=== PATIENT | male | born 1960 | race Caucasian/White ===

== ENCOUNTER → 2020-01-23 | Outpatient (CLI) | payer BC | END | disposition home or self-care (01) | LOC: LABWHC1 09:14 | PROVIDERS: ATTEND Internal Medicine Clinical Cardiac Electrophysiology | DX: Z11.59 Encounter for screening for other viral diseases (principal) | CPT/HCPCS: 87635 ==

== ENCOUNTER → 2020-01-27 | Day surgery (SDC) | payer BC ==
[2020-01-22 11:10] VITALS: BMI 42.5
[~2020-01-27] MED LIST: SODIUM CHLORIDE 0.9% 1,000 ML IV SCH
[2020-01-27 08:41] VITALS: BP 145/76; PULSE 57; RESP 18; TEMP 97.8
[2020-01-27 10:57] LABS: Basophils # (A) 0.1 k/uL (0-0.2); Basophils % (A) 1 %; Eosinophils # (A) 0.1 k/uL (0-0.7); Eosinophils % (A) 1 %; HCT 50.9 % (39.0-53.0); HGB 16.7 gm/dL (13.0-17.5); Lymphocytes # (A) 2.3 k/uL (1.0-4.8); Lymphocytes % (A) 25 %; MCH 28.1 pg (25.0-35.0); MCHC 32.8 g/dL (31.0-37.0); MCV 85.8 fL (80.0-100.0); Monocytes # (A) 0.6 k/uL (0-1.0); Monocytes % (A) 7 %; Neutrophils % (A) 65 %; Platelet Count 203 k/uL (150-450); RBC 5.94 m/uL (4.30-5.90); RDW 14.3 % (11.5-15.5); WBC 9.3 k/uL (3.8-10.6)
[2020-01-27 10:58] LABS: Glucose,Whole Blood 177 mg/dL (75-99)
[2020-01-27 11:07] LABS: Potassium 4.6 mmol/L (3.5-5.1)
== END ==
LOC: CATHEP 08:17
PROVIDERS: ATTEND Internal Medicine Clinical Cardiac Electrophysiology
DX: I48.91 Unspecified atrial fibrillation (principal)
CPT/HCPCS: 80048; 85025

== ENCOUNTER → 2020-02-06 | Outpatient (CLI) | payer BC | LOC: LABWHC1 11:45 | PROVIDERS: ATTEND Internal Medicine Clinical Cardiac Electrophysiology | DX: Z11.59 Encounter for screening for other viral diseases (principal) ==

== ENCOUNTER 2020-02-09 09:47 | Day surgery (SDC) | payer BC ==
[2020-02-06 08:50] VITALS: BMI 41.8
[~2020-02-09 09:47] MED LIST changes: +LACTATED RINGERS 1,000 ML IV SCH
[2020-02-09 10:26] LABS: Glucose,Whole Blood 161 mg/dL (75-99)
[2020-02-09] MEDS ORDERED: fentaNYL (PF) 50 MCG/ML 2 ML AMP ONE (11:55)
[2020-02-09] MEDS ORDERED: ONDANSETRON 4 MG/2 ML VIAL ONE (11:55)
[2020-02-09] MEDS ORDERED: HEPARIN SODIUM,PORCINE 10,000 UNIT/ML 1 ML VIAL ONE (11:55)
[2020-02-09] MEDS ORDERED: FUROSEMIDE 10 MG/ML 2 ML VIAL ONE (11:55)
[2020-02-09] MEDS ORDERED: NEOSTIGMINE 1 MG/ML 10 ML VIAL ONE (11:55)
[2020-02-09] MEDS ORDERED: PROTAMINE SULFATE 10 MG/ML 5 ML VIAL IV ONE (11:55)
[2020-02-09] MEDS ORDERED: MIDAZOLAM 2 MG/2 ML VIAL ONE (11:55)
[2020-02-09] MEDS ORDERED: LIDOCAINE 1% INJ 10MG/ML (20 ML MDV) ONE (11:55)
[2020-02-09] MEDS ORDERED: GLYCOPYRROLATE 0.2 MG/ML 2 ML VIAL ONE (11:55)
[2020-02-09] MEDS ORDERED: ROCURONIUM BROMIDE 10 MG/ML 5 ML VIAL IV ONE (11:55)
[2020-02-09] MEDS ORDERED: PROPOFOL 10 MG/ML 20 ML VIAL IV ONE (11:55)
[2020-02-09] MEDS ORDERED: PHENYLEPHRINE-0.9% NACL SYG 1 MG/10 ML SYRINGE ONE (11:55)
[2020-02-09] MEDS ORDERED: SUCCINYLCHOLINE CHLORIDE VIAL 200 MG/10 ML VIAL IV ONE (11:55)
--- NOTE | 2020-02-09 12:39 | P.HPCAR ---
History of Present Illness This is Dr. Alonzo dictating an H/P on this patient The patient was interviewed and examined Patient of Dr. Constantin Hayden and Dr. 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 Pulmonary symptoms at this time PLAN: A. fib ablation and reevaluation thereafter Risks and benefits were discussed success rates and complications were discussed HPI Complains of tiredness fatigued shortness of breath and heart failure-like symptoms Reduction in LV systolic function with heart failure symptoms during atrial fibrillation Failed antiarrhythmic therapies including drug therapy with electrical card ioversion ROS: No fever chills or rigors, no cough, phlegm or expectoration, no nausea, vomiting or diarrhea, no hematuria, dysuria, no musculoskeletal complaints, no strokes or seizures, no skin lesions. EXAMINATION: Afebrile 98.8F, pulse rate in the 70s Blood pressure 148/80 mmHg 96% on room air Breath sounds are reduced bilaterally no rhonchi no crackles No JVD no carotid bruits No lower extremity edema Trophic changes in the lower extremities Abdomen is soft Central obesity Heart rates are irregular rhythm is irregular no murmurs REVIEW OF LABS, ECG & MEDICAL DATA Elevated glucose Physical Exam Vitals: Vital Signs Temp Pulse Resp BP Pulse Ox 02/09/20 10:36 98.8 F 77 6 L 148/80 96 Intake and Output 02/08/20 02/09/20 02/09/20 22:59 06:59 14:59 Intake Total 20 Balance 20 Intake: IV 20 Other: Weight 151.9 kg Past Medical History Past Medical History: Atrial Fibrillation, Diabetes Mellitus, Hyperlipidemia, Hypertension Additional Past Medical History / Comment(s): see DR Alonzo H & P History of Any Multi-Drug Resistant Organisms: None Reported Additional Past Surgical History / Comment(s): cardioversion Past Anesthesia/Blood Transfusion Reactions: No Reported Reaction Smoking Status: Never smoker - Past Family History Mother Family Medical History: No Reported History Physical Examination Vital Signs Temp Pulse Resp BP Pulse Ox 02/09/20 10:36 98.8 F 77 6 L 148/80 96 Intake and Output 02/08/20 02/09/20 02/09/20 22:59 06:59 14:59 Intake Total 20 Balance 20 Intake: IV 20 Other: Weight 151.9 kg Results Current Medications Generic Name Dose Route Start Last Admin Trade Name Yoan PRN Reason Stop Dose Admin Sodium Chloride 1,000 mls @ 20 mls/hr 02/09/20 06:07 02/09/20 10:38 Saline 0.9% IV 20 mls .Q24H TRIN[place] Administration Lactated Ringer's 1,000 mls @ 20 mls/hr 02/09/20 06:07 Lactated Ringers IV .Q24H TR[place]IDAD Intake and Output 02/08/20 02/09/20 02/09/20 22:59 06:59 14:59 Intake Total 20 Balance 20 Intake: IV 20 Other: Weight 151.9 kg Patient Weight 02/10/20 06:59 Weight 151.9 kg
[2020-02-09] MEDS ORDERED: HEPARIN SOD,PORK IN 0.45% NACL 25,000 UNIT in 0.45% NACL 1 250ML.BAG IV ONE (12:58)
[2020-02-09] MEDS ORDERED: LIDOCAINE 1% INJ 10MG/ML (20 ML MDV) SQ ONE (12:59)
[2020-02-09] MEDS ORDERED: IOPAMIDOL-370 125ML BTL INJ ONE (14:40)
[2020-02-09] MEDS ORDERED: HEPARIN SODIUM (1,000 UNIT/ML) 1,000 UNIT in SODIUM CHLORIDE 0.9% 1,000 ML IRRIGATION ONE ×2 (15:15→17:50)
[2020-02-09] MEDS ORDERED: LACTATED RINGERS 1,000 ML IV ONE (15:30)
[2020-02-09] MEDS ORDERED: ACETAMINOPHEN TAB 325 MG TAB PO PRN (18:33)
[2020-02-09] MEDS ORDERED: HYDROcodone/APAP 5-325MG 1 EACH TAB PO PRN (18:33)
--- NOTE | 2020-02-09 18:45 | P.PCN ---
Preoperative Diagnosis: Diagnosis Atrial fibrillation, symptomatic, refractory to therapy Persistent Associated with cardio myopathy and heart failure Result No left atrial appendage mass seen on intracardiac echo Significant biatrial enlargement Successful pulmonary vein isolation of all veins using cryo-ablation Complete entrance block in all 4 veins confirmed No evidence for phrenic nerve injury Linear ablation along the left atrial roof, Linear ablation along the anterior septum Linear ablation mitral annulus isthmus Esophageal deflection YES Electrical cardioversion with a synchronized shock across the chest YES Plan Continue amiodarone now at 100 mg by mouth daily Continue cardio myopathy medications If he has recurrence of atrial fibrillation then dense mapping with a Pentaray catheter in the left atrium, interrogation of the roof line and the mitral isthmus line Ablation within the coronary sinus Use of a Visio sheath for extra stability Procedure details Patient was brought to the EP lab in a fasting state. Written informed consent was obtained prior to the procedure. Procedure performed under general anesthesia After initial muscle relaxant use, muscle relaxants were not given thereafter in order to assess phrenic nerve during procedure. Patient prepped and draped as per protocol Full cryo-set up with standard preparation of the cryoablation tools done. Femoral Venous access obtained on the right and left groins Venous and arterial Sheaths placed. Diagnostic catheters for the high right atrium, phrenic nerve stimulation and pacing, His bundle, RV and coronary sinus placed Intracardiac echo catheter placed. Long sheath placed in the right atrium Left and right transseptal catheterization performed under intracardiac echo guidance. Intravenous heparin with aCT above 300 Later, catheter positioning and balloon positioning in the left atrium, under intracardiac echo guidance Diagnostic EP study with Coronary sinus pacing and recording Baseline measurements sinus cycle length 930 ms, MD interval 193 ms QRS 100 ms QT 540 ms AH 61 and HV 76 ms Atrial pacing from the sinus and left atrium to interrogate lines Transseptal catheterization performed RA pressure 13/8/10 LA pressure 36/7/24 Transseptal catheterization performed with standard sheath. The cryoablation sheath was then placed with an over the wire exchange without any acute complications. All 4 pulmonary veins were isolated in the following sequence: Left superior followed by left inferior followed by right superior followed by right inferior The cryo-ablation balloon was placed at the os of each vein 1.5 mL of IV dye was injected to confirm an occluded vein Goal during cryoablation was to achieve complete occlusion of the pulmonary vein, achieve -30 degrees C at 30 seconds and achieve -40 degrees C at 60 seconds and a time to effect of less than 60-90 seconds, . If not the balloon was repositioned to obtain this result After completion of Cryoblation with durations from 180-240 seconds, entrance block was confirmed with the Attain circular catheter in a roving fashion around the antrum of the pulmonary veins Phrenic nerve pacing was performed from the SVC, right innominate vein area and diaphragm voltage was monitored. Diaphragmatic contractions were also monitored manually for strength of contraction. Parameter goals for each cryo freeze Complete occlusion of the appropriate vein -30 degrees C by 30 seconds -40 degrees C by 60 seconds Minimum between minus 40-55 degrees C Thaw time greater than 10 seconds Balloon visualized by intracardiac echo The esophagus was intubated. Esophageal Temperature monitoring with a CIRCA catheter formed. Esophageal deflection for hypothermia of the esophagus below 30 degrees C Left superior pulmonary vein Complete isolation, entrance block Left inferior pulmonary vein Complete isolation, entrance block Right superior pulmonary vein, during phrenic nerve pacing Complete isolation, entrance block Right inferior pulmonary vein, during phrenic nerve pacing Complete isolation, entrance block At the end of the procedure the Achieve catheter was once again used to check for entrance block Phrenic nerve stimulation was performed to confirm diaphragmatic stimulation the end of the procedure Cine fluoroscopy was performed at the very end of the procedure to confirm movement of both diaphragms with inspiration and expiration This is a very long procedure The atrium was significantly enlarged After complete isolation of all 4 pulmonary veins the following linear ablations were performed Left atrial roof ablation was performed slightly anterior to the roof. Later when in sinus rhythm the line was interrogated this seemed to be In the line However a more anterior RF line was made. Contact force of around 810 g, 40 W of power in a complete line was made from the left superior pulmonary vein anteriorly to the right superior pulmonary vein anteriorly Yet they seem to be a slow leak all along the line despite non-capture along the entire Anterior septum was ablated. The linear ablation was performed along the anterior septum and the segment of the anterior wall between the right-sided veins and this line was completely quiescent Once the roof line and the anterior septum Were completed this seemed to be much better organization of left atrial electrograms with eccentric activation Therefore the mitral isthmus line was made and this was eliminated but atrial fibrillation continued and became more disorganize Then linear ablation was performed in the mitral isthmus because it was colonization of left atrial activity intermittently with eccentric activation in the Asher sinus pole A complete RF line was made. Non-capture was noted Yet there was conduction through this line was simply at the level of the coronary sinus Asher sinus was not ablated at this time At the end of the procedure the patient was extubated Heparin was reversed Venous sheaths were removed and hemostasis assured Procedures performed (PVI - CRYO Ablation) Diagnostic EP study CS pacing and recording Left and right transseptal catheterization 3D mapping) Intracardiac echocardiography Pulmonary vein isolation with transseptal and comprehensive EPS, 41675 Left atrial roof line, +19530 Linear ablation, left atrium, +75052 Linear ablation in the left atrial mitral isthmus, +[id number] Electrical cardioversion with a synchronized shock across the chest [id number]
--- NOTE | 2020-02-09 18:46 | P.PRLE ---
RE: Gurjit Siegel Dear Dr. Catracho Meek underwent extensive A. fib ablation involving pulmonary vein isolation as well as linear ablation of the left atrium He has a significantly enlarged right and left atria with smoke in the left atrium Once in sinus rhythm his LV function seemed to improve I would continue his cardio myopathy medications and ELIQUIS lifelong He will continue to follow with you and Dr. Deleon as before Thank you for entrusting me with the care of the patient Warm regards Sincerely Mike Alonzo
[2020-02-09] MEDS ORDERED: ACETAMINOPHEN IV (For NPO) 1,000 MG in EMPTY BAG 1 BAG IVPB ONE (19:00)
[2020-02-09] MEDS: HYDROmorphone 0.5 MG/0.5 ML SYRINGE IVP ONE ×2 (19:28→19:37)
[2020-02-09 19:42] LABS: Glucose,Whole Blood 169 mg/dL (75-99)
[2020-02-09] MEDS ORDERED: ASPIRIN 81 MG PO SCH (21:00)
[2020-02-09] MEDS: METOPROLOL TARTRATE 50 MG TAB PO SCH (21:31)
[2020-02-09] MEDS: APIXABAN 5 MG TAB PO SCH (21:31)
[2020-02-09 21:32] LABS: Glucose,Whole Blood 209 mg/dL (75-99)
[2020-02-09] MEDS: FUROSEMIDE 40 MG TAB PO SCH (21:32)
[2020-02-10 04:16] VITALS: PULSE 62
[2020-02-10 06:20] LABS: Albumin 3.6 g/dL (3.5-5.0); Potassium 5.1 mmol/L (3.5-5.1); Total Bilirubin 1.2 mg/dL (0.2-1.3); Total Protein 6.3 g/dL (6.3-8.2)
[2020-02-10 06:54] LABS: Glucose,Whole Blood 159 mg/dL (75-99)
[2020-02-10] MEDS ORDERED: glipiZIDE 10 MG TAB PO SCH (07:30)
[2020-02-10 07:33] VITALS: BP 92/53; RESP 18; TEMP 97.9
--- NOTE | 2020-02-10 07:47 | P.DS ---
Providers Attending physician: Mike Alonzo Primary care physician: [facility] Course: Patient is resting comfortably in bed. He has no pleuritic chest discomfort no sore throat no dizziness or lightheadedness. His back feels better His lungs are clear auscultation and no rhonchi no crackles posteriorly or anteriorly Heart sounds are regular no murmurs normal S1 normal S2 No hepatojugular reflux no JVD No lower extremity edema Abdomen is soft and nontender Telemetry shows sinus mechanism in the 60s His blood pressures in the high 90s but she is completely asymptomatic Yesterday he underwent pulmonary vein isolation Thereafter he underwent linear ablation in the left atrial roof, anterior septum and mitral isthmus Subsequently he underwent electrical cardioversion He has severe cardio myopathy but in sinus rhythm is LV function looked at had better He has a significantly enlarged right atrium He is a significantly enlarged left atrium Smoke in the left atrium and the right atrium Labs reviewed this morning sodium 133, potassium 5.1 bicarb 25 BUN 28 creatinine 1.4 GFR 54 TSH normal at 0.84 Plan Resume diabetes medications including metformin Continue ELIQUIS 5 mg twice daily Continue current myopathy/heart failure medications. At this time I would reduce spironolactone 25 mg by mouth daily and lisinopril 22.5 mg by mouth daily line continue all other medications as before and follow up with Dr. Pancho jung/Flor Rao within a week Long-term plan If he has recurrence of atrial fibrillation then If he recurs with an atrial tachycardia then I would recommend mapping and ablation, high density mapping with a deflectable sheath, Vizigo If he has atrial fibrillation as a recurrence then consideration for possible dofetilide However that would need discontinuation of amiodarone for at least 3 months, at least a 3 month washout because of interaction with amiodarone and dofetilide Plan - Discharge Summary Discharge Rx Participant: Yes New Discharge Prescriptions: Continue RX: glipiZIDE [Glucotrol] 10 mg PO DAILY RX: Lisinopril [Zestril] 2.5 mg PO DAILY RX: Atorvastatin [Lipitor] 20 mg PO DAILY RX: Metoprolol Tartrate [Lopressor] 50 mg PO BID RX: Furosemide [Lasix] 40 mg PO BID RX: Apixaban [Eliquis] 5 mg PO BID RX: Amiodarone HCl [Pacerone] 200 mg PO DAILY RX: Spironolactone 25 mg PO DAILY RX: Dapagliflozin Propanediol [Farxiga] 10 mg PO HS RX: Aspirin [Adult Low Dose Aspirin EC] 81 mg PO HS Discharge Medication List RX: Amiodarone HCl [Pacerone] 200 mg PO DAILY 01/22/20 [History] RX: Apixaban [Eliquis] 5 mg PO BID 01/22/20 [History] RX: Aspirin [Adult Low Dose Aspirin EC] 81 mg PO HS 01/22/20 [History] RX: Atorvastatin [Lipitor] 20 mg PO DAILY 01/22/20 [History] RX: Dapagliflozin Propanediol [Farxiga] 10 mg PO HS 01/22/20 [History] RX: Furosemide [Lasix] 40 mg PO BID 01/22/20 [History] RX: Lisinopril [Zestril] 2.5 mg PO DAILY 01/22/20 [History] RX: Metoprolol Tartrate [Lopressor] 50 mg PO BID 01/22/20 [History] RX: Spironolactone 25 mg PO DAILY 01/22/20 [History] RX: glipiZIDE [Glucotrol] 10 mg PO DAILY 01/22/20 [History] Follow up Appointment(s)/Referral(s): Mike Alonzo MD [STAFF PHYSICIAN] - As Needed Alireza Taylor MD [STAFF PHYSICIAN] - 1 Week (Follow-up with Flor Rao/Dr. Taylor within one week for a groin check) Activity/Diet/Wound Care/Special Instructions: Post EP study - Ablation instructions 1. Keep access sites dry for 2 days. 2. No heavy lifting or straining for 2 days. 3. Avoid bending the hips repeatedly for 2 days. 4. You may go up and down stairs slowly Call if the following is noted 1. Bleeding, increasing swelling or pain at the access sites. 2. Increasing chest discomfort, especially upon taking a deep breath. 3. Increasing shortness of breath, at rest or with exertion. 4. Undue cough / phlegm 5. Difficulty or pain while swallowing. 6. Pain or change in color in the extremities. 7. Fever, chills, rigors. 8. Increasing headache or neurologic symptoms. 9. Dizziness, fainting, palpitations Patient may resume all diabetes medications including metformin Continue ELIQUIS and heart failure medications Discharge Disposition: HOME SELF-CARE
[2020-02-10] MEDS: FUROSEMIDE 40 MG TAB PO SCH (08:26)
[2020-02-10] MEDS: APIXABAN 5 MG TAB PO SCH (08:26)
[2020-02-10] MEDS: METOPROLOL TARTRATE 50 MG TAB PO SCH (08:27)
[2020-02-10] MEDS ORDERED: SPIRONOLACTONE 25 MG TAB PO SCH ×2 (09:00)
[2020-02-10] MEDS ORDERED: LISINOPRIL 5 MG TAB PO SCH (09:00)
[2020-02-10] MEDS ORDERED: AMIODARONE 200 MG TAB PO SCH (09:00)
[2020-02-10] MEDS ORDERED: ATORVASTATIN 20 MG TAB PO SCH (09:00)
[2020-02-10] MEDS ORDERED: LISINOPRIL 2.5 MG TAB PO SCH (09:00)
== END 2020-02-10 10:15 | disposition home or self-care (01) ==
LOC: CATHEP 09:47 → 1SOBS 18:22 → CATHEP 02-10 10:15
PROVIDERS: ATTEND Internal Medicine Clinical Cardiac Electrophysiology
DX: I48.19 Other persistent atrial fibrillation (principal); I11.0 Hypertensive heart disease with heart failure; I50.20 Unspecified systolic (congestive) heart failure; I42.9 Cardiomyopathy, unspecified; E11.9 Type 2 diabetes mellitus without complications; E78.5 Hyperlipidemia, unspecified
CPT/HCPCS: 93005; 85347; 93662; 93613; 93656; 93657; 80053; 84443; C1769 ×6; C1894 ×2; C1730 ×2; C1759; C1893; C1733; C1732; J2250; J0330; J2720; J1644 ×3; J1940; J2710; J2405; J2001; J3010; J2370; J2704; J1170; Q9967

== ENCOUNTER 2023-12-26 09:36 | Day surgery (SDC) | payer BC ==
[~2023-12-26 09:36] MED LIST changes: +ALPRAZolam 0.25 MG TAB PO PRN; +ALPRAZolam 0.5 MG TAB PO PRN; +HEPARIN SODIUM,PORCINE (1 ML) 2,500 UNIT in SODIUM CHLORIDE 0.9% 250 ML IRRIGATION PRN; +HEPARIN SODIUM,PORCINE 10,000 UNIT in SODIUM CHLORIDE 0.9% 1,000 ML IRRIGATION PRN; -LACTATED RINGERS 1,000 ML IV SCH; +NITROGLYCERIN SL TABS 0.4 MG TAB SUBLINGUAL PRN; -SODIUM CHLORIDE 0.9% 1,000 ML IV SCH
[2023-12-26 10:00] LABS: Glucose,Whole Blood 165 mg/dL (70-110)
[2023-12-26] MEDS: SODIUM CHLORIDE 0.9% 1,000 ML IV SCH ×2 (10:00→17:23)
[2023-12-26] MEDS: ASPIRIN 325 MG TAB PO ONE (10:14)
[2023-12-26] MEDS ORDERED: VERAPAMIL 2.5 MG/ML 2 ML AMP ONE (10:21)
[2023-12-26] MEDS ORDERED: fentaNYL (PF) 50 MCG/ML 2 ML AMP ONE ×2 (10:21→12:30)
[2023-12-26] MEDS ORDERED: LIDOCAINE 1% INJ 10MG/ML (20 ML MDV) ONE (10:21)
[2023-12-26] MEDS ORDERED: HEPARIN SODIUM 1,000 UN/ML (10ML VL) ONE ×2 (10:22→12:30)
[2023-12-26] MEDS: BENZOCAINE SPRAY 1 CAN TOPICAL ONE ×2 (12:33→12:38)
[2023-12-26] MEDS: fentaNYL (PF) 50 MCG/ML 2 ML AMP IVP ONE (12:38)
[2023-12-26] MEDS: MIDAZOLAM 2 MG/2 ML VIAL IVP ONE ×2 (12:39→12:41)
[2023-12-26] MEDS: SODIUM CHLORIDE 0.9% 1,000 ML IV ONE ×2 (12:39→16:00)
--- NOTE | 2023-12-26 12:50 | P.PCN ---
Date of Procedure: 12/26/23 Operative Findings: TRANSESOPHAGEAL ECHOCARDIOGRAM VEGETABLES COOK: JENAE PARKER MD, RPVI INDICATION: Aortic insufficiency SEDATION: Conscious sedation COMPLICATION: None LEVEL OF SEDATION Moderate with sedation length of 16 minutes PROCEDURE DESCRIPTION: After obtaining an informed consent, the patient was brought to the [facility]. Pulse oximetry and heart monitors were attached to the patient. The patient throat was sprayed using lidocaine. The patient was turned into left lateral position. After that a bite guard was placed. After an appropriate conscious sedation was initiated, the transesophageal echocardiogram was advanced through a bite guard into the mid esophagus. A 2-D echocardiogram images, color Doppler images, continuous wave images, pulse-wave images, of various cardiac structure were performed. After that the transesophageal echocardiogram probe was advanced into the stomach and fixed to obtain transgastric view was. The probe was brought into the mid esophagus. Inter-atrial septum was interrogated using 2D images, color Doppler images, and then contrast study. After that transesophageal echocardiogram was withdrawn out and upon withdrawing the descending thoracic aorta all the way up to the arch was evaluated. CONCLUSION: 1. Mildly impaired LV function with EF between 45 to 50% with a global hypokinesia 2. Normal right ventricular dimension and systolic function 3. Trileaflet aortic valve with evidence of severe aortic regurgitation by color-flow Doppler. Evidence of holosystolic reversal flow in the descending aorta was noted as well 4. Mild mitral regurgitation 5. Mild tricuspid regurgitation 6. Intact interatrial septum
[2023-12-26] MEDS: LIDOCAINE 1% INJ 10MG/ML (20 ML MDV) SQ ONE (12:57)
[2023-12-26] MEDS: VERAPAMIL SYRINGE (5 MG/10 ML) INTRAARTER ONE (12:58)
[2023-12-26] MEDS: HEPARIN SODIUM 1,000 UN/ML (10ML VL) IVP ONE (13:04)
[2023-12-26] MEDS: IOPAMIDOL-370 100ML BTL INJ ONE ×2 (13:21)
[2023-12-26] MEDS ORDERED: RX INFO: IV CONTRAST WAS GIVEN 1 EACH MISC MISCELLANE PRN (13:25)
--- NOTE | 2023-12-26 13:31 | P.PCN ---
Date of Procedure: 12/26/23 Operative Findings: CARDIAC CATHETERIZATION PERFORMING PHYSICIAN: Alireza Taylor MD, RPVI PROCEDURE PERFORMED: 1. Selective right and left coronary angiogram 2. Left heart catheterization 3. An aortic root angiogram 4. Ultrasound-guided access of the right radial artery INDICATION: Severe aortic insufficiency COMPLICATION: None APPROACH: Right radial artery LEVEL OF SEDATION: Moderate with a sedation length of 29 minutes PROCEDURE DESCRIPTION: After obtaining an informed consent, the patient was brought to cardiac cardiac catheterization technician. Local anesthesia was performed using lidocaine subcutaneously. The right radial artery was cannulated using Seldinger technique, the guidewire passed easily, following that we advanced a 5-Irish sheath dilator assembly, the wire and dilator were removed and sheath was flushed. Following that, 2 mg of verapamil along with 5000 unit heparin were given. Selective right coronary angiogram was performed using an AL-1 catheter and selective left coronary angiogram was performed using JL 4 catheter Following that we did left heart catheterization using 6-Irish pigtail catheter. Following that I did an aortic root angiogram using the pigtail catheter. The procedure was completed with no complication SELECTIVE CORONARY ANGIOGRAM: The right coronary artery: Large-caliber vessel/aneurysmal vessel with no high-grade stenosis with a sluggish flow Left main: Is angiographically normal. Bifurcates into an LCx and LAD The left circumflex: Large caliber vessel with mild disease in the proximal to midportion The left anterior descending artery: Large caliber vessel with mild disease only as well HEMODYNAMICS: LVEDP was 20 mmHg with no significant gradient was identified across aortic valve The aortic root angiogram: Was performed in the PASHTO projection and using a power injection. 4+ aortic insufficiency identified CONCLUSION: 1. No evidence of high-grade stenosis was identified in the coronary trees with aneurysmal right coronary system 2. 4+ aortic insufficiency was identified POSTPROCEDURE MANAGEMENT: Evaluated the patient for aortic valve replacement likely with aortic root replacement as well
[2023-12-26 17:22] LABS: Glucose,Whole Blood 156 mg/dL (70-110)
[2023-12-26] MEDS: ATORVASTATIN 80 MG TAB PO ONE (17:29)
[2023-12-26] MEDS: INSULIN ASPART (NovoLOG) 100 UNIT/ML VIAL SQ SCH (18:22)
[2023-12-26 20:58] LABS: Glucose,Whole Blood 163 mg/dL (70-110)
--- NOTE | 2023-12-26 21:41 | US ---
EXAMINATION TYPE: US carotid duplex BILAT DATE OF EXAM: 12/26/2023 COMPARISON: NONE CLINICAL INDICATION: Male, 63 years old with history of preop cardiac surgery; PREOP cardiac surgery TECHNIQUE: Carotid duplex ultrasound examination. Indirect Doppler criteria was utilized. FINDINGS: Mild intimal thickening in the right CCA. Small amount of mixed plaque visible in the right carotid b ulb. Similar findings on the left. EXAM MEASUREMENTS: RIGHT: Peak Systolic Velocity (PSV) cm/sec ----- Right CCA: 65.8 ----- Right ICA: 65.8 ----- Right ECA: 103.4 ICA/CCA ratio: 1.0 RIGHT: End Diastole cm/sec ----- Right CCA: 6.5 ----- Right ICA: 14.2 ----- Right ECA: 5.0 LEFT: Peak Systolic Velocity (PSV) cm/sec ----- Left CCA: 96.1 ----- Left ICA: 69.1 ----- Left ECA: 84.5 ICA/CCA ratio: 0.7 LEFT: End Diastole cm/sec ----- Left CCA: 14.9 ----- Left ICA: 13.1 ----- Left ECA: 7.6 VERTEBRALS (direction of flow): Right Vertebral: Antegrade Left Vertebral: Antegrade Rhythm: Normal ATTORNEY NOTES: No significant velocity elevations seen today. IMPRESSION: 1. Mild atherosclerotic disease, with less than 50% stenosis of the proximal ICAs bilaterally. 2. 3. Antegrade flow in the vertebral arteries. Criteria for Assigning % of Stenosis / Diameter reduction (Estimation based on the indirect measurements of the internal carotid artery velocities (ICA PSV). 1. Normal (no stenosis)=ICA PSV < 125 cm/s: ratio < 2.0: ICA EDV<40 cm/s. 2. Less than 50% stenosis=ICA PSV < 125 cm/s: ratio < 2.0: ICA EDV<40 cm/s. 3. 50 to 69% stenosis=ICA PSV of 125 to 230 cm/s: ration 2.0 ? 4.0: ICA EDV 40-100 cm/s. 4. Greater than 70% stenosis to near occlusion= ICA PSV > 230 cm/s: ratio > 4.0: ICA EDV > 100 cm/s. 5. Near occlusion= ICA PSV velocities may be low or undetectable: variable ratio and ICA EDV. 6. Total occlusion=unable to detect flow.
[2023-12-26] MEDS: DAPAGLIFLOZIN PROPANEDIOL 10 MG TABLET PO SCH (22:21)
[2023-12-26] MEDS: METOPROLOL TARTRATE 25 MG TAB PO SCH (22:21)
[2023-12-27 05:45] LABS: Glucose,Whole Blood 152 mg/dL (70-110)
--- NOTE | 2023-12-27 08:25 | XR ---
EXAMINATION TYPE: XR chest 2V DATE OF EXAM: 12/27/2023 COMPARISON: NONE HISTORY: Shortness of breath TECHNIQUE: Frontal and lateral views of the chest are obtained. FINDINGS: Scattered senescent parenchymal changes noted. Hyperinflation compatible with COPD. Patchy density right medial lung base. Heart size is stable. Mediastinal structures are stable and grossly unremarkable. No evidence for hilar prominence. Degenerative changes dorsal spine. IMPRESSION: 1. Patchy density right medial lung base.
--- NOTE | 2023-12-27 09:05 | CT ---
EXAMINATION TYPE: CT chest wo con DATE OF EXAM: 12/27/2023 COMPARISON: None HISTORY: assess aorta CT DLP: 723.[address] of the chest was performed with lung and mediastinal window settings submitted. The la ck of contrast limits evaluation of the vascular, mediastinal and parenchymal structures including th e upper abdomen. LUNGS: The lungs are clear and free of infiltrate. No atelectasis. No pulmonary nodule or mass is de tected. No pleural effusion. No CT evidence of interstitial lung disease. MEDIASTINUM/PASCALE: Ascending thoracic aorta measures 4.6 cm AP dimension. Aortic arch measures 3.2 cm and the descending thoracic aorta measures approximately 3.6 cm. There is minimal scattered atheromat ous plaque seen. There is mild cardiomegaly evident. No evidence for mediastinal mass. No lymph nod es greater than 1cm. UPPER ABDOMEN: No significant abnormality is seen. OTHER: No significant other abnormality. IMPRESSION: 1. Ascending and descending thoracic aortic aneurysm as noted minimal scattered calcific plaque.
[2023-12-27] MEDS: glipiZIDE 10 MG TAB PO SCH (09:49)
[2023-12-27] MEDS: ATORVASTATIN 20 MG TAB PO SCH (09:49)
[2023-12-27] MEDS: FUROSEMIDE 40 MG TAB PO SCH (09:49)
[2023-12-27] MEDS: SPIRONOLACTONE 25 MG TAB PO SCH (09:49)
[2023-12-27] MEDS: AMIODARONE 200 MG TAB PO SCH (09:49)
[2023-12-27] MEDS: lisinopriL 20 MG TAB PO SCH (09:49)
[2023-12-27 10:11] VITALS: BP 150/79; PULSE 57; RESP 18; TEMP 98
[2023-12-27 11:07] LABS: Basophils # (A) 0.06 X 10*3/uL (0.00-0.10); Basophils % (A) 0.9 %; Eosinophils # (A) 0.07 X 10*3/uL (0.04-0.35); HCT 45.1 % (39.6-50.0); HGB 14.8 g/dL (13.0-17.0); Lymphocytes # (A) 2.13 X 10*3/uL (0.90-5.00); Lymphocytes % (A) 31.9 %; MCH 29.5 pg (27.0-32.0); MCHC 32.8 g/dL (32.0-37.0); Mean Platelet Volume 10.9 FL (9.5-12.2); Monocytes # (A) 0.51 X 10*3/uL (0.20-1.00); Monocytes % (A) 7.6 %; NRBC Per 100 WBC 0.02 X 10*3/uL (0.00-0.01); Neutrophils # (A) 3.86 X 10*3/uL (1.80-7.70); Platelet Count 190 X 10*3/uL (140-440); RBC 5.01 X 10*6/uL (4.40-5.60); RDW 13.4 % (11.5-14.5); WBC 6.67 X 10*3/uL (4.50-10.00)
[2023-12-27 11:13] LABS: INR 1.01 sec (0.93-1.11); Prothrombin Time 10.9 sec (9.9-11.9)
[2023-12-27 11:23] LABS: ALT 40 U/L (10-49); AST 26 U/L (14-35); Albumin 4.2 g/dL (3.8-4.9); Albumin/Globulin Ratio 1.83 Ratio (1.60-3.17); Alkaline Phosphatase 47 U/L (41-126); BUN/Creat Ratio 17.46 Ratio (12.00-20.00); Blood Urea Nitrogen 22.7 mg/dL (9.0-27.0); Calcium 9.4 mg/dL (8.7-10.3); Carbon Dioxide 21.9 mmol/L (21.6-31.8); Chloride 104 mmol/L (96-109); Chol/HDL Ratio 3.46 Ratio; Globulin 2.3 g/dL (1.6-3.3); Glucose 160 mg/dL (70-110); Hepatitis A Antibody IgM Nonreactive (Nonreactive); Hepatitis B Core IgM Nonreactive (Nonreactive); Hepatitis B Surface Antigen Nonreactive (Nonreactive); Hepatitis C IgG Antibody Nonreactive (Nonreactive); Magnesium 2.5 mg/dL (1.5-2.4); Potassium 4.7 mmol/L (3.5-5.5); Sodium 138 mmol/L (135-145); Total Bilirubin 0.7 mg/dL (0.3-1.2); Total Protein 6.5 g/dL (6.2-8.2)
--- NOTE | 2023-12-27 13:30 | P.GSCN ---
History of Present Illness Consult date: 12/27/23 Reason for Consult: Severe aortic insufficiency Requesting physician: Alireza Taylor History of present illness: This is a 63-year-old gentleman who follows outpatient with Dr. Hayden for internal medicine and Dr. Taylor for cardiology. He has a previous medical history of nonischemic cardiomyopathy, hypertension, hyperlipidemia, paroxysmal atrial fibrillation on Eliquis for anticoagulation, diabetes, obesity, and family history of premature coronary artery disease. He has been experiencing episodes of dyspnea on exertion, although admittedly no significant increase over time. He also endorses occasional lower extremity edema, denies any chest pain or any other symptomatology. He had an echocardiogram completed at [facility] demonstrating reduced left ventricular systolic function with EF 45 to 50%, along with severe aortic regurgitation and aneurysmal ascending aorta measuring 4.4 cm, along with mild mitral and tricuspid regurgitation. He was recommended to undergo heart catheterization and LUCY which were completed today by Dr. Taylor. LUCY confirmed mildly impaired left ventricular systolic function with EF 45 to 50% with global hypokinesia, trileaflet aortic valve with severe aortic regurgitation, mild mitral and tricuspid regurgitation. Heart catheterization revealed no evidence of high- grade stenosis, 4+ aortic insufficiency was noted. Due to these findings consultation was placed to cardiothoracic surgery for treatment recommendations. Review of Systems Review of systems was completed and was negative except as noted - Cardiovascular Reports dyspnea on exertion, Reports leg edema, Reports shortness of breath Past Medical History Past Medical History: Atrial Fibrillation, Diabetes Mellitus, Hyperlipidemia, Hypertension, Sleep Apnea/CPAP/BIPAP Additional Past Medical History / Comment(s): see DR Cheri Melara & [place], uses CPAP, current Lt. knee scab size of nickel History of Any Multi-Drug Resistant Organisms: None Reported Past Surgical History: Hernia Repair, Orthopedic Surgery, Tonsillectomy Additional Past Surgical History / Comment(s): Bilat. knee surgery(6 surgeries) 1967 - 1973, hiatal hernia repair 1984, colonoscopy, cardioversion Past Anesthesia/Blood Transfusion Reactions: No Reported Reaction Past Psychological History: No Psychological Hx Reported Smoking Status: Never smoker Past Alcohol Use History: None Reported Past Drug Use History: None Reported - Past Family History Mother Family Medical History: No Reported History Father Family Medical History: Myocardial Infarction ([place]) Additional Family Medical History / Comment(s): age 78 [place] Sister(s) Family Medical History: Myocardial Infarction ([place]) Additional Family Medical History / Comment(s): age 50 [place] Medications and Allergies Home Medications Medication Instructions Recorded Confirmed Type Amiodarone HCl [Pacerone] 200 mg PO QAM 01/22/20 12/26/23 History Apixaban [Eliquis] 5 mg PO BID 01/22/20 12/26/23 History Atorvastatin [Lipitor] 20 mg PO QAM 01/22/20 12/26/23 History Dapagliflozin Propanediol [Farxiga] 10 mg PO HS 01/22/20 12/26/23 History Furosemide [Lasix] 40 mg PO QAM 01/22/20 12/26/23 History Metoprolol Tartrate [Lopressor] 25 mg PO BID 01/22/20 12/26/23 History Spironolactone 25 mg PO DAILY 01/22/20 12/26/23 History glipiZIDE [Glucotrol] 10 mg PO QAM 01/22/20 12/26/23 History lisinopriL [Zestril] 20 mg PO QAM 01/22/20 12/26/23 History metFORMIN HCL 1,000 mg PO BID 12/25/23 12/26/23 History Allergies Allergy/AdvReac Type Severity Reaction Status Date / Time silk stitches AdvReac body Uncoded 12/26/23 09:45 wouldn't absorb them Surgical - Exam Vital Signs Temp Pulse Resp BP Pulse Ox 98 F 82 18 138/86 98 12/26/23 09:50 12/26/23 09:50 12/26/23 09:50 12/26/23 09:50 12/26/23 09:50 CONSTITUTIONAL: Awake and alert, appears comfortable, cooperative, well- developed, well-nourished, no pain, no acute distress EYES: Pupils equal, round, reactive to light, normal ocular movement ENT: Moist mucous membranes without oral lesions present NECK: No masses, no bruits, trachea midline RESPIRATORY: Lungs sounds clear to auscultation bilaterally. Respirations even, nonlabored. Currently on room air with oxygen saturation 94%. Strong cough. No chest wall deformities. No clubbing or cyanosis present CARDIOVASCULAR: S1, S2 present. Regular rate and rhythm. Palpable peripheral pulses bilaterally. No edema present. No calf pain or tenderness noted GASTROINTESTINAL: Abdomen soft, nontender, nondistended without masses or organomegaly noted. There is no rebound or guarding present. Active bowel sounds present 4 quadrants. GENITOURINARY: Deferred INTEGUMENTARY: Skin is warm and dry with evidence of good perfusion. NEUROLOGIC: Cranial nerves II through XII intact, normal coordination, no obvious motor or sensory deficits, speech is normal MUSKULOSKELETAL: Able to move all extremities, strength equal bilaterally, normal posture PSYCHIATRIC: Alert and oriented to person place and time, appropriate affect, intact judgment and insight Results - Labs 12/27/23 06:04 12/27/23 06:04 Abnormal Lab Results - Last 24 Hours (Table) 12/26/23 12/26/23 12/27/23 Range/Units 17:20 20:58 05:44 NRBC/100 WBC Diff (0.00-0.01) X 10*3/uL Anion Gap (4.00-12.00) mmol/L Glucose (70-110) mg/dL POC Glucose (mg/dL) 156 H 163 H 152 H (70-110) mg/dL Hemoglobin A1c (<=6.0) % Magnesium (1.5-2.4) mg/dL Triglycerides (0.00-149.00) mg/dL 12/27/23 12/27/23 12/27/23 Range/Units 06:04 06:04 06:04 NRBC/100 WBC Diff 0.02 H (0.00-0.01) X 10*3/uL Anion Gap 12.10 H (4.00-12.00) mmol/L Glucose 160 H (70-110) mg/dL POC Glucose (mg/dL) (70-110) mg/dL Hemoglobin A1c 8.1 H (<=6.0) % Magnesium 2.5 H (1.5-2.4) mg/dL Triglycerides 176.00 H (0.00-149.00) mg/dL Diabetes panel 12/27/23 12/27/23 Range/Units 06:04 06:04 Sodium 138 (135-145) mmol/L Potassium 4.7 (3.5-5.5) mmol/L Chloride 104 (96-109) mmol/L Carbon Dioxide 21.9 (21.6-31.8) mmol/L BUN 22.7 (9.0-27.0) mg/dL Creatinine 1.3 (0.6-1.5) mg/dL Glucose 160 H (70-110) mg/dL Hemoglobin A1c 8.1 H (<=6.0) % Calcium 9.4 (8.7-10.3) mg/dL AST 26 (14-35) U/L ALT 40 (10-49) U/L Alkaline Phosphatase 47 (41-126) U/L Total Protein 6.5 (6.2-8.2) g/dL Albumin 4.2 (3.8-4.9) g/dL Triglycerides 176.00 H (0.00-149.00) mg/dL HDL Cholesterol 40.80 (40.00-60.00) mg/dL Thyroid panel 12/27/23 Range/Units 06:04 TSH 2.090 (0.350-5.500) UIU/ML Calcium panel 12/27/23 Range/Units 06:04 Calcium 9.4 (8.7-10.3) mg/dL Albumin 4.2 (3.8-4.9) g/dL Pituitary panel 12/27/23 Range/Units 06:04 Sodium 138 (135-145) mmol/L Potassium 4.7 (3.5-5.5) mmol/L Chloride 104 (96-109) mmol/L Carbon Dioxide 21.9 (21.6-31.8) mmol/L BUN 22.7 (9.0-27.0) mg/dL Creatinine 1.3 (0.6-1.5) mg/dL Glucose 160 H (70-110) mg/dL Calcium 9.4 (8.7-10.3) mg/dL TSH 2.090 (0.350-5.500) UIU/ML Adrenal panel 12/27/23 Range/Units 06:04 Sodium 138 (135-145) mmol/L Potassium 4.7 (3.5-5.5) mmol/L Chloride 104 (96-109) mmol/L Carbon Dioxide 21.9 (21.6-31.8) mmol/L BUN 22.7 (9.0-27.0) mg/dL Creatinine 1.3 (0.6-1.5) mg/dL Glucose 160 H (70-110) mg/dL Calcium 9.4 (8.7-10.3) mg/dL Total Bilirubin 0.7 (0.3-1.2) mg/dL AST 26 (14-35) U/L ALT 40 (10-49) U/L Alkaline Phosphatase 47 (41-126) U/L Total Protein 6.5 (6.2-8.2) g/dL Albumin 4.2 (3.8-4.9) g/dL - Imaging Additional studies: All preoperative studies reviewed with Dr. Leigh Assessment and Plan Assessment: Severe aortic valve insufficiency Aneurysmal ascending aorta measuring 4.4 cm Mild mitral and tricuspid regurgitation Nonischemic cardiomyopathy, EF 45-50% Hypertension Hyperlipidemia Paroxysmal atrial fibrillation on Eliquis for anticoagulation Diabetes Obesity Family history of premature coronary artery disease Plan: The patient was seen and examined with Dr. Leigh. Chart/diagnostics were reviewed. The usual course of open heart surgery was discussed in detail, risks and benefits reviewed, all questions were answered. Preoperative testing was initiated, once completed will calculate STS risk score. We discussed recommendations to have chest CTA in a couple of weeks to evaluate ascending aorta/aortic root. Once completed we will have patient follow up in the office to schedule surgery. This was discussed with the patient and family, as well as with Dr. Taylor, and all are in agreement. Continue current medical therapy and avoid any straining. Thank you Dr. Taylor for this consult, we look forward to working with you in the care of this patient. I have personally seen and examined the patient, performed the documentation and the assessment and plan as written. Number of minutes spent on the visit: 30. BRANDEN Frias
--- NOTE | 2023-12-28 08:44 | P.DS ---
Providers Attending physician: Alireza Taylor Consults: 12/26/23 13:33 Consult Physician Routine Consulting Provider: Dimitri Welch Consult Reason/Comments: Severe AI Do you want consulting provider notified?: Already Contacted Primary care physician: Constantin [facility] Course: The patient is a pleasant 63-year-old gentleman who was admitted to the hospital underwent transesophageal echocardiogram which revealed evidence of severe aortic insufficiency and a heart catheterization which also revealed an evidence of severe aortic insufficiency with aortic root angiogram The patient was kept overnight. He was seen by a thoracic surgeon and the plan for the patient to be seen as an outpatient for aortic valve replacement with or without aortic root replacement as well. The patient was discharged home in stable medical condition Plan - Discharge Summary Discharge Rx Participant: Yes New Discharge Prescriptions: No Action glipiZIDE [Glucotrol] 10 mg PO QAM lisinopriL [Zestril] 20 mg PO QAM Atorvastatin [Lipitor] 20 mg PO QAM Metoprolol Tartrate [Lopressor] 25 mg PO BID Furosemide [Lasix] 40 mg PO QAM Apixaban [Eliquis] 5 mg PO BID Amiodarone HCl [Pacerone] 200 mg PO QAM Spironolactone 25 mg PO DAILY Dapagliflozin Propanediol [Farxiga] 10 mg PO HS metFORMIN HCL 1,000 mg PO BID Discharge Medication List Amiodarone HCl [Pacerone] 200 mg PO QAM 01/22/20 [History] Apixaban [Eliquis] 5 mg PO BID 01/22/20 [History] Atorvastatin [Lipitor] 20 mg PO QAM 01/22/20 [History] Dapagliflozin Propanediol [Farxiga] 10 mg PO HS 01/22/20 [History] Furosemide [Lasix] 40 mg PO QAM 01/22/20 [History] Metoprolol Tartrate [Lopressor] 25 mg PO BID 01/22/20 [History] Spironolactone 25 mg PO DAILY 01/22/20 [History] glipiZIDE [Glucotrol] 10 mg PO QAM 01/22/20 [History] lisinopriL [Zestril] 20 mg PO QAM 01/22/20 [History] metFORMIN HCL 1,000 mg PO BID 12/25/23 [History] Follow up Appointment(s)/Referral(s): Alireza Taylor MD [STAFF PHYSICIAN] - 1 Week (Office will call with appointment date and time) Herb Leigh MD [STAFF PHYSICIAN] - 2 Weeks (Carley from the office will call with CT of chest appointment and appointment after that to see Dr. Leigh in the office) Patient Instructions/Handouts: Moderate Sedation (DC), After Radial Heart Catheterization (GEN), Transesophageal Echocardiogram (DC) Activity/Diet/Wound Care/Special Instructions: *NO LIFTING, PUSHING, OR PULLING ANYTHING OVER 5 POUNDS FOR 5 DAYS *NO DRIVING FOR 3 DAYS *YOU CAN REMOVE YOUR DRESSING TOMORROW BUT DO NOT SUBMERSE YOUR PUNCTURE SITE IN WATER FOR A FEW DAYS TO PREVENT INFECTION - SO NO TUB BATHS, POOLS, HOT TUBS, DISHES...ETC *ANY SIGNS OF BLEEDING (HARDNESS, SWELLING, OR EXCESSIVE BRUISING) HOLD DIRECT PRESSURE ON YOUR PUNCTURE SITE AND COME TO THE NEAREST EMERGENCY ROOM TO GET YOUR PUNCTURE SITE LOOKED AT - DO NOT DRIVE YOURSELF! EITHER CALL EMS OR HAVE SOMEONE DRIVE YOU! Discharge Disposition: HOME SELF-CARE Care Plan Goals (MU): Restart Arvind see 12/26, hold Metformin for 48 hours
== END 2023-12-27 11:10 | disposition home or self-care (01) ==
LOC: CATHCVL 09:36 → 6NMEDSUR 13:20 → CATHCVL 12-27 11:10
PROVIDERS: ATTEND Internal Medicine Interventional Cardiology
DX: I08.3 Combined rheumatic disorders of mitral, aortic and tricuspid valves (principal); I48.0 Paroxysmal atrial fibrillation; I65.23 Occlusion and stenosis of bilateral carotid arteries; G47.30 Sleep apnea, unspecified; I71.23 Aneurysm of the descending thoracic aorta, without rupture; I10 Essential (primary) hypertension; E78.5 Hyperlipidemia, unspecified; E66.9 Obesity, unspecified; I42.8 Other cardiomyopathies; E11.9 Type 2 diabetes mellitus without complications; Z79.84 Long term (current) use of oral hypoglycemic drugs; Z79.899 Other long term (current) drug therapy; Z79.01 Long term (current) use of anticoagulants; Z88.8 Allergy status to other drugs, medicaments and biological substances; Z68.41 Body mass index [BMI] 40.0-44.9, adult
CPT/HCPCS: 99152; 94150; 93312; 93320; 93325; 93458; 93567; 76937; 80061; 80053; 80074; 84443; 83735; 85025; 85610; 83036; 71046; 93880; 71250; C1769; C1894; J2250; J2001; J3010; J1644; Q9967

== ENCOUNTER → 2024-01-11 | Outpatient (CLI) | payer BC ==
[~2024-01-11] MED LIST changes: -ALPRAZolam 0.25 MG TAB PO PRN; -ALPRAZolam 0.5 MG TAB PO PRN; -HEPARIN SODIUM,PORCINE (1 ML) 2,500 UNIT in SODIUM CHLORIDE 0.9% 250 ML IRRIGATION PRN; -HEPARIN SODIUM,PORCINE 10,000 UNIT in SODIUM CHLORIDE 0.9% 1,000 ML IRRIGATION PRN; -NITROGLYCERIN SL TABS 0.4 MG TAB SUBLINGUAL PRN; +SODIUM CHLORIDE 0.9% 1,000 ML IV NR
[2024-01-11] MEDS: SODIUM CHLORIDE 0.9% 500 ML 500 ML in EMPTY BAG 1 BAG IV PRN (07:53)
[2024-01-11 08:21] VITALS: BP 142/63; PULSE 56; RESP 16; TEMP 97.9
[2024-01-11 11:50] LABS: African American GFR (CKD) 71 (>60 ml/min/1.73 sqM); Blood Urea Nitrogen 27 mg/dL (9-20); Non-African American GFR(CKD) 62 (>60 ml/min/1.73 sqM)
--- NOTE | 2024-01-14 10:35 | P.PN ---
Subjective Progress Note Date: 01/14/24 Principal diagnosis: Severe Aortic Regurgitation, Aortic Root Aneurysm. Pt is here for follow-up s/p recent elective LUCY, and cardiac cath. Please refer to my consult note from 12/26. The patient is a 63 year-old M who has a hx of DM, HTN, A-fib on eliquis s/p previous ablation 3 years ago who has had recurrent bouts of HF requiring hospitalization in the past. The patient had a LUCY which reveals 4+ AI with a normal trileaflet aortic valve with good bi-ventricular function and EF 45-50%. CT Scan of the chest reveals a 4.8-5.0cm aortic root which tapers down to approximately 3.5cm in the mid ascending aorta. The patient states that he had a sister that in her sleep at a young age which was thought to be due to premature cardiac . He does not have any known family or personal history of connective tissue disorder and has never smoked. The patient has dentures. Objective - Vital Signs Vital signs: Vital Signs Temp 97.9 F 01/11/24 07:42 Pulse 56 L 01/11/24 07:42 Resp 16 01/11/24 07:42 BP 142/63 01/11/24 07:42 Pulse Ox FiO2 - Exam AAOx3. NAD - Constitutional General appearance: Present: cooperative, obese - EENT Eyes: Present: PERRLA - Neck Neck: Present: normal ROM - Respiratory Respiratory: bilateral: CTA - Cardiovascular Rhythm: regular Heart sounds: normal: S1, S2 Abnormal Heart Sounds: Present: diastolic murmur - Psychiatric Psychiatric: Present: A&O x's 3 - Labs CBC & Chem 7: 01/11/24 10:55 Assessment and Plan Assessment: This is a 63 year-old M with a 4.8-5.0cm aortic root aneurysm with severe A.I. We had a long discussion regarding his pathology and treatment options. I offered him aortic valve with root replacement. I am concerned about his family history of pre-mature cardiac in sister and his angiography findings of aneurysmal coronary arteries. I recommended both root replacement and valve replacement in the very near future. We discussed the option of bioprosthetic and mechanical valve and I recommended bioprosthetic. Him and his were in agreement to proceed with surgery. Plan: We will plan for Biobentall (Konnect), LAMECHE on January 29. He will stop his eliquis with last dose being on SundayJanuary 24. Time with Patient: Greater than 30
== END ==
LOC: PROCWHC3 07:35
PROVIDERS: ATTEND Thoracic Surgery (Cardiothoracic Vascular Surgery)
DX: I71.20 Thoracic aortic aneurysm, without rupture, unspecified (principal)
CPT/HCPCS: 82565; 84520; 96360; 96361

== ENCOUNTER → 2024-01-11 | Outpatient (CLI) | payer BC ==
[2024-01-11 08:23] LABS: African American GFR (CKD) 68 (>60 ml/min/1.73 sqM); Blood Urea Nitrogen 28 mg/dL (9-20); Non-African American GFR(CKD) 58 (>60 ml/min/1.73 sqM)
--- NOTE | 2024-01-11 12:09 | CT ---
EXAMINATION TYPE: CT chest w con CT DLP: 894 mGycm, Automated exposure control for dose reduction was used. DATE OF EXAM: 01/11/2024 11:40 AM COMPARISON: Chest radiograph 12/27/2023 CLINICAL INDICATION:Male, 63 years old with history of I71.20 THORACIC ANEURYSM; PHH, thoracic aneury sm TECHNIQUE: Multiple axial images were obtained through the chest. Sagittal and coronal reformats were created for review. Contrast used:100 mL of Isovue 300 with IV Contrast (None if empty) Oral contrast used: (None if empty) FINDINGS: LUNGS/ PLEURA: No focal consolidation, pneumothorax or pleural effusion. Right lower lobe 13 mm pulmonary nodule image 35 with central calcification. Right upper lobe 10 mm pulmonary nodule image 22 AIRWAY: Patent and unremarkable. HEART: The heart is mildly enlarged for size. There is coronary artery cusp patient's. MEDIASTINUM: No gross evidence of adenopathy. VASCULATURE: Ascending thoracic aorta measures up to 46 mm. No evidence for ascending or descending t horacic aorta aneurysm. The origins of the major vessels are patent. Dilation Of the pulmonary trunk up to 41 mm. No filling defect to suggest pulmonary embolus. MUSCULOSKELETAL: Mild disc degeneration changes are present throughout the thoracolumbar spine. SOFT TISSUES/LYMPH NODES: Unremarkable. LOWER NECK: No significant findings. UPPER ABDOMEN: No significant findings. IMPRESSION: 1. No evidence for aneurysm. Ectasia of ascending thoracic aorta up to 46 mm 2. No evidence for acute process. 3. Right upper and right pulmonary nodules which are unchanged from prior exam 12/27/2023. Given the central calcification of the larger nodule this nodule is felt to be granulomatous etiology. The othe r pulmonary nodule is indeterminate. Short-term follow-up recommended in 3 months recommended.. 4. Pulmonary hypertension. Follow up recommendations for incidental pulmonary nodules, if there are any, are per [employer]?s [employer] or [employer]. https://radiopaedia.org/articles/tfcjaljcyb-xaawceo-pryijehlc-xsdpho-[email or web address]?lang=us
== END ==
LOC: RADCTMAIN 07:21
PROVIDERS: ATTEND Thoracic Surgery (Cardiothoracic Vascular Surgery)
DX: I77.810 Thoracic aortic ectasia (principal); R91.8 Other nonspecific abnormal finding of lung field; I27.20 Pulmonary hypertension, unspecified; J98.4 Other disorders of lung
CPT/HCPCS: 82565; 84520; 71260; Q9967

== ENCOUNTER → 2024-01-24 | Outpatient (CLI) | payer BC ==
[2024-01-24 11:42] LABS: Partial Thromboplastin Time 28.8 sec (22.0-30.0); Prothrombin Time 10.9 sec (10.0-12.5)
[2024-01-24 14:34] LABS: HGB 15.5 g/dL (13.0-17.0); MCH 29.4 pg (27.0-32.0); MCHC 32.3 g/dL (32.0-37.0); MCV 90.9 FL (80.0-97.0); NRBC Per 100 WBC 0 X 10*3/uL (0.00-0.01); Platelet Count 196 X 10*3/uL (140-440); RBC 5.28 X 10*6/uL (4.40-5.60); RDW 13.3 % (11.5-14.5); WBC 6.44 X 10*3/uL (4.50-10.00)
[2024-01-24 14:50] LABS: Appearance,Urine Clear (Clear); Bilirubin,Urine Negative (Negative); Blood,Urine Negative (Negative); Color,Urine Yellow (Yellow); Ketones,Urine Negative (Negative); Nitrite,Urine Negative (Negative); Specific Gravity,Urine 1.011 (1.001-1.030); Urobilinogen,Urine 0.2 E.U./DL
[2024-01-24 15:14] LABS: ALT 37 U/L (10-49); AST 26 U/L (14-35); Albumin 4.7 g/dL (3.8-4.9); Albumin/Globulin Ratio 1.88 Ratio (1.60-3.17); Alkaline Phosphatase 47 U/L (41-126); BUN/Creat Ratio 17.94 Ratio (12.00-20.00); Blood Urea Nitrogen 28.7 mg/dL (9.0-27.0); Calcium 10.2 mg/dL (8.7-10.3); Carbon Dioxide 23.1 mmol/L (21.6-31.8); Chloride 103 mmol/L (96-109); Globulin 2.5 g/dL (1.6-3.3); Glucose 216 mg/dL (70-110); Magnesium 2.4 mg/dL (1.5-2.4); Potassium 4.7 mmol/L (3.5-5.5); Sodium 139 mmol/L (135-145); Total Bilirubin 0.7 mg/dL (0.3-1.2); Total Protein 7.2 g/dL (6.2-8.2)
--- NOTE | 2024-01-24 20:07 | US ---
EXAMINATION TYPE: US vein mapping BILAT DATE OF EXAM: 01/24/2024 12:00 PM COMPARISON: NONE CLINICAL INDICATION: Male, 63 years old with history of USVEINMA; pre open heart SIDE PERFORMED: Bilateral TECHNIQUE: Lower extremity saphenous vein is examined and measured utilizing real time linear array sonography. Patient History: Smoker: n Heart Disease: n Previous DVT: n Vascular Surgery: n Discoloration: n Hypertension: y Diabetes: y Paralysis: n Varicosities: n Edema: n DUPLEX FINDINGS: Greater Saphenous: Color flow seen Measurements in mm: Right Greater Saphenous: Groin: 9.0 x 8.2 mm High Thigh: 4.3 x 4.7 mm Mid Thigh: 3.2 x 3.7 mm Above Knee: 2.9 x 3.5 mm Knee: 2.8 x 4.3 mm Below Knee: 2.3 x 3.3 mm Mid Calf: 2.8 x 3.9 mm At Ankle: 3.9 x 4.9 mm Left Greater Saphenous: Groin: 11.8 x 9.3 mm High Thigh: 3.9 x 5.1 mm Mid Thigh: 3.2 x 4.0 mm Above Knee: 3.5 x 3.9 mm Knee: 2.7 x 3.6 mm Below Knee: 3.0 x 3.4 mm Mid Calf: 2.1 x 2.9 mm At Ankle: 4.0 x 4.1 mm IMPRESSION: 1. Bilateral GSV measurements listed above. 2. Performing surgeon to determine viability as conduit.
--- NOTE | 2024-01-24 20:19 | US ---
EXAMINATION TYPE: US arterial LE single level DATE OF EXAM: 01/24/2024 12:08 PM CLINICAL INDICATION: Male, 63 years old with history of USARABIOP; open heart History of: Smoker: n Hypertension: y Diabetic: y Hyperlipidemia: n TIA/CVA: n Previous Vascular Surgery: n CAD: n VA: n Vascular Ulcers: n Claudication: n Gangrene: n Doppler Waveforms: Right: Multiphasic Left: Multiphasic Right Brachial Pressure: 107 Left Brachial Pressure: 109 Ankle-Brachial Indices: Right: 1.4 Left: 1.3 (Vessel hardening > 1.4; Normal 0.9 - 1.4, Moderate 0.7 - 0.9, Severe 0.5-0.7) Toe Brachial Indices: Right: 1.2 Left: 1.1 IMPRESSION: Normal ankle-brachial indices bilaterally.
--- NOTE | 2024-01-25 10:56 | P.PN ---
Progress Note - Text Progress Note Date: 01/24/24 A 5 m walk test was completed with the patient with time 1: 2.45 seconds, time 2: 2.31 seconds, and time 3: 2.51 seconds. A clinical frailty score was calculated which showed 3, mild frailty. An STS risk score was calculated and discussed with the patient.
== END | disposition home or self-care (01) ==
LOC: LABWHC1 10:07
PROVIDERS: ATTEND Thoracic Surgery (Cardiothoracic Vascular Surgery)
DX: Z01.810 Encounter for preprocedural cardiovascular examination (principal); I10 Essential (primary) hypertension; E11.9 Type 2 diabetes mellitus without complications
CPT/HCPCS: 36415; 80053; 81003; 83735; 85027; 85610; 85730; 86850; 86900; 86901; 86920; 87070; 87086; 93922; 93970

== ENCOUNTER 2024-01-30 05:34 | Inpatient (IN) | payer BC ==
[2024-01-30] MEDS: LACTATED RINGERS 1,000 ML IV ONE (05:57)
[2024-01-30 06:32] LABS: Glucose,Whole Blood 150 mg/dL (70-110)
[2024-01-30] MEDS: METOPROLOL TARTRATE 12.5 MG TAB PO ONE (06:44)
[2024-01-30] MEDS: ASPIRIN 325 MG TAB PO ONE (06:44)
[2024-01-30] MEDS: ATORVASTATIN 10 MG TAB PO ONE (06:44)
[2024-01-30] MEDS ORDERED: HEPARIN SODIUM,PORCINE 10,000 UNIT/ML 1 ML VIAL ONE (07:38)
[2024-01-30] MEDS ORDERED: CALCIUM CHLORIDE 100 MG/ML 10 ML SYRINGE ONE (07:38)
[2024-01-30] MEDS ORDERED: PROTAMINE SULFATE 10 MG/ML 5 ML VIAL ONE (07:38)
[2024-01-30] MEDS ORDERED: ROCURONIUM 10 MG/ML (5 ML VIAL) IV ONE (07:38)
[2024-01-30] MEDS ORDERED: LIDOCAINE 2% SYG (PF) 100 MG/5 ML ONE (07:38)
[2024-01-30] MEDS ORDERED: MIDAZOLAM HCL 10 MG/10 ML VIAL ONE (07:38)
[2024-01-30] MEDS ORDERED: WATER FOR INJECTION, STERILE 10 ML VIAL IV ONE (07:38)
[2024-01-30] MEDS ORDERED: ELECTROLYTE-R (PH 7.4) 1,000 ML IV.SOLN IV ONE (07:38)
[2024-01-30] MEDS ORDERED: fentaNYL (PF) 50 MCG/ML 50 ML VIAL ONE (07:38)
[2024-01-30] MEDS ORDERED: HEPARIN SODIUM,PORCINE 5,000 UNIT/ML 1 ML VIAL ONE (07:38)
[2024-01-30] MEDS ORDERED: SODIUM CHLORIDE 0.9% IRRIG 1,000 ML BTL IRRIGATION ONE (07:38)
[2024-01-30] MEDS ORDERED: PROPOFOL 10 MG/ML 20 ML VIAL IV ONE (07:38)
[2024-01-30] MEDS ORDERED: TRANEXAMIC 1,000 MG/100ML-NACL PREMIX BAG ONE (07:38)
[2024-01-30] MEDS ORDERED: SUCCINYLCHOLINE CHLORIDE 200 MG/10 ML VIAL IV ONE (07:38)
[2024-01-30] MEDS: SODIUM CHLORIDE 0.9% 500 ML 500 ML with HEPARIN SODIUM,PORCINE (1 ML) 5,000 UNIT IV ONE (07:59)
[2024-01-30] MEDS: ceFAZolin 1,000 MG in SODIUM CHLORIDE 0.9% 1,000 ML IRRIGATION ONE (07:59)
[2024-01-30] MEDS: SODIUM CHLORIDE 0.9% 50 ML with ceFAZolin 3,000 MG IV ONE (07:59)
[2024-01-30 08:25] LABS: ABG Glucose Whole Blood 148 mg/dL (75-99); ABG Lactic Acid Whole Blood 1.6 mmol/L (0.5-1.6); ABG Oxygen Saturation 96.5 % (94-97); ABG PCO2 48 mmHg (35-45); ABG PH 7.34 (7.35-7.45); ABG PO2 130 mmHg (83-108); ABG Potassium Whole Blood 4.4 mmol/L (3.4-4.5); ABG Sodium Whole Blood 139 mmol/L (135-146); Allen Test Performed? Yes
[2024-01-30 09:13] LABS: ABG Base Excess -1.2 mmol/L; ABG Glucose Whole Blood 154 mg/dL (75-99); ABG HCO3 25 mmol/L (21-25); ABG Hematocrit 42 % (34.0-46.0); ABG Ionized Calcium 4.8 mg/dL (4.5-5.3); ABG PCO2 45 mmHg (35-45); ABG PH 7.35 (7.35-7.45); ABG PO2 187 mmHg (83-108); ABG Potassium Whole Blood 4.7 mmol/L (3.4-4.5); ABG Sodium Whole Blood 138 mmol/L (135-146); Allen Test Performed? Yes
[2024-01-30 09:38] LABS: ABG Base Excess -0.3 mmol/L; ABG Glucose Whole Blood 165 mg/dL (75-99); ABG HCO3 25 mmol/L (21-25); ABG Hematocrit 35 % (34.0-46.0); ABG Ionized Calcium 4.1 mg/dL (4.5-5.3); ABG Oxygen Saturation 99.1 % (94-97); ABG PCO2 42 mmHg (35-45); ABG PH 7.39 (7.35-7.45); ABG PO2 328 mmHg (83-108); ABG Potassium Whole Blood 4.4 mmol/L (3.4-4.5); ABG Sodium Whole Blood 140 mmol/L (135-146); Allen Test Performed? Yes
[2024-01-30 10:13] LABS: ABG Base Excess -0.1 mmol/L; ABG Glucose Whole Blood 168 mg/dL (75-99); ABG HCO3 26 mmol/L (21-25); ABG Hematocrit 35 % (34.0-46.0); ABG Ionized Calcium 4.4 mg/dL (4.5-5.3); ABG Oxygen Saturation 98.9 % (94-97); ABG PCO2 45 mmHg (35-45); ABG PH 7.36 (7.35-7.45); ABG PO2 318 mmHg (83-108); ABG Potassium Whole Blood 4.7 mmol/L (3.4-4.5); ABG Sodium Whole Blood 139 mmol/L (135-146); Allen Test Performed? Yes
[2024-01-30 10:33] LABS: ABG Base Excess -0.5 mmol/L; ABG Glucose Whole Blood 176 mg/dL (75-99); ABG HCO3 26 mmol/L (21-25); ABG Hematocrit 36 % (34.0-46.0); ABG Ionized Calcium 4.5 mg/dL (4.5-5.3); ABG Oxygen Saturation 98.8 % (94-97); ABG PCO2 52 mmHg (35-45); ABG PH 7.32 (7.35-7.45); ABG PO2 299 mmHg (83-108); ABG Potassium Whole Blood 4.6 mmol/L (3.4-4.5); ABG Sodium Whole Blood 139 mmol/L (135-146)
--- NOTE | 2024-01-30 10:46 | P.ANPRN ---
Procedure Note - Anesthesia - Invasive Line Right Central Line Time Out Performed: Yes ([id number]) Date of Procedure: 01/30/24 Time of Procedure: 07:23 Location of Patient: PreOp Preparation: Sterile Prep, Sterile Dressing Central Line Location: Internal Jugular (right ij) Ultrasound Used: Yes Purpose - Visualization and Identification of Vasculature: Yes Needle Guage: 18g angio Image Stored and Saved: Yes Narrative: Invasive line placement per sterile protocol utilized. Anesthesia note Procedure: Right internal jugular central venous catheter insertion: 8.5-Sloven[place] Cordis Sterile protocol followed. Right neck prepped. Ultrasound used. Lidocaine 1% used. Using ultrasound local anesthetic was instilled site over right Internal Jugular vein. Angiocath was used to gain access via ultrasound. Once free flow non-pulsatile blood flow was confirmed, 12 inch extension tubing was then placed on Angiocath. Once central venous pressure was confirmed, J-wire was then placed through Angiocath. Angiocath was then withdrawn. Local was instilled at J-wire site. Small skin juan was then made with provided sterile scalpel. 8.5- [place] Cordis was then inserted over the wire while maintaining control of wire at all times. Uneventful insertion with dilation. Free flow nonpulsatile blood flow through Cordis. Hooked up to IV tubing. Secured with suture. Dressings applied. Drapes Removed. Attempts x1.
--- NOTE | 2024-01-30 10:47 | P.ANPRN ---
Procedure Note - Anesthesia - Invasive Line Right Toivola Des Time Out Performed: Yes ([id number]) Date of Procedure: 01/30/24 Time of Procedure: 07:37 Location of Patient: PreOp Preparation: Sterile Prep, Sterile Dressing Toivola Des Line Location: Internal Jugular (right) Ultrasound Used: No Purpose - Visualization and Identification of Vasculature: No Image Stored and Saved: No Narrative: Invasive line placement per sterile protocol utilized. Anesthesia note Procedure right Toivola-Des catheter placed through right internal jugular central venous catheter Sterile protocol maintained from previous procedure. Toivola-Des catheter sterilely placed in sheath and flushed prior to insertion. After advancing 15 cm Toivola-Des catheter was then slowly inserted with balloon up. Advanced through CVP, RV to PA waveform. Toivola-Des catheter wedged around 59cm. Balloon down. Catheter withdrawn 5 cm. . No wedge. Proximal and distal sites locked on sheath. Attempts x1. Sterile drapes removed and dressings applied.
--- NOTE | 2024-01-30 10:53 | P.ANPRN ---
Procedure Note - Anesthesia - LUCY Intraop Pre Bypass LUCY Intraop - Anesthesia Indication: Aortic Insufficiency Date of Procedure: 01/30/24 Pre-operative Diagnosis: aortic insufficiency, ascending aortic aneurysm Post-operative Diagnosis: same Surgeon: Herb Leigh Ejection Fraction: Other (40-45) Regional Wall Motion Abnormalities: Other (mild global hypokinesis) Left Ventricle Hypertrophy: No R. Ventricle Function: Normal Aortic Valve: prolapsed leaflet leading to regurgitation between left and noncoronary cusp. 2+ Anatomy: Trileaflet Aortic Stenosis: None Aortic Regurgitation: Mild Mitral Stenosis: None Mitral Regurgitation: None Tricuspid Stenosis: None Tricuspid Regurgitation: None R. Atrial Dilation: Yes R. Atrial PFO: Yes Left Atrium: ROSALBA clear L. Atrial Dilation: No Aorta: aneurysmal. 4.3 and 4.4 in proximal ascending aorta. distal arch 3.2 -> abdominal 2.5 Aortic Dissection: No Aortic Calcification: None Plural Effusion: None
[2024-01-30 11:36] LABS: ABG Base Excess -0.8 mmol/L; ABG Glucose Whole Blood 165 mg/dL (75-99); ABG HCO3 26 mmol/L (21-25); ABG Hematocrit 35 % (34.0-46.0); ABG Ionized Calcium 4.5 mg/dL (4.5-5.3); ABG Oxygen Saturation 98.6 % (94-97); ABG PCO2 48 mmHg (35-45); ABG PH 7.33 (7.35-7.45); ABG PO2 218 mmHg (83-108); ABG Potassium Whole Blood 4.6 mmol/L (3.4-4.5); ABG Sodium Whole Blood 140 mmol/L (135-146); Allen Test Performed? Yes
[2024-01-30 12:00] LABS: ABG Base Excess -1.6 mmol/L; ABG Glucose Whole Blood 168 mg/dL (75-99); ABG HCO3 25 mmol/L (21-25); ABG Hematocrit 35 % (34.0-46.0); ABG Ionized Calcium 4.5 mg/dL (4.5-5.3); ABG Oxygen Saturation 98.9 % (94-97); ABG PCO2 51 mmHg (35-45); ABG PO2 289 mmHg (83-108); ABG Potassium Whole Blood 4.7 mmol/L (3.4-4.5); ABG Sodium Whole Blood 140 mmol/L (135-146); Allen Test Performed? Yes
[2024-01-30 12:46] LABS: ABG Lactic Acid Whole Blood 2.4 mmol/L (0.5-1.6)
[2024-01-30 12:47] LABS: ABG Lactic Acid Whole Blood 2.4 mmol/L (0.5-1.6)
[2024-01-30 12:48] LABS: ABG Lactic Acid Whole Blood 2.5 mmol/L (0.5-1.6)
[2024-01-30 12:48] LABS: ABG Base Excess -1.2 mmol/L; ABG Glucose Whole Blood 154 mg/dL (75-99); ABG HCO3 24 mmol/L (21-25); ABG Hematocrit 37 % (34.0-46.0); ABG Ionized Calcium 4.7 mg/dL (4.5-5.3); ABG PCO2 43 mmHg (35-45); ABG PH 7.36 (7.35-7.45); ABG PO2 138 mmHg (83-108); ABG Potassium Whole Blood 4.2 mmol/L (3.4-4.5); ABG Sodium Whole Blood 140 mmol/L (135-146); Allen Test Performed? Yes
[2024-01-30 12:49] LABS: ABG Lactic Acid Whole Blood 2.3 mmol/L (0.5-1.6)
[2024-01-30 12:51] LABS: ABG Lactic Acid Whole Blood 2.5 mmol/L (0.5-1.6)
[2024-01-30 12:52] LABS: ABG Lactic Acid Whole Blood 2.9 mmol/L (0.5-1.6)
[2024-01-30 12:53] LABS: ABG Lactic Acid Whole Blood 3.2 mmol/L (0.5-1.6)
--- NOTE | 2024-01-30 13:07 | P.ANPRN ---
Procedure Note - Anesthesia - LUCY Intraop Post Bypass LUCY Intraop Post Bypass Procedure Performed: avr BENTALL Left Ventricle: UNCHANGED Ejection Fraction: Other (unchanged 40-45%) R. Ventricle Function: Normal Aortic Valve: prosthetic valve in place, opens well. residual gradient 5. Mitral Valve: Unchanged Tricuspid: Unchanged Pulmonic: Unchanged Aortic Dissection: No
[2024-01-30] MEDS ORDERED: METOCLOPRAMIDE 5 MG/ML 2 ML VIAL IVP PRN (13:16)
[2024-01-30] MEDS ORDERED: DEXMEDETOMIDINE/0.9% NACL(PMX) 400 MCG in EMPTY BAG 1 BAG IV SCH (13:16)
[2024-01-30] MEDS ORDERED: IPRATROPIUM-ALBUTEROL 3 ML NEB INHALATION PRN (13:16)
[2024-01-30] MEDS ORDERED: DEXTROSE 50% SYRINGE 50 ML IVP PRN ×2 (13:16)
[2024-01-30] MEDS ORDERED: CALCIUM GLUCONATE IN NACL 2 GM in SALINE 1 100ML.BAG IVPB PRN (13:16)
[2024-01-30] MEDS ORDERED: BENZOCAINE/MENTHOL LOZENG 1 EACH LOZENGE MUCOUS MEM PRN (13:16)
[2024-01-30] MEDS ORDERED: DEXTROSE 5% IN WATER 100 ML with AMIODARONE 150 MG IV PRN (13:16)
[2024-01-30] MEDS ORDERED: AMIODARONE 450 MG in DEXTROSE 5% IN WATER 250 ML IV PRN (13:16)
[2024-01-30] MEDS ORDERED: AMIODARONE 360 MG in DEXTROSE 5% IN WATER 200 ML IV PRN (13:16)
[2024-01-30] MEDS ORDERED: ONDANSETRON 4 MG/2 ML VIAL IVP PRN (13:16)
[2024-01-30] MEDS ORDERED: hydrALAZINE HCL 20 MG/ML 1 ML VIAL IVP PRN (13:16)
[2024-01-30] MEDS ORDERED: Magnesium Replacement Protocol 1 EACH MISC MISCELLANE PRN (13:16)
[2024-01-30] MEDS ORDERED: Potassium Replacement Protocol 1 EACH MISC MISCELLANE PRN (13:16)
--- NOTE | 2024-01-30 13:49 | P.OP ---
Date of Procedure: 01/30/24 Preoperative Diagnosis: 1. 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 Ascending aortic aneurysm Postoperative Diagnosis: Same Procedure(s) Performed: 1. Biobentall (#29mm Konnect) 2. Left atrial appendage ligation with #35mm AtriClip 3. Trans-esophageal echo Anesthesia: MARYANNA Surgeon: Herb Leigh Dye House Wheel Operator #1: Dimitri Welch Dye House Wheel Operator #2: Justice Sanchez Estimated Blood Loss (ml): 500 Pathology: other (1. Ascending Ao 2. Aortic Valve) Condition: critical Disposition: ICU Indications for Procedure: This patient is a 63 year-old M with a hx DM, HTN, A-fib s/p successful ablation in the past who was admitted to the hospital for several bouts of heart failure. Work-up revealed a dilated aortic root measuring 4.8-5.0 with moderate to severe aortic regurgitation in the setting of a trileaflet aortic valve. He also had an ascending aortic aneurysm. Coronary angiography was clean but did reveal aneurysm/ectatic coronaries suggesting a connective tissue dysfunction. I recommended biobentall given that this was most likely not going to be a repairable valve due to multiple fenestrations and restricted leaflet. His STS risk of morbidity and moratality was discussed with him and he was in agreement to proceed. Operative Findings: Several fenestrations on all three coronary cusps. Torn edge of leaflet and large fenestration on right coronary cusp. Large anerysmal/ectatic coronary a rteries. Description of Procedure: The patient underwent central line, arterial line and Hughson-Des catheter placement in the pre-operative suite by anesthesia team. He was brought back to the operating room and placed in the supine position. General anesthesia was induced and the patient was prepped from the chin to the ankles in the usual sterile fashion. A time-out was performed and antibiotics were given. A midline incision was made on the chest. This was carried down to the sternum and a median sternotomy was performed. Hemostasis on the bone was achieved with electrocautery. The pericardium was incised in a reverse T fashion and a pericardial cradle was created. The innominate vein was skeletonized and encircled with a vessel loop. The patient was systemically heparinized and cannulated for cardiopulmonary bypass. The aortic arch was cannulated using pledgeted Prolene suture. Non pledgeted Prolene was used for the right atrium, antegrade, and retrograde sites. Left atrial vent was placed via the right inferior pulmonary vein. Once the ACT > 480, cardiopulmonary bypass was instituted and a 35mm AtriClip was placed on the left atrial appendage. Next the distal ascending aorta was crossclamped and the heart was arrested using 1L antegrade and 500cc blood based retrograde cardioplegia. Retrograde cardioplegia was re-dosed every 15 minutes. Next the aorta was opened and resected. It was clearly aneurysmal and thin. The valve was then examined and there were fenestrations in all three leaflets. The edge of the right coronary cusp was torn also with fenestrations. The decision was made to replace the valve. The leaflets were cut out and LVOT was irrigated. The coronary buttons were then cut out and mobilized using combination of scissor and low level electrocautery. The commisures were marked with 0-silk suture. Pledgeted 2-0 TriCron sutures were placed circumferentially around the annulus. A total of 18 sutures were placed. These were passed through the sewing cuff of a 29mm Konnect valved conduit graft. These were achored down using kor-knot. Next, the left coronary button was fastened to the valsalva valved-conduit using a running prolene and bovine pericardial strip in a running fashion. This was checked for hemostasis by giving antegrade cardioplegia through the graft. Next, the right coronary button was sewn in a similar fashion. Lastly, the distal aortic anastomosis was performed using a running 5-0 prolene and bovine pericardial strip. De-airing maneuvers were performed, hotel maintenance worker was given and the clamp was removed. The patient was weaned from cardiopulmonary bypass and decannulated. Antegrade and retrograde sites were over-sewn. Protamine was given for heparin reversal. LUCY showed good valve function. Hemostasis was secured. Atrial and ventricular wires were placed on the RA and inferior RV. The graft and aorta were covered by re-approximating the pericardium over it. A 32F chest tube and 19F Israel were placed in the mediastinum and the right pleura was opened and a 19F Israel was placed here. The sternum was closed with cables and then in layers of Vicryl and Ethibond. The patient was transported to [facility] in stable but critical condition.
[2024-01-30 13:59] LABS: Glucose,Whole Blood 118 mg/dL (70-110)
[2024-01-30 14:16] LABS: Basophils % (A) 0 %; Eosinophils # (A) 0.1 k/uL (0-0.7); Eosinophils % (A) 1 %; HCT 40.5 % (39.0-53.0); HGB 13.6 gm/dL (13.0-17.5); Lymphocytes # (A) 1.1 k/uL (1.0-4.8); Lymphocytes % (A) 8 %; MCH 30.3 pg (25.0-35.0); MCHC 33.6 g/dL (31.0-37.0); MCV 90.3 fL (80.0-100.0); Mean Platelet Volume 8.5; Monocytes # (A) 0.9 k/uL (0-1.0); Monocytes % (A) 7 %; Neutrophils # (A) 10.8 k/uL (1.3-7.7); Neutrophils % (A) 84 %; Platelet Count 111 k/uL (150-450); RBC 4.49 m/uL (4.30-5.90); RDW 13.7 % (11.5-15.5); WBC 12.9 k/uL (3.8-10.6)
[2024-01-30 14:20] LABS: ABG Base Excess -1.9 mmol/L; ABG HCO3 26 mmol/L (21-25); ABG PCO2 54 mmHg (35-45); ABG PH 7.28 (7.35-7.45); ABG PO2 166 mmHg (83-108); Allen Test Performed? Yes
[2024-01-30] MEDS: CLEVIDIPINE BUTYRATE 25 MG in EMPTY BAG 1 BAG IV SCH (14:23)
[2024-01-30 14:24] LABS: Ionized Calcium 4.9 mg/dL (4.5-5.3)
[2024-01-30] MEDS: NITROGLYCERIN-D5W PMX 50 MG in DEXTROSE/WATER 1 250ML.BAG IV SCH (14:25)
[2024-01-30] MEDS: LACTATED RINGERS 1,000 ML IV SCH (14:27)
[2024-01-30 14:28] LABS: INR 1.1 (<1.2); Partial Thromboplastin Time 28.9 sec (22.0-30.0); Prothrombin Time 11.7 sec (10.0-12.5)
[2024-01-30] MEDS: INSULIN REGULAR 100 UNIT in SODIUM CHLORIDE 0.9% 100 ML IV SCH (14:30)
[2024-01-30 14:37] LABS: ALT 32 U/L (4-49); AST 64 U/L (17-59); African American GFR (CKD) 71 (>60 ml/min/1.73 sqM); Albumin 3.3 g/dL (3.5-5.0); Alkaline Phosphatase 33 U/L (38-126); Anion Gap 4 mmol/L; Blood Urea Nitrogen 27 mg/dL (9-20); Calcium 8.5 mg/dL (8.4-10.2); Carbon Dioxide 23 mmol/L (22-30); Chloride 110 mmol/L (98-107); Glucose 118 mg/dL (74-99); Magnesium 2.4 mg/dL (1.6-2.3); Non-African American GFR(CKD) 61 (>60 ml/min/1.73 sqM); Sodium 137 mmol/L (137-145); Total Bilirubin 0.9 mg/dL (0.2-1.3); Total Protein 5.4 g/dL (6.3-8.2)
[2024-01-30 14:38] LABS: Potassium 4.2 mmol/L (3.5-5.1)
[2024-01-30] MEDS: ALBUMIN HUMAN 5% 250 ML in EMPTY BAG 1 BAG IVPB PRN (14:51)
--- NOTE | 2024-01-30 14:51 | XR ---
EXAMINATION TYPE: XR chest 1V portable DATE OF EXAM: 01/30/2024 Comparison: 12/27/2023 Clinical History: 63-year-old male Post Operative Cardiac Surgery Findings: ET tube tip at the level of the medial clavicular heads. Distal aspect of the NG tube not well seen d ue to underpenetration. Suspected to pass below the diaphragm. Mediastinal drain and right-sided ches t tube noted. Median sternotomy wires. Prosthetic aortic valve. Right IJ Hancock-Des catheter in tip no t well seen, probably in the proximal right main pulmonary artery. Mild to moderate cardiomegaly. Mil d interstitial prominence. Findings patchy right basilar opacity. No appreciable pneumothorax. Impression: 1. Exam limited by underpenetration. Distal aspect of the NG tube not well seen. Distal aspect of the Hancock-Des catheter also not well-seen, suspected to be at the proximal right main pulmonary artery. 2. Mediastinal drains and right-sided chest tube. 3. Prominent patchy opacity at the right lower lung, probably postoperative atelectasis. 4. Cardiomegaly and possible mild pulmonary vascular congestion.
[2024-01-30 15:10] LABS: Glucose,Whole Blood 153 mg/dL (70-110)
[2024-01-30] MEDS: ceFAZolin 3 GM in SODIUM CHLORIDE 0.9% 100 ML IVPB SCH (15:19)
[2024-01-30] MEDS: HEPARIN SODIUM,PORCINE 5,000 UNIT/ML 1 ML VIAL SQ SCH (15:23)
[2024-01-30] MEDS: IPRATROPIUM-ALBUTEROL 3 ML NEB INHALATION SCH ×2 (15:36→19:48)
[2024-01-30] MEDS: PROTAMINE SULFATE 25 MG in SODIUM CHLORIDE 0.9% 50 ML IVPB STA ×2 (15:43→17:39)
[2024-01-30 15:56] LABS: Glucose,Whole Blood 159 mg/dL (70-110)
[2024-01-30 16:23] LABS: Basophils % (A) 0 %; Eosinophils # (A) 0.1 k/uL (0-0.7); Eosinophils % (A) 0 %; HGB 13.2 gm/dL (13.0-17.5); Lymphocytes # (A) 1.5 k/uL (1.0-4.8); Lymphocytes % (A) 10 %; MCH 30.7 pg (25.0-35.0); MCHC 33.9 g/dL (31.0-37.0); MCV 90.5 fL (80.0-100.0); Mean Platelet Volume 8.6; Monocytes # (A) 1.2 k/uL (0-1.0); Monocytes % (A) 8 %; Neutrophils # (A) 12.3 k/uL (1.3-7.7); Neutrophils % (A) 80 %; Platelet Count 144 k/uL (150-450); RBC 4.31 m/uL (4.30-5.90); RDW 13.6 % (11.5-15.5); WBC 15.3 k/uL (3.8-10.6)
--- NOTE | 2024-01-30 16:32 | P.CNPUL ---
History of Present Illness Consult date: 01/30/24 Requesting physician: Herb Leigh Reason for consult: other (Mechanical ventilator/critical care management) Chief complaint: Severe aortic regurgitation History of present illness: This is a 63-year-old male patient with a known history of atrial fibrillation and previous ablation approximately 4 years ago maintained on Eliquis, diabetes mellitus, hyperlipidemia, hypertension, obstructive sleep apnea utilizing CPAP, nonischemic cardiomyopathy who was recently found to have impaired left v entricular systolic function with ejection fraction of 45 to 50% and severe aortic regurgitation and aneurysmal ascending aorta measuring 4.4 cm. He was brought in electively today for surgery with Dr. Leigh. He did undergo aortic valve replacement with a biobentall #29 Konnect, left atrial appendage ligation with atrial clip placement and follow-up transesophageal echocardiogram. He is seen currently in the intensive care unit. He is intubated on the mechanical ventilator with current settings of assist-control mode of 16, tidal volume 550 and FiO2 70% and a PEEP of 10. Initial blood gases on 100% FiO2 and a rate of 12 revealed a PaO2 of 166, pCO2 of 54 and a pH of 7.28. Chest x-ray reveals evidence of the endotracheal tube and nasogastric tube as well as a [place]-Dse catheter suspected in place. X-ray is somewhat underpenetrated. 2 mediastinal chest tubes and a right-sided chest tube in place. Right IJ [place]-Des catheter in place. Cardiac output 6.9. Cardiac index 2.5. PA pressures 34/18. CVP 12. Currently in sinus rhythm. He is on lactated Ringer's at 50 MLS per hour. Propofol at 30 mcg/kg/min. Insulin drip at 3 units/h. Nitroglycerin drip at 10 mcg/min. He did receive albumin. Receiving bronchodilators. Received cefazolin. Initiated on Cleviprex at 2 mg/h. Review of Systems ROS unobtainable: due to endotracheal tube Past Medical History Past Medical History: Atrial Fibrillation, Heart Failure, Diabetes Mellitus, Hyperlipidemia, Hypertension, Sleep Apnea/CPAP/BIPAP Additional Past Medical History / Comment(s): uses CPAP, SOB w/exertion History of Any Multi-Drug Resistant Organisms: None Reported Past Surgical History: Cardiac Ablation, Heart Catheterization, Hernia Repair, Orthopedic Surgery, Tonsillectomy Additional Past Surgical History / Comment(s): Bilat. knee surgery(6 surgeries) 1967 - 1973, hiatal hernia repair 1984, colonoscopy, cardioversion, LUCY Past Anesthesia/Blood Transfusion Reactions: No Reported Reaction Smoking Status: Never smoker - Past Family History Mother Family Medical History: No Reported History Father Family Medical History: Myocardial Infarction (PA) Additional Family Medical History / Comment(s): age 78 [place] Sister(s) Family Medical History: Myocardial Infarction (PA) Additional Family Medical History / Comment(s): age 50 [place] Medications and Allergies Home Medications Medication Instructions Recorded Confirmed Type Amiodarone HCl [Pacerone] 200 mg PO QAM 01/22/20 01/30/24 History Apixaban [Eliquis] 5 mg PO BID 01/22/20 01/30/24 History Atorvastatin [Lipitor] 20 mg PO QAM 01/22/20 01/30/24 History Dapagliflozin Propanediol [Farxiga] 10 mg PO HS 01/22/20 01/30/24 History Furosemide [Lasix] 40 mg PO QAM 01/22/20 01/30/24 History Metoprolol Tartrate [Lopressor] 25 mg PO BID 01/22/20 01/30/24 History Spironolactone 25 mg PO DAILY 01/22/20 01/30/24 History glipiZIDE [Glucotrol] 10 mg PO QAM 01/22/20 01/30/24 History lisinopriL [Zestril] 20 mg PO QAM 01/22/20 01/30/24 History metFORMIN HCL 1,000 mg PO BID 12/25/23 01/30/24 History Allergies Allergy/AdvReac Type Severity Reaction Status Date / Time silk stitches AdvReac body Uncoded 01/30/24 06:35 wouldn't absorb them Physical Exam Vitals: Vital Signs Temp Pulse Pulse Resp BP BP Pulse Ox 01/30/24 15:45 60 24 01/30/24 15:37 91 16 01/30/24 15:00 61 19 100 01/30/24 14:45 63 16 95 01/30/24 14:30 64 20 95 01/30/24 14:24 01/30/24 14:15 63 12 97 01/30/24 14:00 97.5 F L 60 12 97 01/30/24 13:56 01/30/24 13:48 66 10 L 01/30/24 13:46 01/30/24 06:33 97 F L 53 L 16 136/67 167/74 96 FiO2 01/30/24 15:45 01/30/24 15:37 01/30/24 15:00 01/30/24 14:45 01/30/24 14:30 100 01/30/24 14:24 80 01/30/24 14:15 01/30/24 14:00 100 01/30/24 13:56 100 01/30/24 13:48 01/30/24 13:46 100 01/30/24 06:33 Intake and Output 01/30/24 01/30/24 01/30/24 06:59 14:59 22:59 Intake Total 100 205.5 74.819 Output Total 2095 480 Balance 100 -1889.5 -405.181 Intake: IV 100 151 68 CO/CI 40 Lactated Ringers 1,000 ml 50 50 @ 50 mls/hr IV .Q20H [facility] Rx#:[id number] Pressure 9 18 Intake, IV Titration 54.5 6.819 Amount Insulin Regular 100 unit 1.944 In Sodium Chloride 0.9% 100 ml @ Per Protocol IV .Q0M [facility] Rx#:[id number] Lactated Ringers 1,000 ml 50 @ 50 mls/hr IV .Q20H [facility] Rx#:[id number] Nitroglycerin-D5w Pmx 50 4.5 4.875 mg In Dextrose/Water 1 250ml.bag @ 5 MCG/MIN 1.5 mls/hr IV .Q24H [facility] Rx#: [id number] Output: Chest Tube Drainage 390 310 Mediastinal x2 350 250 Right Pleural 40 60 Urine 755 170 Estimated Blood Loss 950 Other: Voiding Method Indwelling Catheter Weight 152.2 kg ABP, PAP, CO, CI - Last 8 Hours Arterial Blood Pressure 130/70 Arterial Blood Pressure 123/66 Arterial Blood Pressure 133/74 Arterial Blood Pressure 123/76 Arterial Blood Pressure 88/57 Pulmonary Artery Pressure 35/18 Pulmonary Artery Pressure 32/17 Pulmonary Artery Pressure 49/34 Pulmonary Artery Pressure 47/27 Pulmonary Artery Pressure 36/17 Cardiac Output 5 Cardiac Output 5 Cardiac Output 5 Cardiac Output 4.8 Cardiac Output 4.8 Cardiac Index 1.8 Cardiac Index 1.8 Cardiac Index 1.8 Cardiac Index 1.8 Cardiac Index 1.8 GENERAL EXAM: Intubated, sedated 63-year-old male patient, on 70% FiO2 via the mechanical ventilator, in no apparent distress. HEAD: Normocephalic. EYES: Sluggish reaction of pupils, equal size. NOSE: Clear with pink turbinates. THROAT: Oral endotracheal and gastric tube secured in place. No erythema or exudates. NECK: Right IJ [place]-Des catheter in place. No masses, no JVD. CHEST: Sternal dressing dry and intact. Split mediastinal and right pleural chest tubes in place. LUNGS: Equal air entry with no crackles, wheeze, rhonchi or dullness. CVS: S1 and S2 normal with no audible murmur, regular rhythm. ABDOMEN: No hepatosplenomegaly. SPINE: No scoliosis or deformity SKIN: No rashes CENTRAL NERVOUS SYSTEM: Sedated, tone is normal in all 4 extremities. EXTREMITIES: Right radial arterial line in place. Jesse wraps to the bilateral lower extremities. There is no peripheral edema. Peripheral pulses are intact. Results - Laboratory Findings CBC and BMP: 01/30/24 14:00 01/30/24 14:00 ABG ABG pH 7.28 (7.35-7.45) L 01/30/24 14:14 ABG pCO2 54 mmHg (35-45) H 01/30/24 14:14 ABG pO2 166 mmHg (83-108) H 01/30/24 14:14 ABG O2 Saturation 98.0 % (94-97) H 01/30/24 14:14 PT/INR, D-dimer PT 11.7 sec (10.0-12.5) 01/30/24 14:00 INR 1.1 (<1.2) 01/30/24 14:00 Abnormal lab findings: Abnormal Labs 01/24/24 01/30/24 01/30/24 10:14 06:28 08:26 WBC Plt Count Neutrophils # ABG pH 7.34 L ABG pCO2 48 H ABG pO2 130 H ABG HCO3 ABG O2 Saturation ABG Potassium ABG Ionized Calcium ABG Glucose 148 H ABG Lactic Acid Hemoglobin Chloride BUN Glucose POC Glucose (mg/dL) 150 H Magnesium AST Alkaline Phosphatase Total Protein Albumin Arterial Blood Potassium Arterial Blood Glucose 148 H Crossmatch See Detail 01/30/24 01/30/24 01/30/24 09:14 09:40 10:14 WBC Plt Count Neutrophils # ABG pH ABG pCO2 ABG pO2 187 H 328 H 318 H ABG HCO3 26 H ABG O2 Saturation 99.1 H 98.9 H ABG Potassium 4.7 H 4.7 H ABG Ionized Calcium 4.1 L 4.4 L ABG Glucose 154 H 165 H 168 H ABG Lactic Acid 2.4 H* 2.4 H* 2.5 H* Hemoglobin 11.4 L 11.5 L Chloride BUN Glucose POC Glucose (mg/dL) Magnesium AST Alkaline Phosphatase Total Protein Albumin Arterial Blood Potassium 4.7 H 4.7 H Arterial Blood Glucose 154 H 165 H 168 H Crossmatch 01/30/24 01/30/24 01/30/24 10:34 11:34 12:01 WBC Plt Count Neutrophils # ABG pH 7.32 L 7.33 L 7.30 L ABG pCO2 52 H 48 H 51 H ABG pO2 299 H 218 H 289 H ABG HCO3 26 H 26 H ABG O2 Saturation 98.8 H 98.6 H 98.9 H ABG Potassium 4.6 H 4.6 H 4.7 H ABG Ionized Calcium ABG Glucose 176 H 165 H 168 H ABG Lactic Acid 2.3 H* 2.5 H* 2.9 H* Hemoglobin 11.8 L 11.5 L 11.4 L Chloride BUN Glucose POC Glucose (mg/dL) Magnesium AST Alkaline Phosphatase Total Protein Albumin Arterial Blood Potassium 4.6 H 4.6 H 4.7 H Arterial Blood Glucose 176 H 165 H 168 H Crossmatch 01/30/24 01/30/24 01/30/24 12:53 13:57 14:00 WBC Plt Count Neutrophils # ABG pH ABG pCO2 ABG pO2 138 H ABG HCO3 ABG O2 Saturation 98.0 H ABG Potassium ABG Ionized Calcium ABG Glucose 154 H ABG Lactic Acid 3.2 H* Hemoglobin 12.1 L Chloride 110 H BUN 27 H Glucose 118 H POC Glucose (mg/dL) 118 H Magnesium 2.4 H AST 64 H Alkaline Phosphatase 33 L Total Protein 5.4 L Albumin 3.3 L Arterial Blood Potassium Arterial Blood Glucose 154 H Crossmatch 01/30/24 01/30/24 01/30/24 14:00 14:14 15:09 WBC 12.9 H Plt Count 111 L Neutrophils # 10.8 H ABG pH 7.28 L ABG pCO2 54 H ABG pO2 166 H ABG HCO3 26 H ABG O2 Saturation 98.0 H ABG Potassium ABG Ionized Calcium ABG Glucose ABG Lactic Acid Hemoglobin Chloride BUN Glucose POC Glucose (mg/dL) 153 H Magnesium AST Alkaline Phosphatase Total Protein Albumin Arterial Blood Potassium Arterial Blood Glucose Crossmatch 01/30/24 15:55 WBC Plt Count Neutrophils # ABG pH ABG pCO2 ABG pO2 ABG HCO3 ABG O2 Saturation ABG Potassium ABG Ionized Calcium ABG Glucose ABG Lactic Acid Hemoglobin Chloride BUN Glucose POC Glucose (mg/dL) 159 H Magnesium AST Alkaline Phosphatase Total Protein Albumin Arterial Blood Potassium Arterial Blood Glucose Crossmatch - Diagnostic Findings Chest x-ray: image reviewed Assessment and Plan Assessment: Ascending aortic aneurysm measuring 4.4 cm with severe aortic insufficiency, . S/p aortic valve replacement with a Biobentall #29 [place], left atrial petty endage ligation with a #35 mm atrial clip and a intraoperative transesophageal echocardiogram Nonischemic cardiomyopathy with an ejection fraction of 45 to 50% History of atrial fibrillation status post ablation, maintained on Eliquis History of hypertension Hyperlipidemia Diabetes mellitus Obesity with a BMI of 42 kg/m Obstructive sleep apnea utilizing CPAP Lifelong non-smoker Plan: The patient was seen and evaluated Chest x-ray, labs, ABGs and medications reviewed Ventilator settings adjusted accordingly Endotracheal tube adjusted Continue bronchodilators Will plan for early extubation protocol if tolerated We will continue to follow and make further recommendations based on his clinical status I have personally seen and examined the patient, performed the documentation and the assessment and plan as written. Number of minutes spent on the visit: 20.
[2024-01-30 17:07] LABS: Glucose,Whole Blood 169 mg/dL (70-110)
[2024-01-30] MEDS ORDERED: Kcentra PER PHARMACY 1 EACH MISC MISCELLANE PRN (17:14)
[2024-01-30] MEDS ORDERED: HUMAN PROTHROMBIN COMPLX 500 UNIT/16 ML VIAL IV ONE (17:30)
[2024-01-30] MEDS: HUMAN PROTHROMBIN COMPLX IV ONE (17:39)
[2024-01-30 17:44] LABS: Partial Thromboplastin Time 25.5 sec (22.0-30.0); Prothrombin Time 11.3 sec (10.0-12.5)
[2024-01-30] MEDS: ACETAMINOPHEN IV (For NPO) 1,000 MG in EMPTY BAG 1 BAG IVPB SCH (18:08)
[2024-01-30] MEDS ORDERED: MUPIROCIN 2% OINT 22 GM TUBE NASAL ONE (18:15)
[2024-01-30 18:16] LABS: Glucose,Whole Blood 149 mg/dL (70-110)
[2024-01-30 19:01] LABS: Glucose,Whole Blood 154 mg/dL (70-110)
[2024-01-30 19:36] LABS: Basophils % (A) 0 %; Eosinophils % (A) 0 %; HCT 38.2 % (39.0-53.0); HGB 12.4 gm/dL (13.0-17.5); Lymphocytes # (A) 0.7 k/uL (1.0-4.8); Lymphocytes % (A) 5 %; MCH 29.5 pg (25.0-35.0); MCHC 32.4 g/dL (31.0-37.0); MCV 91.2 fL (80.0-100.0); Mean Platelet Volume 8.5; Monocytes # (A) 0.9 k/uL (0-1.0); Monocytes % (A) 6 %; Neutrophils % (A) 88 %; Platelet Count 154 k/uL (150-450); RBC 4.19 m/uL (4.30-5.90); RDW 13.7 % (11.5-15.5); WBC 13.7 k/uL (3.8-10.6)
[2024-01-30 19:54] LABS: Glucose,Whole Blood 178 mg/dL (70-110)
[2024-01-30 20:44] LABS: ABG Base Excess -1.1 mmol/L; ABG HCO3 23 mmol/L (21-25); ABG Oxygen Saturation 97.4 % (94-97); ABG PCO2 38 mmHg (35-45); ABG PO2 121 mmHg (83-108); Allen Test Performed? Yes
--- NOTE | 2024-01-30 20:57 | P.CONS ---
History of Present Illness - Reason for Consult Consult date: 01/30/24 Medical management Requesting physician: Herb Leigh - Chief Complaint Biobentall procedure - History of Present Illness 63-year-old patient, follows with Dr. Hayden. Chronic stable medical conditions include atrial fibrillation, CHF, diabetes, hypertension, hyperlipidemia, obstructive sleep apnea CPAP. Patient underwent todayBiobentall procedure by Dr.s Leigh. Also included left atrial appendage clipping. Postprocedure patient in the ICU. Intubated. FiO2 50 and a PEEP of 10. Has 1 right pleural chest tubes and 2 mediastinal chest tubes. Patient having significant output through the tubes. Drips include insulin and propofol. Review of systems: Patient intubated Social history: . No smoking no alcohol Physical examination: VITAL SIGNS: Afebrile, 67, 21, 125 x 62, 95% on the ventilator GENERAL: [BMI 41.9, laying in bed intubated. EYES: Pupils equal. Conjunctiva dylan l. HEENT: External appearance of nose and ears normal, oral cavity grossly normal. Endotracheal tube NECK: JVD unable to assess; masses not palpable. HEART: Heart sounds muffled; no edema. LUNGS: Respiratory rate normal; decreased breath sounds. Has 1 right pleural and 2 mediastinal chest tubes ABDOMEN: Soft, nontender, liver spleen not palpable, no masses palpable. Hopkins catheter PSYCH: Patient sedated l. MUSCULOSKELETAL:No Clubbing/cyanosis;muscles-grossly intact NEUROLOGICAL: Cranial nerves grossly intact; no facial asymmetry, power and sensation grossly intact. 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 Currently on insulin drip -Hyperlipidemia Lipitor -Essential hypertension At home patient takes Zestril, Lopressor -Paroxysmal atrial fibrillation.: Currently in sinus rhythm Previous ablation. On Eliquis and Lopressor at home -Obstructive sleep apnea Uses CPAP -Chronic congestive heart failure from systolic dysfunction EF 45 to 50% with global hypokinesia on LUCY on December 26, [address] Brandon Leon. Lopressor. At home -Full code Thank you Dr. Leigh Past Medical History Past Medical History: Atrial Fibrillation, Heart Failure, Diabetes Mellitus, Hyperlipidemia, Hypertension, Sleep Apnea/CPAP/BIPAP Additional Past Medical History / Comment(s): uses CPAP, SOB w/exertion History of Any Multi-Drug Resistant Organisms: None Reported Past Surgical History: Cardiac Ablation, Heart Catheterization, Hernia Repair, Orthopedic Surgery, Tonsillectomy Additional Past Surgical History / Comment(s): Bilat. knee surgery(6 surgeries) 1967 - 1973, hiatal hernia repair 1984, colonoscopy, cardioversion, LUCY Past Anesthesia/Blood Transfusion Reactions: No Reported Reaction Smoking Status: Never smoker - Past Family History Mother Family Medical History: No Reported History Father Family Medical History: Myocardial Infarction ([place]) Additional Family Medical History / Comment(s): age 78 [place] Sister(s) Family Medical History: Myocardial Infarction ([place]) Additional Family Medical History / Comment(s): age 50 [place] Medications and Allergies Home Medications Medication Instructions Recorded Confirmed Type Amiodarone HCl [Pacerone] 200 mg PO QAM 01/22/20 01/30/24 History Apixaban [Eliquis] 5 mg PO BID 01/22/20 01/30/24 History Atorvastatin [Lipitor] 20 mg PO QAM 01/22/20 01/30/24 History Dapagliflozin Propanediol [Farxiga] 10 mg PO HS 01/22/20 01/30/24 History Furosemide [Lasix] 40 mg PO QAM 01/22/20 01/30/24 History Metoprolol Tartrate [Lopressor] 25 mg PO BID 01/22/20 01/30/24 History Spironolactone 25 mg PO DAILY 01/22/20 01/30/24 History glipiZIDE [Glucotrol] 10 mg PO QAM 01/22/20 01/30/24 History lisinopriL [Zestril] 20 mg PO QAM 01/22/20 01/30/24 History metFORMIN HCL 1,000 mg PO BID 12/25/23 01/30/24 History Allergies Allergy/AdvReac Type Severity Reaction Status Date / Time silk stitches AdvReac body Uncoded 01/30/24 06:35 wouldn't absorb them Physical Exam Vitals: Vital Signs Temp Pulse Pulse Resp BP BP BP 01/30/24 20:10 66 24 01/30/24 20:00 66 24 01/30/24 19:49 67 21 01/30/24 19:45 66 27 H 01/30/24 19:30 67 28 H 01/30/24 19:15 69 24 01/30/24 19:00 99.3 F 69 16 01/30/24 18:45 70 23 01/30/24 18:30 71 24 01/30/24 18:15 71 24 01/30/24 18:00 72 24 01/30/24 17:52 99.1 F 71 120/55 01/30/24 17:46 99.0 F 72 24 123/59 01/30/24 17:45 72 24 01/30/24 17:42 01/30/24 17:36 99.1 F 71 89/49 01/30/24 17:30 71 24 01/30/24 17:15 68 27 H 01/30/24 17:00 37.3 F L 68 25 H 01/30/24 16:45 67 27 H 01/30/24 16:30 65 27 H 01/30/24 16:20 01/30/24 16:15 64 25 H 01/30/24 16:00 98.8 F 62 22 01/30/24 15:45 59 L 16 01/30/24 15:37 91 16 01/30/24 15:30 60 22 01/30/24 15:15 61 21 01/30/24 15:00 61 19 01/30/24 14:45 63 16 01/30/24 14:30 64 20 01/30/24 14:24 01/30/24 14:15 63 12 01/30/24 14:00 97.5 F L 60 12 01/30/24 13:56 01/30/24 13:48 66 10 L 01/30/24 13:46 01/30/24 06:33 97 F L 53 L 16 136/67 167/74 Pulse Ox FiO2 01/30/24 20:10 01/30/24 20:00 95 50 01/30/24 19:49 01/30/24 19:45 95 01/30/24 19:30 95 01/30/24 19:15 95 01/30/24 19:00 95 50 01/30/24 18:45 95 01/30/24 18:30 95 01/30/24 18:15 95 01/30/24 18:00 95 50 01/30/24 17:52 96 01/30/24 17:46 96 01/30/24 17:45 96 01/30/24 17:42 50 01/30/24 17:36 01/30/24 17:30 97 01/30/24 17:15 95 01/30/24 17:00 96 70 01/30/24 16:45 95 01/30/24 16:30 98 01/30/24 16:20 70 01/30/24 16:15 97 01/30/24 16:00 98 70 01/30/24 15:45 98 01/30/24 15:37 01/30/24 15:30 98 01/30/24 15:15 98 01/30/24 15:00 100 01/30/24 14:45 95 01/30/24 14:30 95 100 01/30/24 14:24 80 01/30/24 14:15 97 01/30/24 14:00 97 100 01/30/24 13:56 100 01/30/24 13:48 01/30/24 13:46 100 01/30/24 06:33 96 Intake and Output 01/30/24 01/30/24 01/30/24 06:59 14:59 22:59 Intake Total 100 205.5 1103.651 Output Total 2095 1230 Balance 100 -1889.5 -126.349 Intake: IV 100 151 504 CO/CI 40 100 Lactated Ringers 1,000 ml 50 200 @ 50 mls/hr IV .Q20H [facility] Rx#:[id number] Pressure 9 54 Protamine Sulfate 25 mg 100 In Sodium Chloride 0.9% 50 ml @ 315 mls/hr IVPB ONCE STA Rx#:[id number] ceFAZolin 2 gm In Sodium 50 Chloride 0.9% 50 ml @ Per Protocol 100 mls/hr IVPB ONCE ONE Rx#:[id number] Intake, IV Titration 54.5 262.651 Amount Clevidipine Butyrate 25 14.933 mg In Empty Bag 1 bag @ 1 MG/HR 2 mls/hr IV .Q24H [facility] Rx#:[id number] Insulin Regular 100 unit 17.801 In Sodium Chloride 0.9% 100 ml @ Per Protocol IV .Q0M [facility] Rx#:[id number] Lactated Ringers 1,000 ml 50 @ 50 mls/hr IV .Q20H [facility] Rx#:[id number] Nitroglycerin-D5w Pmx 50 4.5 9.750 mg In Dextrose/Water 1 250ml.bag @ 5 MCG/MIN 1.5 mls/hr IV .Q24H [facility] Rx#: [id number] ceFAZolin 3 gm In Sodium 100 Chloride 0.9% 100 ml @ Per Protocol 200 mls/hr IVPB ONCE ONE Rx#: [id number] propofoL 1,000 mg In 120.167 Empty Bag 1 bag @ Titrate IV .Q0M [facility] Rx#: [id number] Blood Product 337 Platelet Pheresis Pas 337 Psoralen Unit [id number] Output: Chest Tube Drainage 390 660 Mediastinal x2 350 550 Right Pleural 40 110 Urine 755 570 Estimated Blood Loss 950 Other: Voiding Method Indwelling Catheter Indwelling Catheter Weight 152.2 kg ABP, PAP, CO, CI - Last 8 Hours Arterial Blood Pressure 117/55 Arterial Blood Pressure 125/62 Arterial Blood Pressure 125/60 Arterial Blood Pressure 110/48 Arterial Blood Pressure 116/53 Arterial Blood Pressure 108/52 Arterial Blood Pressure 108/52 Arterial Blood Pressure 111/53 Arterial Blood Pressure 110/52 Arterial Blood Pressure 129/62 Arterial Blood Pressure 109/56 Arterial Blood Pressure 106/56 Arterial Blood Pressure 119/61 Arterial Blood Pressure 142/70 Arterial Blood Pressure 107/59 Arterial Blood Pressure 115/60 Arterial Blood Pressure 93/51 Arterial Blood Pressure 109/58 Arterial Blood Pressure 112/60 Arterial Blood Pressure 130/70 Arterial Blood Pressure 123/66 Arterial Blood Pressure 133/74 Arterial Blood Pressure 123/76 Arterial Blood Pressure 88/57 Pulmonary Artery Pressure 31/16 Pulmonary Artery Pressure 36/23 Pulmonary Artery Pressure 37/22 Pulmonary Artery Pressure 33/16 Pulmonary Artery Pressure 33/16 Pulmonary Artery Pressure 33/20 Pulmonary Artery Pressure 34/17 Pulmonary Artery Pressure 34/16 Pulmonary Artery Pressure 35/18 Pulmonary Artery Pressure 36/19 Pulmonary Artery Pressure 33/16 Pulmonary Artery Pressure 33/18 Pulmonary Artery Pressure 32/16 Pulmonary Artery Pressure 36/20 Pulmonary Artery Pressure 32/18 Pulmonary Artery Pressure 34/18 Pulmonary Artery Pressure 32/19 Pulmonary Artery Pressure 36/13 Pulmonary Artery Pressure 34/15 Pulmonary Artery Pressure 35/18 Pulmonary Artery Pressure 32/17 Pulmonary Artery Pressure 49/34 Pulmonary Artery Pressure 47/27 Pulmonary Artery Pressure 36/17 Cardiac Output 6.1 Cardiac Output 7.0 Cardiac Output 7.1 Cardiac Output 6.3 Cardiac Output 6.3 Cardiac Output 6.3 Cardiac Output 6.3 Cardiac Output 6.9 Cardiac Output 6.9 Cardiac Output 6.9 Cardiac Output 6.9 Cardiac Output 5.7 Cardiac Output 5.7 Cardiac Output 5.7 Cardiac Output 5.7 Cardiac Output 5 Cardiac Output 5 Cardiac Output 4.8 Cardiac Output 4.8 Cardiac Index 2.3 Cardiac Index 2.6 Cardiac Index 2.6 Cardiac Index 2.3 Cardiac Index 2.3 Cardiac Index 2.3 Cardiac Index 2.3 Cardiac Index 2.5 Cardiac Index 2.5 Cardiac Index 2.5 Cardiac Index 2.5 Cardiac Index 2.1 Cardiac Index 2.1 Cardiac Index 2.1 Cardiac Index 2.1 Cardiac Index 1.8 Cardiac Index 1.8 Cardiac Index 1.8 Cardiac Index 1.8 Results CBC & Chem 7: 01/30/24 19:05 01/30/24 14:00 Labs: Abnormal Lab Results - Last 24 Hours (Table) 01/24/24 01/30/24 01/30/24 Range/Units 10:14 06:28 08:26 WBC (3.8-10.6) k/uL RBC (4.30-5.90) m/uL Hgb (13.0-17.5) gm/dL Hct (39.0-53.0) % Plt Count (150-450) k/uL Neutrophils # (1.3-7.7) k/uL Lymphocytes # (1.0-4.8) k/uL Monocytes # (0-1.0) k/uL ABG pH 7.34 L (7.35-7.45) ABG pCO2 48 H (35-45) mmHg ABG pO2 130 H (83-108) mmHg ABG HCO3 (21-25) mmol/L ABG O2 Saturation (94-97) % ABG Potassium (3.4-4.5) mmol/L ABG Ionized Calcium (4.5-5.3) mg/dL ABG Glucose 148 H (75-99) mg/dL ABG Lactic Acid (0.5-1.6) mmol/L Hemoglobin (13.0-17.5) gm/dL Chloride (98-107) mmol/L BUN (9-20) mg/dL Glucose (74-99) mg/dL POC Glucose (mg/dL) 150 H (70-110) mg/dL Magnesium (1.6-2.3) mg/dL AST (17-59) U/L Alkaline Phosphatase (38-126) U/L Total Protein (6.3-8.2) g/dL Albumin (3.5-5.0) g/dL Arterial Blood Potassium (3.4-4.5) mmol/L Arterial Blood Glucose 148 H (75-99) mg/dL Crossmatch See Detail 01/30/24 01/30/24 01/30/24 Range/Units 09:14 09:40 10:14 WBC (3.8-10.6) k/uL RBC (4.30-5.90) m/uL Hgb (13.0-17.5) gm/dL Hct (39.0-53.0) % Plt Count (150-450) k/uL Neutrophils # (1.3-7.7) k/uL Lymphocytes # (1.0-4.8) k/uL Monocytes # (0-1.0) k/uL ABG pH (7.35-7.45) ABG pCO2 (35-45) mmHg ABG pO2 187 H 328 H 318 H (83-108) mmHg ABG HCO3 26 H (21-25) mmol/L ABG O2 Saturation 99.1 H 98.9 H (94-97) % ABG Potassium 4.7 H 4.7 H (3.4-4.5) mmol/L ABG Ionized Calcium 4.1 L 4.4 L (4.5-5.3) mg/dL ABG Glucose 154 H 165 H 168 H (75-99) mg/dL ABG Lactic Acid 2.4 H* 2.4 H* 2.5 H* (0.5-1.6) mmol/L Hemoglobin 11.4 L 11.5 L (13.0-17.5) gm/dL Chloride (98-107) mmol/L BUN (9-20) mg/dL Glucose (74-99) mg/dL POC Glucose (mg/dL) (70-110) mg/dL Magnesium (1.6-2.3) mg/dL AST (17-59) U/L Alkaline Phosphatase (38-126) U/L Total Protein (6.3-8.2) g/dL Albumin (3.5-5.0) g/dL Arterial Blood Potassium 4.7 H 4.7 H (3.4-4.5) mmol/L Arterial Blood Glucose 154 H 165 H 168 H (75-99) mg/dL Crossmatch 01/30/24 01/30/24 01/30/24 Range/Units 10:34 11:34 12:01 WBC (3.8-10.6) k/uL RBC (4.30-5.90) m/uL Hgb (13.0-17.5) gm/dL Hct (39.0-53.0) % Plt Count (150-450) k/uL Neutrophils # (1.3-7.7) k/uL Lymphocytes # (1.0-4.8) k/uL Monocytes # (0-1.0) k/uL ABG pH 7.32 L 7.33 L 7.30 L (7.35-7.45) ABG pCO2 52 H 48 H 51 H (35-45) mmHg ABG pO2 299 H 218 H 289 H (83-108) mmHg ABG HCO3 26 H 26 H (21-25) mmol/L ABG O2 Saturation 98.8 H 98.6 H 98.9 H (94-97) % ABG Potassium 4.6 H 4.6 H 4.7 H (3.4-4.5) mmol/L ABG Ionized Calcium (4.5-5.3) mg/dL ABG Glucose 176 H 165 H 168 H (75-99) mg/dL ABG Lactic Acid 2.3 H* 2.5 H* 2.9 H* (0.5-1.6) mmol/L Hemoglobin 11.8 L 11.5 L 11.4 L (13.0-17.5) gm/dL Chloride (98-107) mmol/L BUN (9-20) mg/dL Glucose (74-99) mg/dL POC Glucose (mg/dL) (70-110) mg/dL Magnesium (1.6-2.3) mg/dL AST (17-59) U/L Alkaline Phosphatase (38-126) U/L Total Protein (6.3-8.2) g/dL Albumin (3.5-5.0) g/dL Arterial Blood Potassium 4.6 H 4.6 H 4.7 H (3.4-4.5) mmol/L Arterial Blood Glucose 176 H 165 H 168 H (75-99) mg/dL Crossmatch 01/30/24 01/30/24 01/30/24 Range/Units 12:53 13:57 14:00 WBC (3.8-10.6) k/uL RBC (4.30-5.90) m/uL Hgb (13.0-17.5) gm/dL Hct (39.0-53.0) % Plt Count (150-450) k/uL Neutrophils # (1.3-7.7) k/uL Lymphocytes # (1.0-4.8) k/uL Monocytes # (0-1.0) k/uL ABG pH (7.35-7.45) ABG pCO2 (35-45) mmHg ABG pO2 138 H (83-108) mmHg ABG HCO3 (21-25) mmol/L ABG O2 Saturation 98.0 H (94-97) % ABG Potassium (3.4-4.5) mmol/L ABG Ionized Calcium (4.5-5.3) mg/dL ABG Glucose 154 H (75-99) mg/dL ABG Lactic Acid 3.2 H* (0.5-1.6) mmol/L Hemoglobin 12.1 L (13.0-17.5) gm/dL Chloride 110 H (98-107) mmol/L BUN 27 H (9-20) mg/dL Glucose 118 H (74-99) mg/dL POC Glucose (mg/dL) 118 H (70-110) mg/dL Magnesium 2.4 H (1.6-2.3) mg/dL AST 64 H (17-59) U/L Alkaline Phosphatase 33 L (38-126) U/L Total Protein 5.4 L (6.3-8.2) g/dL Albumin 3.3 L (3.5-5.0) g/dL Arterial Blood Potassium (3.4-4.5) mmol/L Arterial Blood Glucose 154 H (75-99) mg/dL Crossmatch 01/30/24 01/30/24 01/30/24 Range/Units 14:00 14:14 15:09 WBC 12.9 H (3.8-10.6) k/uL RBC (4.30-5.90) m/uL Hgb (13.0-17.5) gm/dL Hct (39.0-53.0) % Plt Count 111 L (150-450) k/uL Neutrophils # 10.8 H (1.3-7.7) k/uL Lymphocytes # (1.0-4.8) k/uL Monocytes # (0-1.0) k/uL ABG pH 7.28 L (7.35-7.45) ABG pCO2 54 H (35-45) mmHg ABG pO2 166 H (83-108) mmHg ABG HCO3 26 H (21-25) mmol/L ABG O2 Saturation 98.0 H (94-97) % ABG Potassium (3.4-4.5) mmol/L ABG Ionized Calcium (4.5-5.3) mg/dL ABG Glucose (75-99) mg/dL ABG Lactic Acid (0.5-1.6) mmol/L Hemoglobin (13.0-17.5) gm/dL Chloride (98-107) mmol/L BUN (9-20) mg/dL Glucose (74-99) mg/dL POC Glucose (mg/dL) 153 H (70-110) mg/dL Magnesium (1.6-2.3) mg/dL AST (17-59) U/L Alkaline Phosphatase (38-126) U/L Total Protein (6.3-8.2) g/dL Albumin (3.5-5.0) g/dL Arterial Blood Potassium (3.4-4.5) mmol/L Arterial Blood Glucose (75-99) mg/dL Crossmatch 01/30/24 01/30/24 01/30/24 Range/Units 15:55 15:55 17:06 WBC 15.3 H (3.8-10.6) k/uL RBC (4.30-5.90) m/uL Hgb (13.0-17.5) gm/dL Hct (39.0-53.0) % Plt Count 144 L (150-450) k/uL Neutrophils # 12.3 H (1.3-7.7) k/uL Lymphocytes # (1.0-4.8) k/uL Monocytes # 1.2 H (0-1.0) k/uL ABG pH (7.35-7.45) ABG pCO2 (35-45) mmHg ABG pO2 (83-108) mmHg ABG HCO3 (21-25) mmol/L ABG O2 Saturation (94-97) % ABG Potassium (3.4-4.5) mmol/L ABG Ionized Calcium (4.5-5.3) mg/dL ABG Glucose (75-99) mg/dL ABG Lactic Acid (0.5-1.6) mmol/L Hemoglobin (13.0-17.5) gm/dL Chloride (98-107) mmol/L BUN (9-20) mg/dL Glucose (74-99) mg/dL POC Glucose (mg/dL) 159 H 169 H (70-110) mg/dL Magnesium (1.6-2.3) mg/dL AST (17-59) U/L Alkaline Phosphatase (38-126) U/L Total Protein (6.3-8.2) g/dL Albumin (3.5-5.0) g/dL Arterial Blood Potassium (3.4-4.5) mmol/L Arterial Blood Glucose (75-99) mg/dL Crossmatch 01/30/24 01/30/24 01/30/24 Range/Units 18:05 18:59 19:05 WBC 13.7 H (3.8-10.6) k/uL RBC 4.19 L (4.30-5.90) m/uL Hgb 12.4 L (13.0-17.5) gm/dL Hct 38.2 L (39.0-53.0) % Plt Count (150-450) k/uL Neutrophils # 12.0 H (1.3-7.7) k/uL Lymphocytes # 0.7 L (1.0-4.8) k/uL Monocytes # (0-1.0) k/uL ABG pH (7.35-7.45) ABG pCO2 (35-45) mmHg ABG pO2 (83-108) mmHg ABG HCO3 (21-25) mmol/L ABG O2 Saturation (94-97) % ABG Potassium (3.4-4.5) mmol/L ABG Ionized Calcium (4.5-5.3) mg/dL ABG Glucose (75-99) mg/dL ABG Lactic Acid (0.5-1.6) mmol/L Hemoglobin (13.0-17.5) gm/dL Chloride (98-107) mmol/L BUN (9-20) mg/dL Glucose (74-99) mg/dL POC Glucose (mg/dL) 149 H 154 H (70-110) mg/dL Magnesium (1.6-2.3) mg/dL AST (17-59) U/L Alkaline Phosphatase (38-126) U/L Total Protein (6.3-8.2) g/dL Albumin (3.5-5.0) g/dL Arterial Blood Potassium (3.4-4.5) mmol/L Arterial Blood Glucose (75-99) mg/dL Crossmatch 01/30/24 Range/Units 19:52 WBC (3.8-10.6) k/uL RBC (4.30-5.90) m/uL Hgb (13.0-17.5) gm/dL Hct (39.0-53.0) % Plt Count (150-450) k/uL Neutrophils # (1.3-7.7) k/uL Lymphocytes # (1.0-4.8) k/uL Monocytes # (0-1.0) k/uL ABG pH (7.35-7.45) ABG pCO2 (35-45) mmHg ABG pO2 (83-108) mmHg ABG HCO3 (21-25) mmol/L ABG O2 Saturation (94-97) % ABG Potassium (3.4-4.5) mmol/L ABG Ionized Calcium (4.5-5.3) mg/dL ABG Glucose (75-99) mg/dL ABG Lactic Acid (0.5-1.6) mmol/L Hemoglobin (13.0-17.5) gm/dL Chloride (98-107) mmol/L BUN (9-20) mg/dL Glucose (74-99) mg/dL POC Glucose (mg/dL) 178 H (70-110) mg/dL Magnesium (1.6-2.3) mg/dL AST (17-59) U/L Alkaline Phosphatase (38-126) U/L Total Protein (6.3-8.2) g/dL Albumin (3.5-5.0) g/dL Arterial Blood Potassium (3.4-4.5) mmol/L Arterial Blood Glucose (75-99) mg/dL Crossmatch
[2024-01-30 21:16] LABS: Glucose,Whole Blood 151 mg/dL (70-110)
[2024-01-30 22:03] LABS: Glucose,Whole Blood 142 mg/dL (70-110)
[2024-01-30 23:22] LABS: Glucose,Whole Blood 150 mg/dL (70-110)
[2024-01-31 00:07] LABS: Glucose,Whole Blood 144 mg/dL (70-110)
[2024-01-31 01:03] LABS: Glucose,Whole Blood 152 mg/dL (70-110)
[2024-01-31 01:59] LABS: Glucose,Whole Blood 151 mg/dL (70-110)
[2024-01-31 02:55] LABS: Glucose,Whole Blood 146 mg/dL (70-110)
[2024-01-31] MEDS: HYDROmorphone 1 MG/ML 1 ML SYRINGE IVP PRN (03:24)
[2024-01-31 03:58] LABS: Glucose,Whole Blood 144 mg/dL (70-110)
[2024-01-31 04:05] LABS: Basophils % (A) 0 %; Eosinophils % (A) 0 %; HCT 36.4 % (39.0-53.0); HGB 11.9 gm/dL (13.0-17.5); Lymphocytes # (A) 0.8 k/uL (1.0-4.8); Lymphocytes % (A) 6 %; MCH 29.3 pg (25.0-35.0); MCHC 32.7 g/dL (31.0-37.0); MCV 89.6 fL (80.0-100.0); Mean Platelet Volume 9.7; Monocytes % (A) 8 %; Neutrophils # (A) 11.3 k/uL (1.3-7.7); Neutrophils % (A) 85 %; Platelet Count 130 k/uL (150-450); RBC 4.06 m/uL (4.30-5.90); RDW 13.9 % (11.5-15.5); WBC 13.3 k/uL (3.8-10.6)
[2024-01-31 04:28] LABS: Ionized Calcium 4.6 mg/dL (4.5-5.3)
[2024-01-31 04:36] LABS: ALT 27 U/L (4-49); AST 65 U/L (17-59); African American GFR (CKD) 68 (>60 ml/min/1.73 sqM); Albumin 3.1 g/dL (3.5-5.0); Alkaline Phosphatase 33 U/L (38-126); Anion Gap 4 mmol/L; Blood Urea Nitrogen 26 mg/dL (9-20); Calcium 8.4 mg/dL (8.4-10.2); Carbon Dioxide 24 mmol/L (22-30); Chloride 108 mmol/L (98-107); Glucose 142 mg/dL (74-99); Magnesium 2.1 mg/dL (1.6-2.3); Non-African American GFR(CKD) 58 (>60 ml/min/1.73 sqM); Potassium 4.6 mmol/L (3.5-5.1); Sodium 136 mmol/L (137-145); Total Bilirubin 0.7 mg/dL (0.2-1.3); Total Protein 5.2 g/dL (6.3-8.2)
[2024-01-31 04:57] LABS: Glucose,Whole Blood 136 mg/dL (70-110)
[2024-01-31 05:55] LABS: Glucose,Whole Blood 139 mg/dL (70-110)
[2024-01-31 06:59] LABS: Glucose,Whole Blood 145 mg/dL (70-110)
--- NOTE | 2024-01-31 07:55 | XR ---
EXAMINATION TYPE: XR chest 1V portable DATE OF EXAM: 01/31/2024 Comparison: 01/30/2024 Clinical History: 63-year-old male Post Operative Cardiac Surgery Findings: Right IJ B[place]-Des catheter tip at the proximal right main pulmonary artery region. Mediastinal drain and right-sided chest tube in place. Median sternotomy wires and prosthetic aortic valve. Interval e xtubation and removal of NG tube. Moderate cardiomegaly. Diffuse interstitial and vascular density ap pears to have increased. Patchy bibasilar opacity persists. Impression: 1. Moderate cardiomegaly. There may be development of mild pulmonary vascular congestion. 2. Patchy bibasilar opacities persist, probably postoperative atelectasis.
[2024-01-31 08:05] LABS: Glucose,Whole Blood 141 mg/dL (70-110)
[2024-01-31] MEDS: ATORVASTATIN 20 MG TAB PO SCH (08:19)
[2024-01-31] MEDS: ASPIRIN 325 MG TAB PO SCH (08:19)
[2024-01-31] MEDS: PANTOPRAZOLE 40 MG/10 ML VIAL IVP SCH (08:19)
[2024-01-31] MEDS: CLOPIDOGREL 75 MG TAB PO SCH (08:19)
[2024-01-31] MEDS: AMIODARONE 200 MG TAB PO SCH (08:19)
[2024-01-31] MEDS: METOPROLOL TARTRATE 25 MG TAB PO SCH (08:28)
[2024-01-31] MEDS ORDERED: MAGNESIUM HYDROXIDE 2,400 MG/30 ML CUP PO PRN (09:00)
[2024-01-31] MEDS ORDERED: METOPROLOL TARTRATE 12.5 MG TAB PO SCH (09:00)
[2024-01-31] MEDS ORDERED: bisacodyL 10 MG SUPP RECTAL PRN (09:00)
[2024-01-31] MEDS: lisinopriL 10 MG TAB PO SCH (09:04)
--- NOTE | 2024-01-31 09:09 | P.PN ---
Subjective Progress Note Date: 01/31/24 Principal diagnosis: Aortic Root Aneurysm with Severe Aortic Insufficiency, ascending aortic aneurysm. Past medical history significant for nonischemic cardiomyopathy with an ejection fraction of 45 to 50% on transesophageal echocardiogram, hypertension, hyperlipidemia, paroxysmal atrial fibrillation on Eliquis for anticoagulation as an outpatient, status post cardioversion in October 2019 and subsequent ablation in February 2020, obstructive sleep apnea with home CPAP use, diabetes mellitus type 2 with a preoperative hemoglobin A1c 8.1%, obesity with a BMI of 41.8 kg/m, and a family history of premature coronary artery disease. POD #1 Biobentall (#29mm Konnect), left atrial appendage ligation with #35mm AtriClip, intraoperative transesophageal echocardiogram completed by anesthesia. Postoperative acute blood loss anemia, expected given hemodilution and cardiopulmonary bypass. The patient was seen in follow-up today January 31, 2024 at his bedside in the intensive care unit. He was successfully extubated at 8:52 PM last evening, is currently on 6 L nasal cannula with oxygen saturations 94% and achieving 1250 mL on his incentive spirometry with encouragement. He is currently sitting up to the bedside chair, is awake, alert, oriented x 3 and is in no acute apparent distress. Denies any complaints of shortness of breath at this time, although is complaining of some surgical type pain to his chest tube insertion site currently rating his pain 10 out of 10 on the pain scale. Denies any nausea or vomiting throughout the night. Bedside telemetry is showing normal sinus rhythm heart rate 90 bpm. Nitroglycerin drip is infusing at 20 mcg/min for some hyper tension. He was transfused for 1 unit of platelets last evening. Mediastinal and right pleural chest tubes remain in place to low continuous wall suction -20 cm H2O. No air leak is present. Mediastinal chest tubes drained 200 mL output in the last 8 hours and 1110 mL output since surgery. Right pleural chest tube is draining thin serosanguineous drainage with 140 mL output in the last 8 hours and 210 mL output since surgery. Right IJ cordis and Holcomb-Des catheter remains in place with current hemodynamic showing a cardiac output of 5.4, cardiac index 2.0, PA pressures 20/8, CVP 4 mmHg and SVR 1050. Chest x-ray and laboratory results were reviewed. Objective - Vital Signs Vital signs: Vital Signs Temp 99.7 F H 01/31/24 04:00 Pulse 91 01/31/24 08:11 Resp 21 01/31/24 07:00 BP 130/80 01/31/24 07:00 Pulse Ox 94 L 01/31/24 08:02 FiO2 50 01/30/24 20:50 Intake & Output 01/30/24 01/31/24 01/31/24 18:59 06:59 18:59 Intake Total 5945.789 6638.131 36.683 Output Total 3025 1600 Balance -1860.907 -282.869 36.683 Weight 151.8 kg Intake: IV 537 1107 ACETAMINOPHEN IV (For NPO 100 ) 1,000 mg In Empty Bag 1 bag @ 400 mls/hr IVPB Q6HR [facility] Rx#:[id number] CO/CI 90 190 Lactated Ringers 1,000 ml 200 600 @ 50 mls/hr IV .Q20H [facility] Rx#:[id number] Pressure 45 117 Protamine Sulfate 25 mg 100 In Sodium Chloride 0.9% 50 ml @ 315 mls/hr IVPB ONCE STA Rx#:[id number] ceFAZolin 2 gm In Sodium 50 100 Chloride 0.9% 50 ml @ Per Protocol 100 mls/hr IVPB ONCE ONE Rx#:[id number] Intake, IV Titration 290.093 110.131 36.683 Amount Clevidipine Butyrate 25 14.933 mg In Empty Bag 1 bag @ 1 MG/HR 2 mls/hr IV .Q24H [facility] Rx#:[id number] Insulin Regular 100 unit 10.529 60.970 25.183 In Sodium Chloride 0.9% 100 ml @ Per Protocol IV .Q0M [facility] Rx#:[id number] Lactated Ringers 1,000 ml 50 @ 50 mls/hr IV .Q20H [facility] Rx#:[id number] Nitroglycerin-D5w Pmx 50 14.250 29.375 11.5 mg In Dextrose/Water 1 250ml.bag @ 5 MCG/MIN 1.5 mls/hr IV .Q24H [facility] Rx#: [id number] ceFAZolin 3 gm In Sodium 100 Chloride 0.9% 100 ml @ Per Protocol 200 mls/hr IVPB ONCE ONE Rx#: [id number] propofoL 1,000 mg In 100.381 19.786 Empty Bag 1 bag @ Titrate IV .Q0M [facility] Rx#: [id number] Oral 100 Blood Product 337 Platelet Pheresis Pas 337 Psoralen Unit [id number] Output: Chest Tube Drainage 950 500 Mediastinal x2 820 320 Right Pleural 130 180 Urine 1125 1100 Estimated Blood Loss 950 Other: Voiding Method Indwelling Catheter Indwelling Catheter ABP, PAP, CO, CI - Last Documented Arterial Blood Pressure 120/58 Pulmonary Artery Pressure 15/1 Cardiac Output 4.8 Cardiac Index 1.8 - Exam CONSTITUTIONAL: Sitting up to the bedside chair in the intensive care unit, appears comfortable, cooperative, no apparent acute distress. HEENT: Neck is supple, no JVD, no lymphadenopathy. Right IJ Cordis and Holcomb- Des catheter in place and functioning. RESPIRATORY: Lungs sounds essentially clear throughout, diminished to his bilateral bases. Respirations are symmetrical and nonlabored. Currently on 6 L nasal cannula with oxygen saturations 94%. Able to achieve 1250 mL on hisr incentive spirometry. Strong cough. CARDIOVASCULAR: Regular rhythm and rate. S1 and S2 present, negative for S3, gallop or murmur. Sternum is stable. Palpable peripheral pulses bilaterally, +1 edema to his bilateral lower extremities. No calf pain or tenderness noted. Heart hugger in place with patient demonstrating appropriate use. Knee-high ROSEANN hose and sequential compression devices in place to his bilateral lower extremities. GASTROINTESTINAL: Abdomen soft, nontender, nondistended. Hypoactive bowel sounds present 4 quadrants. Tolerating diet. Passing flatus. No guarding or rigidity. GENITOURINARY: Hopkins present draining clear, yellow urine. 675 mL of urine output in the last 8 hours. INTEGUMENTARY: Skin is warm and dry with no evidence of clubbing or cyanosis. Midline sternal incision clean dry and well approximated, covered with dry intact dressing. NEUROLOGIC: Cranial nerves II through XII intact. No focal deficits. MUSKULOSKELETAL: Able to move all extremities, strength equal bilaterally, generalized weakness. PSYCHIATRIC: Alert and oriented to person place and time, appropriate affect, intact judgment and insight. INVASIVE LINES AND TUBES: Mediastinal/right pleural chest tubes present and connected to low continuous wall suction, no air leaks present. Mediastinal tube with 200 mL of thin serosanguineous drainage overnight, 1110 mL output in the last 24 hours. Right pleural chest tube with 140 mL of thin serosanguineous drainage overnight, 210 mL output in the last 24 hours. Atrial and ventricular epicardial pacemaker wires present, connected to generator, VVI backup rate 50 bpm. Right internal jugular Holcomb/Cordis, right radial arterial line present. Last CO 5.4, CI 2.0, PA 20/8 and CVP 4 mmHg and SVR 1050. - Allied health notes Allied health notes reviewed: nursing - Labs CBC & Chem 7: 01/31/24 03:50 01/31/24 03:50 Labs: Abnormal Lab Results - Last 24 Hours (Table) 01/24/24 01/30/24 01/30/24 Range/Units 10:14 08:26 09:14 WBC (3.8-10.6) k/uL RBC (4.30-5.90) m/uL Hgb (13.0-17.5) gm/dL Hct (39.0-53.0) % Plt Count (150-450) k/uL Neutrophils # (1.3-7.7) k/uL Lymphocytes # (1.0-4.8) k/uL Monocytes # (0-1.0) k/uL ABG pH 7.34 L (7.35-7.45) ABG pCO2 48 H (35-45) mmHg ABG pO2 130 H 187 H (83-108) mmHg ABG HCO3 (21-25) mmol/L ABG O2 Saturation (94-97) % ABG Potassium 4.7 H (3.4-4.5) mmol/L ABG Ionized Calcium (4.5-5.3) mg/dL ABG Glucose 148 H 154 H (75-99) mg/dL ABG Lactic Acid 2.4 H* (0.5-1.6) mmol/L Hemoglobin (13.0-17.5) gm/dL Sodium (137-145) mmol/L Chloride (98-107) mmol/L BUN (9-20) mg/dL Creatinine (0.66-1.25) mg/dL Glucose (74-99) mg/dL POC Glucose (mg/dL) (70-110) mg/dL Magnesium (1.6-2.3) mg/dL AST (17-59) U/L Alkaline Phosphatase (38-126) U/L Total Protein (6.3-8.2) g/dL Albumin (3.5-5.0) g/dL Arterial Blood Potassium 4.7 H (3.4-4.5) mmol/L Arterial Blood Glucose 148 H 154 H (75-99) mg/dL Crossmatch See Detail 01/30/24 01/30/24 01/30/24 Range/Units 09:40 10:14 10:34 WBC (3.8-10.6) k/uL RBC (4.30-5.90) m/uL Hgb (13.0-17.5) gm/dL Hct (39.0-53.0) % Plt Count (150-450) k/uL Neutrophils # (1.3-7.7) k/uL Lymphocytes # (1.0-4.8) k/uL Monocytes # (0-1.0) k/uL ABG pH 7.32 L (7.35-7.45) ABG pCO2 52 H (35-45) mmHg ABG pO2 328 H 318 H 299 H (83-108) mmHg ABG HCO3 26 H 26 H (21-25) mmol/L ABG O2 Saturation 99.1 H 98.9 H 98.8 H (94-97) % ABG Potassium 4.7 H 4.6 H (3.4-4.5) mmol/L ABG Ionized Calcium 4.1 L 4.4 L (4.5-5.3) mg/dL ABG Glucose 165 H 168 H 176 H (75-99) mg/dL ABG Lactic Acid 2.4 H* 2.5 H* 2.3 H* (0.5-1.6) mmol/L Hemoglobin 11.4 L 11.5 L 11.8 L (13.0-17.5) gm/dL Sodium (137-145) mmol/L Chloride (98-107) mmol/L BUN (9-20) mg/dL Creatinine (0.66-1.25) mg/dL Glucose (74-99) mg/dL POC Glucose (mg/dL) (70-110) mg/dL Magnesium (1.6-2.3) mg/dL AST (17-59) U/L Alkaline Phosphatase (38-126) U/L Total Protein (6.3-8.2) g/dL Albumin (3.5-5.0) g/dL Arterial Blood Potassium 4.7 H 4.6 H (3.4-4.5) mmol/L Arterial Blood Glucose 165 H 168 H 176 H (75-99) mg/dL Crossmatch 01/30/24 01/30/24 01/30/24 Range/Units 11:34 12:01 12:53 WBC (3.8-10.6) k/uL RBC (4.30-5.90) m/uL Hgb (13.0-17.5) gm/dL Hct (39.0-53.0) % Plt Count (150-450) k/uL Neutrophils # (1.3-7.7) k/uL Lymphocytes # (1.0-4.8) k/uL Monocytes # (0-1.0) k/uL ABG pH 7.33 L 7.30 L (7.35-7.45) ABG pCO2 48 H 51 H (35-45) mmHg ABG pO2 218 H 289 H 138 H (83-108) mmHg ABG HCO3 26 H (21-25) mmol/L ABG O2 Saturation 98.6 H 98.9 H 98.0 H (94-97) % ABG Potassium 4.6 H 4.7 H (3.4-4.5) mmol/L ABG Ionized Calcium (4.5-5.3) mg/dL ABG Glucose 165 H 168 H 154 H (75-99) mg/dL ABG Lactic Acid 2.5 H* 2.9 H* 3.2 H* (0.5-1.6) mmol/L Hemoglobin 11.5 L 11.4 L 12.1 L (13.0-17.5) gm/dL Sodium (137-145) mmol/L Chloride (98-107) mmol/L BUN (9-20) mg/dL Creatinine (0.66-1.25) mg/dL Glucose (74-99) mg/dL POC Glucose (mg/dL) (70-110) mg/dL Magnesium (1.6-2.3) mg/dL AST (17-59) U/L Alkaline Phosphatase (38-126) U/L Total Protein (6.3-8.2) g/dL Albumin (3.5-5.0) g/dL Arterial Blood Potassium 4.6 H 4.7 H (3.4-4.5) mmol/L Arterial Blood Glucose 165 H 168 H 154 H (75-99) mg/dL Crossmatch 01/30/24 01/30/24 01/30/24 Range/Units 13:57 14:00 14:00 WBC 12.9 H (3.8-10.6) k/uL RBC (4.30-5.90) m/uL Hgb (13.0-17.5) gm/dL Hct (39.0-53.0) % Plt Count 111 L (150-450) k/uL Neutrophils # 10.8 H (1.3-7.7) k/uL Lymphocytes # (1.0-4.8) k/uL Monocytes # (0-1.0) k/uL ABG pH (7.35-7.45) ABG pCO2 (35-45) mmHg ABG pO2 (83-108) mmHg ABG HCO3 (21-25) mmol/L ABG O2 Saturation (94-97) % ABG Potassium (3.4-4.5) mmol/L ABG Ionized Calcium (4.5-5.3) mg/dL ABG Glucose (75-99) mg/dL ABG Lactic Acid (0.5-1.6) mmol/L Hemoglobin (13.0-17.5) gm/dL Sodium (137-145) mmol/L Chloride 110 H (98-107) mmol/L BUN 27 H (9-20) mg/dL Creatinine (0.66-1.25) mg/dL Glucose 118 H (74-99) mg/dL POC Glucose (mg/dL) 118 H (70-110) mg/dL Magnesium 2.4 H (1.6-2.3) mg/dL AST 64 H (17-59) U/L Alkaline Phosphatase 33 L (38-126) U/L Total Protein 5.4 L (6.3-8.2) g/dL Albumin 3.3 L (3.5-5.0) g/dL Arterial Blood Potassium (3.4-4.5) mmol/L Arterial Blood Glucose (75-99) mg/dL Crossmatch 01/30/24 01/30/24 01/30/24 Range/Units 14:14 15:09 15:55 WBC (3.8-10.6) k/uL RBC (4.30-5.90) m/uL Hgb (13.0-17.5) gm/dL Hct (39.0-53.0) % Plt Count (150-450) k/uL Neutrophils # (1.3-7.7) k/uL Lymphocytes # (1.0-4.8) k/uL Monocytes # (0-1.0) k/uL ABG pH 7.28 L (7.35-7.45) ABG pCO2 54 H (35-45) mmHg ABG pO2 166 H (83-108) mmHg ABG HCO3 26 H (21-25) mmol/L ABG O2 Saturation 98.0 H (94-97) % ABG Potassium (3.4-4.5) mmol/L ABG Ionized Calcium (4.5-5.3) mg/dL ABG Glucose (75-99) mg/dL ABG Lactic Acid (0.5-1.6) mmol/L Hemoglobin (13.0-17.5) gm/dL Sodium (137-145) mmol/L Chloride (98-107) mmol/L BUN (9-20) mg/dL Creatinine (0.66-1.25) mg/dL Glucose (74-99) mg/dL POC Glucose (mg/dL) 153 H 159 H (70-110) mg/dL Magnesium (1.6-2.3) mg/dL AST (17-59) U/L Alkaline Phosphatase (38-126) U/L Total Protein (6.3-8.2) g/dL Albumin (3.5-5.0) g/dL Arterial Blood Potassium (3.4-4.5) mmol/L Arterial Blood Glucose (75-99) mg/dL Crossmatch 01/30/24 01/30/24 01/30/24 Range/Units 15:55 17:06 18:05 WBC 15.3 H (3.8-10.6) k/uL RBC (4.30-5.90) m/uL Hgb (13.0-17.5) gm/dL Hct (39.0-53.0) % Plt Count 144 L (150-450) k/uL Neutrophils # 12.3 H (1.3-7.7) k/uL Lymphocytes # (1.0-4.8) k/uL Monocytes # 1.2 H (0-1.0) k/uL ABG pH (7.35-7.45) ABG pCO2 (35-45) mmHg ABG pO2 (83-108) mmHg ABG HCO3 (21-25) mmol/L ABG O2 Saturation (94-97) % ABG Potassium (3.4-4.5) mmol/L ABG Ionized Calcium (4.5-5.3) mg/dL ABG Glucose (75-99) mg/dL ABG Lactic Acid (0.5-1.6) mmol/L Hemoglobin (13.0-17.5) gm/dL Sodium (137-145) mmol/L Chloride (98-107) mmol/L BUN (9-20) mg/dL Creatinine (0.66-1.25) mg/dL Glucose (74-99) mg/dL POC Glucose (mg/dL) 169 H 149 H (70-110) mg/dL Magnesium (1.6-2.3) mg/dL AST (17-59) U/L Alkaline Phosphatase (38-126) U/L Total Protein (6.3-8.2) g/dL Albumin (3.5-5.0) g/dL Arterial Blood Potassium (3.4-4.5) mmol/L Arterial Blood Glucose (75-99) mg/dL Crossmatch 01/30/24 01/30/24 01/30/24 Range/Units 18:59 19:05 19:52 WBC 13.7 H (3.8-10.6) k/uL RBC 4.19 L (4.30-5.90) m/uL Hgb 12.4 L (13.0-17.5) gm/dL Hct 38.2 L (39.0-53.0) % Plt Count (150-450) k/uL Neutrophils # 12.0 H (1.3-7.7) k/uL Lymphocytes # 0.7 L (1.0-4.8) k/uL Monocytes # (0-1.0) k/uL ABG pH (7.35-7.45) ABG pCO2 (35-45) mmHg ABG pO2 (83-108) mmHg ABG HCO3 (21-25) mmol/L ABG O2 Saturation (94-97) % ABG Potassium (3.4-4.5) mmol/L ABG Ionized Calcium (4.5-5.3) mg/dL ABG Glucose (75-99) mg/dL ABG Lactic Acid (0.5-1.6) mmol/L Hemoglobin (13.0-17.5) gm/dL Sodium (137-145) mmol/L Chloride (98-107) mmol/L BUN (9-20) mg/dL Creatinine (0.66-1.25) mg/dL Glucose (74-99) mg/dL POC Glucose (mg/dL) 154 H 178 H (70-110) mg/dL Magnesium (1.6-2.3) mg/dL AST (17-59) U/L Alkaline Phosphatase (38-126) U/L Total Protein (6.3-8.2) g/dL Albumin (3.5-5.0) g/dL Arterial Blood Potassium (3.4-4.5) mmol/L Arterial Blood Glucose (75-99) mg/dL Crossmatch 01/30/24 01/30/24 01/30/24 Range/Units 20:44 21:14 22:01 WBC (3.8-10.6) k/uL RBC (4.30-5.90) m/uL Hgb (13.0-17.5) gm/dL Hct (39.0-53.0) % Plt Count (150-450) k/uL Neutrophils # (1.3-7.7) k/uL Lymphocytes # (1.0-4.8) k/uL Monocytes # (0-1.0) k/uL ABG pH (7.35-7.45) ABG pCO2 (35-45) mmHg ABG pO2 121 H (83-108) mmHg ABG HCO3 (21-25) mmol/L ABG O2 Saturation 97.4 H (94-97) % ABG Potassium (3.4-4.5) mmol/L ABG Ionized Calcium (4.5-5.3) mg/dL ABG Glucose (75-99) mg/dL ABG Lactic Acid (0.5-1.6) mmol/L Hemoglobin (13.0-17.5) gm/dL Sodium (137-145) mmol/L Chloride (98-107) mmol/L BUN (9-20) mg/dL Creatinine (0.66-1.25) mg/dL Glucose (74-99) mg/dL POC Glucose (mg/dL) 151 H 142 H (70-110) mg/dL Magnesium (1.6-2.3) mg/dL AST (17-59) U/L Alkaline Phosphatase (38-126) U/L Total Protein (6.3-8.2) g/dL Albumin (3.5-5.0) g/dL Arterial Blood Potassium (3.4-4.5) mmol/L Arterial Blood Glucose (75-99) mg/dL Crossmatch 01/30/24 01/31/24 01/31/24 Range/Units 23:20 00:05 01:01 WBC (3.8-10.6) k/uL RBC (4.30-5.90) m/uL Hgb (13.0-17.5) gm/dL Hct (39.0-53.0) % Plt Count (150-450) k/uL Neutrophils # (1.3-7.7) k/uL Lymphocytes # (1.0-4.8) k/uL Monocytes # (0-1.0) k/uL ABG pH (7.35-7.45) ABG pCO2 (35-45) mmHg ABG pO2 (83-108) mmHg ABG HCO3 (21-25) mmol/L ABG O2 Saturation (94-97) % ABG Potassium (3.4-4.5) mmol/L ABG Ionized Calcium (4.5-5.3) mg/dL ABG Glucose (75-99) mg/dL ABG Lactic Acid (0.5-1.6) mmol/L Hemoglobin (13.0-17.5) gm/dL Sodium (137-145) mmol/L Chloride (98-107) mmol/L BUN (9-20) mg/dL Creatinine (0.66-1.25) mg/dL Glucose (74-99) mg/dL POC Glucose (mg/dL) 150 H 144 H 152 H (70-110) mg/dL Magnesium (1.6-2.3) mg/dL AST (17-59) U/L Alkaline Phosphatase (38-126) U/L Total Protein (6.3-8.2) g/dL Albumin (3.5-5.0) g/dL Arterial Blood Potassium (3.4-4.5) mmol/L Arterial Blood Glucose (75-99) mg/dL Crossmatch 01/31/24 01/31/24 01/31/24 Range/Units 01:58 02:54 03:50 WBC 13.3 H (3.8-10.6) k/uL RBC 4.06 L (4.30-5.90) m/uL Hgb 11.9 L (13.0-17.5) gm/dL Hct 36.4 L (39.0-53.0) % Plt Count 130 L (150-450) k/uL Neutrophils # 11.3 H (1.3-7.7) k/uL Lymphocytes # 0.8 L (1.0-4.8) k/uL Monocytes # (0-1.0) k/uL ABG pH (7.35-7.45) ABG pCO2 (35-45) mmHg ABG pO2 (83-108) mmHg ABG HCO3 (21-25) mmol/L ABG O2 Saturation (94-97) % ABG Potassium (3.4-4.5) mmol/L ABG Ionized Calcium (4.5-5.3) mg/dL ABG Glucose (75-99) mg/dL ABG Lactic Acid (0.5-1.6) mmol/L Hemoglobin (13.0-17.5) gm/dL Sodium (137-145) mmol/L Chloride (98-107) mmol/L BUN (9-20) mg/dL Creatinine (0.66-1.25) mg/dL Glucose (74-99) mg/dL POC Glucose (mg/dL) 151 H 146 H (70-110) mg/dL Magnesium (1.6-2.3) mg/dL AST (17-59) U/L Alkaline Phosphatase (38-126) U/L Total Protein (6.3-8.2) g/dL Albumin (3.5-5.0) g/dL Arterial Blood Potassium (3.4-4.5) mmol/L Arterial Blood Glucose (75-99) mg/dL Crossmatch 05/01/31/24 01/31/24 Range/Units 03:50 03:56 04:56 WBC (3.8-10.6) k/uL RBC (4.30-5.90) m/uL Hgb (13.0-17.5) gm/dL Hct (39.0-53.0) % Plt Count (150-450) k/uL Neutrophils # (1.3-7.7) k/uL Lymphocytes # (1.0-4.8) k/uL Monocytes # (0-1.0) k/uL ABG pH (7.35-7.45) ABG pCO2 (35-45) mmHg ABG pO2 (83-108) mmHg ABG HCO3 (21-25) mmol/L ABG O2 Saturation (94-97) % ABG Potassium (3.4-4.5) mmol/L ABG Ionized Calcium (4.5-5.3) mg/dL ABG Glucose (75-99) mg/dL ABG Lactic Acid (0.5-1.6) mmol/L Hemoglobin (13.0-17.5) gm/dL Sodium 136 L (137-145) mmol/L Chloride 108 H (98-107) mmol/L BUN 26 H (9-20) mg/dL Creatinine 1.28 H (0.66-1.25) mg/dL Glucose 142 H (74-99) mg/dL POC Glucose (mg/dL) 144 H 136 H (70-110) mg/dL Magnesium (1.6-2.3) mg/dL AST 65 H (17-59) U/L Alkaline Phosphatase 33 L (38-126) U/L Total Protein 5.2 L (6.3-8.2) g/dL Albumin 3.1 L (3.5-5.0) g/dL Arterial Blood Potassium (3.4-4.5) mmol/L Arterial Blood Glucose (75-99) mg/dL Crossmatch 01/31/24 01/31/24 01/31/24 Range/Units 05:54 06:58 08:04 WBC (3.8-10.6) k/uL RBC (4.30-5.90) m/uL Hgb (13.0-17.5) gm/dL Hct (39.0-53.0) % Plt Count (150-450) k/uL Neutrophils # (1.3-7.7) k/uL Lymphocytes # (1.0-4.8) k/uL Monocytes # (0-1.0) k/uL ABG pH (7.35-7.45) ABG pCO2 (35-45) mmHg ABG pO2 (83-108) mmHg ABG HCO3 (21-25) mmol/L ABG O2 Saturation (94-97) % ABG Potassium (3.4-4.5) mmol/L ABG Ionized Calcium (4.5-5.3) mg/dL ABG Glucose (75-99) mg/dL ABG Lactic Acid (0.5-1.6) mmol/L Hemoglobin (13.0-17.5) gm/dL Sodium (137-145) mmol/L Chloride (98-107) mmol/L BUN (9-20) mg/dL Creatinine (0.66-1.25) mg/dL Glucose (74-99) mg/dL POC Glucose (mg/dL) 139 H 145 H 141 H (70-110) mg/dL Magnesium (1.6-2.3) mg/dL AST (17-59) U/L Alkaline Phosphatase (38-126) U/L Total Protein (6.3-8.2) g/dL Albumin (3.5-5.0) g/dL Arterial Blood Potassium (3.4-4.5) mmol/L Arterial Blood Glucose (75-99) mg/dL Crossmatch - Imaging and Cardiology Chest x-ray: report reviewed, image reviewed Assessment and Plan Assessment: Aortic Root Aneurysm with Severe Aortic Insufficiency, status post Biobentall (#29mm Konnect) Ascending aortic aneurysm, status post Biobentall (#29mm Konnect) Mild mitral and tricuspid regurgitation Nonischemic cardiomyopathy, EF 45-50% Hypertension Dyslipidemia, triglycerides 176, LDL 65, cholesterol 141, HDL 40.8 Paroxysmal atrial fibrillation on Eliquis for anticoagulation, status post cardioversion in October 2019 and subsequent ablation in February 2020, status post left atrial appendage ligation with a 35 mm AtriClip Diabetes mellitus type II, with a preoperative hemoglobin A1c 8.1% Obesity with a BMI of 41.8 kg/m Lifetime non-smoker Obstructive sleep apnea with home CPAP use Family history of premature coronary artery disease Postoperative acute blood loss anemia, expected given hemodilution and cardiopulmonary bypass Plan: Continue to maximize medical therapy with aspirin, statin, plavix and beta- henrietta. Will increase metoprolol tartrate to 25 mg p.o. twice daily with hold parameters. Start lisinopril 10 mg p.o. daily for afterload reduction. Discontinue nitroglycerin drip Continue home dose of amiodarone 200 mg p.o. daily for atrial fibrillation prophylaxis. No atrial fibrillation reported, currently in normal sinus rhythm. Wean oxygen as tolerated. Bronchodilator management per pulmonary critical care recommendations. Encourage incentive spirometry use 10 times every hour while awake. Will monitor daily labs and chest x-rays. Electrolyte replacement per protocol. GI/DVT prophylaxis. Insulin management per internal medicine, patient should stay on continuous IV insulin for 48 hours. Preoperative hemoglobin A1c 8.1%. Pain control per current medication regimen. Continue Holcomb/Cordis for another 24 hours. Continue mediastinal and right pleural chest tubes for another 24 hours, monitor and record output. We will remove her mediastinal chest tube today. Continue Hopkins catheter for another 24 hours, continue to monitor and record strict accurate intake and output. Daily weights. More recommendations to follow on patient's clinical course. Time with Patient: Greater than 30
[2024-01-31 09:15] LABS: Glucose,Whole Blood 186 mg/dL (70-110)
[2024-01-31 10:03] LABS: Glucose,Whole Blood 200 mg/dL (70-110)
--- NOTE | 2024-01-31 10:09 | P.CRDCN ---
History of Present Illness Consult date: 01/31/24 Consult reason: known to you History of present illness: The patient is a 63-year-old male who follows in the office with Dr. Taylor. He was referred to CV surgery for aortic valve, Biobentall procedure, which he underwent yesterday with Dr. Leigh. Overall the procedure was unremarkable and he was transferred back to the ICU in stable condition. The patient has been extubated overnight and is now up resting in the recliner chair. DIAGNOSTICS: EKG shows sinus rhythm with first-degree AV block Chest x-ray shows moderate cardiomegaly with mild pulmonary vascular congestion and postoperative atelectasis Lab data: WBC 13.3, hemoglobin 11.9, hematocrit 36.4, platelet 130, sodium 136, potassium 4.6, BUN 26, creatinine 1.28, magnesium 2.1, AST 65, ALT 27 Telemetry shows sinus mechanism overnight REVIEW OF SYSTEMS: No fever or chills. No cough or expectoration. No diaphoresis. Patient denies headache, dizziness, blurred vision, double vision. Patient denies any stomach discomfort. No nausea, vomiting. No hematochezia. No hematemesis. Denies any black stools or blood in his stools. Denies dysuria or hematuria. Positive for chest discomfort and difficulty breathing. PHYSICAL EXAMINATION: This is a 63-year-old obese male in no apparent distress at the time of my examination. HEENT: Head is atraumatic, normocephalic.There is no jugular venous distention. No carotid bruit is heard. CHEST EXAMINATION: Lungs are clear to auscultation. No chest wall tenderness is noted on palpation or with deep breathing. HEART EXAMINATION: Heart regular rate and rhythm. S1, S2 heard. No murmurs, gallops or rub. ABDOMEN: Soft, nontender. Bowel sounds are heard. No organomegaly noted. EXTREMITIES: 2+ peripheral pulses with no evidence of peripheral edema and no calf tenderness noted. NEUROLOGIC EXAMINATION: Patient is awake, alert and oriented x3. FINAL ASSESSMENT AND PLAN: Severe aortic insufficiency Dilated ascending root Status post biobentall, aortic valve replacement History of diabetes History hypertension Morbid obesity, BMI 41 History of atrial fibrillation, status post ablation History of obstructive sleep apnea PLAN: Continue supportive treatment Aggressive pulmonary hygiene Continue to monitor for arrhythmia with history of atrial fibrillation Further recommendations based upon clinical course I am dictating on behalf of Dr Mike Alonzo's history/physical and assessment/plan. Past Medical History Past Medical History: Atrial Fibrillation, Heart Failure, Diabetes Mellitus, Hyperlipidemia, Hypertension, Sleep Apnea/CPAP/BIPAP Additional Past Medical History / Comment(s): uses CPAP, SOB w/exertion History of Any Multi-Drug Resistant Organisms: None Reported Past Surgical History: Cardiac Ablation, Heart Catheterization, Hernia Repair, Orthopedic Surgery, Tonsillectomy Additional Past Surgical History / Comment(s): Bilat. knee surgery(6 surgeries) 1967 - 1973, hiatal hernia repair 1984, colonoscopy, cardioversion, [facility] Past Anesthesia/Blood Transfusion Reactions: No Reported Reaction Smoking Status: Never smoker - Past Family History Mother Family Medical History: No Reported History Father Family Medical History: Myocardial Infarction (DC) Additional Family Medical History / Comment(s): age 78 DC Sister(s) Family Medical History: Myocardial Infarction (DC) Additional Family Medical History / Comment(s): age 50 DC Medications and Allergies Home Medications Medication Instructions Recorded Confirmed Type Amiodarone HCl [Pacerone] 200 mg PO QAM 01/22/20 01/30/24 History Apixaban [Eliquis] 5 mg PO BID 01/22/20 01/30/24 History Atorvastatin [Lipitor] 20 mg PO QAM 01/22/20 01/30/24 History Dapagliflozin Propanediol [Farxiga] 10 mg PO HS 01/22/20 01/30/24 History Furosemide [Lasix] 40 mg PO QAM 01/22/20 01/30/24 History Metoprolol Tartrate [Lopressor] 25 mg PO BID 01/22/20 01/30/24 History Spironolactone 25 mg PO DAILY 01/22/20 01/30/24 History glipiZIDE [Glucotrol] 10 mg PO QAM 01/22/20 01/30/24 History lisinopriL [Zestril] 20 mg PO QAM 01/22/20 01/30/24 History metFORMIN HCL 1,000 mg PO BID 12/25/23 01/30/24 History Allergies Allergy/AdvReac Type Severity Reaction Status Date / Time silk stitches AdvReac body Uncoded 01/30/24 06:35 wouldn't absorb them Physical Exam Vitals: Vital Signs Temp Pulse Resp BP Pulse Ox FiO2 05/30/24 08:11 91 01/31/24 08:02 94 L 01/31/24 07:59 88 01/31/24 07:00 87 21 130/80 93 L 01/31/24 06:45 84 22 108/68 96 01/31/24 06:30 91 19 139/80 91 L 01/31/24 06:15 94 19 01/31/24 06:00 90 22 91 L 01/31/24 05:45 90 23 92 L 01/31/24 05:30 87 26 H 91 L 01/31/24 05:15 85 24 91 L 01/31/24 05:00 90 19 90 L 01/31/24 04:45 89 20 90 L 01/31/24 04:30 88 21 90 L 01/31/24 04:15 85 18 91 L 01/31/24 04:00 99.7 F H 84 21 91 L 01/31/24 03:45 80 20 91 L 01/31/24 03:30 81 22 90 L 01/31/24 03:15 84 21 90 L 01/31/24 03:00 85 20 91 L 01/31/24 02:45 84 18 92 L 01/31/24 02:30 82 19 92 L 01/31/24 02:15 81 20 92 L 01/31/24 02:00 78 26 H 91 L 01/31/24 01:45 80 25 H 91 L 01/31/24 01:30 78 22 92 L 01/31/24 01:15 80 23 92 L 01/31/24 01:00 80 24 92 L 01/31/24 00:45 82 21 92 L 01/31/24 00:30 81 21 92 L 01/31/24 00:15 80 22 91 L 01/31/24 00:00 99.9 F H 77 25 H 92 L 01/30/24 23:45 79 26 H 92 L 01/30/24 23:30 77 26 H 92 L 01/30/24 23:15 75 23 93 L 01/30/24 23:00 73 26 H 93 L 01/30/24 22:45 74 20 94 L 01/30/24 22:30 72 24 93 L 01/30/24 22:15 67 29 H 93 L 01/30/24 22:00 68 28 H 93 L 01/30/24 21:45 70 29 H 93 L 01/30/24 21:30 69 27 H 93 L 01/30/24 21:15 68 26 H 93 L 01/30/24 21:00 66 23 94 L 01/30/24 20:50 50 01/30/24 20:45 70 25 H 96 50 01/30/24 20:30 68 25 H 98 50 01/30/24 20:15 67 25 H 95 01/30/24 20:10 66 24 01/30/24 20:05 50 01/30/24 20:00 66 24 95 50 01/30/24 19:49 67 21 01/30/24 19:45 66 27 H 95 01/30/24 19:30 67 28 H 95 01/30/24 19:15 69 24 95 01/30/24 19:00 99.3 F 69 16 95 50 01/30/24 18:45 70 23 95 01/30/24 18:30 71 24 95 01/30/24 18:15 71 24 95 01/30/24 18:00 72 24 95 50 01/30/24 17:52 99.1 F 71 120/55 96 01/30/24 17:46 99.0 F 72 24 123/59 96 01/30/24 17:45 72 24 96 01/30/24 17:42 50 01/30/24 17:36 99.1 F 71 89/49 01/30/24 17:30 71 24 97 01/30/24 17:15 68 27 H 95 01/30/24 17:00 37.3 F L 68 25 H 96 70 01/30/24 16:45 67 27 H 95 01/30/24 16:30 65 27 H 98 01/30/24 16:20 70 01/30/24 16:15 64 25 H 97 01/30/24 16:00 98.8 F 62 22 98 70 01/30/24 15:45 59 L 16 98 01/30/24 15:37 91 16 01/30/24 15:30 60 22 98 01/30/24 15:15 61 21 98 01/30/24 15:00 61 19 100 01/30/24 14:45 63 16 95 01/30/24 14:30 64 20 95 100 01/30/24 14:24 80 01/30/24 14:15 63 12 97 01/30/24 14:00 97.5 F L 60 12 97 100 01/30/24 13:56 100 01/30/24 13:48 66 10 L 01/30/24 13:46 100 Intake and Output 01/30/24 01/31/24 01/31/24 22:59 06:59 14:59 Intake Total 9255.601 9035.625 187.438 Output Total 1513 1017 70 Balance -238.901 -15.375 117.438 Intake: IV 662 831 139 ACETAMINOPHEN IV (For NPO 100 ) 1,000 mg In Empty Bag 1 bag @ 400 mls/hr IVPB Q6HR [facility] Rx#:[id number] CO/CI 140 100 30 Lactated Ringers 1,000 ml 300 450 50 @ 50 mls/hr IV .Q20H [facility] Rx#:[id number] Pressure 72 81 9 Protamine Sulfate 25 mg 100 In Sodium Chloride 0.9% 50 ml @ 315 mls/hr IVPB ONCE STA Rx#:[id number] ceFAZolin 2 gm In Sodium 50 100 50 Chloride 0.9% 50 ml @ Per Protocol 100 mls/hr IVPB ONCE ONE Rx#:[id number] Intake, IV Titration 275.099 70.625 48.438 Amount Clevidipine Butyrate 25 14.933 mg In Empty Bag 1 bag @ 1 MG/HR 2 mls/hr IV .Q24H [facility] Rx#:[id number] Insulin Regular 100 unit 30.249 41.250 34.913 In Sodium Chloride 0.9% 100 ml @ Per Protocol IV .Q0M [facility] Rx#:[id number] Nitroglycerin-D5w Pmx 50 9.750 29.375 13.525 mg In Dextrose/Water 1 250ml.bag @ 5 MCG/MIN 1.5 mls/hr IV .Q24H [facility] Rx#: [id number] ceFAZolin 3 gm In Sodium 100 Chloride 0.9% 100 ml @ Per Protocol 200 mls/hr IVPB ONCE ONE Rx#: [id number] propofoL 1,000 mg In 120.167 Empty Bag 1 bag @ Titrate IV .Q0M [facility] Rx#: [id number] Oral 100 Blood Product 337 Platelet Pheresis Pas 337 Psoralen Unit [id number] Output: Chest Tube Drainage 718 342 10 Mediastinal x2 590 200 10 Right Pleural 128 142 0 Urine 795 675 60 Other: Voiding Method Indwelling Catheter Indwelling Catheter Weight 151.8 kg ABP, PAP, CO, CI - Last 8 Hours Arterial Blood Pressure 120/58 Arterial Blood Pressure 144/65 Arterial Blood Pressure 92/75 Arterial Blood Pressure 126/79 Arterial Blood Pressure 122/61 Arterial Blood Pressure 116/61 Arterial Blood Pressure 123/62 Arterial Blood Pressure 128/68 Arterial Blood Pressure 115/60 Arterial Blood Pressure 120/62 Arterial Blood Pressure 114/59 Arterial Blood Pressure 117/60 Arterial Blood Pressure 116/59 Arterial Blood Pressure 98/54 Arterial Blood Pressure 102/55 Arterial Blood Pressure 116/58 Arterial Blood Pressure 117/58 Arterial Blood Pressure 119/58 Arterial Blood Pressure 116/58 Arterial Blood Pressure 99/60 Pulmonary Artery Pressure 15/1 Pulmonary Artery Pressure 26/4 Pulmonary Artery Pressure 15/4 Pulmonary Artery Pressure 23/8 Pulmonary Artery Pressure 23/11 Pulmonary Artery Pressure 23/7 Pulmonary Artery Pressure 24/9 Pulmonary Artery Pressure 32/7 Pulmonary Artery Pressure 25/13 Pulmonary Artery Pressure 25/11 Pulmonary Artery Pressure 25/10 Pulmonary Artery Pressure 27/12 Pulmonary Artery Pressure 28/11 Pulmonary Artery Pressure 27/11 Pulmonary Artery Pressure 23/9 Pulmonary Artery Pressure 26/11 Pulmonary Artery Pressure 26/10 Pulmonary Artery Pressure 27/12 Pulmonary Artery Pressure 27/11 Pulmonary Artery Pressure 27/10 Cardiac Output 4.8 Cardiac Output 5.9 Cardiac Index 1.8 Cardiac Index 2.2 Results 01/31/24 03:50 01/31/24 03:50 Cardiac Enzymes 01/30/24 01/31/24 Range/Units 14:00 03:50 AST 64 H 65 H (17-59) U/L Coagulation 01/30/24 01/30/24 Range/Units 14:00 17:12 PT 11.7 11.3 (10.0-12.5) sec APTT 28.9 25.5 (22.0-30.0) sec CBC 01/30/24 01/30/24 01/30/24 Range/Units 14:00 15:55 19:05 WBC 12.9 H 15.3 H 13.7 H (3.8-10.6) k/uL RBC 4.49 4.31 4.19 L (4.30-5.90) m/uL Hgb 13.6 13.2 12.4 L (13.0-17.5) gm/dL Hct 40.5 39.0 38.2 L (39.0-53.0) % Plt Count 111 L 144 L 154 (150-450) k/uL 01/31/24 Range/Units 03:50 WBC 13.3 H (3.8-10.6) k/uL RBC 4.06 L (4.30-5.90) m/uL Hgb 11.9 L (13.0-17.5) gm/dL Hct 36.4 L (39.0-53.0) % Plt Count 130 L (150-450) k/uL Comprehensive Metabolic Panel 01/30/24 01/31/24 Range/Units 14:00 03:50 Sodium 137 136 L (137-145) mmol/L Potassium 4.2 4.6 (3.5-5.1) mmol/L Chloride 110 H 108 H (98-107) mmol/L Carbon Dioxide 23 24 (22-30) mmol/L BUN 27 H 26 H (9-20) mg/dL Creatinine 1.24 1.28 H (0.66-1.25) mg/dL Glucose 118 H 142 H (74-99) mg/dL Calcium 8.5 8.4 (8.4-10.2) mg/dL AST 64 H 65 H (17-59) U/L ALT 32 27 (4-49) U/L Alkaline Phosphatase 33 L 33 L (38-126) U/L Total Protein 5.4 L 5.2 L (6.3-8.2) g/dL Albumin 3.3 L 3.1 L (3.5-5.0) g/dL Current Medications Generic Name Dose Route Start Last Admin Trade Name Freq PRN Reason Stop Dose Admin Albuterol/Ipratropium 3 ml 01/30/24 13:16 Ipratropium-Albuterol 3 Ml Neb INHALATION RT-Q2H PRN Shortness Of Breath Or Wheezing Albuterol/Ipratropium 3 ml 01/30/24 20:00 01/31/24 07:59 Ipratropium-Albuterol 3 Ml Neb INHALATION 3 ml RT-QID [facility] Administration Amiodarone HCl 200 mg 01/31/24 09:00 01/31/24 08:27 Amiodarone 200 Mg Tab PO 200 mg QAM [facility] Administration Aspirin 325 mg 01/31/24 09:00 01/31/24 08:19 Aspirin 325 Mg Tab PO 325 mg DAILY [facility] Administration Atorvastatin Calcium 20 mg 01/31/24 09:00 01/31/24 08:19 Atorvastatin 20 Mg Tab PO 20 mg QAM [facility] Administration Benzocaine/Menthol 1 each 01/30/24 13:16 Benzocaine/Menthol Lozeng 1 Each Lozenge MUCOUS MEM Q2H PRN Sore Throat Bisacodyl 10 mg 01/31/24 09:00 Bisacodyl 10 Mg Supp RECTAL DAILY PRN Constipation Clopidogrel Bisulfate 75 mg 01/31/24 09:00 01/31/24 08:19 Clopidogrel 75 Mg Tab PO 75 mg DAILY [facility] Administration Dextrose/Water 25 ml 01/30/24 13:16 Dextrose 50% Syringe 50 Ml IVP PER PROTOCOL PRN Hypoglycemia Protocol Dextrose/Water 50 ml 01/30/24 13:16 Dextrose 50% Syringe 50 Ml IVP PER PROTOCOL PRN Hypoglycemia Protocol Heparin Sodium (Porcine) 5,000 unit 01/30/24 16:00 01/31/24 08:19 Heparin Sodium,Porcine 5,000 Unit/Ml 1 Ml Vial SQ 5,000 unit Q8HR [facility] Administration Hydralazine HCl 10 mg 01/30/24 13:16 Hydralazine Hcl 20 Mg/Ml 1 Ml Vial IVP Q1H PRN Blood Pressure - High Hydromorphone HCl 1 mg 01/30/24 21:38 01/31/24 03:24 Hydromorphone 1 Mg/Ml 1 Ml Syringe IVP 1 mg ONCE PRN Administration Breakthrough Pain Amiodarone HCl 150 mg/ 103 mls @ 618 mls/hr 01/30/24 13:16 Dextrose/Water IV .Q10M PRN A.FIB/FLUTTER Protocol Amiodarone HCl 360 mg/ 207.2 mls @ 34.533 mls/hr 01/30/24 13:16 Dextrose/Water IV .Q6H PRN A.FIB/FLUTTER Protocol 1 MG/MIN Amiodarone HCl 450 mg/ 250 mls @ 16.667 mls/hr 01/30/24 13:16 Dextrose/Water IV .Q15H PRN A.FIB/FLUTTER Protocol 0.5 MG/MIN Albumin Human 250 ml/ IV 250 mls @ 250 mls/hr 01/30/24 13:16 01/31/24 07:16 Solution IVPB 02/01/24 13:17 250 mls/hr Q1HR PRN Administration For Volume Protocol Lactated Ringer's 1,000 mls @ 50 mls/hr 01/30/24 13:16 01/30/24 14:27 Lactated Ringers IV 50 mls/hr .Q20H [facility] Administration Cefazolin Sodium 3 gm/ Sodium 100 mls @ 100 mls/hr 01/30/24 16:00 01/31/24 08:29 Chloride IVPB 02/01/24 00:59 100 mls/hr Q8HR [facility] Administration Protocol Calcium Gluconate/Sodium 100 mls @ 100 mls/hr 01/30/24 13:16 Chloride 2 gm/ IV Solution IVPB 02/02/24 13:17 ONCE PRN Ionized Calcium less than 4.4 Insulin Human Regular 100 unit 101 mls @ 0 mls/hr 01/30/24 14:00 01/31/24 0 9:14 / Sodium Chloride IV 11.5 units/hr .Q0M [facility] 11.615 mls/hr Titration Protocol Per Protocol Propofol 1,000 mg/ IV Solution 100 mls @ 0 mls/hr 01/30/24 13:16 01/30/24 19:49 IV 0 mcg/kg/min .Q0M [facility] 0 mls/hr Titration Protocol Titrate Lisinopril 10 mg 01/31/24 09:00 01/31/24 09:04 Lisinopril 10 Mg Tab PO 10 mg DAILY [facility] Administration Magnesium Hydroxide 2,400 mg 01/31/24 09:00 Magnesium Hydroxide 2,400 Mg/30 Ml Cup PO BID PRN Constipation Metoclopramide HCl 10 mg 01/30/24 13:16 Metoclopramide 5 Mg/Ml 2 Ml Vial IVP Q4H PRN Nausea And Vomiting Metoprolol Tartrate 25 mg 01/31/24 09:00 01/31/24 08:28 Metoprolol Tartrate 25 Mg Tab PO 25 mg BID [facility] Administration Miscellaneous Information 1 each 01/30/24 13:16 Potassium Replacement Protocol 1 Each Misc MISCELLANE DAILY PRN Per Protocol Protocol Miscellaneous Information 1 each 01/30/24 13:16 Magnesium Replacement Protocol 1 Each Misc MISCELLANE DAILY PRN Per Protocol Protocol Ondansetron HCl 4 mg 01/30/24 13:16 Ondansetron 4 Mg/2 Ml Vial IVP Q6HR PRN Nausea And Vomiting Oxycodone HCl 5 mg 01/30/24 13:16 Oxycodone Hcl 5 Mg Tab PO Q4HR PRN Moderate Pain (Scale 4 to 6) Oxycodone HCl 10 mg 01/30/24 13:16 01/31/24 09:03 Oxycodone Hcl 5 Mg Tab PO 10 mg Q4HR PRN Administration Severe Pain (Scale 7 to 10) Pantoprazole Sodium 40 mg 01/31/24 09:00 01/31/24 08:19 Pantoprazole 40 Mg/10 Ml Vial IVP 40 mg DAILY [facility] Administration Senna/Docusate Sodium 2 each 01/31/24 21:00 Sennosides-Docusate Sodium 1 Each Tab PO HS [facility] Sodium Chloride 10 ml 01/30/24 21:00 01/30/24 20:26 Sodium Chloride 0.9% Flush 10 Ml Syringe IV 10 ml BID [facility] Administration Intake and Output 01/30/24 01/31/24 01/31/24 22:59 06:59 14:59 Intake Total 1678.377 3735.625 187.438 Output Total 1513 1017 70 Balance -238.901 -15.375 117.438 Intake: IV 662 831 139 ACETAMINOPHEN IV (For NPO 100 ) 1,000 mg In Empty Bag 1 bag @ 400 mls/hr IVPB Q6HR [facility] Rx#:[id number] CO/CI 140 100 30 Lactated Ringers 1,000 ml 300 450 50 @ 50 mls/hr IV .Q20H [facility] Rx#:[id number] Pressure 72 81 9 Protamine Sulfate 25 mg 100 In Sodium Chloride 0.9% 50 ml @ 315 mls/hr IVPB ONCE STA Rx#:[id number] ceFAZolin 2 gm In Sodium 50 100 50 Chloride 0.9% 50 ml @ Per Protocol 100 mls/hr IVPB ONCE ONE Rx#:[id number] Intake, IV Titration 275.099 70.625 48.438 Amount Clevidipine Butyrate 25 14.933 mg In Empty Bag 1 bag @ 1 MG/HR 2 mls/hr IV .Q24H [facility] Rx#:[id number] Insulin Regular 100 unit 30.249 41.250 34.913 In Sodium Chloride 0.9% 100 ml @ Per Protocol IV .Q0M [facility] Rx#:[id number] Nitroglycerin-D5w Pmx 50 9.750 29.375 13.525 mg In Dextrose/Water 1 250ml.bag @ 5 MCG/MIN 1.5 mls/hr IV .Q24H [facility] Rx#: [id number] ceFAZolin 3 gm In Sodium 100 Chloride 0.9% 100 ml @ Per Protocol 200 mls/hr IVPB ONCE ONE Rx#: [id number] propofoL 1,000 mg In 120.167 Empty Bag 1 bag @ Titrate IV .Q0M [facility] Rx#: [id number] Oral 100 Blood Product 337 Platelet Pheresis Pas 337 Psoralen Unit [id number] Output: Chest Tube Drainage 718 342 10 Mediastinal x2 590 200 10 Right Pleural 128 142 0 Urine 795 675 60 Other: Voiding Method Indwelling Catheter Indwelling Catheter Weight 151.8 kg 01/31/24 03:50 01/31/24 03:50
[2024-01-31 10:35] VITALS: BMI 41.8
[2024-01-31 11:07] LABS: Glucose,Whole Blood 185 mg/dL (70-110)
[2024-01-31 12:55] LABS: Glucose,Whole Blood 234 mg/dL (70-110)
--- NOTE | 2024-01-31 13:27 | P.PN ---
Subjective Progress Note Date: 01/31/24 Principal diagnosis: Severe Aortic regurgitation and aneurysmal ascending aorta/4.4 cm This is a 63-year-old male patient with a known history of atrial fibrillation and previous ablation approximately 4 years ago maintained on Eliquis, diabetes mellitus, hyperlipidemia, hypertension, obstructive sleep apnea utilizing CPAP, nonischemic cardiomyopathy who was recently found to have impaired left ventricular systolic function with ejection fraction of 45 to 50% and severe aortic regurgitation and aneurysmal ascending aorta measuring 4.4 cm. He was brought in electively today for surgery with Dr. Leigh. He did undergo aortic valve replacement with a biobentall #29 [place], left atrial appendage ligation with atrial clip placement and follow-up transesophageal echocardiogram. He is seen currently in the intensive care unit. He is intubated on the mechanical ventilator with current settings of assist-control mode of 16, tidal volume 550 and FiO2 70% and a PEEP of 10. Initial blood gases on 100% FiO2 and a rate of 12 revealed a PaO2 of 166, pCO2 of 54 and a pH of 7.28. Chest x-ray reveals evidence of the endotracheal tube and nasogastric tube as well as a Simpson-Des catheter suspected in place. X-ray is somewhat underpenetrated. 2 mediastinal chest tubes and a right-sided chest tube in place. Right IJ Simpson-Des catheter in place. Cardiac output 6.9. Cardiac index 2.5. PA pressures 34/18. CVP 12. Currently in sinus rhythm. He is on lactated Ringer's at 50 MLS per hour. Propofol at 30 mcg/kg/min. Insulin drip at 3 units/h. Nitroglycerin drip at 10 mcg/min. He did receive albumin. Receiving bronchodilators. Received cefazolin. Initiated on Cleviprex at 2 mg/h. Patient was evaluated today on 01/31/24 POD #1 Biobentall (#29mm Konnect), left atrial appendage ligation with #35mm AtriClip, patient was extubated yesterday rated the extubation quite well, he is sitting in a bedside chair today, he was successfully extubated at 8:52 p.m. Currently on 6 L nasal cannula, O2 sat is 94%, patient is not in any distress, achieving almost 1500 cc on his incentive spirometry. For complaint except for minimal cough, nonproductive, no fever, no chills, no hemoptysis, and no chest pain. He did receive a unit of platelets last evening, continues to have mediastinal and right pleural chest tubes, no airleak is noted, mediastinal chest tube drained about 200 cc overnight, the right pleural chest tube drained 140 cc since last night. Patient is hemodynamically stable not requiring any pressors, cardiac output is 5.4 cardiac index is 2.0. Chest x-ray is showing minimal atelectasis at the base. CBC is relatively normal hemoglobin is 11.9. Platelets today are 130,000 basic metabolic profile is normal, except for BUN of 26 creatinine 1.28 Objective - Vital Signs Vital signs: Vital Signs Temp 100.0 F H 01/31/24 12:00 Pulse 75 01/31/24 12:32 Resp 16 01/31/24 12:32 BP 114/70 01/31/24 12:30 Pulse Ox 95 01/31/24 12:30 FiO2 50 01/30/24 20:50 Intake & Output 01/30/24 01/31/24 01/31/24 18:59 06:59 18:59 Intake Total 5208.403 5001.131 1055.362 Output Total 3025 1600 595 Balance -1860.907 -282.869 460.362 Weight 151.8 kg 151.8 kg Intake: IV 537 1107 475 ACETAMINOPHEN IV (For NPO 100 ) 1,000 mg In Empty Bag 1 bag @ 400 mls/hr IVPB Q6HR [facility] Rx#:[id number] CO/CI 90 190 130 Lactated Ringers 1,000 ml 200 600 250 @ 20 mls/hr IV .Q24H [facility] Rx#:[id number] Pressure 45 117 45 Protamine Sulfate 25 mg 100 In Sodium Chloride 0.9% 50 ml @ 315 mls/hr IVPB ONCE STA Rx#:[id number] ceFAZolin 2 gm In Sodium 50 100 50 Chloride 0.9% 50 ml @ Per Protocol 100 mls/hr IVPB ONCE ONE Rx#:[id number] Intake, IV Titration 290.093 110.131 80.362 Amount Clevidipine Butyrate 25 14.933 mg In Empty Bag 1 bag @ 1 MG/HR 2 mls/hr IV .Q24H [facility] Rx#:[id number] Insulin Regular 100 unit 10.529 60.970 66.837 In Sodium Chloride 0.9% 100 ml @ Per Protocol IV .Q0M [facility] Rx#:[id number] Lactated Ringers 1,000 ml 50 @ 20 mls/hr IV .Q24H [facility] Rx#:[id number] Nitroglycerin-D5w Pmx 50 14.250 29.375 13.525 mg In Dextrose/Water 1 250ml.bag @ 5 MCG/MIN 1.5 mls/hr IV .Q24H [facility] Rx#: [id number] ceFAZolin 3 gm In Sodium 100 Chloride 0.9% 100 ml @ Per Protocol 200 mls/hr IVPB ONCE ONE Rx#: [id number] propofoL 1,000 mg In 100.381 19.786 Empty Bag 1 bag @ Titrate IV .Q0M [facility] Rx#: [id number] Oral 100 500 Blood Product 337 Platelet Pheresis Pas 337 Psoralen Unit [id number] Output: Chest Tube Drainage 950 500 110 Mediastinal x2 820 320 60 Right Pleural 130 180 50 Urine 1125 1100 485 Estimated Blood Loss 950 Other: Voiding Method Indwelling Catheter Indwelling Catheter Indwelling Catheter ABP, PAP, CO, CI - Last Documented Arterial Blood Pressure 125/49 Pulmonary Artery Pressure 19/4 Cardiac Output 6.9 Cardiac Index 2.5 - Exam Physical exam: General: Revealed 63-year-old obese male, on 6 L nasal cannula, not in distress HEENT: Head is atraumatic, normocephalic.IJ cordis is noted, no JVD noted. CHEST EXAMINATION: Diminished breath sounds at the bases no crackles rhonchi or wheezes HEART EXAMINATION: Normal S1-S2, no S3 gallop, 2/6 systolic murmur throughout the precordium ABDOMEN: Obese, soft, nontender. No megaly no rebound no guarding EXTREMITIES: Good pulses bilaterally no clubbing edema or cyanosis. Tenderness noted. NEUROLOGIC EXAMINATION: Alert oriented x 3 no gross focal deficit Psychiatric: Normal mood affect and normal mental status examination. Skin: No rashes - Labs CBC & Chem 7: 01/31/24 03:50 01/31/24 03:50 Labs: Abnormal Lab Results - Last 24 Hours (Table) 01/24/24 01/30/24 01/30/24 Range/Units 10:14 09:14 09:40 WBC (3.8-10.6) k/uL RBC (4.30-5.90) m/uL Hgb (13.0-17.5) gm/dL Hct (39.0-53.0) % Plt Count (150-450) k/uL Neutrophils # (1.3-7.7) k/uL Lymphocytes # (1.0-4.8) k/uL Monocytes # (0-1.0) k/uL ABG pH (7.35-7.45) ABG pCO2 (35-45) mmHg ABG pO2 (83-108) mmHg ABG HCO3 (21-25) mmol/L ABG O2 Saturation (94-97) % ABG Lactic Acid 2.4 H* 2.4 H* (0.5-1.6) mmol/L Sodium (137-145) mmol/L Chloride (98-107) mmol/L BUN (9-20) mg/dL Creatinine (0.66-1.25) mg/dL Glucose (74-99) mg/dL POC Glucose (mg/dL) (70-110) mg/dL Magnesium (1.6-2.3) mg/dL AST (17-59) U/L Alkaline Phosphatase (38-126) U/L Total Protein (6.3-8.2) g/dL Albumin (3.5-5.0) g/dL Crossmatch See Detail 01/30/24 01/30/24 01/30/24 Range/Units 10:14 10:34 11:34 WBC (3.8-10.6) k/uL RBC (4.30-5.90) m/uL Hgb (13.0-17.5) gm/dL Hct (39.0-53.0) % Plt Count (150-450) k/uL Neutrophils # (1.3-7.7) k/uL Lymphocytes # (1.0-4.8) k/uL Monocytes # (0-1.0) k/uL ABG pH (7.35-7.45) ABG pCO2 (35-45) mmHg ABG pO2 (83-108) mmHg ABG HCO3 (21-25) mmol/L ABG O2 Saturation (94-97) % ABG Lactic Acid 2.5 H* 2.3 H* 2.5 H* (0.5-1.6) mmol/L Sodium (137-145) mmol/L Chloride (98-107) mmol/L BUN (9-20) mg/dL Creatinine (0.66-1.25) mg/dL Glucose (74-99) mg/dL POC Glucose (mg/dL) (70-110) mg/dL Magnesium (1.6-2.3) mg/dL AST (17-59) U/L Alkaline Phosphatase (38-126) U/L Total Protein (6.3-8.2) g/dL Albumin (3.5-5.0) g/dL Crossmatch 01/30/24 01/30/24 01/30/24 Range/Units 12:01 12:53 13:57 WBC (3.8-10.6) k/uL RBC (4.30-5.90) m/uL Hgb (13.0-17.5) gm/dL Hct (39.0-53.0) % Plt Count (150-450) k/uL Neutrophils # (1.3-7.7) k/uL Lymphocytes # (1.0-4.8) k/uL Monocytes # (0-1.0) k/uL ABG pH (7.35-7.45) ABG pCO2 (35-45) mmHg ABG pO2 (83-108) mmHg ABG HCO3 (21-25) mmol/L ABG O2 Saturation (94-97) % ABG Lactic Acid 2.9 H* 3.2 H* (0.5-1.6) mmol/L Sodium (137-145) mmol/L Chloride (98-107) mmol/L BUN (9-20) mg/dL Creatinine (0.66-1.25) mg/dL Glucose (74-99) mg/dL POC Glucose (mg/dL) 118 H (70-110) mg/dL Magnesium (1.6-2.3) mg/dL AST (17-59) U/L Alkaline Phosphatase (38-126) U/L Total Protein (6.3-8.2) g/dL Albumin (3.5-5.0) g/dL Crossmatch 01/30/24 01/30/24 01/30/24 Range/Units 14:00 14:00 14:14 WBC 12.9 H (3.8-10.6) k/uL RBC (4.30-5.90) m/uL Hgb (13.0-17.5) gm/dL Hct (39.0-53.0) % Plt Count 111 L (150-450) k/uL Neutrophils # 10.8 H (1.3-7.7) k/uL Lymphocytes # (1.0-4.8) k/uL Monocytes # (0-1.0) k/uL ABG pH 7.28 L (7.35-7.45) ABG pCO2 54 H (35-45) mmHg ABG pO2 166 H (83-108) mmHg ABG HCO3 26 H (21-25) mmol/L ABG O2 Saturation 98.0 H (94-97) % ABG Lactic Acid (0.5-1.6) mmol/L Sodium (137-145) mmol/L Chloride 110 H (98-107) mmol/L BUN 27 H (9-20) mg/dL Creatinine (0.66-1.25) mg/dL Glucose 118 H (74-99) mg/dL POC Glucose (mg/dL) (70-110) mg/dL Magnesium 2.4 H (1.6-2.3) mg/dL AST 64 H (17-59) U/L Alkaline Phosphatase 33 L (38-126) U/L Total Protein 5.4 L (6.3-8.2) g/dL Albumin 3.3 L (3.5-5.0) g/dL Crossmatch 01/30/24 01/30/24 01/30/24 Range/Units 15:09 15:55 15:55 WBC 15.3 H (3.8-10.6) k/uL RBC (4.30-5.90) m/uL Hgb (13.0-17.5) gm/dL Hct (39.0-53.0) % Plt Count 144 L (150-450) k/uL Neutrophils # 12.3 H (1.3-7.7) k/uL Lymphocytes # (1.0-4.8) k/uL Monocytes # 1.2 H (0-1.0) k/uL ABG pH (7.35-7.45) ABG pCO2 (35-45) mmHg ABG pO2 (83-108) mmHg ABG HCO3 (21-25) mmol/L ABG O2 Saturation (94-97) % ABG Lactic Acid (0.5-1.6) mmol/L Sodium (137-145) mmol/L Chloride (98-107) mmol/L BUN (9-20) mg/dL Creatinine (0.66-1.25) mg/dL Glucose (74-99) mg/dL POC Glucose (mg/dL) 153 H 159 H (70-110) mg/dL Magnesium (1.6-2.3) mg/dL AST (17-59) U/L Alkaline Phosphatase (38-126) U/L Total Protein (6.3-8.2) g/dL Albumin (3.5-5.0) g/dL Crossmatch 01/30/24 01/30/24 01/30/24 Range/Units 17:06 18:05 18:59 WBC (3.8-10.6) k/uL RBC (4.30-5.90) m/uL Hgb (13.0-17.5) gm/dL Hct (39.0-53.0) % Plt Count (150-450) k/uL Neutrophils # (1.3-7.7) k/uL Lymphocytes # (1.0-4.8) k/uL Monocytes # (0-1.0) k/uL ABG pH (7.35-7.45) ABG pCO2 (35-45) mmHg ABG pO2 (83-108) mmHg ABG HCO3 (21-25) mmol/L ABG O2 Saturation (94-97) % ABG Lactic Acid (0.5-1.6) mmol/L Sodium (137-145) mmol/L Chloride (98-107) mmol/L BUN (9-20) mg/dL Creatinine (0.66-1.25) mg/dL Glucose (74-99) mg/dL POC Glucose (mg/dL) 169 H 149 H 154 H (70-110) mg/dL Magnesium (1.6-2.3) mg/dL AST (17-59) U/L Alkaline Phosphatase (38-126) U/L Total Protein (6.3-8.2) g/dL Albumin (3.5-5.0) g/dL Crossmatch 0501/30/24 01/30/24 Range/Units 19:05 19:52 20:44 WBC 13.7 H (3.8-10.6) k/uL RBC 4.19 L (4.30-5.90) m/uL Hgb 12.4 L (13.0-17.5) gm/dL Hct 38.2 L (39.0-53.0) % Plt Count (150-450) k/uL Neutrophils # 12.0 H (1.3-7.7) k/uL Lymphocytes # 0.7 L (1.0-4.8) k/uL Monocytes # (0-1.0) k/uL ABG pH (7.35-7.45) ABG pCO2 (35-45) mmHg ABG pO2 121 H (83-108) mmHg ABG HCO3 (21-25) mmol/L ABG O2 Saturation 97.4 H (94-97) % ABG Lactic Acid (0.5-1.6) mmol/L Sodium (137-145) mmol/L Chloride (98-107) mmol/L BUN (9-20) mg/dL Creatinine (0.66-1.25) mg/dL Glucose (74-99) mg/dL POC Glucose (mg/dL) 178 H (70-110) mg/dL Magnesium (1.6-2.3) mg/dL AST (17-59) U/L Alkaline Phosphatase (38-126) U/L Total Protein (6.3-8.2) g/dL Albumin (3.5-5.0) g/dL Crossmatch 01/30/24 01/30/24 01/30/24 Range/Units 21:14 22:01 23:20 WBC (3.8-10.6) k/uL RBC (4.30-5.90) m/uL Hgb (13.0-17.5) gm/dL Hct (39.0-53.0) % Plt Count (150-450) k/uL Neutrophils # (1.3-7.7) k/uL Lymphocytes # (1.0-4.8) k/uL Monocytes # (0-1.0) k/uL ABG pH (7.35-7.45) ABG pCO2 (35-45) mmHg ABG pO2 (83-108) mmHg ABG HCO3 (21-25) mmol/L ABG O2 Saturation (94-97) % ABG Lactic Acid (0.5-1.6) mmol/L Sodium (137-145) mmol/L Chloride (98-107) mmol/L BUN (9-20) mg/dL Creatinine (0.66-1.25) mg/dL Glucose (74-99) mg/dL POC Glucose (mg/dL) 151 H 142 H 150 H (70-110) mg/dL Magnesium (1.6-2.3) mg/dL AST (17-59) U/L Alkaline Phosphatase (38-126) U/L Total Protein (6.3-8.2) g/dL Albumin (3.5-5.0) g/dL Crossmatch 01/31/24 01/31/24 01/31/24 Range/Units 00:05 01:01 01:58 WBC (3.8-10.6) k/uL RBC (4.30-5.90) m/uL Hgb (13.0-17.5) gm/dL Hct (39.0-53.0) % Plt Count (150-450) k/uL Neutrophils # (1.3-7.7) k/uL Lymphocytes # (1.0-4.8) k/uL Monocytes # (0-1.0) k/uL ABG pH (7.35-7.45) ABG pCO2 (35-45) mmHg ABG pO2 (83-108) mmHg ABG HCO3 (21-25) mmol/L ABG O2 Saturation (94-97) % ABG Lactic Acid (0.5-1.6) mmol/L Sodium (137-145) mmol/L Chloride (98-107) mmol/L BUN (9-20) mg/dL Creatinine (0.66-1.25) mg/dL Glucose (74-99) mg/dL POC Glucose (mg/dL) 144 H 152 H 151 H (70-110) mg/dL Magnesium (1.6-2.3) mg/dL AST (17-59) U/L Alkaline Phosphatase (38-126) U/L Total Protein (6.3-8.2) g/dL Albumin (3.5-5.0) g/dL Crossmatch 01/31/24 01/31/24 01/31/24 Range/Units 02:54 03:50 03:50 WBC 13.3 H (3.8-10.6) k/uL RBC 4.06 L (4.30-5.90) m/uL Hgb 11.9 L (13.0-17.5) gm/dL Hct 36.4 L (39.0-53.0) % Plt Count 130 L (150-450) k/uL Neutrophils # 11.3 H (1.3-7.7) k/uL Lymphocytes # 0.8 L (1.0-4.8) k/uL Monocytes # (0-1.0) k/uL ABG pH (7.35-7.45) ABG pCO2 (35-45) mmHg ABG pO2 (83-108) mmHg ABG HCO3 (21-25) mmol/L ABG O2 Saturation (94-97) % ABG Lactic Acid (0.5-1.6) mmol/L Sodium 136 L (137-145) mmol/L Chloride 108 H (98-107) mmol/L BUN 26 H (9-20) mg/dL Creatinine 1.28 H (0.66-1.25) mg/dL Glucose 142 H (74-99) mg/dL POC Glucose (mg/dL) 146 H (70-110) mg/dL Magnesium (1.6-2.3) mg/dL AST 65 H (17-59) U/L Alkaline Phosphatase 33 L (38-126) U/L Total Protein 5.2 L (6.3-8.2) g/dL Albumin 3.1 L (3.5-5.0) g/dL Crossmatch 01/31/24 01/31/24 01/31/24 Range/Units 03:56 04:56 05:54 WBC (3.8-10.6) k/uL RBC (4.30-5.90) m/uL Hgb (13.0-17.5) gm/dL Hct (39.0-53.0) % Plt Count (150-450) k/uL Neutrophils # (1.3-7.7) k/uL Lymphocytes # (1.0-4.8) k/uL Monocytes # (0-1.0) k/uL ABG pH (7.35-7.45) ABG pCO2 (35-45) mmHg ABG pO2 (83-108) mmHg ABG HCO3 (21-25) mmol/L ABG O2 Saturation (94-97) % ABG Lactic Acid (0.5-1.6) mmol/L Sodium (137-145) mmol/L Chloride (98-107) mmol/L BUN (9-20) mg/dL Creatinine (0.66-1.25) mg/dL Glucose (74-99) mg/dL POC Glucose (mg/dL) 144 H 136 H 139 H (70-110) mg/dL Magnesium (1.6-2.3) mg/dL AST (17-59) U/L Alkaline Phosphatase (38-126) U/L Total Protein (6.3-8.2) g/dL Albumin (3.5-5.0) g/dL Crossmatch 01/31/24 01/31/24 01/31/24 Range/Units 06:58 08:04 09:13 WBC (3.8-10.6) k/uL RBC (4.30-5.90) m/uL Hgb (13.0-17.5) gm/dL Hct (39.0-53.0) % Plt Count (150-450) k/uL Neutrophils # (1.3-7.7) k/uL Lymphocytes # (1.0-4.8) k/uL Monocytes # (0-1.0) k/uL ABG pH (7.35-7.45) ABG pCO2 (35-45) mmHg ABG pO2 (83-108) mmHg ABG HCO3 (21-25) mmol/L ABG O2 Saturation (94-97) % ABG Lactic Acid (0.5-1.6) mmol/L Sodium (137-145) mmol/L Chloride (98-107) mmol/L BUN (9-20) mg/dL Creatinine (0.66-1.25) mg/dL Glucose (74-99) mg/dL POC Glucose (mg/dL) 145 H 141 H 186 H (70-110) mg/dL Magnesium (1.6-2.3) mg/dL AST (17-59) U/L Alkaline Phosphatase (38-126) U/L Total Protein (6.3-8.2) g/dL Albumin (3.5-5.0) g/dL Crossmatch 01/31/24 01/31/24 01/31/24 Range/Units 10:02 11:02 12:53 WBC (3.8-10.6) k/uL RBC (4.30-5.90) m/uL Hgb (13.0-17.5) gm/dL Hct (39.0-53.0) % Plt Count (150-450) k/uL Neutrophils # (1.3-7.7) k/uL Lymphocytes # (1.0-4.8) k/uL Monocytes # (0-1.0) k/uL ABG pH (7.35-7.45) ABG pCO2 (35-45) mmHg ABG pO2 (83-108) mmHg ABG HCO3 (21-25) mmol/L ABG O2 Saturation (94-97) % ABG Lactic Acid (0.5-1.6) mmol/L Sodium (137-145) mmol/L Chloride (98-107) mmol/L BUN (9-20) mg/dL Creatinine (0.66-1.25) mg/dL Glucose (74-99) mg/dL POC Glucose (mg/dL) 200 H 185 H 234 H (70-110) mg/dL Magnesium (1.6-2.3) mg/dL AST (17-59) U/L Alkaline Phosphatase (38-126) U/L Total Protein (6.3-8.2) g/dL Albumin (3.5-5.0) g/dL Crossmatch Assessment and Plan Assessment: Impression: Severe aortic insufficiency, status post aortic valve replacement postoperative day #1 Related ascending [place] Postoperative atelectasis, expected Benign essential hypertension History of atrial fibrillation status post ablation History of obstructive sleep apnea syndrome, on BiPAP, patient will bring his own machine today morbid obesity with BMI of 41. History of type 2 diabetes. Family history of premature coronary artery disease Nonischemic cardiomyopathy with ejection fraction of 45 to 50% Dyslipidemia Mild mitral valve and tricuspid valve regurgitation. Recommendation: Continue present supportive care measures Continue insulin drip as per protocol. Continue medical therapy and maximize medical therapy for his underlying cardiac disease. Discontinue unnecessary catheters and lines Early ambulation Continue incentive spirometry Daily I's and O's and daily weights Daily monitoring of x-rays and daily monitoring of labs GI and DVT prophylaxis Will continue to Time with Patient: Less than 30
--- NOTE | 2024-01-31 13:51 | P.PN ---
Progress Note - Text Progress Note Date: 01/31/24 - Chief Complaint Biobentall procedure - History of Present Illness 63-year-old patient, follows with Dr. Hayden. Chronic stable medical conditions include atrial fibrillation, CHF, diabetes, hypertension, hyperlipidemia, obstructive sleep apnea CPAP. Patient underwent todayBiobentall procedure by Dr.s Leigh. Also included left atrial appendage clipping. Postprocedure patient in the ICU. Intubated. FiO2 50 and a PEEP of 10. Has 1 right pleural chest tubes and 2 mediastinal chest tubes. Patient having significant output through the tubes. Drips include insulin and propofol. January 31, 2024: Patient extubated yesterday. Today sitting up in the chair/recliner. Family at the bedside. On clear liquid diet. Hopkins catheter remains in place. Sinus rhythm. Chest tubes in place. There was decreased output from the chest tube yesterday now controlled. Insulin drip. Has a slight cough. Active Medications Albuterol/Ipratropium (Ipratropium-Albuterol 3 Ml Neb) 3 ml INHALATION RT-Q2H PRN PRN Reason: Shortness Of Breath Or Wheezing Albuterol/Ipratropium (Ipratropium-Albuterol 3 Ml Neb) 3 ml INHALATION RT-QID [facility] Last Admin: 01/31/24 12:20 Dose: 3 ml Amiodarone HCl (Amiodarone 200 Mg Tab) 200 mg PO QAM [facility] Last Admin: 01/31/24 08:27 Dose: 200 mg Aspirin (Aspirin 325 Mg Tab) 325 mg PO DAILY [facility] Last Admin: 01/31/24 08:19 Dose: 325 mg Atorvastatin Calcium (Atorvastatin 20 Mg Tab) 20 mg PO QAM [facility] Last Admin: 01/31/24 08:19 Dose: 20 mg Benzocaine/Menthol (Benzocaine/Menthol Lozeng 1 Each Lozenge) 1 each MUCOUS MEM Q2H PRN PRN Reason: Sore Throat Bisacodyl (Bisacodyl 10 Mg Supp) 10 mg RECTAL DAILY PRN PRN Reason: Constipation Clopidogrel Bisulfate (Clopidogrel 75 Mg Tab) 75 mg PO DAILY [facility] Last Admin: 01/31/24 08:19 Dose: 75 mg Dextrose/Water (Dextrose 50% Syringe 50 Ml) 25 ml IVP PER PROTOCOL PRN; Protocol PRN Reason: Hypoglycemia Dextrose/Water (Dextrose 50% Syringe 50 Ml) 50 ml IVP PER PROTOCOL PRN; Protocol PRN Reason: Hypoglycemia Heparin Sodium (Porcine) (Heparin Sodium,Porcine 5,000 Unit/Ml 1 Ml Vial) 5,000 unit SQ Q8HR [facility] Last Admin: 01/31/24 08:19 Dose: 5,000 unit Hydralazine HCl (Hydralazine Hcl 20 Mg/Ml 1 Ml Vial) 10 mg IVP Q1H PRN PRN Reason: Blood Pressure - High Hydromorphone HCl (Hydromorphone 1 Mg/Ml 1 Ml Syringe) 1 mg IVP ONCE PRN PRN Reason: Breakthrough Pain Last Admin: 01/31/24 03:24 Dose: 1 mg Amiodarone HCl 150 mg/ (Dextrose/Water) 103 mls @ 618 mls/hr IV .Q10M PRN; Protocol PRN Reason: A.FIB/FLUTTER Amiodarone HCl 360 mg/ (Dextrose/Water) 207.2 mls @ 34.533 mls/hr IV .Q6H PRN; Protocol PRN Reason: A.FIB/FLUTTER Amiodarone HCl 450 mg/ (Dextrose/Water) 250 mls @ 16.667 mls/hr IV .Q15H PRN; Protocol PRN Reason: A.FIB/FLUTTER Albumin Human 250 ml/ IV (Solution) 250 mls @ 250 mls/hr IVPB Q1HR PRN; Protocol PRN Reason: For Volume Stop: 02/01/24 13:17 Last Admin: 01/31/24 07:16 Dose: 250 mls/hr Lactated Ringer's (Lactated Ringers) 1,000 mls @ 20 mls/hr IV .Q24H [facility] Last Admin: 01/30/24 14:27 Dose: 50 mls/hr Cefazolin Sodium 3 gm/ Sodium (Chloride) 100 mls @ 100 mls/hr IVPB Q8HR [place]; Protocol Stop: 02/01/24 00:59 Last Admin: 01/31/24 08:29 Dose: 100 mls/hr Calcium Gluconate/Sodium (Chloride 2 gm/ IV Solution) 100 mls @ 100 mls/hr IVPB ONCE PRN PRN Reason: Ionized Calcium less than 4.4 Stop: 02/02/24 13:17 Insulin Human Regular 100 unit (/ Sodium Chloride) 101 mls @ 0 mls/hr IV .Q0M [facility]; Protocol Last Admin: 01/31/24 12:55 Dose: 12.5 units/hr, 12.625 mls/hr Propofol 1,000 mg/ IV Solution 100 mls @ 0 mls/hr IV .Q0M [facility]; Protocol Last Titration: 01/30/24 19:49 Dose: 0 mcg/kg/min, 0 mls/hr Lisinopril (Lisinopril 10 Mg Tab) 10 mg PO DAILY [facility] Last Admin: 01/31/24 09:04 Dose: 10 mg Magnesium Hydroxide (Magnesium Hydroxide 2,400 Mg/30 Ml Cup) 2,400 mg PO BID PRN PRN Reason: Constipation Metoclopramide HCl (Metoclopramide 5 Mg/Ml 2 Ml Vial) 10 mg IVP Q4H PRN PRN Reason: Nausea And Vomiting Metoprolol Tartrate (Metoprolol Tartrate 25 Mg Tab) 25 mg PO BID [facility] Last Admin: 01/31/24 08:28 Dose: 25 mg Miscellaneous Information (Potassium Replacement Protocol 1 Each Misc) 1 each MISCELLANE DAILY PRN; Protocol PRN Reason: Per Protocol Miscellaneous Information (Magnesium Replacement Protocol 1 Each Misc) 1 each MISCELLANE DAILY PRN; Protocol PRN Reason: Per Protocol Ondansetron HCl (Ondansetron 4 Mg/2 Ml Vial) 4 mg IVP Q6HR PRN PRN Reason: Nausea And Vomiting Oxycodone HCl (Oxycodone Hcl 5 Mg Tab) 5 mg PO Q4HR PRN PRN Reason: Moderate Pain (Scale 4 to 6) Last Admin: 01/31/24 13:16 Dose: 5 mg Oxycodone HCl (Oxycodone Hcl 5 Mg Tab) 10 mg PO Q4HR PRN PRN Reason: Severe Pain (Scale 7 to 10) Last Admin: 01/31/24 09:03 Dose: 10 mg Pantoprazole Sodium (Pantoprazole 40 Mg/10 Ml Vial) 40 mg IVP DAILY [facility] Last Admin: 01/31/24 08:19 Dose: 40 mg Senna/Docusate Sodium (Sennosides-Docusate Sodium 1 Each Tab) 2 each PO HS [facility] Sodium Chloride (Sodium Chloride 0.9% Flush 10 Ml Syringe) 10 ml IV BID [facility] Last Admin: 01/31/24 12:49 Dose: 10 ml Social history: . No smoking no alcohol Physical examination: VITAL SIGNS: 100, 75, 24, 1 one 3 x 66, 92% on 3 L GENERAL: Up in recliner EYES: Pupils equal. Conjunctiva dylan l. HEENT: External appearance of nose and ears normal, oral cavity grossly normal. Endotracheal tube NECK: JVD unable to assess; masses not palpable. HEART: Heart sounds muffled; no edema. LUNGS: Respiratory rate increased; decreased breath sounds. Has 1 right pleural and 2 mediastinal chest tubes ABDOMEN: Soft, nontender, liver spleen not palpable, no masses palpable. Hopkins catheter PSYCH: Alert and x 3, mood affect normal l. 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 Currently on insulin drip -Hyperlipidemia Lipitor -Essential hypertension At home patient takes Zestril, Lopressor -Paroxysmal atrial fibrillation.: Currently in sinus rhythm Previous ablation. On Eliquis and Lopressor at home -Obstructive sleep apnea Uses CPAP -Chronic congestive heart failure from systolic dysfunction EF 45 to 50% with global hypokinesia on LUCY on December 26, [address] Taylor Aldjalil. Lopressor. At home -Full code Discussed with patient. Incentive spirometry. Diet to be advanced. Add ferrous sulfate Past Medical History Past Medical History: Atrial Fibrillation, Heart Failure, Diabetes Mellitus, H yperlipidemia, Hypertension, Sleep Apnea/CPAP/BIPAP Additional Past Medical History / Comment(s): uses CPAP, SOB w/exertion History of Any Multi-Drug Resistant Organisms: None Reported Past Surgical History: Cardiac Ablation, Heart Catheterization, Hernia Repair, Orthopedic Surgery, Tonsillectomy Additional Past Surgical History / Comment(s): Bilat. knee surgery(6 surgeries) 1967 - 1973, hiatal hernia repair 1984, colonoscopy, cardioversion, LUCY Past Anesthesia/Blood Transfusion Reactions: No Reported Reaction Smoking Status: Never smoker
[2024-01-31 14:02] LABS: Glucose,Whole Blood 207 mg/dL (70-110)
[2024-01-31] MEDS: FERROUS SULFATE 325 MG TAB PO SCH (14:09)
[2024-01-31 15:05] LABS: Glucose,Whole Blood 160 mg/dL (70-110)
[2024-01-31 16:14] LABS: Glucose,Whole Blood 133 mg/dL (70-110)
[2024-01-31 17:29] LABS: Glucose,Whole Blood 123 mg/dL (70-110)
[2024-01-31 18:02] LABS: Glucose,Whole Blood 141 mg/dL (70-110)
[2024-01-31 19:12] LABS: Glucose,Whole Blood 142 mg/dL (70-110)
[2024-01-31 20:23] LABS: Glucose,Whole Blood 133 mg/dL (70-110)
[2024-01-31 20:56] LABS: Glucose,Whole Blood 129 mg/dL (70-110)
[2024-01-31] MEDS: SENNOSIDES-DOCUSATE SODIUM 1 EACH TAB PO SCH (21:12)
[2024-01-31 22:04] LABS: Glucose,Whole Blood 118 mg/dL (70-110)
[2024-01-31 22:58] LABS: Glucose,Whole Blood 127 mg/dL (70-110)
[2024-02-01 00:16] LABS: Glucose,Whole Blood 113 mg/dL (70-110)
[2024-02-01] MEDS: ACETAMINOPHEN IV (For NPO) 1,000 MG in EMPTY BAG 1 BAG IVPB PRN (00:27)
[2024-02-01 00:54] LABS: Glucose,Whole Blood 138 mg/dL (70-110)
[2024-02-01 02:59] LABS: Glucose,Whole Blood 123 mg/dL (70-110)
[2024-02-01 04:01] LABS: Glucose,Whole Blood 130 mg/dL (70-110)
[2024-02-01 04:53] LABS: Glucose,Whole Blood 118 mg/dL (70-110)
[2024-02-01 05:15] LABS: Basophils % (A) 0 %; Eosinophils # (A) 0.1 k/uL (0-0.7); Eosinophils % (A) 1 %; HGB 10.4 gm/dL (13.0-17.5); Lymphocytes % (A) 9 %; MCH 29.6 pg (25.0-35.0); MCHC 32.6 g/dL (31.0-37.0); Mean Platelet Volume 9.5; Monocytes # (A) 0.8 k/uL (0-1.0); Monocytes % (A) 6 %; Neutrophils % (A) 83 %; Platelet Count 110 k/uL (150-450); RBC 3.52 m/uL (4.30-5.90); WBC 12.1 k/uL (3.8-10.6)
[2024-02-01 05:29] LABS: Ionized Calcium 4.7 mg/dL (4.5-5.3)
[2024-02-01 05:37] LABS: ALT 22 U/L (4-49); AST 68 U/L (17-59); African American GFR (CKD) 83 (>60 ml/min/1.73 sqM); Alkaline Phosphatase 34 U/L (38-126); Anion Gap 3 mmol/L; Blood Urea Nitrogen 22 mg/dL (9-20); Calcium 8.2 mg/dL (8.4-10.2); Carbon Dioxide 25 mmol/L (22-30); Chloride 105 mmol/L (98-107); Glucose 118 mg/dL (74-99); Non-African American GFR(CKD) 72 (>60 ml/min/1.73 sqM); Potassium 4.3 mmol/L (3.5-5.1); Sodium 133 mmol/L (137-145); Total Bilirubin 0.8 mg/dL (0.2-1.3)
[2024-02-01 05:46] LABS: Glucose,Whole Blood 121 mg/dL (70-110)
[2024-02-01 06:30] LABS: Glucose,Whole Blood 124 mg/dL (70-110)
[2024-02-01] MEDS ORDERED: ACETAMINOPHEN TAB 500 MG TAB PO PRN (06:35)
--- NOTE | 2024-02-01 07:35 | XR ---
EXAMINATION TYPE: XR chest 1V portable DATE OF EXAM: 02/01/2024 COMPARISON: 01/31/2024 INDICATION: Postop cardiac surgery TECHNIQUE: Single frontal view of the chest is obtained. FINDINGS: The heart size is enlarged. The pulmonary vasculature is normal. The lungs are clear. Sternotomy wires are midline. Right-sided chest tube is present. No pneumothorax is evident. [place]-Jorge z catheter is present with tip in the main pulmonary artery region Small effusions may be present. IMPRESSION: 1. Bilateral small pleural fusions. 2. Right-sided chest tube. 3. [place]-Des catheter with tip in the main pulmonary artery region. 4. Stable cardiomegaly
[2024-02-01] MEDS ORDERED: HYDROcodone/APAP 5-325MG 1 EACH TAB PO PRN ×2 (07:40)
--- NOTE | 2024-02-01 08:05 | P.PN ---
Subjective Progress Note Date: 02/01/24 Principal diagnosis: Aortic Root Aneurysm with Severe Aortic Insufficiency, ascending aortic aneurysm. Past medical history significant for nonischemic cardiomyopathy with an ejection fraction of 45 to 50% on transesophageal echocardiogram, hypertension, hyperlipidemia, paroxysmal atrial fibrillation on Eliquis for anticoagulation as an outpatient, status post cardioversion in October 2019 and subsequent ablation in February 2020, obstructive sleep apnea with home CPAP use, diabetes mellitus type 2 with a preoperative hemoglobin A1c 8.1%, obesity with a BMI of 41.8 kg/m, and a family history of premature coronary artery disease. POD #2 Biobentall (#29mm Kon[place]ct), left atrial appendage ligation with #35mm AtriClip, intraoperative transesophageal echocardiogram completed by anesthesia. Postoperative acute blood loss anemia, expected given hemodilution and cardiopulmonary bypass. The patient was seen and examined in follow-up today February 01, 2024 at his bedside in the intensive care unit. He is currently sitting up to the bedside chair, is awake, alert, oriented x 3 and is in no acute apparent distress. Denies any complaints of shortness of breath, is complaining of some surgical type pain to his chest tube insertion site and with taking a deep breath, currently rating his pain 7-8 out of 10 on the pain scale. He is also complaining of a nonproductive loose cough. His Tmax temperature in the last 24 hours was 100 F, he has been encouraged to use his incentive spirometry 10 times every hour while awake. Oxygen saturations are 95% on 2 L nasal cannula and he is achieving 1000 mL on his incentive spirometry with much encouragement. Bedside telemetry showing normal sinus rhythm heart rate 83 bpm. Right IJ cordis and [place]-Des catheter remains in place with current hemodynamic showing a cardiac output of 10.0, cardiac index 3.7, PA pressures 25/8, CVP 4 mmHg and an SVR of 607. Mediastinal and right pleural chest tubes remain in place connected to Pleur-evac and on low continuous wall suction -20 cm H2O. No air leak is present. Right pleural chest tube drained 40 mL of thin serosanguineous drainage in the last 8 hours and 150 mL output in the last 24 hours. Mediastinal chest tube drained 70 mL of thin serosanguineous drainage in the la st 8 hours and 220 mL output in the last 24 hours. The patient is also complaining of some generalized weakness, and the nurses report he is only walked to the door in his room. Chest x-ray and laboratory results reviewed. Surgical pathology results on the aortic valve showed heart valve leaflets with fibromyxoid degenerative changes in the ascending aorta was unremarkable benign large caliber blood vessel. Objective - Vital Signs Vital signs: Vital Signs Temp 100.0 F H 01/31/24 12:00 Pulse 86 02/01/24 07:00 Resp 31 H 02/01/24 07:00 BP 98/67 02/01/24 07:00 Pulse Ox 99 02/01/24 07:00 FiO2 50 01/30/24 20:50 Intake & Output 01/31/24 02/01/24 02/01/24 18:59 06:59 18:59 Intake Total 2004.457 909.269 589 Output Total 1265 850 140 Balance 739.457 59.269 449 Weight 151.8 kg 154.1 kg Intake: IV 859 808 49 ACETAMINOPHEN IV (For NPO 100 ) 1,000 mg In Empty Bag 1 bag @ 400 mls/hr IVPB Q6HR PRN Rx#:[id number] CO/CI 180 120 Lactated Ringers 1,000 ml 530 480 40 @ 20 mls/hr IV .Q24H [facility] Rx#:[id number] Pressure 99 108 9 ceFAZolin 2 gm In Sodium 50 Chloride 0.9% 50 ml @ Per Protocol 100 mls/hr IVPB ONCE ONE Rx#:[id number] Intake, IV Titration 145.457 101.269 Amount Insulin Regular 100 unit 131.932 101.269 In Sodium Chloride 0.9% 100 ml @ Per Protocol IV .Q0M [facility] Rx#:[id number] Nitroglycerin-D5w Pmx 50 13.525 mg In Dextrose/Water 1 250ml.bag @ 5 MCG/MIN 1.5 mls/hr IV .Q24H [facility] Rx#: [id number] Oral 1000 540 Output: Chest Tube Drainage 160 50 100 Mediastinal x2 90 30 70 Right Pleural 70 20 30 Urine 1105 800 40 Other: Voiding Method Indwelling Catheter Indwelling Catheter ABP, PAP, CO, CI - Last Documented Arterial Blood Pressure 102/98 Pulmonary Artery Pressure 27/7 Cardiac Output 7.1 Cardiac Index 2.6 - Exam CONSTITUTIONAL: Sitting up to the bedside chair in the intensive care unit, appears comfortable, cooperative, no apparent acute distress. HEENT: Neck is supple, no JVD, no lymphadenopathy. Right IJ Cordis and Petos[place]- Des catheter in place and functioning. RESPIRATORY: Lungs sounds essentially clear throughout, diminished to his bilateral bases, few scattered rhonchi. Respirations are symmetrical and nonlabored. Currently on 2 L nasal cannula with oxygen saturations 95%able to achieve 1000 mL on his incentive spirometry. Strong cough. CARDIOVASCULAR: Regular rhythm and rate. S1 and S2 present, negative for S3, gallop or murmur. Bedside telemetry showing normal sinus rhythm heart rate 83 bpm. Sternum is stable. Palpable peripheral pulses bilaterally, +1 edema to his bilateral lower extremities. No calf pain or tenderness noted. Heart hugger in place with patient demonstrating appropriate use. Knee-high ROSEANN hose and sequential compression devices in place to his bilateral lower extremities. GASTROINTESTINAL: Abdomen soft, nontender, nondistended. Hypoactive bowel sounds present 4 quadrants. Tolerating diet. Denies passing flatus. No guarding or rigidity. GENITOURINARY: Hopkins present draining clear, yellow urine. 475 mL of urine output in the last 8 hours. INTEGUMENTARY: Skin is warm and dry with no evidence of clubbing or cyanosis. Midline sternal incision clean dry and well approximated, covered with dry intact dressing. NEUROLOGIC: Cranial nerves II through XII intact. No focal deficits. MUSKULOSKELETAL: Able to move all extremities, strength equal bilaterally, generalized weakness. PSYCHIATRIC: Alert and oriented to person place and time, appropriate affect, intact judgment and insight. INVASIVE LINES AND TUBES: Mediastinal/right pleural chest tubes present and connected to low continuous wall suction, no air leaks present. Mediastinal tube with 70 mL of thin serosanguineous drainage overnight, 220 mL output in the last 24 hours. Right pleural chest tube with 40 mL of thin serosanguineous drainage overnight, 150 mL output in the last 24 hours. Atrial and ventricular epicardial pacemaker wires present, connected to generator, VVI backup rate 50 bpm. Right internal jugular [place]/Cordis, right radial arterial line present. Last CO 10.0, CI 3.7, PA 25/8 and CVP 4 mmHg and SVR 607. - Allied health notes Allied health notes reviewed: nursing - Labs CBC & Chem 7: 02/01/24 05:00 02/01/24 05:00 Labs: Abnormal Lab Results - Last 24 Hours (Table) 05/30/24 05/30/24 05/30/24 Range/Units 08:04 09:13 10:02 WBC (3.8-10.6) k/uL RBC (4.30-5.90) m/uL Hgb (13.0-17.5) gm/dL Hct (39.0-53.0) % Plt Count (150-450) k/uL Neutrophils # (1.3-7.7) k/uL Sodium (137-145) mmol/L BUN (9-20) mg/dL Glucose (74-99) mg/dL POC Glucose (mg/dL) 141 H 186 H 200 H (70-110) mg/dL Calcium (8.4-10.2) mg/dL AST (17-59) U/L Alkaline Phosphatase (38-126) U/L Total Protein (6.3-8.2) g/dL Albumin (3.5-5.0) g/dL 01/31/24 01/31/24 01/31/24 Range/Units 11:02 12:53 14:00 WBC (3.8-10.6) k/uL RBC (4.30-5.90) m/uL Hgb (13.0-17.5) gm/dL Hct (39.0-53.0) % Plt Count (150-450) k/uL Neutrophils # (1.3-7.7) k/uL Sodium (137-145) mmol/L BUN (9-20) mg/dL Glucose (74-99) mg/dL POC Glucose (mg/dL) 185 H 234 H 207 H (70-110) mg/dL Calcium (8.4-10.2) mg/dL AST (17-59) U/L Alkaline Phosphatase (38-126) U/L Total Protein (6.3-8.2) g/dL Albumin (3.5-5.0) g/dL 01/31/24 01/31/24 01/31/24 Range/Units 15:03 16:13 17:22 WBC (3.8-10.6) k/uL RBC (4.30-5.90) m/uL Hgb (13.0-17.5) gm/dL Hct (39.0-53.0) % Plt Count (150-450) k/uL Neutrophils # (1.3-7.7) k/uL Sodium (137-145) mmol/L BUN (9-20) mg/dL Glucose (74-99) mg/dL POC Glucose (mg/dL) 160 H 133 H 123 H (70-110) mg/dL Calcium (8.4-10.2) mg/dL AST (17-59) U/L Alkaline Phosphatase (38-126) U/L Total Protein (6.3-8.2) g/dL Albumin (3.5-5.0) g/dL 01/31/24 01/31/24 01/31/24 Range/Units 18:01 19:10 20:22 WBC (3.8-10.6) k/uL RBC (4.30-5.90) m/uL Hgb (13.0-17.5) gm/dL Hct (39.0-53.0) % Plt Count (150-450) k/uL Neutrophils # (1.3-7.7) k/uL Sodium (137-145) mmol/L BUN (9-20) mg/dL Glucose (74-99) mg/dL POC Glucose (mg/dL) 141 H 142 H 133 H (70-110) mg/dL Calcium (8.4-10.2) mg/dL AST (17-59) U/L Alkaline Phosphatase (38-126) U/L Total Protein (6.3-8.2) g/dL Albumin (3.5-5.0) g/dL 01/31/24 01/31/24 01/31/24 Range/Units 20:55 22:03 22:56 WBC (3.8-10.6) k/uL RBC (4.30-5.90) m/uL Hgb (13.0-17.5) gm/dL Hct (39.0-53.0) % Plt Count (150-450) k/uL Neutrophils # (1.3-7.7) k/uL Sodium (137-145) mmol/L BUN (9-20) mg/dL Glucose (74-99) mg/dL POC Glucose (mg/dL) 129 H 118 H 127 H (70-110) mg/dL Calcium (8.4-10.2) mg/dL AST (17-59) U/L Alkaline Phosphatase (38-126) U/L Total Protein (6.3-8.2) g/dL Albumin (3.5-5.0) g/dL 02/01/24 02/01/24 02/01/24 Range/Units 00:14 00:52 02:57 WBC (3.8-10.6) k/uL RBC (4.30-5.90) m/uL Hgb (13.0-17.5) gm/dL Hct (39.0-53.0) % Plt Count (150-450) k/uL Neutrophils # (1.3-7.7) k/uL Sodium (137-145) mmol/L BUN (9-20) mg/dL Glucose (74-99) mg/dL POC Glucose (mg/dL) 113 H 138 H 123 H (70-110) mg/dL Calcium (8.4-10.2) mg/dL AST (17-59) U/L Alkaline Phosphatase (38-126) U/L Total Protein (6.3-8.2) g/dL Albumin (3.5-5.0) g/dL 02/01/24 02/01/24 02/01/24 Range/Units 03:59 04:51 05:00 WBC 12.1 H (3.8-10.6) k/uL RBC 3.52 L (4.30-5.90) m/uL Hgb 10.4 L (13.0-17.5) gm/dL Hct 32.0 L (39.0-53.0) % Plt Count 110 L (150-450) k/uL Neutrophils # 10.0 H (1.3-7.7) k/uL Sodium (137-145) mmol/L BUN (9-20) mg/dL Glucose (74-99) mg/dL POC Glucose (mg/dL) 130 H 118 H (70-110) mg/dL Calcium (8.4-10.2) mg/dL AST (17-59) U/L Alkaline Phosphatase (38-126) U/L Total Protein (6.3-8.2) g/dL Albumin (3.5-5.0) g/dL 02/01/24 02/01/24 02/01/24 Range/Units 05:00 05:45 06:29 WBC (3.8-10.6) k/uL RBC (4.30-5.90) m/uL Hgb (13.0-17.5) gm/dL Hct (39.0-53.0) % Plt Count (150-450) k/uL Neutrophils # (1.3-7.7) k/uL Sodium 133 L (137-145) mmol/L BUN 22 H (9-20) mg/dL Glucose 118 H (74-99) mg/dL POC Glucose (mg/dL) 121 H 124 H (70-110) mg/dL Calcium 8.2 L (8.4-10.2) mg/dL AST 68 H (17-59) U/L Alkaline Phosphatase 34 L (38-126) U/L Total Protein 5.0 L (6.3-8.2) g/dL Albumin 3.0 L (3.5-5.0) g/dL - Imaging and Cardiology Chest x-ray: report reviewed, image reviewed Assessment and Plan Assessment: Aortic Root Aneurysm with Severe Aortic Insufficiency, status post Biobentall (#29mm Kon[place]ct) Ascending aortic aneurysm, status post Biobentall (#29mm Kon[place]ct) Mild mitral and tricuspid regurgitation Nonischemic cardiomyopathy, EF 45-50% Hypertension Dyslipidemia, triglycerides 176, LDL 65, cholesterol 141, HDL 40.8 Paroxysmal atrial fibrillation on Eliquis for anticoagulation, status post card ioversion in October 2019 and subsequent ablation in February 2020, status post left atrial appendage ligation with a 35 mm AtriClip Diabetes mellitus type II, with a preoperative hemoglobin A1c 8.1% Morbid obesity with a BMI of 41.8 kg/m Lifetime non-smoker Obstructive sleep apnea with home CPAP use Family history of premature coronary artery disease Postoperative acute blood loss anemia, expected given hemodilution and cardiopulmonary bypass Plan: Continue to maximize medical therapy with aspirin, statin, plavix and beta- henrietta. Will increase metoprolol tartrate as tolerated. Continue lisinopril 10 mg p.o. daily for afterload reduction. Increase activity as tolerated physical therapy and occupational Therapy are following. Continue home dose of amiodarone 200 mg p.o. daily for atrial fibrillation prophylaxis. No atrial fibrillation reported, currently in normal sinus rhythm. Wean oxygen as tolerated. Bronchodilator management per pulmonary critical care recommendations. Encourage incentive spirometry use 10 times every hour while awake. Will monitor daily labs and chest x-rays. Electrolyte replacement per protocol. GI/DVT prophylaxis. Insulin management per internal medicine, patient should stay on continuous IV insulin for 48 hours. Preoperative hemoglobin A1c 8.1%. Pain control per current medication regimen. Remove right IJ [place]-Des catheter, keep Cordis in place with continuous CVP monitoring. Albumin 5% 250 mL x 1 now. Remove mediastinal and right pleural chest tubes. Keep mediastinal [place] drain in place until discharge. Continue record accurate outputs. Remove Hopkins catheter. Bladder scan every 6 hours and as needed postvoid residual. May straight cath for postvoid residual of greater than or equal to 300 mL of urine. Continue record strict and accurate I's and O's. Daily weights. More recommendations to follow on patient's clinical course. Time with Patient: Greater than 30
[2024-02-01] MEDS: ACETYLCYSTEINE 800 MG/4 ML VIAL INHALATION SCH (08:08)
[2024-02-01 08:29] LABS: Glucose,Whole Blood 140 mg/dL (70-110)
[2024-02-01] MEDS: ALBUMIN HUMAN 5% 250 ML in EMPTY BAG 1 BAG IVPB STA (09:03)
[2024-02-01] MEDS: PANTOPRAZOLE 40 MG TABLET PO SCH (09:10)
[2024-02-01] MEDS: guaiFENesin 600 MG TABLET.ER PO SCH (09:14)
--- NOTE | 2024-02-01 09:15 | P.PN ---
Subjective Progress Note Date: 02/01/24 The patient is a 63-year-old male who follows in the office with Dr. Deleon. The patient underwent bio Bentall procedure yesterday with Dr. Leigh. The patient was interviewed and examined sitting up in the recliner chair this morning. He is in the process of being transferred back to bed in order to have his chest tubes removed by CV surgery. He is dealing with some postoperative chest pain, but is attempting to use his incentive spirometer and complete his deep breathing exercises. He denies any d izziness or lightheadedness. No current difficulty breathing GENERAL: Well-appearing, well-nourished and in no acute distress. NECK: Supple without JVD or thyromegaly. LUNGS: Breath sounds coarse to auscultation bilaterally. Respiration equal and unlabored. Bilateral inspiratory wheezes HEART: Regular rate and rhythm without murmurs, rubs or gallops. S1 and S2 heard. Heart hugger in place. EXTREMITIES: Normal range of motion, mild edema. No clubbing or cyanosis. Peripheral pulses intact and strong. TELEMETRY: Sinus rhythm overnight LABS: WBC 12.1, hemoglobin 10.4, hematocrit 32.0, platelet 110, sodium 133, potassium 4.3, BUN 22, creatinine 1.08, AST 68, ALT 22 IMPRESSION: Severe aortic insufficiency Dilated ascending root Status post biobentall, aortic valve replacement History of diabetes History hypertension Morbid obesity, BMI 41 History of atrial fibrillation, status post ablation History of obstructive sleep apnea PLAN: Continue supportive treatment Aggressive pulmonary hygiene Further recommendations to be based upon clinical course I am dictating on behalf of Dr Mike Alonzo's history/physical and assessment/plan. Objective - Vital Signs Vital signs: Vital Signs Temp 100.0 F H 01/31/24 12:00 Pulse 93 02/01/24 08:30 Resp 31 H 02/01/24 07:00 BP 98/67 02/01/24 07:00 Pulse Ox 98 02/01/24 08:13 FiO2 50 01/30/24 20:50 Intake & Output 01/31/24 02/01/24 02/01/24 18:59 06:59 18:59 Intake Total 2004.457 909.269 622.179 Output Total 1265 850 140 Balance 739.457 59.269 482.179 Weight 151.8 kg 154.1 kg Intake: IV 859 808 49 ACETAMINOPHEN IV (For NPO 100 ) 1,000 mg In Empty Bag 1 bag @ 400 mls/hr IVPB Q6HR PRN Rx#:[id number] CO/CI 180 120 Lactated Ringers 1,000 ml 530 480 40 @ 20 mls/hr IV .Q24H [facility] Rx#:[id number] Pressure 99 108 9 ceFAZolin 2 gm In Sodium 50 Chloride 0.9% 50 ml @ Per Protocol 100 mls/hr IVPB ONCE ONE Rx#:[id number] Intake, IV Titration 145.457 101.269 33.179 Amount Insulin Regular 100 unit 131.932 101.269 33.179 In Sodium Chloride 0.9% 100 ml @ Per Protocol IV .Q0M [facility] Rx#:[id number] Nitroglycerin-D5w Pmx 50 13.525 mg In Dextrose/Water 1 250ml.bag @ 5 MCG/MIN 1.5 mls/hr IV .Q24H [facility] Rx#: [id number] Oral 1000 540 Output: Chest Tube Drainage 160 50 100 Mediastinal x2 90 30 70 Right Pleural 70 20 30 Urine 1105 800 40 Other: Voiding Method Indwelling Catheter Indwelling Catheter ABP, PAP, CO, CI - Last Documented Arterial Blood Pressure 102/98 Pulmonary Artery Pressure 27/7 Cardiac Output 7.1 Cardiac Index 2.6 - Labs CBC & Chem 7: 02/01/24 05:00 02/01/24 05:00 Labs: Abnormal Lab Results - Last 24 Hours (Table) 01/31/24 01/31/24 01/31/24 Range/Units 09:13 10:02 11:02 WBC (3.8-10.6) k/uL RBC (4.30-5.90) m/uL Hgb (13.0-17.5) gm/dL Hct (39.0-53.0) % Plt Count (150-450) k/uL Neutrophils # (1.3-7.7) k/uL Sodium (137-145) mmol/L BUN (9-20) mg/dL Glucose (74-99) mg/dL POC Glucose (mg/dL) 186 H 200 H 185 H (70-110) mg/dL Calcium (8.4-10.2) mg/dL AST (17-59) U/L Alkaline Phosphatase (38-126) U/L Total Protein (6.3-8.2) g/dL Albumin (3.5-5.0) g/dL 01/31/24 01/31/24 01/31/24 Range/Units 12:53 14:00 15:03 WBC (3.8-10.6) k/uL RBC (4.30-5.90) m/uL Hgb (13.0-17.5) gm/dL Hct (39.0-53.0) % Plt Count (150-450) k/uL Neutrophils # (1.3-7.7) k/uL Sodium (137-145) mmol/L BUN (9-20) mg/dL Glucose (74-99) mg/dL POC Glucose (mg/dL) 234 H 207 H 160 H (70-110) mg/dL Calcium (8.4-10.2) mg/dL AST (17-59) U/L Alkaline Phosphatase (38-126) U/L Total Protein (6.3-8.2) g/dL Albumin (3.5-5.0) g/dL 01/31/24 01/31/24 01/31/24 Range/Units 16:13 17:22 18:01 WBC (3.8-10.6) k/uL RBC (4.30-5.90) m/uL Hgb (13.0-17.5) gm/dL Hct (39.0-53.0) % Plt Count (150-450) k/uL Neutrophils # (1.3-7.7) k/uL Sodium (137-145) mmol/L BUN (9-20) mg/dL Glucose (74-99) mg/dL POC Glucose (mg/dL) 133 H 123 H 141 H (70-110) mg/dL Calcium (8.4-10.2) mg/dL AST (17-59) U/L Alkaline Phosphatase (38-126) U/L Total Protein (6.3-8.2) g/dL Albumin (3.5-5.0) g/dL 01/31/24 01/31/24 01/31/24 Range/Units 19:10 20:22 20:55 WBC (3.8-10.6) k/uL RBC (4.30-5.90) m/uL Hgb (13.0-17.5) gm/dL Hct (39.0-53.0) % Plt Count (150-450) k/uL Neutrophils # (1.3-7.7) k/uL Sodium (137-145) mmol/L BUN (9-20) mg/dL Glucose (74-99) mg/dL POC Glucose (mg/dL) 142 H 133 H 129 H (70-110) mg/dL Calcium (8.4-10.2) mg/dL AST (17-59) U/L Alkaline Phosphatase (38-126) U/L Total Protein (6.3-8.2) g/dL Albumin (3.5-5.0) g/dL 01/31/24 01/31/24 02/01/24 Range/Units 22:03 22:56 00:14 WBC (3.8-10.6) k/uL RBC (4.30-5.90) m/uL Hgb (13.0-17.5) gm/dL Hct (39.0-53.0) % Plt Count (150-450) k/uL Neutrophils # (1.3-7.7) k/uL Sodium (137-145) mmol/L BUN (9-20) mg/dL Glucose (74-99) mg/dL POC Glucose (mg/dL) 118 H 127 H 113 H (70-110) mg/dL Calcium (8.4-10.2) mg/dL AST (17-59) U/L Alkaline Phosphatase (38-126) U/L Total Protein (6.3-8.2) g/dL Albumin (3.5-5.0) g/dL 02/01/24 02/01/24 02/01/24 Range/Units 00:52 02:57 03:59 WBC (3.8-10.6) k/uL RBC (4.30-5.90) m/uL Hgb (13.0-17.5) gm/dL Hct (39.0-53.0) % Plt Count (150-450) k/uL Neutrophils # (1.3-7.7) k/uL Sodium (137-145) mmol/L BUN (9-20) mg/dL Glucose (74-99) mg/dL POC Glucose (mg/dL) 138 H 123 H 130 H (70-110) mg/dL Calcium (8.4-10.2) mg/dL AST (17-59) U/L Alkaline Phosphatase (38-126) U/L Total Protein (6.3-8.2) g/dL Albumin (3.5-5.0) g/dL 02/01/24 02/01/24 02/01/24 Range/Units 04:51 05:00 05:00 WBC 12.1 H (3.8-10.6) k/uL RBC 3.52 L (4.30-5.90) m/uL Hgb 10.4 L (13.0-17.5) gm/dL Hct 32.0 L (39.0-53.0) % Plt Count 110 L (150-450) k/uL Neutrophils # 10.0 H (1.3-7.7) k/uL Sodium 133 L (137-145) mmol/L BUN 22 H (9-20) mg/dL Glucose 118 H (74-99) mg/dL POC Glucose (mg/dL) 118 H (70-110) mg/dL Calcium 8.2 L (8.4-10.2) mg/dL AST 68 H (17-59) U/L Alkaline Phosphatase 34 L (38-126) U/L Total Protein 5.0 L (6.3-8.2) g/dL Albumin 3.0 L (3.5-5.0) g/dL 02/01/24 02/01/24 02/01/24 Range/Units 05:45 06:29 08:29 WBC (3.8-10.6) k/uL RBC (4.30-5.90) m/uL Hgb (13.0-17.5) gm/dL Hct (39.0-53.0) % Plt Count (150-450) k/uL Neutrophils # (1.3-7.7) k/uL Sodium (137-145) mmol/L BUN (9-20) mg/dL Glucose (74-99) mg/dL POC Glucose (mg/dL) 121 H 124 H 140 H (70-110) mg/dL Calcium (8.4-10.2) mg/dL AST (17-59) U/L Alkaline Phosphatase (38-126) U/L Total Protein (6.3-8.2) g/dL Albumin (3.5-5.0) g/dL
[2024-02-01 09:30] LABS: Glucose,Whole Blood 169 mg/dL (70-110)
[2024-02-01] MEDS: ACETYLCYSTEINE 800 MG/4 ML VIAL ONE (09:50)
[2024-02-01 11:46] LABS: Glucose,Whole Blood 125 mg/dL (70-110)
--- NOTE | 2024-02-01 13:33 | P.PN ---
Subjective Progress Note Date: 02/01/24 Principal diagnosis: Severe Aortic regurgitation and aneurysmal ascending aorta/4.4 cm This is a 63-year-old male patient with a known history of atrial fibrillation and previous ablation approximately 4 years ago maintained on Eliquis, diabetes mellitus, hyperlipidemia, hypertension, obstructive sleep apnea utilizing CPAP, nonischemic cardiomyopathy who was recently found to have impaired left ventricular systolic function with ejection fraction of 45 to 50% and severe aortic regurgitation and aneurysmal ascending aorta measuring 4.4 cm. He was brought in electively today for surgery with Dr. Leigh. He did undergo aortic valve replacement with a biobentall #29 Kon[place]ct, left atrial appendage ligation with atrial clip placement and follow-up transesophageal echocardiogram. He is seen currently in the intensive care unit. He is intubated on the mechanical ventilator with current settings of assist-control mode of 16, tidal volume 550 and FiO2 70% and a PEEP of 10. Initial blood gases on 100% FiO2 and a rate of 12 revealed a PaO2 of 166, pCO2 of 54 and a pH of 7.28. Chest x-ray reveals evidence of the endotracheal tube and nasogastric tube as well as a Hopewell-Des catheter suspected in place. X-ray is somewhat underpenetrated. 2 mediastinal chest tubes and a right-sided chest tube in place. Right IJ Hopewell-Des catheter in place. Cardiac output 6.9. Cardiac index 2.5. PA pressures 34/18. CVP 12. Currently in sinus rhythm. He is on lactated Ringer's at 50 MLS per hour. Propofol at 30 mcg/kg/min. Insulin drip at 3 units/h. Nitroglycerin drip at 10 mcg/min. He did receive albumin. Receiving bronchodilators. Received cefazolin. Initiated on Cleviprex at 2 mg/h. Patient was evaluated today on 01/31/24 POD #1 Biobentall (#29mm Konnect), left atrial appendage ligation with #35mm AtriClip, patient was extubated yesterday rated the extubation quite well, he is sitting in a bedside chair today, he was successfully extubated at 8:52 p.m. Currently on 6 L nasal cannula, O2 sat is 94%, patient is not in any distress, achieving almost 1500 cc on his incentive spirometry. For complaint except for minimal cough, nonproductive, no fever, no chills, no hemoptysis, and no chest pain. He did receive a unit of platelets last evening, continues to have mediastinal and right pleural chest tubes, no airleak is noted, mediastinal chest tube drained about 200 cc overnight, the right pleural chest tube drained 140 cc since last night. Patient is hemodynamically stable not requiring any pressors, cardiac output is 5.4 cardiac index is 2.0. Chest x-ray is showing minimal atelectasis at the base. CBC is relatively normal hemoglobin is 11.9. Platelets today are 130,000 basic metabolic profile is normal, except for BUN of 26 creatinine 1.28 Patient was evaluated today on 02/01/2024, he is now postoperative day #2. Patient is doing well, asymptomatic, on room air, does not seem to be in any distress, he is receiving lactated Ringer's at 50 cc/h insulin remains 11.5 units/h he is achieving over 1000 cc on his incentive spirometer. Chest x-ray showed minimal nonspecific atelectasis. Small tiny bilateral pleural effusions noted, right-sided chest tube noted, tip of the Hopewell-Des catheter is in the main pulmonary artery region. Patient denies any cough or wheezing no shortness of breath no chest pain. No abdominal pain no nausea no vomiting WBC count is 12.1 hemoglobin is 10.4 basic metabolic profile is normal renal profile is better today creatinine down to 1.08 from 1.28 yesterday. Objective - Vital Signs Vital signs: Vital Signs Temp 100.9 F H 02/01/24 08:00 Pulse 88 02/01/24 13:02 Resp 27 H 02/01/24 12:00 BP 105/76 02/01/24 12:00 Pulse Ox 97 02/01/24 12:00 FiO2 50 01/30/24 20:50 Intake & Output 01/31/24 02/01/24 02/01/24 18:59 06:59 18:59 Intake Total 2003.457 046.423 5322.394 Output Total 1265 850 540 Balance 739.457 59.269 1988.394 Weight 151.8 kg 154.1 kg Intake: IV 859 808 506 ACETAMINOPHEN IV (For NPO 100 ) 1,000 mg In Empty Bag 1 bag @ 400 mls/hr IVPB Q6HR PRN Rx#:[id number] Albumin Human 5% 250 ml 250 In Empty Bag 1 bag @ 250 mls/hr IVPB ONCE STA Rx#: [id number] CO/CI 180 120 Lactated Ringers 1,000 ml 530 480 220 @ 20 mls/hr IV .Q24H [facility] Rx#:[id number] Pressure 99 108 36 ceFAZolin 2 gm In Sodium 50 Chloride 0.9% 50 ml @ Per Protocol 100 mls/hr IVPB ONCE ONE Rx#:[id number] Intake, IV Titration 145.457 101.269 63.394 Amount Insulin Regular 100 unit 131.932 101.269 63.394 In Sodium Chloride 0.9% 100 ml @ Per Protocol IV .Q0M [facility] Rx#:[id number] Nitroglycerin-D5w Pmx 50 13.525 mg In Dextrose/Water 1 250ml.bag @ 5 MCG/MIN 1.5 mls/hr IV .Q24H [facility] Rx#: [id number] Oral 1000 1960 Output: Chest Tube Drainage 160 50 100 Right Pleural 70 20 30 mediastinal x1 90 30 70 Urine 1105 800 440 Other: Voiding Method Indwelling Catheter Indwelling Catheter Indwelling Catheter ABP, PAP, CO, CI - Last Documented Arterial Blood Pressure 123/50 Pulmonary Artery Pressure 27/12 Cardiac Output 10 Cardiac Index 3.7 - Exam Physical exam: General: Revealed 63-year-old obese male, on room air. His O2 sat on 2 L was 97% HEENT: Head is atraumatic, normocephalic.IJ cordis is noted, no JVD noted. CHEST EXAMINATION: Diminished breath sounds at the bases no crackles rhonchi or wheezes HEART EXAMINATION: Normal S1-S2, no S3 gallop, 2/6 systolic murmur throughout the precordium ABDOMEN: Obese, soft, nontender. No megaly no rebound no guarding EXTREMITIES: Good pulses bilaterally no clubbing edema or cyanosis. Tenderness noted. NEUROLOGIC EXAMINATION: Alert oriented x 3 no gross focal deficit Psychiatric: Normal mood affect and normal mental status examination. Skin: No rashes - Labs CBC & Chem 7: 02/01/24 05:00 02/01/24 05:00 Labs: Abnormal Lab Results - Last 24 Hours (Table) 01/31/24 01/31/24 01/31/24 Range/Units 14:00 15:03 16:13 WBC (3.8-10.6) k/uL RBC (4.30-5.90) m/uL Hgb (13.0-17.5) gm/dL Hct (39.0-53.0) % Plt Count (150-450) k/uL Neutrophils # (1.3-7.7) k/uL Sodium (137-145) mmol/L BUN (9-20) mg/dL Glucose (74-99) mg/dL POC Glucose (mg/dL) 207 H 160 H 133 H (70-110) mg/dL Calcium (8.4-10.2) mg/dL AST (17-59) U/L Alkaline Phosphatase (38-126) U/L Total Protein (6.3-8.2) g/dL Albumin (3.5-5.0) g/dL 01/31/24 01/31/24 01/31/24 Range/Units 17:22 18:01 19:10 WBC (3.8-10.6) k/uL RBC (4.30-5.90) m/uL Hgb (13.0-17.5) gm/dL Hct (39.0-53.0) % Plt Count (150-450) k/uL Neutrophils # (1.3-7.7) k/uL Sodium (137-145) mmol/L BUN (9-20) mg/dL Glucose (74-99) mg/dL POC Glucose (mg/dL) 123 H 141 H 142 H (70-110) mg/dL Calcium (8.4-10.2) mg/dL AST (17-59) U/L Alkaline Phosphatase (38-126) U/L Total Protein (6.3-8.2) g/dL Albumin (3.5-5.0) g/dL 01/31/24 01/31/24 01/31/24 Range/Units 20:22 20:55 22:03 WBC (3.8-10.6) k/uL RBC (4.30-5.90) m/uL Hgb (13.0-17.5) gm/dL Hct (39.0-53.0) % Plt Count (150-450) k/uL Neutrophils # (1.3-7.7) k/uL Sodium (137-145) mmol/L BUN (9-20) mg/dL Glucose (74-99) mg/dL POC Glucose (mg/dL) 133 H 129 H 118 H (70-110) mg/dL Calcium (8.4-10.2) mg/dL AST (17-59) U/L Alkaline Phosphatase (38-126) U/L Total Protein (6.3-8.2) g/dL Albumin (3.5-5.0) g/dL 01/31/24 02/01/24 02/01/24 Range/Units 22:56 00:14 00:52 WBC (3.8-10.6) k/uL RBC (4.30-5.90) m/uL Hgb (13.0-17.5) gm/dL Hct (39.0-53.0) % Plt Count (150-450) k/uL Neutrophils # (1.3-7.7) k/uL Sodium (137-145) mmol/L BUN (9-20) mg/dL Glucose (74-99) mg/dL POC Glucose (mg/dL) 127 H 113 H 138 H (70-110) mg/dL Calcium (8.4-10.2) mg/dL AST (17-59) U/L Alkaline Phosphatase (38-126) U/L Total Protein (6.3-8.2) g/dL Albumin (3.5-5.0) g/dL 02/01/24 02/01/24 02/01/24 Range/Units 02:57 03:59 04:51 WBC (3.8-10.6) k/uL RBC (4.30-5.90) m/uL Hgb (13.0-17.5) gm/dL Hct (39.0-53.0) % Plt Count (150-450) k/uL Neutrophils # (1.3-7.7) k/uL Sodium (137-145) mmol/L BUN (9-20) mg/dL Glucose (74-99) mg/dL POC Glucose (mg/dL) 123 H 130 H 118 H (70-110) mg/dL Calcium (8.4-10.2) mg/dL AST (17-59) U/L Alkaline Phosphatase (38-126) U/L Total Protein (6.3-8.2) g/dL Albumin (3.5-5.0) g/dL 02/01/24 02/01/24 02/01/24 Range/Units 05:00 05:00 05:45 WBC 12.1 H (3.8-10.6) k/uL RBC 3.52 L (4.30-5.90) m/uL Hgb 10.4 L (13.0-17.5) gm/dL Hct 32.0 L (39.0-53.0) % Plt Count 110 L (150-450) k/uL Neutrophils # 10.0 H (1.3-7.7) k/uL Sodium 133 L (137-145) mmol/L BUN 22 H (9-20) mg/dL Glucose 118 H (74-99) mg/dL POC Glucose (mg/dL) 121 H (70-110) mg/dL Calcium 8.2 L (8.4-10.2) mg/dL AST 68 H (17-59) U/L Alkaline Phosphatase 34 L (38-126) U/L Total Protein 5.0 L (6.3-8.2) g/dL Albumin 3.0 L (3.5-5.0) g/dL 02/01/24 02/01/24 02/01/24 Range/Units 06:29 08:29 09:28 WBC (3.8-10.6) k/uL RBC (4.30-5.90) m/uL Hgb (13.0-17.5) gm/dL Hct (39.0-53.0) % Plt Count (150-450) k/uL Neutrophils # (1.3-7.7) k/uL Sodium (137-145) mmol/L BUN (9-20) mg/dL Glucose (74-99) mg/dL POC Glucose (mg/dL) 124 H 140 H 169 H (70-110) mg/dL Calcium (8.4-10.2) mg/dL AST (17-59) U/L Alkaline Phosphatase (38-126) U/L Total Protein (6.3-8.2) g/dL Albumin (3.5-5.0) g/dL 02/01/24 Range/Units 11:44 WBC (3.8-10.6) k/uL RBC (4.30-5.90) m/uL Hgb (13.0-17.5) gm/dL Hct (39.0-53.0) % Plt Count (150-450) k/uL Neutrophils # (1.3-7.7) k/uL Sodium (137-145) mmol/L BUN (9-20) mg/dL Glucose (74-99) mg/dL POC Glucose (mg/dL) 125 H (70-110) mg/dL Calcium (8.4-10.2) mg/dL AST (17-59) U/L Alkaline Phosphatase (38-126) U/L Total Protein (6.3-8.2) g/dL Albumin (3.5-5.0) g/dL Assessment and Plan Assessment: Impression: Severe aortic insufficiency, status post aortic valve replacement postoperative day #2 Postoperative atelectasis, expected and small pleural effusions, expected Benign essential hypertension History of atrial fibrillation status post ablation History of obstructive sleep apnea syndrome, on BiPAP, patient will bring his own machine today morbid obesity with BMI of 41. History of type 2 diabetes. Family history of premature coronary artery disease Nonischemic cardiomyopathy with ejection fraction of 45 to 50% Dyslipidemia Mild mitral valve and tricuspid valve regurgitation. Recommendation: Continue present supportive care measures Continue insulin drip as per protocol. Continue maximal medical therapy Ambulate Continue incentive spirometry Daily monitoring of x-rays and daily monitoring of labs GI and DVT prophylaxis Will continue to follow Time with Patient: Less than 30
[2024-02-01 13:53] LABS: Glucose,Whole Blood 131 mg/dL (70-110)
[2024-02-01 14:10] LABS: Glucose,Whole Blood 114 mg/dL (70-110)
[2024-02-01 15:08] LABS: Glucose,Whole Blood 134 mg/dL (70-110)
[2024-02-01 16:17] LABS: Glucose,Whole Blood 117 mg/dL (70-110)
--- NOTE | 2024-02-01 17:11 | P.PN ---
Progress Note - Text Progress Note Date: 02/01/24 - Chief Complaint Biobentall procedure - History of Present Illness 63-year-old patient, follows with Dr. Hayden. Chronic stable medical conditions include atrial fibrillation, CHF, diabetes, hypertension, hyperlipidemia, obstructive sleep apnea CPAP. Patient underwent todayBiobentall procedure by Dr.s Leigh. Also included left atrial appendage clipping. Postprocedure patient in the ICU. Intubated. FiO2 50 and a PEEP of 10. Has 1 right pleural chest tubes and 2 mediastinal chest tubes. Patient having significant output through the tubes. Drips include insulin and propofol. January 31, 2024: Patient extubated yesterday. Today sitting up in the chair/recliner. Family at the bedside. On clear liquid diet. Hopkins catheter remains in place. Sinus rhythm. Chest tubes in place. There was decreased output from the chest tube yesterday now controlled. Insulin drip. Has a slight cough. February 01, 2024: ICU. Up in a recliner. Did walk up to the door. Hopkins catheter discontinued. Has not made urine till now. Has [address] Using incentive spirometry. Eating supper. Slight cough. Insulin drip At Active Medications Acetaminophen (Acetaminophen Tab 500 Mg Tab) 1,000 mg PO Q6HR PRN PRN Reason: Fever and/ or Pain Acetylcysteine (Acetylcysteine 800 Mg/4 Ml Vial) 200 mg INHALATION RT-TID [facility] Last Admin: 02/01/24 12:46 Dose: 200 mg Albuterol/Ipratropium (Ipratropium-Albuterol 3 Ml Neb) 3 ml INHALATION RT-Q2H PRN PRN Reason: Shortness Of Breath Or Wheezing Albuterol/Ipratropium (Ipratropium-Albuterol 3 Ml Neb) 3 ml INHALATION RT-QID [facility] Last Admin: 02/01/24 16:37 Dose: 3 ml Amiodarone HCl (Amiodarone 200 Mg Tab) 200 mg PO QAM [facility] Last Admin: 02/01/24 09:15 Dose: 200 mg Aspirin (Aspirin 325 Mg Tab) 325 mg PO DAILY [facility] Last Admin: 02/01/24 09:14 Dose: 325 mg Atorvastatin Calcium (Atorvastatin 20 Mg Tab) 20 mg PO QAM [facility] Last Admin: 02/01/24 09:15 Dose: 20 mg Bisacodyl (Bisacodyl 10 Mg Supp) 10 mg RECTAL DAILY PRN PRN Reason: Constipation Clopidogrel Bisulfate (Clopidogrel 75 Mg Tab) 75 mg PO DAILY [facility] Last Admin: 02/01/24 09:14 Dose: 75 mg Dextrose/Water (Dextrose 50% Syringe 50 Ml) 25 ml IVP PER PROTOCOL PRN; Protocol PRN Reason: Hypoglycemia Dextrose/Water (Dextrose 50% Syringe 50 Ml) 50 ml IVP PER PROTOCOL PRN; Protocol PRN Reason: Hypoglycemia Ferrous Sulfate (Ferrous Sulfate 325 Mg Tab) 325 mg PO W/LUNCH [facility] Last Admin: 02/01/24 12:10 Dose: 325 mg Guaifenesin (Guaifenesin 600 Mg Tablet.Er) 1,200 mg PO Q12HR [facility] Last Admin: 02/01/24 09:14 Dose: 1,200 mg Heparin Sodium (Porcine) (Heparin Sodium,Porcine 5,000 Unit/Ml 1 Ml Vial) 5,000 unit SQ Q8HR [facility] Last Admin: 02/01/24 16:13 Dose: 5,000 unit Hydralazine HCl (Hydralazine Hcl 20 Mg/Ml 1 Ml Vial) 10 mg IVP Q1H PRN PRN Reason: Blood Pressure - High Amiodarone HCl 150 mg/ (Dextrose/Water) 103 mls @ 618 mls/hr IV .Q10M PRN; Protocol PRN Reason: A.FIB/FLUTTER Amiodarone HCl 360 mg/ (Dextrose/Water) 207.2 mls @ 34.533 mls/hr IV .Q6H PRN; Protocol PRN Reason: A.FIB/FLUTTER Amiodarone HCl 450 mg/ (Dextrose/Water) 250 mls @ 16.667 mls/hr IV .Q15H PRN; Protocol PRN Reason: A.FIB/FLUTTER Lactated Ringer's (Lactated Ringers) 1,000 mls @ 20 mls/hr IV .Q24H [facility] Last Admin: 02/01/24 09:23 Dose: 20 mls/hr Calcium Gluconate/Sodium (Chloride 2 gm/ IV Solution) 100 mls @ 100 mls/hr IVPB ONCE PRN PRN Reason: Ionized Calcium less than 4.4 Stop: 02/02/24 13:17 Insulin Human Regular 100 unit (/ Sodium Chloride) 101 mls @ 0 mls/hr IV .Q0M [facility]; Protocol Last Titration: 02/01/24 16:16 Dose: 9 units/hr, 9.09 mls/hr Lisinopril (Lisinopril 10 Mg Tab) 10 mg PO DAILY [facility] Last Admin: 02/01/24 12:17 Dose: Not Given Magnesium Hydroxide (Magnesium Hydroxide 2,400 Mg/30 Ml Cup) 2,400 mg PO BID PRN PRN Reason: Constipation Melatonin (Melatonin 3 Mg Tablet) 6 mg PO [facility] Metoclopramide HCl (Metoclopramide 5 Mg/Ml 2 Ml Vial) 10 mg IVP Q4H PRN PRN Reason: Nausea And Vomiting Metoprolol Tartrate (Metoprolol Tartrate 25 Mg Tab) 25 mg PO BID [facility] Last Admin: 02/01/24 09:22 Dose: 25 mg Miscellaneous Information (Potassium Replacement Protocol 1 Each Misc) 1 each MISCELLANE DAILY PRN; Protocol PRN Reason: Per Protocol Miscellaneous Information (Magnesium Replacement Protocol 1 Each Misc) 1 each MISCELLANE DAILY PRN; Protocol PRN Reason: Per Protocol Ondansetron HCl (Ondansetron 4 Mg/2 Ml Vial) 4 mg IVP Q6HR PRN PRN Reason: Nausea And Vomiting Pantoprazole Sodium (Pantoprazole 40 Mg Tablet) 40 mg PO -BRKFST [facility] Last Admin: 02/01/24 09:10 Dose: 40 mg Senna/Docusate Sodium (Sennosides-Docusate Sodium 1 Each Tab) 2 each PO HS [facility] Last Admin: 01/31/24 21:12 Dose: 2 each Sodium Chloride (Sodium Chloride 0.9% Flush 10 Ml Syringe) 10 ml IV BID [facility] Last Admin: 02/01/24 09:15 Dose: 10 ml Social history: . No smoking no alcohol Physical examination: VITAL SIGNS: 100.6, 90, 29, 124/93, 95% on 2 L GENERAL: Up in recliner EYES: Pupils equal. Conjunctiva dylan l. HEENT: External appearance of nose and ears normal, oral cavity grossly normal. Endotracheal tube NECK: JVD unable to assess; masses not palpable. HEART: Heart sounds muffled; no edema. LUNGS: Respiratory rate increased; decreased breath sounds. Has 1 right pleural and 2 mediastinal chest tubes ABDOMEN: Soft, nontender, liver spleen not palpable, no masses palpable. Hopkins catheter PSYCH: Alert and x 3, mood affect normal l. INVESTIGATIONS, reviewed in the clinical context: January 31: White count 12.1 hemoglobin 10.4 platelets 110 potassium 4.3 creatinine 1.08 January 30 04/22/2024: White count 3.3 hemoglobin 11.9 platelets 130 sodium 136 potassium 4.6 BUN 26 creatinine 1.28 January 30, 2024: White count 13.7 hemoglobin 12.4 platelets 154 Previously today: White count 12.9 hemoglobin 13.6 potassium 4.2 creatinine 1.24 Assessment plan: -Biobentall procedure, for ascending arctic aneurysm and severe arctic insufficiency -Mild acute postprocedure blood loss anemia expected from surgery Follow H&H, Add ferrous sulfate -Thrombocytopenia likely dilutional Follow CBC -Some low-grade fever. Follow clinically. Repeat labs. Antibiotic decision per clinical course -Morbid obesity BMI 41.9 Weight loss measures -Diabetes mellitus type 2, chronically insulin At home on metformin, Glucotrol, Farxiga. Currently on insulin drip -Hyperlipidemia Lipitor -Essential hypertension At home patient takes Zestril, Lopressor -Paroxysmal atrial fibrillation.: Currently in sinus rhythm Previous ablation. On Eliquis and Lopressor at home -Obstructive sleep apnea Uses CPAP -Chronic congestive heart failure from systolic dysfunction EF 45 to 50% with global hypokinesia on LUCY on December 26, [address] Brandon Leon. Lopressor. At home -Full code Check procalcitonin in the morning. CBC. Incentive spirometry to continue. Hopkins catheter was discontinued. Past Medical History Past Medical History: Atrial Fibrillation, Heart Failure, Diabetes Mellitus, Hyperlipidemia, Hypertension, Sleep Apnea/CPAP/BIPAP Additional Past Medical History / Comment(s): uses CPAP, SOB w/exertion History of Any Multi-Drug Resistant Organisms: None Reported Past Surgical History: Cardiac Ablation, Heart Catheterization, Hernia Repair, Orthopedic Surgery, Tonsillectomy Additional Past Surgical History / Comment(s): Bilat. knee surgery(6 surgeries) 1967 - 1973, hiatal hernia repair 1984, colonoscopy, cardioversion, LUCY Past Anesthesia/Blood Transfusion Reactions: No Reported Reaction Smoking Status: Never smoker
[2024-02-01] MEDS: ACETAMINOPHEN TAB 500 MG TAB PO PRN (17:48)
[2024-02-01 17:54] LABS: Glucose,Whole Blood 149 mg/dL (70-110)
[2024-02-01 19:11] LABS: Glucose,Whole Blood 123 mg/dL (70-110)
[2024-02-01 20:15] LABS: Glucose,Whole Blood 127 mg/dL (70-110)
[2024-02-01] MEDS: MELATONIN 3 MG TABLET PO SCH (20:27)
[2024-02-01 21:12] LABS: Glucose,Whole Blood 112 mg/dL (70-110)
[2024-02-01 21:55] LABS: Glucose,Whole Blood 106 mg/dL (70-110)
[2024-02-01 23:22] LABS: Glucose,Whole Blood 137 mg/dL (70-110)
[2024-02-02 00:57] LABS: Glucose,Whole Blood 133 mg/dL (70-110)
[2024-02-02 03:59] LABS: Glucose,Whole Blood 101 mg/dL (70-110)
[2024-02-02 06:32] LABS: Glucose,Whole Blood 140 mg/dL (70-110)
--- NOTE | 2024-02-02 06:35 | XR ---
EXAMINATION TYPE: XR chest 1V portable DATE OF EXAM: 02/02/2024 COMPARISON: 02/01/2024 HISTORY: Postop cardiac surgery TECHNIQUE: Single frontal view of the chest is obtained. FINDINGS: There is been interval removal of the [place]-Des catheter in the right chest tube. There is persistent cardiomegaly and small bilateral pleural effusions. There is no pneumothorax. IMPRESSION: 1. Removal of the [place]-Des catheter and right-sided chest tube with no pneumothorax. 2. Persistent cardiomegaly and small pleural effusions.
[2024-02-02 08:20] LABS: Basophils % (A) 0 %; Eosinophils # (A) 0.1 k/uL (0-0.7); Eosinophils % (A) 1 %; HCT 31.7 % (39.0-53.0); HGB 10.1 gm/dL (13.0-17.5); Lymphocytes # (A) 0.9 k/uL (1.0-4.8); Lymphocytes % (A) 8 %; MCH 29.8 pg (25.0-35.0); MCV 93.3 fL (80.0-100.0); Mean Platelet Volume 8.8; Monocytes # (A) 0.6 k/uL (0-1.0); Monocytes % (A) 5 %; Neutrophils % (A) 84 %; Platelet Count 114 k/uL (150-450); RBC 3.39 m/uL (4.30-5.90); RDW 14.2 % (11.5-15.5); WBC 10.7 k/uL (3.8-10.6)
[2024-02-02 08:37] LABS: ALT 21 U/L (4-49); AST 44 U/L (17-59); African American GFR (CKD) >90 (>60 ml/min/1.73 sqM); Albumin 2.9 g/dL (3.5-5.0); Alkaline Phosphatase 40 U/L (38-126); Anion Gap 7 mmol/L; Blood Urea Nitrogen 28 mg/dL (9-20); Calcium 8.2 mg/dL (8.4-10.2); Carbon Dioxide 21 mmol/L (22-30); Chloride 105 mmol/L (98-107); Glucose 219 mg/dL (74-99); Non-African American GFR(CKD) 82 (>60 ml/min/1.73 sqM); Potassium 4.4 mmol/L (3.5-5.1); Sodium 133 mmol/L (137-145); Total Bilirubin 1.3 mg/dL (0.2-1.3); Total Protein 5.1 g/dL (6.3-8.2)
[2024-02-02 08:47] LABS: Glucose,Whole Blood 223 mg/dL (70-110)
--- NOTE | 2024-02-02 09:18 | P.PN ---
Subjective Progress Note Date: 02/02/24 Principal diagnosis: Aortic Root Aneurysm with Severe Aortic Insufficiency, ascending aortic aneurysm. Past medical history significant for nonischemic cardiomyopathy with an ejection fraction of 45 to 50% on transesophageal echocardiogram, hypertension, hyperlipidemia, paroxysmal atrial fibrillation on Eliquis for anticoagulation as an outpatient, status post cardioversion in October 2019 and subsequent ablation in February 2020, obstructive sleep apnea with home CPAP use, diabetes mellitus type 2 with a preoperative hemoglobin A1c 8.1%, obesity with a BMI of 41.8 kg/m, and a family history of premature coronary artery disease. POD #3 Biobentall (#29mm Kon[place]ct), left atrial appendage ligation with #35mm AtriClip, intraoperative transesophageal echocardiogram completed by anesthesia. Postoperative acute blood loss anemia, expected given hemodilution and cardiopulmonary bypass. Patient was seen and examined in follow-up today February 02, 2024 at his bedside in the intensive care unit. He is currently sitting up to the bedside chair, is awake, alert, oriented x 3 and is in no acute apparent distress. The patient was slightly confused yesterday afternoon, all narcotics were stopped and the patient is awake alert and orientated x 3 this morning. He denies any c omplaints of shortness of breath at this time, although is complaining of some pain to his chest tube insertion site, currently rating his pain 7 out of 10 on the pain scale. Oxygen saturations are 95% on 5 L nasal cannula and he is achieving 1000 mL on his incentive spirometry with encouragement. The patient's Tmax temperature was at 101.1 F in the last 24 hours, the patient has been encouraged to deep breathe and cough and use his incentive spirometry 10 times every hour while awake. The patient did have a productive cough this morning with aguilar tenacious sputum. Bedside telemetry is showing normal sinus rhythm heart rate 74 bpm. He remains hemodynamically stable and is currently on no inotropic or pressor support. His mediastinal and right pleural chest tube were removed yesterday without incident. His atrial and ventricular epicardial pacemaker wires remain in place and are currently grounded. Mediastinal [place] drain remains in place to low continuous wall suction -20 cm H2O. No air leak is present. Draining thin serosanguineous drainage with 5 mL output in the last 8 hours and 45 mL output in the last 24 hours. The patient's Hopkins catheter was discontinued yesterday, he continues to void, 250 mL output in the last 8 hours. Chest x-ray and laboratory results were reviewed. Objective - Vital Signs Vital signs: Vital Signs Temp 97.6 F 02/02/24 04:00 Pulse 84 02/02/24 08:13 Resp 27 H 02/02/24 07:00 BP 132/68 02/02/24 07:00 Pulse Ox 90 L 02/02/24 08:00 FiO2 50 01/30/24 20:50 Intake & Output 02/01/24 02/02/24 02/02/24 18:59 06:59 18:59 Intake Total 3035.578 478.964 3 Output Total 785 280 5 Balance 2250.578 198.964 -2 Weight 155.4 kg Intake: IV 704 396 3 Albumin Human 5% 250 ml 250 In Empty Bag 1 bag @ 250 mls/hr IVPB ONCE [facility] Rx#: [id number] Lactated Ringers 1,000 ml 400 360 @ 20 mls/hr IV .Q24H [facility] Rx#:[id number] Pressure 54 36 3 Intake, IV Titration 121.578 82.964 0 Amount Insulin Regular 100 unit 121.578 82.964 0 In Sodium Chloride 0.9% 100 ml @ Per Protocol IV .Q0M [facility] Rx#:[id number] Oral 2210 Output: Chest Tube Drainage 120 30 5 Right Pleural 30 mediastinal x1 90 30 5 Urine 665 250 0 Other: Voiding Method Urinal Urinal ABP, PAP, CO, CI - Last Documented Arterial Blood Pressure 123/50 Pulmonary Artery Pressure 27/12 Cardiac Output 10 Cardiac Index 3.7 - Exam CONSTITUTIONAL: Sitting up to the bedside chair in the intensive care unit, appears comfortable, cooperative, no apparent acute distress. HEENT: Neck is supple, no JVD, no lymphadenopathy. Right IJ Cordis in place and functioning. RESPIRATORY: Lungs sounds essentially clear throughout, diminished to his bilateral bases, few scattered rhonchi. Respirations are symmetrical and nonlabored. Currently on 5 L nasal cannula with oxygen saturations 95%able to achieve 1000 mL on his incentive spirometry. Strong cough. CARDIOVASCULAR: Regular rhythm and rate. S1 and S2 present, negative for S3, gallop or murmur. Bedside telemetry showing normal sinus rhythm heart rate 74 bpm. Sternum is stable. Palpable peripheral pulses bilaterally, +1 edema to his bilateral lower extremities. No calf pain or tenderness noted. Heart hugger in place with patient demonstrating appropriate use. Knee-high ROSEANN hose and sequential compression devices in place to his bilateral lower extremities. GASTROINTESTINAL: Abdomen soft, nontender, nondistended. Active bowel sounds present 4 quadrants. Tolerating diet. Denies passing flatus. No guarding or rigidity. GENITOURINARY: Continues to void. 250 mL of urine output in the last 8 hours. INTEGUMENTARY: Skin is warm and dry with no evidence of clubbing or cyanosis. Midline sternal incision clean dry and well approximated, covered with dry intact dressing. NEUROLOGIC: Cranial nerves II through XII intact. No focal deficits. MUSKULOSKELETAL: Able to move all extremities, strength equal bilaterally, ge neralized weakness. PSYCHIATRIC: Alert and oriented to person place and time, appropriate affect, i ntact judgment and insight. INVASIVE LINES AND TUBES: Mediastinal Israel drain chest tube present and connected to low continuous wall suction, no air leaks present. Mediastinal tube with 5 mL of thin serosanguineous drainage overnight, 45 mL output in the last 24 hours. Atrial and ventricular epicardial pacemaker wires present and are grounded. Right internal jugular Cordis present. Current CVP 18 mmHg. - Allied health notes Allied health notes reviewed: nursing - Labs CBC & Chem 7: 02/02/24 08:07 02/02/24 08:07 Labs: Abnormal Lab Results - Last 24 Hours (Table) 02/01/24 02/01/24 02/01/24 Range/Units 02:12 09:28 11:44 WBC (3.8-10.6) k/uL RBC (4.30-5.90) m/uL Hgb (13.0-17.5) gm/dL Hct (39.0-53.0) % Plt Count (150-450) k/uL Neutrophils # (1.3-7.7) k/uL Lymphocytes # (1.0-4.8) k/uL Sodium (137-145) mmol/L Carbon Dioxide (22-30) mmol/L BUN (9-20) mg/dL Glucose (74-99) mg/dL POC Glucose (mg/dL) 114 H 169 H 125 H (70-110) mg/dL Calcium (8.4-10.2) mg/dL Total Protein (6.3-8.2) g/dL Albumin (3.5-5.0) g/dL 02/01/24 02/01/24 02/01/24 Range/Units 13:50 15:06 16:14 WBC (3.8-10.6) k/uL RBC (4.30-5.90) m/uL Hgb (13.0-17.5) gm/dL Hct (39.0-53.0) % Plt Count (150-450) k/uL Neutrophils # (1.3-7.7) k/uL Lymphocytes # (1.0-4.8) k/uL Sodium (137-145) mmol/L Carbon Dioxide (22-30) mmol/L BUN (9-20) mg/dL Glucose (74-99) mg/dL POC Glucose (mg/dL) 131 H 134 H 117 H (70-110) mg/dL Calcium (8.4-10.2) mg/dL Total Protein (6.3-8.2) g/dL Albumin (3.5-5.0) g/dL 02/01/24 02/01/24 02/01/24 Range/Units 17:53 19:10 20:14 WBC (3.8-10.6) k/uL RBC (4.30-5.90) m/uL Hgb (13.0-17.5) gm/dL Hct (39.0-53.0) % Plt Count (150-450) k/uL Neutrophils # (1.3-7.7) k/uL Lymphocytes # (1.0-4.8) k/uL Sodium (137-145) mmol/L Carbon Dioxide (22-30) mmol/L BUN (9-20) mg/dL Glucose (74-99) mg/dL POC Glucose (mg/dL) 149 H 123 H 127 H (70-110) mg/dL Calcium (8.4-10.2) mg/dL Total Protein (6.3-8.2) g/dL Albumin (3.5-5.0) g/dL 02/01/24 02/01/24 02/02/24 Range/Units 21:11 23:20 00:55 WBC (3.8-10.6) k/uL RBC (4.30-5.90) m/uL Hgb (13.0-17.5) gm/dL Hct (39.0-53.0) % Plt Count (150-450) k/uL Neutrophils # (1.3-7.7) k/uL Lymphocytes # (1.0-4.8) k/uL Sodium (137-145) mmol/L Carbon Dioxide (22-30) mmol/L BUN (9-20) mg/dL Glucose (74-99) mg/dL POC Glucose (mg/dL) 112 H 137 H 133 H (70-110) mg/dL Calcium (8.4-10.2) mg/dL Total Protein (6.3-8.2) g/dL Albumin (3.5-5.0) g/dL 02/02/24 02/02/24 02/02/24 Range/Units 06:30 08:07 08:07 WBC 10.7 H (3.8-10.6) k/uL RBC 3.39 L (4.30-5.90) m/uL Hgb 10.1 L (13.0-17.5) gm/dL Hct 31.7 L (39.0-53.0) % Plt Count 114 L (150-450) k/uL Neutrophils # 9.0 H (1.3-7.7) k/uL Lymphocytes # 0.9 L (1.0-4.8) k/uL Sodium 133 L (137-145) mmol/L Carbon Dioxide 21 L (22-30) mmol/L BUN 28 H (9-20) mg/dL Glucose 219 H (74-99) mg/dL POC Glucose (mg/dL) 140 H (70-110) mg/dL Calcium 8.2 L (8.4-10.2) mg/dL Total Protein 5.1 L (6.3-8.2) g/dL Albumin 2.9 L (3.5-5.0) g/dL 02/02/24 Range/Units 08:43 WBC (3.8-10.6) k/uL RBC (4.30-5.90) m/uL Hgb (13.0-17.5) gm/dL Hct (39.0-53.0) % Plt Count (150-450) k/uL Neutrophils # (1.3-7.7) k/uL Lymphocytes # (1.0-4.8) k/uL Sodium (137-145) mmol/L Carbon Dioxide (22-30) mmol/L BUN (9-20) mg/dL Glucose (74-99) mg/dL POC Glucose (mg/dL) 223 H (70-110) mg/dL Calcium (8.4-10.2) mg/dL Total Protein (6.3-8.2) g/dL Albumin (3.5-5.0) g/dL - Imaging and Cardiology Chest x-ray: report reviewed, image reviewed Assessment and Plan Assessment: Aortic Root Aneurysm with Severe Aortic Insufficiency, status post Biobentall (#29mm Kon[place]) Ascending aortic aneurysm, status post Biobentall (#29mm [place]) Mild mitral and tricuspid regurgitation Nonischemic cardiomyopathy, EF 45-50% Hypertension Dyslipidemia, triglycerides 176, LDL 65, cholesterol 141, HDL 40.8 Paroxysmal atrial fibrillation on Eliquis for anticoagulation, status post cardioversion in October 2019 and subsequent ablation in February 2020, status post left atrial appendage ligation with a 35 mm AtriClip Diabetes mellitus type II, with a preoperative hemoglobin A1c 8.1% Morbid obesity with a BMI of 41.8 kg/m Lifetime non-smoker Obstructive sleep apnea with home CPAP use Family history of premature coronary artery disease Postoperative acute blood loss anemia, expected given hemodilution and cardiopulmonary bypass Plan: Continue to maximize medical therapy with aspirin, statin, plavix and beta- henrietta. Will increase metoprolol tartrate as tolerated. Continue lisinopril 10 mg p.o. daily for afterload reduction. Increase activity as tolerated physical therapy and occupational Therapy are following. Continue home dose of amiodarone 200 mg p.o. daily for atrial fibrillation prophylaxis. No atrial fibrillation reported, currently in normal sinus rhythm. Wean oxygen as tolerated. Bronchodilator management per pulmonary critical care recommendations. Encourage incentive spirometry use 10 times every hour while awake. Will monitor daily labs and chest x-rays. Electrolyte replacement per protocol. GI/DVT prophylaxis. Insulin management per internal medicine, patient should stay on continuous IV insulin for 48 hours. Preoperative hemoglobin A1c 8.1%. Pain control per current medication regimen. Remove right IJ Cordis. Keep mediastinal Israel drain in place until discharge. Continue record accurate output. Bladder scan every 6 hours and as needed postvoid residual. May straight cath for postvoid residual of greater than or equal to 300 mL of urine. Continue record strict and accurate I's and O's. Daily weights. Lasix 40 mg IV x 1 now. More recommendations to follow on patient's clinical course. Time with Patient: Greater than 30
[2024-02-02 10:30] LABS: Glucose,Whole Blood 163 mg/dL (70-110)
--- NOTE | 2024-02-02 10:34 | P.PN ---
Subjective Progress Note Date: 02/02/24 Principal diagnosis: Severe Aortic regurgitation and aneurysmal ascending aorta/4.4 cm This is a 63-year-old male patient with a known history of atrial fibrillation and previous ablation approximately 4 years ago maintained on Eliquis, diabetes mellitus, hyperlipidemia, hypertension, obstructive sleep apnea utilizing CPAP, nonischemic cardiomyopathy who was recently found to have impaired left ventricular systolic function with ejection fraction of 45 to 50% and severe aortic regurgitation and aneurysmal ascending aorta measuring 4.4 cm. He was brought in electively today for surgery with Dr. Leigh. He did undergo aortic valve replacement with a biobentall #29 Konnect, left atrial appendage ligation with atrial clip placement and follow-up transesophageal echocardiogram. He is seen currently in the intensive care unit. He is intubated on the mechanical ventilator with current settings of assist-control mode of 16, tidal volume 550 and FiO2 70% and a PEEP of 10. Initial blood gases on 100% FiO2 and a rate of 12 revealed a PaO2 of 166, pCO2 of 54 and a pH of 7.28. Chest x-ray reveals evidence of the endotracheal tube and nasogastric tube as well as a Elbe-Des catheter suspected in place. X-ray is somewhat underpenetrated. 2 mediastinal chest tubes and a right-sided chest tube in place. Right IJ Elbe-Des catheter in place. Cardiac output 6.9. Cardiac index 2.5. PA pressures 34/18. CVP 12. Currently in sinus rhythm. He is on lactated Ringer's at 50 MLS per hour. Propofol at 30 mcg/kg/min. Insulin drip at 3 units/h. Nitroglycerin drip at 10 mcg/min. He did receive albumin. Receiving bronchodilators. Received cefazolin. Initiated on Cleviprex at 2 mg/h. Patient was evaluated today on 01/31/24 POD #1 Biobentall (#29mm Konnect), left atrial appendage ligation with #35mm AtriClip, patient was extubated yesterday rated the extubation quite well, he is sitting in a bedside chair today, he was successfully extubated at 8:52 p.m. Currently on 6 L nasal cannula, O2 sat is 94%, patient is not in any distress, achieving almost 1500 cc on his incentive spirometry. For complaint except for minimal cough, nonproductive, no fever, no chills, no hemoptysis, and no chest pain. He did receive a unit of platelets last evening, continues to have mediastinal and right pleural chest tubes, no airleak is noted, mediastinal chest tube drained about 200 cc overnight, the right pleural chest tube drained 140 cc since last night. Patient is hemodynamically stable not requiring any pressors, cardiac output is 5.4 cardiac index is 2.0. Chest x-ray is showing minimal atelectasis at the base. CBC is relatively normal hemoglobin is 11.9. Platelets today are 130,000 basic metabolic profile is normal, except for BUN of 26 creatinine 1.28 Patient was evaluated today on 02/01/2024, he is now postoperative day #2. Patient is doing well, asymptomatic, on room air, does not seem to be in any distress, he is receiving lactated Ringer's at 50 cc/h insulin remains 11.5 units/h he is achieving over 1000 cc on his incentive spirometer. Chest x-ray showed minimal nonspecific atelectasis. Small tiny bilateral pleural effusions noted, right-sided chest tube noted, tip of the Elbe-Des catheter is in the main pulmonary artery region. Patient denies any cough or wheezing no shortness of breath no chest pain. No abdominal pain no nausea no vomiting WBC count is 12.1 hemoglobin is 10.4 basic metabolic profile is normal renal profile is better today creatinine down to 1.08 from 1.28 yesterday. Patient was evaluated today on 02/02/2024,POD #3 Biobentall (#29mm Konnect), left atrial appendage ligation with #35mm AtriClip. Patient continues to do well, however he is on 5 L nasal cannula. O2 sats is 95%, still achieving about 1000 cc via incentive spirometry. He had a Tmax of 101 last night, he had a minimal productive cough this morning with aguilar tenacious sputum. Patient is hemodynamically stable, not in any distress, continues to have mediastinal chest tube, minimal drainage overnight. Catheter was discontinued yesterday.Chest x- ray showed cardiomegaly and small pleural effusions. WBC count is 10.7 hemoglobin 10.1 basic metabolic profile is normal renal profile is normal Objective - Vital Signs Vital signs: Vital Signs Temp 97.6 F 02/02/24 04:00 Pulse 84 06/01/24 08:13 Resp 27 H 02/02/24 07:00 BP 132/68 02/02/24 07:00 Pulse Ox 90 L 02/02/24 08:00 FiO2 50 01/30/24 20:50 Intake & Output 02/01/24 02/02/24 02/02/24 18:59 06:59 18:59 Intake Total 3035.578 478.964 28.452 Output Total 785 280 5 Balance 2250.578 198.964 23.452 Weight 155.4 kg Intake: IV 704 396 3 Albumin Human 5% 250 ml 250 In Empty Bag 1 bag @ 250 mls/hr IVPB ONCE [facility] Rx#: [id number] Lactated Ringers 1,000 ml 400 360 @ 20 mls/hr IV .Q24H [facility] Rx#:[id number] Pressure 54 36 3 Intake, IV Titration 121.578 82.964 25.452 Amount Insulin Regular 100 unit 121.578 82.964 25.452 In Sodium Chloride 0.9% 100 ml @ Per Protocol IV .Q0M [facility] Rx#:[id number] Oral 2210 Output: Chest Tube Drainage 120 30 5 Right Pleural 30 mediastinal x1 90 30 5 Urine 665 250 0 Other: Voiding Method Urinal Urinal ABP, PAP, CO, CI - Last Documented Arterial Blood Pressure 123/50 Pulmonary Artery Pressure 27/12 Cardiac Output 10 Cardiac Index 3.7 - Exam Physical exam: General: Revealed 63-year-old obese male, on room air. His O2 sat on 5 L nasal cannula HEENT: Head is atraumatic, normocephalic.IJ cordis is noted, no JVD noted. CHEST EXAMINATION: Diminished breath sounds at the bases no crackles rhonchi or wheezes HEART EXAMINATION: Normal S1-S2, no S3 gallop, 2/6 systolic murmur throughout the precordium ABDOMEN: Obese, soft, nontender. No megaly no rebound no guarding EXTREMITIES: Good pulses bilaterally no clubbing edema or cyanosis. Tenderness noted. NEUROLOGIC EXAMINATION: Alert oriented x 3 no gross focal deficit Psychiatric: Normal mood affect and normal mental status examination. Skin: No rashes - Labs CBC & Chem 7: 02/02/24 08:07 02/02/24 08:07 Labs: Abnormal Lab Results - Last 24 Hours (Table) 05/02/01/24 02/01/24 Range/Units 02:12 11:44 13:50 WBC (3.8-10.6) k/uL RBC (4.30-5.90) m/uL Hgb (13.0-17.5) gm/dL Hct (39.0-53.0) % Plt Count (150-450) k/uL Neutrophils # (1.3-7.7) k/uL Lymphocytes # (1.0-4.8) k/uL Sodium (137-145) mmol/L Carbon Dioxide (22-30) mmol/L BUN (9-20) mg/dL Glucose (74-99) mg/dL POC Glucose (mg/dL) 114 H 125 H 131 H (70-110) mg/dL Calcium (8.4-10.2) mg/dL Total Protein (6.3-8.2) g/dL Albumin (3.5-5.0) g/dL 02/01/24 02/01/24 02/01/24 Range/Units 15:06 16:14 17:53 WBC (3.8-10.6) k/uL RBC (4.30-5.90) m/uL Hgb (13.0-17.5) gm/dL Hct (39.0-53.0) % Plt Count (150-450) k/uL Neutrophils # (1.3-7.7) k/uL Lymphocytes # (1.0-4.8) k/uL Sodium (137-145) mmol/L Carbon Dioxide (22-30) mmol/L BUN (9-20) mg/dL Glucose (74-99) mg/dL POC Glucose (mg/dL) 134 H 117 H 149 H (70-110) mg/dL Calcium (8.4-10.2) mg/dL Total Protein (6.3-8.2) g/dL Albumin (3.5-5.0) g/dL 02/01/24 02/01/24 02/01/24 Range/Units 19:10 20:14 21:11 WBC (3.8-10.6) k/uL RBC (4.30-5.90) m/uL Hgb (13.0-17.5) gm/dL Hct (39.0-53.0) % Plt Count (150-450) k/uL Neutrophils # (1.3-7.7) k/uL Lymphocytes # (1.0-4.8) k/uL Sodium (137-145) mmol/L Carbon Dioxide (22-30) mmol/L BUN (9-20) mg/dL Glucose (74-99) mg/dL POC Glucose (mg/dL) 123 H 127 H 112 H (70-110) mg/dL Calcium (8.4-10.2) mg/dL Total Protein (6.3-8.2) g/dL Albumin (3.5-5.0) g/dL 02/01/24 02/02/24 02/02/24 Range/Units 23:20 00:55 06:30 WBC (3.8-10.6) k/uL RBC (4.30-5.90) m/uL Hgb (13.0-17.5) gm/dL Hct (39.0-53.0) % Plt Count (150-450) k/uL Neutrophils # (1.3-7.7) k/uL Lymphocytes # (1.0-4.8) k/uL Sodium (137-145) mmol/L Carbon Dioxide (22-30) mmol/L BUN (9-20) mg/dL Glucose (74-99) mg/dL POC Glucose (mg/dL) 137 H 133 H 140 H (70-110) mg/dL Calcium (8.4-10.2) mg/dL Total Protein (6.3-8.2) g/dL Albumin (3.5-5.0) g/dL 02/02/24 02/02/24 02/02/24 Range/Units 08:07 08:07 08:43 WBC 10.7 H (3.8-10.6) k/uL RBC 3.39 L (4.30-5.90) m/uL Hgb 10.1 L (13.0-17.5) gm/dL Hct 31.7 L (39.0-53.0) % Plt Count 114 L (150-450) k/uL Neutrophils # 9.0 H (1.3-7.7) k/uL Lymphocytes # 0.9 L (1.0-4.8) k/uL Sodium 133 L (137-145) mmol/L Carbon Dioxide 21 L (22-30) mmol/L BUN 28 H (9-20) mg/dL Glucose 219 H (74-99) mg/dL POC Glucose (mg/dL) 223 H (70-110) mg/dL Calcium 8.2 L (8.4-10.2) mg/dL Total Protein 5.1 L (6.3-8.2) g/dL Albumin 2.9 L (3.5-5.0) g/dL Assessment and Plan Assessment: Impression: Severe aortic insufficiency, status post aortic valve replacement postoperative day #3 Postoperative atelectasis, expected and small pleural effusions, expected Benign essential hypertension History of atrial fibrillation status post ablation History of obstructive sleep apnea syndrome, on BiPAP, patient will bring his own machine today morbid obesity with BMI of 41. History of type 2 diabetes. Family history of premature coronary artery disease Nonischemic cardiomyopathy with ejection fraction of 45 to 50% Dyslipidemia Mild mitral valve and tricuspid valve regurgitation. Recommendation: Continue maximal medical therapy including beta-blockers statins and Plavix Continue present supportive care measures Patient is off insulin drip today, he is on subcu insulin as per scale Ambulate Continue incentive spirometry Lasix 40 mg IV push x 1 was given earlier today. Daily monitoring of x-rays and daily monitoring of labs GI and DVT prophylaxis Will continue to follow Time with Patient: Less than 30
[2024-02-02 11:03] LABS: Glucose,Whole Blood 150 mg/dL (70-110)
[2024-02-02] MEDS: FUROSEMIDE 10 MG/ML 4 ML VIAL IV STA (11:07)
--- NOTE | 2024-02-02 11:32 | P.PN ---
Subjective Progress Note Date: 02/02/24 The patient is a 63-year-old male who follows in the office with Dr. Deleon. The patient underwent bio Bentall procedure with Dr. Leigh. The patient was interviewed and examined sitting up in the recliner chair this morning. He states he continues to have some midsternal chest discomfort. He continues to have rapid, shallow breathing. Extensive discussion regarding pulmonary hygiene. He denies any dizziness or lightheadedness. No current difficulty breathing. GENERAL: Well-appearing, well-nourished and in no acute distress. NECK: Supple without JVD or thyromegaly. LUNGS: Breath sounds coarse to auscultation bilaterally. Respiration equal. Mildly labored. HEART: Regular rate and rhythm without murmurs, rubs or gallops. S1 and S2 heard. Heart hugger in place. EXTREMITIES: Normal range of motion, mild edema. No clubbing or cyanosis. Peripheral pulses intact and strong. TELEMETRY: Sinus rhythm overnight LABS: Hemoglobin 10.1 hematocrit 31.7, platelet 114, WBC 10.7, sodium 133, potassium 4.4, BUN 28, creatinine 0.97 IMPRESSION: Severe aortic insufficiency Dilated ascending root Status post biobentall, aortic valve replacement History of diabetes History hypertension Morbid obesity, BMI 41 History of atrial fibrillation, status post ablation History of obstructive sleep apnea PLAN: Continue supportive treatment Aggressive pulmonary hygiene Further recommendations to be based upon clinical course I am dictating on behalf of Dr Mike Alonzo's history/physical and assessmen t/plan. Objective - Vital Signs Vital signs: Vital Signs Temp 97.6 F 02/02/24 04:00 Pulse 84 02/02/24 08:13 Resp 27 H 02/02/24 07:00 BP 132/68 02/02/24 07:00 Pulse Ox 90 L 02/02/24 08:00 FiO2 50 01/30/24 20:50 Intake & Output 02/01/24 02/02/24 02/02/24 18:59 06:59 18:59 Intake Total 3035.578 478.964 3 Output Total 785 280 5 Balance 2250.578 198.964 -2 Weight 155.4 kg Intake: IV 704 396 3 Albumin Human 5% 250 ml 250 In Empty Bag 1 bag @ 250 mls/hr IVPB ONCE STA Rx#: [id number] Lactated Ringers 1,000 ml 400 360 @ 20 mls/hr IV .Q24H [facility] Rx#:[id number] Pressure 54 36 3 Intake, IV Titration 121.578 82.964 0 Amount Insulin Regular 100 unit 121.578 82.964 0 In Sodium Chloride 0.9% 100 ml @ Per Protocol IV .Q0M [facility] Rx#:[id number] Oral 2210 Output: Chest Tube Drainage 120 30 5 Right Pleural 30 mediastinal x1 90 30 5 Urine 665 250 0 Other: Voiding Method Urinal Urinal ABP, PAP, CO, CI - Last Documented Arterial Blood Pressure 123/50 Pulmonary Artery Pressure 27/12 Cardiac Output 10 Cardiac Index 3.7 - Labs CBC & Chem 7: 02/02/24 08:07 02/02/24 08:07 Labs: Abnormal Lab Results - Last 24 Hours (Table) 02/01/24 02/01/24 02/01/24 Range/Units 02:12 09:28 11:44 WBC (3.8-10.6) k/uL RBC (4.30-5.90) m/uL Hgb (13.0-17.5) gm/dL Hct (39.0-53.0) % Plt Count (150-450) k/uL Neutrophils # (1.3-7.7) k/uL Lymphocytes # (1.0-4.8) k/uL Sodium (137-145) mmol/L Carbon Dioxide (22-30) mmol/L BUN (9-20) mg/dL Glucose (74-99) mg/dL POC Glucose (mg/dL) 114 H 169 H 125 H (70-110) mg/dL Calcium (8.4-10.2) mg/dL Total Protein (6.3-8.2) g/dL Albumin (3.5-5.0) g/dL 02/01/24 02/01/24 02/01/24 Range/Units 13:50 15:06 16:14 WBC (3.8-10.6) k/uL RBC (4.30-5.90) m/uL Hgb (13.0-17.5) gm/dL Hct (39.0-53.0) % Plt Count (150-450) k/uL Neutrophils # (1.3-7.7) k/uL Lymphocytes # (1.0-4.8) k/uL Sodium (137-145) mmol/L Carbon Dioxide (22-30) mmol/L BUN (9-20) mg/dL Glucose (74-99) mg/dL POC Glucose (mg/dL) 131 H 134 H 117 H (70-110) mg/dL Calcium (8.4-10.2) mg/dL Total Protein (6.3-8.2) g/dL Albumin (3.5-5.0) g/dL 02/01/24 02/01/24 02/01/24 Range/Units 17:53 19:10 20:14 WBC (3.8-10.6) k/uL RBC (4.30-5.90) m/uL Hgb (13.0-17.5) gm/dL Hct (39.0-53.0) % Plt Count (150-450) k/uL Neutrophils # (1.3-7.7) k/uL Lymphocytes # (1.0-4.8) k/uL Sodium (137-145) mmol/L Carbon Dioxide (22-30) mmol/L BUN (9-20) mg/dL Glucose (74-99) mg/dL POC Glucose (mg/dL) 149 H 123 H 127 H (70-110) mg/dL Calcium (8.4-10.2) mg/dL Total Protein (6.3-8.2) g/dL Albumin (3.5-5.0) g/dL 02/01/24 02/01/24 02/02/24 Range/Units 21:11 23:20 00:55 WBC (3.8-10.6) k/uL RBC (4.30-5.90) m/uL Hgb (13.0-17.5) gm/dL Hct (39.0-53.0) % Plt Count (150-450) k/uL Neutrophils # (1.3-7.7) k/uL Lymphocytes # (1.0-4.8) k/uL Sodium (137-145) mmol/L Carbon Dioxide (22-30) mmol/L BUN (9-20) mg/dL Glucose (74-99) mg/dL POC Glucose (mg/dL) 112 H 137 H 133 H (70-110) mg/dL Calcium (8.4-10.2) mg/dL Total Protein (6.3-8.2) g/dL Albumin (3.5-5.0) g/dL 02/02/24 02/02/24 02/02/24 Range/Units 06:30 08:07 08:07 WBC 10.7 H (3.8-10.6) k/uL RBC 3.39 L (4.30-5.90) m/uL Hgb 10.1 L (13.0-17.5) gm/dL Hct 31.7 L (39.0-53.0) % Plt Count 114 L (150-450) k/uL Neutrophils # 9.0 H (1.3-7.7) k/uL Lymphocytes # 0.9 L (1.0-4.8) k/uL Sodium 133 L (137-145) mmol/L Carbon Dioxide 21 L (22-30) mmol/L BUN 28 H (9-20) mg/dL Glucose 219 H (74-99) mg/dL POC Glucose (mg/dL) 140 H (70-110) mg/dL Calcium 8.2 L (8.4-10.2) mg/dL Total Protein 5.1 L (6.3-8.2) g/dL Albumin 2.9 L (3.5-5.0) g/dL 02/02/24 Range/Units 08:43 WBC (3.8-10.6) k/uL RBC (4.30-5.90) m/uL Hgb (13.0-17.5) gm/dL Hct (39.0-53.0) % Plt Count (150-450) k/uL Neutrophils # (1.3-7.7) k/uL Lymphocytes # (1.0-4.8) k/uL Sodium (137-145) mmol/L Carbon Dioxide (22-30) mmol/L BUN (9-20) mg/dL Glucose (74-99) mg/dL POC Glucose (mg/dL) 223 H (70-110) mg/dL Calcium (8.4-10.2) mg/dL Total Protein (6.3-8.2) g/dL Albumin (3.5-5.0) g/dL
[2024-02-02 12:06] LABS: Glucose,Whole Blood 120 mg/dL (70-110)
[2024-02-02 12:15] LABS: Appearance,Urine Clear (Clear); Bilirubin,Urine Negative (Negative); Blood,Urine Negative (Negative); Color,Urine Yellow; Glucose,Urine (UA) 4+ (Negative); Ketones,Urine 1+ (Negative); Leukocyte Esterase,Urine Negative (Negative); Nitrite,Urine Negative (Negative); PH, Urine 5.5 (5.0-8.0); Protein,Urine Trace (Negative); Specific Gravity,Urine 1.031 (1.001-1.035); Urobilinogen,Urine <2.0 mg/dL (<2.0)
[2024-02-02 13:07] LABS: Glucose,Whole Blood 173 mg/dL (70-110)
[2024-02-02 14:43] LABS: Glucose,Whole Blood 164 mg/dL (70-110)
[2024-02-02 15:08] LABS: Glucose,Whole Blood 143 mg/dL (70-110)
[2024-02-02] MEDS ORDERED: DEXTROSE 50% SYRINGE 50 ML IVP PRN ×2 (15:28)
[2024-02-02 16:37] LABS: Glucose,Whole Blood 121 mg/dL (70-110)
--- NOTE | 2024-02-02 16:49 | P.PN ---
Subjective Progress Note Date: 02/02/24 - Chief Complaint Biobentall procedure - History of Present Illness 63-year-old patient, follows with Dr. Hayden. Chronic stable medical conditions include atrial fibrillation, CHF, diabetes, hypertension, hyperlipidemia, obstructive sleep apnea CPAP. Patient underwent todayBiobentall procedure by Dr.s Leigh. Also included left atrial appendage clipping. Postprocedure patient in the ICU. Intubated. FiO2 50 and a PEEP of 10. Has 1 right pleural chest tubes and 2 mediastinal chest tubes. Patient having significant output through the tubes. Drips include insulin and propofol. January 31, 2024: Patient extubated yesterday. Today sitting up in the chair/recliner. Family at the bedside. On clear liquid diet. Hopkins catheter remains in place. Sinus rhythm. Chest tubes in place. There was decreased output from the chest tube yesterday now controlled. Insulin drip. Has a slight cough. February 01, 2024: ICU. Up in a recliner. Did walk up to the door. Hopkins catheter discontinued. Has not made urine till now. Has [address] Using incentive spirometry. Eating supper. Slight cough. Insulin drip 01/31/2024 Patient is seen in follow-up this morning in the ICU with multiple medical consultations following. Patient is status post aortic valve replacement. Patient continues on 5 L high flow nasal cannula with continued chest tubes noted. Patient to bring in his own CPAP. Recommend continued on treatments and was given a dose of Lasix today. Encouraged incentive spirometer use at least 10 times every hour while awake. Patient continues on insulin drip and would recommend transitioning to sliding scale and long-acting with close monitoring with Accu-Cheks before meals and at bedtime as well as 2 AM. Review of systems: Constitutional: reports of fatigue, low-grade fever, no chills Cardiovascular: reports of chest wall pain and discomfort with inspiration Respiratory: reports of shortness of breath and cough GI: reports of occasional nausea, no vomiting, or diarrhea : No reports of dysuria or retention Neurovascular: reports of weakness All medications have been reviewed Active Medications Acetaminophen (Acetaminophen Tab 500 Mg Tab) 1,000 mg PO Q6HR PRN PRN Reason: Fever and/ or Pain Last Admin: 02/02/24 14:20 Dose: 1,000 mg Acetylcysteine (Acetylcysteine 800 Mg/4 Ml Vial) 200 mg INHALATION RT-TID [facility] Last Admin: 02/02/24 11:43 Dose: 200 mg Albuterol/Ipratropium (Ipratropium-Albuterol 3 Ml Neb) 3 ml INHALATION RT-Q2H PRN PRN Reason: Shortness Of Breath Or Wheezing Albuterol/Ipratropium (Ipratropium-Albuterol 3 Ml Neb) 3 ml INHALATION RT-QID [facility] Last Admin: 02/02/24 16:03 Dose: 3 ml Amiodarone HCl (Amiodarone 200 Mg Tab) 200 mg PO BID [facility] Aspirin (Aspirin 325 Mg Tab) 325 mg PO DAILY [facility] Last Admin: 02/02/24 08:37 Dose: 325 mg Atorvastatin Calcium (Atorvastatin 20 Mg Tab) 20 mg PO QAM [facility] Last Admin: 02/02/24 08:38 Dose: 20 mg Bisacodyl (Bisacodyl 10 Mg Supp) 10 mg RECTAL DAILY PRN PRN Reason: Constipation Clopidogrel Bisulfate (Clopidogrel 75 Mg Tab) 75 mg PO DAILY [facility] Last Admin: 02/02/24 08:37 Dose: 75 mg Dextrose/Water (Dextrose 50% Syringe 50 Ml) 25 ml IVP PER PROTOCOL PRN; Protocol PRN Reason: Hypoglycemia Dextrose/Water (Dextrose 50% Syringe 50 Ml) 50 ml IVP PER PROTOCOL PRN; Protocol PRN Reason: Hypoglycemia Ferrous Sulfate (Ferrous Sulfate 325 Mg Tab) 325 mg PO W/LUNCH [facility] Last Admin: 02/02/24 12:05 Dose: 325 mg Guaifenesin (Guaifenesin 600 Mg Tablet.Er) 1,200 mg PO Q12HR [facility] Last Admin: 02/02/24 08:37 Dose: 1,200 mg Heparin Sodium (Porcine) (Heparin Sodium,Porcine 5,000 Unit/Ml 1 Ml Vial) 5,000 unit SQ Q8HR [facility] Last Admin: 02/02/24 08:37 Dose: 5,000 unit Hydralazine HCl (Hydralazine Hcl 20 Mg/Ml 1 Ml Vial) 10 mg IVP Q1H PRN PRN Reason: Blood Pressure - High Amiodarone HCl 150 mg/ (Dextrose/Water) 103 mls @ 618 mls/hr IV .Q10M PRN; Protocol PRN Reason: A.FIB/FLUTTER Amiodarone HCl 360 mg/ (Dextrose/Water) 207.2 mls @ 34.533 mls/hr IV .Q6H PRN; Protocol PRN Reason: A.FIB/FLUTTER Amiodarone HCl 450 mg/ (Dextrose/Water) 250 mls @ 16.667 mls/hr IV .Q15H PRN; Protocol PRN Reason: A.FIB/FLUTTER Lactated Ringer's (Lactated Ringers) 1,000 mls @ 20 mls/hr IV .Q24H [facility] Last Admin: 02/01/24 09:23 Dose: 20 mls/hr Ceftriaxone Sodium 1 gm/ (Sodium Chloride) 50 mls @ 100 mls/hr IVPB Q24HR [facility]; Protocol Stop: 02/04/24 09:29 Last Admin: 02/02/24 11:07 Dose: 100 mls/hr Amiodarone HCl 300 mg/ (Dextrose/Water) 256 mls @ 128 mls/hr IV .Q2H ONE; Protocol Stop: 02/02/24 18:29 Insulin Aspart (Insulin Aspart (Novolog) 100 Unit/Ml Vial) 0 unit SQ [facility]; Protocol Insulin Detemir (Insulin Detemir (Levemir) 100 Unit/Ml Syr) 10 unit SQ BID@0700,2100 [facility] Lisinopril (Lisinopril 10 Mg Tab) 10 mg PO DAILY [facility] Last Admin: 02/02/24 08:38 Dose: 10 mg Magnesium Hydroxide (Magnesium Hydroxide 2,400 Mg/30 Ml Cup) 2,400 mg PO BID PRN PRN Reason: Constipation Melatonin (Melatonin 3 Mg Tablet) 6 mg PO HS [facility] Last Admin: 02/01/24 20:27 Dose: 6 mg Metoclopramide HCl (Metoclopramide 5 Mg/Ml 2 Ml Vial) 10 mg IVP Q4H PRN PRN Reason: Nausea And Vomiting Metoprolol Tartrate (Metoprolol Tartrate 25 Mg Tab) 25 mg PO BID [facility] Last Admin: 02/02/24 08:38 Dose: 25 mg Miscellaneous Information (Potassium Replacement Protocol 1 Each Misc) 1 each MISCELLANE DAILY PRN; Protocol PRN Reason: Per Protocol Miscellaneous Information (Magnesium Replacement Protocol 1 Each Misc) 1 each MISCELLANE DAILY PRN; Protocol PRN Reason: Per Protocol Ondansetron HCl (Ondansetron 4 Mg/2 Ml Vial) 4 mg IVP Q6HR PRN PRN Reason: Nausea And Vomiting Pantoprazole Sodium (Pantoprazole 40 Mg Tablet) 40 mg PO AC-BRKFST [facility] Last Admin: 02/02/24 07:09 Dose: 40 mg Senna/Docusate Sodium (Sennosides-Docusate Sodium 1 Each Tab) 2 each PO HS [facility] Last Admin: 02/01/24 20:27 Dose: 2 each Sodium Chloride (Sodium Chloride 0.9% Flush 10 Ml Syringe) 10 ml IV BID [facility] Last Admin: 02/02/24 08:38 Dose: Not Given Tamsulosin HCl (Tamsulosin 0.4 Mg Cap.Er.24h) 0.4 mg PO PC-SUPPER [facility] Physical examination: This is a 63-year-old male who is awake, alert and oriented x 3, well-developed, ill-appearing, morbidly obese GENERAL: Up in recliner EYES: Pupils equal. Conjunctiva normal. HEENT: External appearance of nose and ears normal, oral cavity grossly normal. NECK: JVD unable to assess; masses not palpable. HEART: S1, S2 muffled LUNGS: Diminished breath sounds bilaterally with some faint crackles noted at the bases Has 2 chest tubes ABDOMEN: Soft, nontender, obese, no masses palpable. PSYCH: Alert and x 3, mood affect normal Assessment: -Severe aortic insufficiency with aortic aneurysm, status post Biobentall procedure, aortic valve replacement -Mild acute postprocedure blood loss anemia expected from surgery -Thrombocytopenia likely dilutional -Some low-grade fever. Follow clinically. Likely atelectasis -Morbid obesity BMI 42.8 -Diabetes mellitus type 2, uncontrolled with hyperglycemia -Hyperlipidemia -Essential hypertension -Paroxysmal atrial fibrillation.: Currently in sinus rhythm with Previous ablation. -Obstructive sleep apnea, Uses CPAP -Chronic congestive heart failure from systolic dysfunction EF 45 to 50% with global hypokinesia on LUCY on December 26, [address] Taylor -GI prophylaxis -DVT prophylaxis -Full code Plan: Patient continues in the ICU with multiple medical consultations following. Patient is status post aortic valve replacement and continues with chest tubes Encourage incentive spirometer use at least 10 times every hour while awake Patient to bring in CPAP from home Maintained on high flow 5 L, wean as tolerated Patient is a diabetic and is tolerating diet and maintained on insulin drip, will discontinue and transition to sliding scale along with long-acting and recommend close monitoring of Accu-Cheks before meals and at bedtime and 2 AM for tight glycemic control PT/OT therapy to evaluate Encouraged oral intake We will continue to follow with CT surgery, thank you kindly for this consultation The impression and plan of care has been dictated by Erin Luna, Nurse Practitioner as directed. Dr. Ward MD I have performed a history and examination and MDM of this patient, discussed the same with the dictator, and agree with the dictator's assessment and plan as written ,documented as a scribe. Based on total visit time, I have performed more than 50% of the visit. Objective - Vital Signs Vital signs: Vital Signs Temp 97.6 F 02/02/24 04:00 Pulse 84 02/02/24 08:13 Resp 27 H 02/02/24 07:00 BP 132/68 02/02/24 07:00 Pulse Ox 90 L 02/02/24 08:00 FiO2 50 01/30/24 20:50 Intake & Output 02/01/24 02/02/24 02/02/24 18:59 06:59 18:59 Intake Total 3035.578 478.964 3 Output Total 785 280 5 Balance 2250.578 198.964 -2 Weight 155.4 kg Intake: IV 704 396 3 Albumin Human 5% 250 ml 250 In Empty Bag 1 bag @ 250 mls/hr IVPB ONCE [facility]A Rx#: [id number] Lactated Ringers 1,000 ml 400 360 @ 20 mls/hr IV .Q24H [facility] Rx#:[id number] Pressure 54 36 3 Intake, IV Titration 121.578 82.964 0 Amount Insulin Regular 100 unit 121.578 82.964 0 In Sodium Chloride 0.9% 100 ml @ Per Protocol IV .Q0M [facility] Rx#:[id number] Oral 2210 Output: Chest Tube Drainage 120 30 5 Right Pleural 30 mediastinal x1 90 30 5 Urine 665 250 0 Other: Voiding Method Urinal Urinal ABP, PAP, CO, CI - Last Documented Arterial Blood Pressure 123/50 Pulmonary Artery Pressure 27/12 Cardiac Output 10 Cardiac Index 3.7 - Labs CBC & Chem 7: 02/02/24 08:07 02/02/24 08:07 Labs: Abnormal Lab Results - Last 24 Hours (Table) 02/01/24 02/01/24 02/01/24 Range/Units 02:12 11:44 13:50 WBC (3.8-10.6) k/uL RBC (4.30-5.90) m/uL Hgb (13.0-17.5) gm/dL Hct (39.0-53.0) % Plt Count (150-450) k/uL Neutrophils # (1.3-7.7) k/uL Lymphocytes # (1.0-4.8) k/uL Sodium (137-145) mmol/L Carbon Dioxide (22-30) mmol/L BUN (9-20) mg/dL Glucose (74-99) mg/dL POC Glucose (mg/dL) 114 H 125 H 131 H (70-110) mg/dL Calcium (8.4-10.2) mg/dL Total Protein (6.3-8.2) g/dL Albumin (3.5-5.0) g/dL 02/01/24 02/01/24 02/01/24 Range/Units 15:06 16:14 17:53 WBC (3.8-10.6) k/uL RBC (4.30-5.90) m/uL Hgb (13.0-17.5) gm/dL Hct (39.0-53.0) % Plt Count (150-450) k/uL Neutrophils # (1.3-7.7) k/uL Lymphocytes # (1.0-4.8) k/uL Sodium (137-145) mmol/L Carbon Dioxide (22-30) mmol/L BUN (9-20) mg/dL Glucose (74-99) mg/dL POC Glucose (mg/dL) 134 H 117 H 149 H (70-110) mg/dL Calcium (8.4-10.2) mg/dL Total Protein (6.3-8.2) g/dL Albumin (3.5-5.0) g/dL 02/01/24 02/01/24 02/01/24 Range/Units 19:10 20:14 21:11 WBC (3.8-10.6) k/uL RBC (4.30-5.90) m/uL Hgb (13.0-17.5) gm/dL Hct (39.0-53.0) % Plt Count (150-450) k/uL Neutrophils # (1.3-7.7) k/uL Lymphocytes # (1.0-4.8) k/uL Sodium (137-145) mmol/L Carbon Dioxide (22-30) mmol/L BUN (9-20) mg/dL Glucose (74-99) mg/dL POC Glucose (mg/dL) 123 H 127 H 112 H (70-110) mg/dL Calcium (8.4-10.2) mg/dL Total Protein (6.3-8.2) g/dL Albumin (3.5-5.0) g/dL 02/01/24 02/02/24 02/02/24 Range/Units 23:20 00:55 06:30 WBC (3.8-10.6) k/uL RBC (4.30-5.90) m/uL Hgb (13.0-17.5) gm/dL Hct (39.0-53.0) % Plt Count (150-450) k/uL Neutrophils # (1.3-7.7) k/uL Lymphocytes # (1.0-4.8) k/uL Sodium (137-145) mmol/L Carbon Dioxide (22-30) mmol/L BUN (9-20) mg/dL Glucose (74-99) mg/dL POC Glucose (mg/dL) 137 H 133 H 140 H (70-110) mg/dL Calcium (8.4-10.2) mg/dL Total Protein (6.3-8.2) g/dL Albumin (3.5-5.0) g/dL 02/02/24 02/02/24 02/02/24 Range/Units 08:07 08:07 08:43 WBC 10.7 H (3.8-10.6) k/uL RBC 3.39 L (4.30-5.90) m/uL Hgb 10.1 L (13.0-17.5) gm/dL Hct 31.7 L (39.0-53.0) % Plt Count 114 L (150-450) k/uL Neutrophils # 9.0 H (1.3-7.7) k/uL Lymphocytes # 0.9 L (1.0-4.8) k/uL Sodium 133 L (137-145) mmol/L Carbon Dioxide 21 L (22-30) mmol/L BUN 28 H (9-20) mg/dL Glucose 219 H (74-99) mg/dL POC Glucose (mg/dL) 223 H (70-110) mg/dL Calcium 8.2 L (8.4-10.2) mg/dL Total Protein 5.1 L (6.3-8.2) g/dL Albumin 2.9 L (3.5-5.0) g/dL
[2024-02-02] MEDS: DEXTROSE 5% IN WATER 250 ML with AMIODARONE 300 MG IV ONE (16:59)
[2024-02-02] MEDS: INSULIN ASPART (NovoLOG) 100 UNIT/ML VIAL SQ SCH (17:22)
[2024-02-02] MEDS: TAMSULOSIN 0.4 MG CAP.ER.24H PO SCH (18:44)
[2024-02-02] MEDS ORDERED: INSULIN DETEMIR (LEVEMIR) 100 UNIT/ML SYR SQ SCH (21:00)
[2024-02-02] MEDS: AMIODARONE 200 MG TAB PO SCH (21:17)
[2024-02-02] MEDS: INSULIN DETEMIR (LEVEMIR) 100 UNIT/ML SYR SQ SCH (21:22)
[2024-02-02 21:23] LABS: Glucose,Whole Blood 240 mg/dL (70-110)
[2024-02-02] MEDS: BENZOCAINE/MENTHOL LOZENG 1 EACH LOZENGE MUCOUS MEM PRN (23:44)
[2024-02-02] MEDS: guaiFENesin-DM 100-10MG/5ML 10 ML CUP PO PRN (23:44)
[2024-02-03] MEDS: ceFAZolin 1,000 MG in SODIUM CHLORIDE 0.9% IRRIGATIO 1,000 ML IRRIGATION ONE (01:06)
[2024-02-03] MEDS: ALBUMIN HUMAN 5% 500 ML IVPB ONE (01:06)
[2024-02-03] MEDS: ALBUMIN HUMAN 25% 50 ML IV ONE (01:06)
[2024-02-03] MEDS: CALCIUM CHLORIDE 100 MG/ML 10 ML SYRINGE IV ONE (01:06)
[2024-02-03] MEDS: CLEVIDIPINE BUTYRATE 25 MG in EMPTY BAG 1 BAG IV ONE (01:07)
[2024-02-03] MEDS: ELECTROLYTE-A SOLUTION 1,000 ML with POTASSIUM CHLORIDE 100 MEQ, MAGNESIUM SULFATE 16 M... IV ONE (01:07)
[2024-02-03] MEDS: DILTIAZEM 125 MG in SODIUM CHLORIDE 0.9% 100 ML IV ONE (01:07)
[2024-02-03] MEDS: ELECTROLYTE-A SOLUTION 1,000 ML with POTASSIUM CHLORIDE 40 MEQ, MAGNESIUM SULFATE 16 ME... IV ONE (01:07)
[2024-02-03] MEDS: ceFAZolin 3 GM in SODIUM CHLORIDE 0.9% 100 ML IVPB ONE (01:07)
[2024-02-03] MEDS: CHLORHEXIDINE GLUCONATE 15 ML CUP MUCOUS MEM ONE (01:07)
[2024-02-03] MEDS: HEPARIN SODIUM 1,000 UN/ML (10ML VL) IV ONE (01:08)
[2024-02-03] MEDS: MAGNESIUM SULFATE 16.24 MEQ in EMPTY SYRINGE 1 SYR IV ONE (01:08)
[2024-02-03] MEDS: MANNITOL 25% 12.5 GM/50 ML VIAL IV ONE (01:08)
[2024-02-03] MEDS: INSULIN REGULAR 100 UNIT in SODIUM CHLORIDE 0.9% 100 ML IV ONE (01:08)
[2024-02-03] MEDS: HEPARIN SODIUM,PORCINE (1 ML) 5,000 UNIT in SODIUM CHLORIDE 0.9% 500 ML 500 ML IV ONE (01:08)
[2024-02-03] MEDS: NITROGLYCERIN SL TABS 0.4 MG TAB SUBLINGUAL ONE (01:09)
[2024-02-03] MEDS: NITROGLYCERIN-D5W PMX 50 MG in DEXTROSE/WATER 1 250ML.BAG IV ONE (01:09)
[2024-02-03] MEDS: NITROGLYCERIN-D5W PMX 25 MG/250 ML BTL IV ONE (01:09)
[2024-02-03] MEDS: PAPAVERINE 360 MG in SODIUM CHLORIDE 0.9% 90 ML IV ONE (01:09)
[2024-02-03] MEDS: NOREPINEPHRINE 4 MG in SODIUM CHLORIDE 0.9% 250 ML IV ONE (01:09)
[2024-02-03] MEDS: PHENYLEPHRINE 10 MG/ML VIAL IV ONE (01:10)
[2024-02-03] MEDS: PROTAMINE SULFATE 10 MG/ML 25 ML VIAL IV ONE (01:10)
[2024-02-03] MEDS: PHENYLEPHRINE 40 MG in SODIUM CHLORIDE 0.9% 250 ML IV ONE (01:10)
[2024-02-03] MEDS: propofoL 1,000 MG/100 ML VIAL IV ONE (01:10)
[2024-02-03] MEDS: PROTAMINE SULFATE 250 MG in EMPTY BAG 1 BAG IV ONE (01:10)
[2024-02-03] MEDS: SODIUM BICARB 8.4% 50 ML SYR (1 MEQ/ML) IV ONE (01:10)
[2024-02-03] MEDS: SODIUM CHLORIDE 0.9% 1,000 ML IV ONE (01:11)
[2024-02-03] MEDS: TRANEXAMIC ACID 2,000 MG in SODIUM CHLORIDE 0.9% 80 ML IV ONE (01:11)
[2024-02-03 02:18] LABS: Glucose,Whole Blood 209 mg/dL (70-110)
[2024-02-03 04:39] LABS: ALT 27 U/L (4-49); AST 40 U/L (17-59); African American GFR (CKD) >90 (>60 ml/min/1.73 sqM); Albumin 2.8 g/dL (3.5-5.0); Alkaline Phosphatase 47 U/L (38-126); Anion Gap 3 mmol/L; Blood Urea Nitrogen 39 mg/dL (9-20); Carbon Dioxide 27 mmol/L (22-30); Chloride 105 mmol/L (98-107); Glucose 160 mg/dL (74-99); Non-African American GFR(CKD) 78 (>60 ml/min/1.73 sqM); Potassium 4.2 mmol/L (3.5-5.1); Sodium 135 mmol/L (137-145)
[2024-02-03 04:44] LABS: Basophils % (A) 0 %; Eosinophils # (A) 0.1 k/uL (0-0.7); Eosinophils % (A) 1 %; HCT 30.2 % (39.0-53.0); HGB 9.6 gm/dL (13.0-17.5); Lymphocytes # (A) 1.3 k/uL (1.0-4.8); Lymphocytes % (A) 14 %; MCH 29.7 pg (25.0-35.0); MCHC 31.8 g/dL (31.0-37.0); MCV 93.3 fL (80.0-100.0); Mean Platelet Volume 8.9; Monocytes # (A) 0.7 k/uL (0-1.0); Monocytes % (A) 7 %; Neutrophils # (A) 6.8 k/uL (1.3-7.7); Neutrophils % (A) 75 %; Platelet Count 141 k/uL (150-450); RBC 3.23 m/uL (4.30-5.90); RDW 14.1 % (11.5-15.5); WBC 9.1 k/uL (3.8-10.6)
--- NOTE | 2024-02-03 06:54 | XR ---
EXAMINATION TYPE: XR chest 1V portable DATE OF EXAM: 02/03/2024 COMPARISON: 02/02/2024 HISTORY: Postop cardiac surgery TECHNIQUE: Single frontal view of the chest is obtained. FINDINGS: There is mild interval worsening in the pulmonary vascular congestion. There is increasing opacity in the right lung base which possibly represents atelectasis. The retrocardiac opacity consi stent with edema or atelectasis is unchanged. There is no pneumothorax. The osseous structures are intact. IMPRESSION: Mild interval worsening in the acute cardiopulmonary process with mildly increased pulmo nary congestion and bibasilar infiltrates likely representing bibasilar atelectasis.
[2024-02-03 06:59] LABS: Glucose,Whole Blood 223 mg/dL (70-110)
--- NOTE | 2024-02-03 08:26 | P.PN ---
Subjective Progress Note Date: 02/03/24 Principal diagnosis: Aortic Root Aneurysm with Severe Aortic Insufficiency, ascending aortic aneurysm. Past medical history significant for nonischemic cardiomyopathy with an ejection fraction of 45 to 50% on transesophageal echocardiogram, hypertension, hyperlipidemia, paroxysmal atrial fibrillation on Eliquis for anticoagulation as an outpatient, status post cardioversion in October 2019 and subsequent ablation in February 2020, obstructive sleep apnea with home CPAP use, diabetes mellitus type 2 with a preoperative hemoglobin A1c 8.1%, obesity with a BMI of 41.8 kg/m, and a family history of premature coronary artery disease. POD #4 Biobentall (#29mm Konnect), left atrial appendage ligation with #35mm AtriClip, intraoperative transesophageal echocardiogram completed by anesthesia. Postoperative acute blood loss anemia, expected given hemodilution and cardiopulmonary bypass. Paroxysmal atrial fibrillation, a known common occurrence after cardiac surgery and expected given patient's history of atrial fibrillation status post ablation in 2019. The patient was seen and examined in follow-up today February 03, 2024 at his bedside in the intensive care unit. He is currently sitting up to the bedside chair, is awake, alert, oriented x 3 and is in no acute apparent distress. Denies any complaints of pain or shortness of breath at this time, although is complaining of a productive cough with aguilar tenacious sputum. Sputum culture was sent yesterday with results pending and he was empirically started on Rocephin IV piggyback x 3 doses. His Tmax temperature in the last 24 hours was 99.8 F. The patient went into atrial fibrillation last evening, bedside telemetry currently showing atrial fibrillation 112 bpm. He was given amiodarone 300 mg over a 2-hour period per cardiology recommendations. He continues on amiodarone 200 mg p.o. twice daily. Oxygen saturations are 96% on 10 L high flow nasal cannula and he is achieving 1000 mL on his incentive spirometry with encouragement. He has been up ambulating in the intensive care unit hallway with standby assistance from nursing and therapy staff, tolerating well. He remains hemodynamically stable and is currently on no inotropic or pressor support. He has been having episodes of loose stools with 4 bowel movements in the last 12 hours. The patient went having some urine retention yesterday req uiring placement of his Hopkins catheter, urine output was 1045 mL in the last 8 hours. Lasix 40 mg IV was given yesterday with good diuresis. Mediastinal Israel chest tube remains in place to low continuous wall suction -20 cm H2O. Draining thin serosanguineous drainage with 25 mL output in the last 24 hours. No air leak is present. Chest x-ray and laboratory results were reviewed. Objective - Vital Signs Vital signs: Vital Signs Temp 98.5 F 02/03/24 00:00 Pulse 94 02/03/24 07:00 Resp 26 H 02/03/24 07:00 BP 97/71 02/03/24 07:00 Pulse Ox 96 02/03/24 07:00 FiO2 50 01/30/24 20:50 Intake & Output 02/02/24 02/03/24 02/03/24 18:59 06:59 18:59 Intake Total 6766.717 1833 Output Total 2660 1442 Balance -1686.502 2924 Weight 161.1 kg Intake: IV 360 180 .9 30 160 Invasive Line 5 20 Lactated Ringers 1,000 ml 330 @ 20 mls/hr IV .Q24H [facility] Rx#:[id number] Pressure 30 Intake, IV Titration 382.996 Amount Dextrose 5% in Water 250 250 ml @ 128 mls/hr IV .Q2H ONE with Amiodarone 300 mg Rx#:[id number] Insulin Regular 100 unit 82.996 In Sodium Chloride 0.9% 100 ml @ Per Protocol IV .Q0M [facility] Rx#:[id number] cefTRIAXone 1 gm In 50 Sodium Chloride 0.9% 50 ml @ 100 mls/hr IVPB Q24HR [facility] Rx#:[id number] Oral 480 2400 Output: Chest Tube Drainage 30 7 mediastinal x1 30 7 Urine 2630 1435 Other: Voiding Method Indwelling Catheter Indwelling Catheter # Bowel Movements 1 ABP, PAP, CO, CI - Last Documented Arterial Blood Pressure 123/50 Pulmonary Artery Pressure 27/12 Cardiac Output 10 Cardiac Index 3.7 - Exam CONSTITUTIONAL: Sitting up to the bedside chair in the intensive care unit, appears comfortable, cooperative, no apparent acute distress. HEENT: Neck is supple, no JVD, no lymphadenopathy. Right IJ Cordis in place and functioning. RESPIRATORY: Lungs sounds essentially clear throughout, diminished to his bilateral bases, few scattered rhonchi. Respirations are symmetrical and nonlabored. Currently on 10 L high flow nasal cannula with oxygen saturations 96%, able to achieve 1000 mL on his incentive spirometry. Strong productive cough, aguilar tenacious sputum. CARDIOVASCULAR: Irregular rhythm and tachycardic rate, consistent with atrial fibrillation. S1 and S2 present, negative for S3, gallop or murmur. Bedside telemetry showing atrial fibrillation, heart rate 112 bpm. Sternum is stable. Palpable peripheral pulses bilaterally, +1 edema to his bilateral lower extremities. No calf pain or tenderness noted. Heart hugger in place with patient demonstrating appropriate use. Knee-high ROSEANN hose and sequential compression devices in place to his bilateral lower extremities. GASTROINTESTINAL: Abdomen soft, nontender, nondistended. Active bowel sounds present 4 quadrants. Tolerating diet. Passing flatus. No guarding or rigidity. 4 loose bowel movement yesterday 02/02/2024. GENITOURINARY: Hopkins catheter in place for urine retention and accurate I's and O's. 1045 mL output of urine in the last 8 hours. INTEGUMENTARY: Skin is warm and dry with no evidence of clubbing or cyanosis. Midline sternal incision clean dry and well approximated, covered with dry intact dressing. NEUROLOGIC: Cranial nerves II through XII intact. No focal deficits. MUSKULOSKELETAL: Able to move all extremities, strength equal bilaterally, generalized weakness. PSYCHIATRIC: Alert and oriented to person place and time, appropriate affect, intact judgment and insight. INVASIVE LINES AND TUBES: Mediastinal Israel drain chest tube present and connected to low continuous wall suction, no air leaks present. Mediastinal tube with thin serosanguineous drainage 25 mL output in the last 24 hours. Atrial and ventricular epicardial pacemaker wires present and are grounded. - Allied health notes Allied health notes reviewed: nursing - Labs CBC & Chem 7: 02/03/24 04:06 02/03/24 04:06 Labs: Abnormal Lab Results - Last 24 Hours (Table) 02/02/24 02/02/24 02/02/24 Range/Units 08:07 08:07 08:07 WBC 10.7 H (3.8-10.6) k/uL RBC 3.39 L (4.30-5.90) m/uL Hgb 10.1 L (13.0-17.5) gm/dL Hct 31.7 L (39.0-53.0) % Plt Count 114 L (150-450) k/uL Neutrophils # 9.0 H (1.3-7.7) k/uL Lymphocytes # 0.9 L (1.0-4.8) k/uL Sodium 133 L (137-145) mmol/L Carbon Dioxide 21 L (22-30) mmol/L BUN 28 H (9-20) mg/dL Glucose 219 H (74-99) mg/dL POC Glucose (mg/dL) (70-110) mg/dL Calcium 8.2 L (8.4-10.2) mg/dL Total Protein 5.1 L (6.3-8.2) g/dL Albumin 2.9 L (3.5-5.0) g/dL Procalcitonin 1.34 H (0.02-0.09) ng/mL Urine Protein (Negative) Urine Glucose (UA) (Negative) Urine Ketones (Negative) 02/02/24 02/02/24 02/02/24 Range/Units 08:43 10:27 11:01 WBC (3.8-10.6) k/uL RBC (4.30-5.90) m/uL Hgb (13.0-17.5) gm/dL Hct (39.0-53.0) % Plt Count (150-450) k/uL Neutrophils # (1.3-7.7) k/uL Lymphocytes # (1.0-4.8) k/uL Sodium (137-145) mmol/L Carbon Dioxide (22-30) mmol/L BUN (9-20) mg/dL Glucose (74-99) mg/dL POC Glucose (mg/dL) 223 H 163 H 150 H (70-110) mg/dL Calcium (8.4-10.2) mg/dL Total Protein (6.3-8.2) g/dL Albumin (3.5-5.0) g/dL Procalcitonin (0.02-0.09) ng/mL Urine Protein (Negative) Urine Glucose (UA) (Negative) Urine Ketones (Negative) 02/02/24 02/02/24 02/02/24 Range/Units 11:30 12:04 13:06 WBC (3.8-10.6) k/uL RBC (4.30-5.90) m/uL Hgb (13.0-17.5) gm/dL Hct (39.0-53.0) % Plt Count (150-450) k/uL Neutrophils # (1.3-7.7) k/uL Lymphocytes # (1.0-4.8) k/uL Sodium (137-145) mmol/L Carbon Dioxide (22-30) mmol/L BUN (9-20) mg/dL Glucose (74-99) mg/dL POC Glucose (mg/dL) 120 H 173 H (70-110) mg/dL Calcium (8.4-10.2) mg/dL Total Protein (6.3-8.2) g/dL Albumin (3.5-5.0) g/dL Procalcitonin (0.02-0.09) ng/mL Urine Protein Trace H (Negative) Urine Glucose (UA) 4+ H (Negative) Urine Ketones 1+ H (Negative) 02/02/24 02/02/24 02/02/24 Range/Units 14:42 15:06 16:34 WBC (3.8-10.6) k/uL RBC (4.30-5.90) m/uL Hgb (13.0-17.5) gm/dL Hct (39.0-53.0) % Plt Count (150-450) k/uL Neutrophils # (1.3-7.7) k/uL Lymphocytes # (1.0-4.8) k/uL Sodium (137-145) mmol/L Carbon Dioxide (22-30) mmol/L BUN (9-20) mg/dL Glucose (74-99) mg/dL POC Glucose (mg/dL) 164 H 143 H 121 H (70-110) mg/dL Calcium (8.4-10.2) mg/dL Total Protein (6.3-8.2) g/dL Albumin (3.5-5.0) g/dL Procalcitonin (0.02-0.09) ng/mL Urine Protein (Negative) Urine Glucose (UA) (Negative) Urine Ketones (Negative) 02/02/24 02/03/24 02/03/24 Range/Units 21:21 02:14 04:06 WBC (3.8-10.6) k/uL RBC 3.23 L (4.30-5.90) m/uL Hgb 9.6 L (13.0-17.5) gm/dL Hct 30.2 L (39.0-53.0) % Plt Count 141 L (150-450) k/uL Neutrophils # (1.3-7.7) k/uL Lymphocytes # (1.0-4.8) k/uL Sodium (137-145) mmol/L Carbon Dioxide (22-30) mmol/L BUN (9-20) mg/dL Glucose (74-99) mg/dL POC Glucose (mg/dL) 240 H 209 H (70-110) mg/dL Calcium (8.4-10.2) mg/dL Total Protein (6.3-8.2) g/dL Albumin (3.5-5.0) g/dL Procalcitonin (0.02-0.09) ng/mL Urine Protein (Negative) Urine Glucose (UA) (Negative) Urine Ketones (Negative) 02/03/24 02/03/24 Range/Units 04:06 06:58 WBC (3.8-10.6) k/uL RBC (4.30-5.90) m/uL Hgb (13.0-17.5) gm/dL Hct (39.0-53.0) % Plt Count (150-450) k/uL Neutrophils # (1.3-7.7) k/uL Lymphocytes # (1.0-4.8) k/uL Sodium 135 L (137-145) mmol/L Carbon Dioxide (22-30) mmol/L BUN 39 H (9-20) mg/dL Glucose 160 H (74-99) mg/dL POC Glucose (mg/dL) 223 H (70-110) mg/dL Calcium 8.0 L (8.4-10.2) mg/dL Total Protein 5.0 L (6.3-8.2) g/dL Albumin 2.8 L (3.5-5.0) g/dL Procalcitonin (0.02-0.09) ng/mL Urine Protein (Negative) Urine Glucose (UA) (Negative) Urine Ketones (Negative) - Imaging and Cardiology Chest x-ray: report reviewed, image reviewed Assessment and Plan Assessment: Aortic Root Aneurysm with Severe Aortic Insufficiency, status post Biobentall (#29mm Konnect) Ascending aortic aneurysm, status post Biobentall (#29mm Konnect) Mild mitral and tricuspid regurgitation Nonischemic cardiomyopathy, EF 45-50% Hypertension Dyslipidemia, triglycerides 176, LDL 65, cholesterol 141, HDL 40.8 Paroxysmal atrial fibrillation on Eliquis for anticoagulation, status post cardioversion in October 2019 and subsequent ablation in February 2020, status post left atrial appendage ligation with a 35 mm AtriClip Diabetes mellitus type II, with a preoperative hemoglobin A1c 8.1% Morbid obesity with a BMI of 41.8 kg/m Lifetime non-smoker Obstructive sleep apnea with home CPAP use Family history of premature coronary artery disease Postoperative acute blood loss anemia, expected given hemodilution and cardiopulmonary bypass Plan: Continue to maximize medical therapy with aspirin, statin, plavix and beta- henrietta. Increase metoprolol to tartrate to 50 mg p.o. twice daily with hold parameters. Continue lisinopril 10 mg p.o. daily for afterload reduction. Increase activity as tolerated. PT/OT/cardiac rehab following. Continue home dose of amiodarone 200 mg p.o. for atrial fibrillation prophylaxis. Amiodarone was increased to 200 mg p.o. twice daily yesterday by cardiology. Amiodarone 300 mg IV piggyback was infused over 2 hours per cardiology recommendations yesterday. Wean oxygen as tolerated. Bronchodilator management per pulmonary critical care recommendations. Encourage incentive spirometry use 10 times every hour while awake. Patient needs much encouragement and reminding to use his incentive spirometry. Sputum culture was sent yesterday results are pending. Continue Rocephin as ordered x 3 doses. Will monitor daily labs and chest x-rays. Electrolyte replacement per protocol. GI/DVT prophylaxis. Insulin management per internal medicine, patient should stay on continuous IV insulin for 48 hours. Preoperative hemoglobin A1c 8.1%. Pain control per current medication regimen. Continue to hold narcotics due to the patient's previous episode of confusion. Keep mediastinal Israel drain in place until discharge. Continue record accurate output. Keep Hopkins catheter in place for urine retention. Started on Flomax 0.4 mg p.o. daily yesterday February 02, 2024. Continue record strict and accurate I's and O's. Urology consulted for urine retention. Daily weights. More recommendations to follow on patient's clinical course. Time with Patient: Greater than 30
[2024-02-03] MEDS: METOPROLOL TARTRATE 50 MG TAB PO SCH (08:46)
[2024-02-03 11:24] LABS: Glucose,Whole Blood 216 mg/dL (70-110)
[2024-02-03] MEDS: INSULIN ASPART (NovoLOG) 100 UNIT/ML VIAL SQ SCH ×2 (11:26→11:27)
--- NOTE | 2024-02-03 11:59 | P.PN ---
Subjective Progress Note Date: 02/03/24 The patient is a 63-year-old male who follows in the office with Dr. Deleon. The patient underwent bio Bentall procedure with Dr. Leigh. The patient went into A-fib with RVR yesterday he was given IV amiodarone and has since been transition to oral. Patient remains sitting up in recliner chair. He is now on high flow nasal cannula. Chest tubes have been removed. He denies any dizziness or lightheadedness. No current difficulty breathing. GENERAL: Well-appearing, well-nourished and in no acute distress. NECK: Supple without JVD or thyromegaly. LUNGS: Breath sounds coarse to auscultation bilaterally. Respiration equal. Mildly labored. HEART: Irregular rate and rhythm without murmurs, rubs or gallops. S1 and S2 heard. Heart hugger in place. EXTREMITIES: Normal range of motion, mild edema. No clubbing or cyanosis. Peripheral pulses intact and strong. TELEMETRY: Sinus rhythm overnight LABS: WBC 9.1, hemoglobin 9.6, hematocrit 30.2, platelet 141, sodium 135, potassium 4.2, BUN 39, creatinine 1.01, magnesium 2.8, AST 40, ALT 27 IMPRESSION: Severe aortic insufficiency Dilated ascending root Status post biobentall, aortic valve replacement History of diabetes History hypertension Morbid obesity, BMI 41 History of atrial fibrillation, postop A-fib History of obstructive sleep apnea PLAN: Continue oral amiodarone This should be discontinued after 6 weeks Any further episodes of atrial fibrillation thereafter, follow-up with freight car builder who completed his prior ablation Recommend aggressive pulmonary hygiene I am dictating on behalf of Dr Mike Alonzo's history/physical and assessment/plan. Objective - Vital Signs Vital signs: Vital Signs Temp 99.2 F 02/03/24 08:00 Pulse 78 02/03/24 11:00 Resp 27 H 02/03/24 11:00 BP 90/65 02/03/24 11:00 Pulse Ox 96 02/03/24 11:00 FiO2 50 01/30/24 20:50 Intake & Output 02/02/24 02/03/24 02/03/24 18:59 06:59 18:59 Intake Total 5082.195 1437 50 Output Total 2660 1442 350 Balance -9092.017 6989 -300 Weight 161.1 kg Intake: IV 360 180 50 .9 30 160 Invasive Line 5 20 Lactated Ringers 1,000 ml 330 @ 20 mls/hr IV .Q24H [facility] Rx#:[id number] Pressure 30 cefTRIAXone 1 gm In 50 Sodium Chloride 0.9% 50 ml @ 100 mls/hr IVPB Q24HR [facility] Rx#:[id number] Intake, IV Titration 382.996 Amount Dextrose 5% in Water 250 250 ml @ 128 mls/hr IV .Q2H [facility] with Amiodarone 300 mg Rx#:[id number] Insulin Regular 100 unit 82.996 In Sodium Chloride 0.9% 100 ml @ Per Protocol IV .Q0M [facility] Rx#:[id number] cefTRIAXone 1 gm In 50 Sodium Chloride 0.9% 50 ml @ 100 mls/hr IVPB Q24HR [facility] Rx#:[id number] Oral 480 2400 Output: Chest Tube Drainage 30 7 0 mediastinal x1 30 7 0 Urine 2630 1435 350 Other: Voiding Method Indwelling Catheter Indwelling Catheter Indwelling Catheter # Bowel Movements 1 ABP, PAP, CO, CI - Last Documented Arterial Blood Pressure 123/50 Pulmonary Artery Pressure 27/12 Cardiac Output 10 Cardiac Index 3.7 - Labs CBC & Chem 7: 02/03/24 04:06 02/03/24 04:06 Labs: Abnormal Lab Results - Last 24 Hours (Table) 02/02/24 02/02/24 02/02/24 Range/Units 08:07 11:30 12:04 RBC (4.30-5.90) m/uL Hgb (13.0-17.5) gm/dL Hct (39.0-53.0) % Plt Count (150-450) k/uL Sodium (137-145) mmol/L BUN (9-20) mg/dL Glucose (74-99) mg/dL POC Glucose (mg/dL) 120 H (70-110) mg/dL Hemoglobin A1c (<=6.0) % Calcium (8.4-10.2) mg/dL Magnesium (1.6-2.3) mg/dL Total Protein (6.3-8.2) g/dL Albumin (3.5-5.0) g/dL Procalcitonin 1.34 H (0.02-0.09) ng/mL Urine Protein Trace H (Negative) Urine Glucose (UA) 4+ H (Negative) Urine Ketones 1+ H (Negative) 02/02/24 02/02/24 02/02/24 Range/Units 13:06 14:42 15:06 RBC (4.30-5.90) m/uL Hgb (13.0-17.5) gm/dL Hct (39.0-53.0) % Plt Count (150-450) k/uL Sodium (137-145) mmol/L BUN (9-20) mg/dL Glucose (74-99) mg/dL POC Glucose (mg/dL) 173 H 164 H 143 H (70-110) mg/dL Hemoglobin A1c (<=6.0) % Calcium (8.4-10.2) mg/dL Magnesium (1.6-2.3) mg/dL Total Protein (6.3-8.2) g/dL Albumin (3.5-5.0) g/dL Procalcitonin (0.02-0.09) ng/mL Urine Protein (Negative) Urine Glucose (UA) (Negative) Urine Ketones (Negative) 02/02/24 02/02/24 02/03/24 Range/Units 16:34 21:21 02:14 RBC (4.30-5.90) m/uL Hgb (13.0-17.5) gm/dL Hct (39.0-53.0) % Plt Count (150-450) k/uL Sodium (137-145) mmol/L BUN (9-20) mg/dL Glucose (74-99) mg/dL POC Glucose (mg/dL) 121 H 240 H 209 H (70-110) mg/dL Hemoglobin A1c (<=6.0) % Calcium (8.4-10.2) mg/dL Magnesium (1.6-2.3) mg/dL Total Protein (6.3-8.2) g/dL Albumin (3.5-5.0) g/dL Procalcitonin (0.02-0.09) ng/mL Urine Protein (Negative) Urine Glucose (UA) (Negative) Urine Ketones (Negative) 02/03/24 02/03/24 02/03/24 Range/Units 04:06 04:06 04:06 RBC 3.23 L (4.30-5.90) m/uL Hgb 9.6 L (13.0-17.5) gm/dL Hct 30.2 L (39.0-53.0) % Plt Count 141 L (150-450) k/uL Sodium 135 L (137-145) mmol/L BUN 39 H (9-20) mg/dL Glucose 160 H (74-99) mg/dL POC Glucose (mg/dL) (70-110) mg/dL Hemoglobin A1c 7.9 H (<=6.0) % Calcium 8.0 L (8.4-10.2) mg/dL Magnesium (1.6-2.3) mg/dL Total Protein 5.0 L (6.3-8.2) g/dL Albumin 2.8 L (3.5-5.0) g/dL Procalcitonin (0.02-0.09) ng/mL Urine Protein (Negative) Urine Glucose (UA) (Negative) Urine Ketones (Negative) 02/03/24 02/03/24 02/03/24 Range/Units 04:06 06:58 11:22 RBC (4.30-5.90) m/uL Hgb (13.0-17.5) gm/dL Hct (39.0-53.0) % Plt Count (150-450) k/uL Sodium (137-145) mmol/L BUN (9-20) mg/dL Glucose (74-99) mg/dL POC Glucose (mg/dL) 223 H 216 H (70-110) mg/dL Hemoglobin A1c (<=6.0) % Calcium (8.4-10.2) mg/dL Magnesium 2.8 H (1.6-2.3) mg/dL Total Protein (6.3-8.2) g/dL Albumin (3.5-5.0) g/dL Procalcitonin (0.02-0.09) ng/mL Urine Protein (Negative) Urine Glucose (UA) (Negative) Urine Ketones (Negative) Microbiology - Last 24 Hours (Table) 02/02/24 16:02 Gram Stain - Preliminary Sputum
--- NOTE | 2024-02-03 12:04 | P.PN ---
Subjective Progress Note Date: 02/03/24 Principal diagnosis: Severe Aortic regurgitation and aneurysmal ascending aorta/4.4 cm This is a 63-year-old male patient with a known history of atrial fibrillation and previous ablation approximately 4 years ago maintained on Eliquis, diabetes mellitus, hyperlipidemia, hypertension, obstructive sleep apnea utilizing CPAP, nonischemic cardiomyopathy who was recently found to have impaired left ventricular systolic function with ejection fraction of 45 to 50% and severe aortic regurgitation and aneurysmal ascending aorta measuring 4.4 cm. He was brought in electively today for surgery with Dr. Leigh. He did undergo aortic valve replacement with a biobentall #29 Kon[place], left atrial appendage ligation with atrial clip placement and follow-up transesophageal echocardiogram. He is seen currently in the intensive care unit. He is intubated on the mechanical ventilator with current settings of assist-control mode of 16, tidal volume 550 and FiO2 70% and a PEEP of 10. Initial blood gases on 100% FiO2 and a rate of 12 revealed a PaO2 of 166, pCO2 of 54 and a pH of 7.28. Chest x-ray reveals evidence of the endotracheal tube and nasogastric tube as well as a [place]-Des catheter suspected in place. X-ray is somewhat underpenetrated. 2 mediastinal chest tubes and a right-sided chest tube in place. Right IJ [place] catheter in place. Cardiac output 6.9. Cardiac index 2.5. PA pressures 34/18. CVP 12. Currently in sinus rhythm. He is on lactated Ringer's at 50 MLS per hour. Propofol at 30 mcg/kg/min. Insulin drip at 3 units/h. Nitroglycerin drip at 10 mcg/min. He did receive albumin. Receiving bronchodilators. Received cefazolin. Initiated on Cleviprex at 2 mg/h. Patient was evaluated today on 01/31/24 POD #1 Biobentall (#29mm Konnect), left atrial appendage ligation with #35mm AtriClip, patient was extubated yesterday rated the extubation quite well, he is sitting in a bedside chair today, he was successfully extubated at 8:52 p.m. Currently on 6 L nasal cannula, O2 sat is 94%, patient is not in any distress, achieving almost 1500 cc on his incentive spirometry. For complaint except for minimal cough, nonproductive, no fever, no chills, no hemoptysis, and no chest pain. He did receive a unit of platelets last evening, continues to have mediastinal and right pleural chest tubes, no airleak is noted, mediastinal chest tube drained about 200 cc overnight, the right pleural chest tube drained 140 cc since last night. Patient is hemodynamically stable not requiring any pressors, cardiac output is 5.4 cardiac index is 2.0. Chest x-ray is showing minimal atelectasis at the base. CBC is relatively normal hemoglobin is 11.9. Platelets today are 130,000 basic metabolic profile is normal, except for BUN of 26 creatinine 1.28 Patient was evaluated today on 02/01/2024, he is now postoperative day #2. Patient is doing well, asymptomatic, on room air, does not seem to be in any distress, he is receiving lactated Ringer's at 50 cc/h insulin remains 11.5 units/h he is achieving over 1000 cc on his incentive spirometer. Chest x-ray showed minimal nonspecific atelectasis. Small tiny bilateral pleural effusions noted, right-sided chest tube noted, tip of the [place] catheter is in the main pulmonary artery region. Patient denies any cough or wheezing no shortness of breath no chest pain. No abdominal pain no nausea no vomiting WBC count is 12.1 hemoglobin is 10.4 basic metabolic profile is normal renal profile is better today creatinine down to 1.08 from 1.28 yesterday. Patient was evaluated today on 02/02/2024,POD #3 Biobentall (#29mm Konnect), left atrial appendage ligation with #35mm AtriClip. Patient continues to do well, however he is on 5 L nasal cannula. O2 sats is 95%, still achieving about 1000 cc via incentive spirometry. He had a Tmax of 101 last night, he had a minimal productive cough this morning with aguilar tenacious sputum. Patient is hemodynamically stable, not in any distress, continues to have mediastinal chest tube, minimal drainage overnight. Catheter was discontinued yesterday.Chest x- ray showed cardiomegaly and small pleural effusions. WBC count is 10.7 hemoglobin 10.1 basic metabolic profile is normal renal profile is normal Patient was reevaluated today on 02/03/2024, he is now postoperative day #4. Remains in the ICU, patient denies any specific complaints, compliant with his incentive spirometry, does not seem to be in any distress, however his FiO2 requirement has gone up, he is now on 8 L high flow nasal cannula. O2 saturation is in the 95% range, chest x-ray showed minimal atelectasis, no clear-cut evidence of congestive heart failure. Patient went into atrial fibrillation last night, and remains in atrial fibrillation with a rate of 112. Patient was given amiodarone 300 mg over 2-hour. As per cardiology recommendation. Remains on amiodarone orally 200 mg p.o. twice daily. Patient is otherwise hemodynamically stable, not in distress, urine output in the last 8 hours has been excellent. He did receive Lasix yesterday with excellent diuresis. Continues to have the mediastinal chest tube, remains in place, and it is on suction at -20 cm. No leak, minimal drainage over the last 24 hours, roughly about 25 ML labs today were reviewed WBC count is 9.1 hemoglobin is 9.6 electrolytes are normal BUN is 39 creatinine 1.01 Objective - Vital Signs Vital signs: Vital Signs Temp 99.2 F 02/03/24 08:00 Pulse 78 02/03/24 11:00 Resp 27 H 02/03/24 11:00 BP 90/65 02/03/24 11:00 Pulse Ox 96 02/03/24 11:00 FiO2 50 01/30/24 20:50 Intake & Output 02/02/24 02/03/24 02/03/24 18:59 06:59 18:59 Intake Total 0567.175 4061 50 Output Total 2660 1442 350 Balance -9315.154 7893 -300 Weight 161.1 kg Intake: IV 360 180 50 .9 30 160 Invasive Line 5 20 Lactated Ringers 1,000 ml 330 @ 20 mls/hr IV .Q24H [facility] Rx#:[id number] Pressure 30 cefTRIAXone 1 gm In 50 Sodium Chloride 0.9% 50 ml @ 100 mls/hr IVPB Q24HR [facility] Rx#:[id number] Intake, IV Titration 382.996 Amount Dextrose 5% in Water 250 250 ml @ 128 mls/hr IV .Q2H ONE with Amiodarone 300 mg Rx#:[id number] Insulin Regular 100 unit 82.996 In Sodium Chloride 0.9% 100 ml @ Per Protocol IV .Q0M [facility] Rx#:[id number] cefTRIAXone 1 gm In 50 Sodium Chloride 0.9% 50 ml @ 100 mls/hr IVPB Q24HR [facility] Rx#:[id number] Oral 480 2400 Output: Chest Tube Drainage 30 7 0 mediastinal x1 30 7 0 Urine 2630 1435 350 Other: Voiding Method Indwelling Catheter Indwelling Catheter Indwelling Catheter # Bowel Movements 1 ABP, PAP, CO, CI - Last Documented Arterial Blood Pressure 123/50 Pulmonary Artery Pressure 27/12 Cardiac Output 10 Cardiac Index 3.7 - Exam Physical exam: General: Revealed 63-year-old obese male, on on 8 L high flow nasal cannula HEENT: Head is atraumatic, normocephalic. CHEST EXAMINATION: Diminished breath sounds at the bases no crackles rhonchi or wheezes HEART EXAMINATION: Normal S1-S2, no S3 gallop, 2/6 systolic murmur throughout the precordium ABDOMEN: Obese, soft, nontender. No megaly no rebound no guarding EXTREMITIES: Good pulses bilaterally no clubbing edema or cyanosis. Tenderness noted. NEUROLOGIC EXAMINATION: Alert oriented x 3 no gross focal deficit Psychiatric: Normal mood affect and normal mental status examination. Skin: No rashes - Labs CBC & Chem 7: 02/03/24 04:06 02/03/24 04:06 Labs: Abnormal Lab Results - Last 24 Hours (Table) 02/02/24 02/02/24 02/02/24 Range/Units 08:07 11:30 12:04 RBC (4.30-5.90) m/uL Hgb (13.0-17.5) gm/dL Hct (39.0-53.0) % Plt Count (150-450) k/uL Sodium (137-145) mmol/L BUN (9-20) mg/dL Glucose (74-99) mg/dL POC Glucose (mg/dL) 120 H (70-110) mg/dL Hemoglobin A1c (<=6.0) % Calcium (8.4-10.2) mg/dL Magnesium (1.6-2.3) mg/dL Total Protein (6.3-8.2) g/dL Albumin (3.5-5.0) g/dL Procalcitonin 1.34 H (0.02-0.09) ng/mL Urine Protein Trace H (Negative) Urine Glucose (UA) 4+ H (Negative) Urine Ketones 1+ H (Negative) 02/02/24 02/02/24 02/02/24 Range/Units 13:06 14:42 15:06 RBC (4.30-5.90) m/uL Hgb (13.0-17.5) gm/dL Hct (39.0-53.0) % Plt Count (150-450) k/uL Sodium (137-145) mmol/L BUN (9-20) mg/dL Glucose (74-99) mg/dL POC Glucose (mg/dL) 173 H 164 H 143 H (70-110) mg/dL Hemoglobin A1c (<=6.0) % Calcium (8.4-10.2) mg/dL Magnesium (1.6-2.3) mg/dL Total Protein (6.3-8.2) g/dL Albumin (3.5-5.0) g/dL Procalcitonin (0.02-0.09) ng/mL Urine Protein (Negative) Urine Glucose (UA) (Negative) Urine Ketones (Negative) 02/02/24 02/02/24 02/03/24 Range/Units 16:34 21:21 02:14 RBC (4.30-5.90) m/uL Hgb (13.0-17.5) gm/dL Hct (39.0-53.0) % Plt Count (150-450) k/uL Sodium (137-145) mmol/L BUN (9-20) mg/dL Glucose (74-99) mg/dL POC Glucose (mg/dL) 121 H 240 H 209 H (70-110) mg/dL Hemoglobin A1c (<=6.0) % Calcium (8.4-10.2) mg/dL Magnesium (1.6-2.3) mg/dL Total Protein (6.3-8.2) g/dL Albumin (3.5-5.0) g/dL Procalcitonin (0.02-0.09) ng/mL Urine Protein (Negative) Urine Glucose (UA) (Negative) Urine Ketones (Negative) 02/03/24 02/03/24 02/03/24 Range/Units 04:06 04:06 04:06 RBC 3.23 L (4.30-5.90) m/uL Hgb 9.6 L (13.0-17.5) gm/dL Hct 30.2 L (39.0-53.0) % Plt Count 141 L (150-450) k/uL Sodium 135 L (137-145) mmol/L BUN 39 H (9-20) mg/dL Glucose 160 H (74-99) mg/dL POC Glucose (mg/dL) (70-110) mg/dL Hemoglobin A1c 7.9 H (<=6.0) % Calcium 8.0 L (8.4-10.2) mg/dL Magnesium (1.6-2.3) mg/dL Total Protein 5.0 L (6.3-8.2) g/dL Albumin 2.8 L (3.5-5.0) g/dL Procalcitonin (0.02-0.09) ng/mL Urine Protein (Negative) Urine Glucose (UA) (Negative) Urine Ketones (Negative) 02/03/24 02/03/24 02/03/24 Range/Units 04:06 06:58 11:22 RBC (4.30-5.90) m/uL Hgb (13.0-17.5) gm/dL Hct (39.0-53.0) % Plt Count (150-450) k/uL Sodium (137-145) mmol/L BUN (9-20) mg/dL Glucose (74-99) mg/dL POC Glucose (mg/dL) 223 H 216 H (70-110) mg/dL Hemoglobin A1c (<=6.0) % Calcium (8.4-10.2) mg/dL Magnesium 2.8 H (1.6-2.3) mg/dL Total Protein (6.3-8.2) g/dL Albumin (3.5-5.0) g/dL Procalcitonin (0.02-0.09) ng/mL Urine Protein (Negative) Urine Glucose (UA) (Negative) Urine Ketones (Negative) Microbiology - Last 24 Hours (Table) 02/02/24 16:02 Gram Stain - Preliminary Sputum Assessment and Plan Assessment: Impression: Severe aortic insufficiency, status post aortic valve replacement postoperative day #4 Postoperative atelectasis, expected and small pleural effusions, expected Benign essential hypertension History of atrial fibrillation status post ablation History of obstructive sleep apnea syndrome, on BiPAP, patient will bring his own machine today morbid obesity with BMI of 41. History of type 2 diabetes. Family history of premature coronary artery disease Nonischemic cardiomyopathy with ejection fraction of 45 to 50% Dyslipidemia Mild mitral valve and tricuspid valve regurgitation. Recommendation: Continue incentive spirometry Ambulate Continue maximal medical therapy including beta-blockers statins and Plavix Continue present supportive care measures Continue oral amiodarone 200 mg p.o. twice daily Daily monitoring of x-rays and daily monitoring of labs GI and DVT prophylaxis Will continue to follow Time with Patient: Less than 30
[2024-02-03 16:44] LABS: Glucose,Whole Blood 176 mg/dL (70-110)
--- NOTE | 2024-02-03 19:04 | P.PN ---
Subjective Progress Note Date: 02/03/24 - Chief Complaint Biobentall procedure - History of Present Illness 63-year-old patient, follows with Dr. Hayden. Chronic stable medical conditions include atrial fibrillation, CHF, diabetes, hypertension, hyperlipidemia, obstructive sleep apnea CPAP. Patient underwent todayBiobentall procedure by Dr.s Leigh. Also included left atrial appendage clipping. Postprocedure patient in the ICU. Intubated. FiO2 50 and a PEEP of 10. Has 1 right pleural chest tubes and 2 mediastinal chest tubes. Patient having significant output through the tubes. Drips include insulin and propofol. January 31, 2024: Patient extubated yesterday. Today sitting up in the chair/recliner. Family at the bedside. On clear liquid diet. Hopkins catheter remains in place. Sinus rhythm. Chest tubes in place. There was decreased output from the chest tube yesterday now controlled. Insulin drip. Has a slight cough. February 01, 2024: ICU. Up in a recliner. Did walk up to the door. [place] catheter discontinued. Has not made urine till now. Has [address] Using incentive spirometry. Eating supper. Slight cough. Insulin drip 01/31/2024 Patient is seen in follow-up this morning in the ICU with multiple medical consultations following. Patient is status post aortic valve replacement. Patient continues on 5 L high flow nasal cannula with continued chest tubes noted. Patient to bring in his own CPAP. Recommend continued on treatments and was given a dose of Lasix today. Encouraged incentive spirometer use at least 10 times every hour while awake. Patient continues on insulin drip and would recommend transitioning to sliding scale and long-acting with close monitoring with Accu-Cheks before meals and at bedtime as well as 2 AM. 02/03/2024 Patient is evaluated today in follow up. Remains in the intensive care unit. Patient is postoperative aortic valve replacement. He required 10 L hi flow overnight which is currently being weaned and now down to 6L hi-flow cannula. Chest xray today reveals mild interval worsening in the acute cardiopulmonary process with mildly increased pulmonary congestion and bibasilar infiltrates likely representing bibasilar atelectasis. Patient encouraged to ambulate and continue to use incentive spirometer 10 x an hour while awake. Patient was transitioned off the insulin gtt and blood glucose remains elevated above 200. Has been adjusted with increase in in[place] today and will continue to monitor closely and adjust as needed. Patient is having multiple loose BMs C.Dif was checked which is negative. Review of systems: Constitutional: reports of fatigue, low-grade fever, no chills Cardiovascular: reports of chest wall pain and discomfort with inspiration Respiratory: reports of shortness of breath and cough GI: reports of occasional nausea, no vomiting, or diarrhea : No reports of dysuria or retention Neurovascular: reports of weakness All medications have been reviewed Physical examination: This is a 63-year-old male who is awake, alert and oriented x 3, well-developed, ill-appearing, morbidly obese GENERAL: Up in recliner EYES: Pupils equal. Conjunctiva normal. HEENT: External appearance of nose and ears normal, oral cavity grossly normal. NECK: JVD unable to assess; masses not palpable. HEART: S1, S2 muffled LUNGS: Diminished breath sounds bilaterally with some faint crackles noted at the bases Has 1 chest tube. ABDOMEN: Soft, nontender, obese, no masses palpable. PSYCH: Alert and x 3, mood affect normal Assessment: -Severe aortic insufficiency with aortic aneurysm, status post Biobentall procedure, aortic valve replacement -Mild acute postprocedure blood loss anemia expected from surgery -Acute hypoxemic respiratory failure post extubation likely due to atelectasis noted on chest xray. Does not appear to be volume overloaded. -Thrombocytopenia likely dilutional -Some low-grade fever. Follow clinically. Likely atelectasis -Morbid obesity BMI 42.8 -Diabetes mellitus type 2, uncontrolled with hyperglycemia -Hyperlipidemia -Essential hypertension -Paroxysmal atrial fibrillation.: Currently in sinus rhythm with Previous ablation. -Obstructive sleep apnea, Uses CPAP -Chronic congestive heart failure from systolic dysfunction EF 45 to 50% with global hypokinesia on LUCY on December 26, [address] Taylor -GI prophylaxis -DVT prophylaxis -Full code Plan: Patient continues in the ICU with multiple medical consultations following. Patient is status post aortic valve replacement and continues with chest tube x 1 Encourage incentive spirometer use at least 10 times every hour while awake Patient to bring in CPAP from home Maintained on high flow 5 L, wean as tolerated Patient is a diabetic and is tolerating diet and maintained on insulin drip, will discontinue and transition to sliding scale along with long-acting and recommend close monitoring of Accu-Cheks before meals and at bedtime and 2 AM for tight glycemic control. Scheduled insulin has been added. HS levemir being increased to 15 units and continue on 10 units daily. Further adjustments to be made if blood glucose remains elevated. PT/OT therapy to evaluate Encouraged oral intake We will continue to follow with CT surgery, thank you kindly for this consultation The impression and plan of care has been dictated by Madhavi Mccollum, Nurse Practitioner as directed. Dr. Ward MD I have performed a history and physical examination and medical decision making of this patient, discussed the same with the dictator, and agree with the dictators assessment and plan as written, documented as a scribe. Based on total visit time, I have performed more than 50% of this visit. Objective - Vital Signs Vital signs: Vital Signs Temp 99.2 F 02/03/24 08:00 Pulse 78 02/03/24 11:00 Resp 27 H 02/03/24 11:00 BP 90/65 02/03/24 11:00 Pulse Ox 96 02/03/24 11:00 FiO2 50 01/30/24 20:50 Intake & Output 02/02/24 02/03/24 02/03/24 18:59 06:59 18:59 Intake Total 7279.276 3197 50 Output Total 2660 1442 350 Balance -3162.998 1479 -300 Weight 161.1 kg Intake: IV 360 180 50 .9 30 160 Invasive Line 5 20 Lactated Ringers 1,000 ml 330 @ 20 mls/hr IV .Q24H [facility] Rx#:[id number] Pressure 30 cefTRIAXone 1 gm In 50 Sodium Chloride 0.9% 50 ml @ 100 mls/hr IVPB Q24HR [facility] Rx#:[id number] Intake, IV Titration 382.996 Amount Dextrose 5% in Water 250 250 ml @ 128 mls/hr IV .Q2H ONE with Amiodarone 300 mg Rx#:[id number] Insulin Regular 100 unit 82.996 In Sodium Chloride 0.9% 100 ml @ Per Protocol IV .Q0M [facility] Rx#:[id number] cefTRIAXone 1 gm In 50 Sodium Chloride 0.9% 50 ml @ 100 mls/hr IVPB Q24HR [facility] Rx#:[id number] Oral 480 2400 Output: Chest Tube Drainage 30 7 0 mediastinal x1 30 7 0 Urine 2630 1435 350 Other: Voiding Method Indwelling Catheter Indwelling Catheter Indwelling Catheter # Bowel Movements 1 ABP, PAP, CO, CI - Last Documented Arterial Blood Pressure 123/50 Pulmonary Artery Pressure 27/12 Cardiac Output 10 Cardiac Index 3.7 - Labs CBC & Chem 7: 02/03/24 04:06 02/03/24 04:06 Labs: Abnormal Lab Results - Last 24 Hours (Table) 02/02/24 02/02/24 02/02/24 Range/Units 08:07 13:06 14:42 RBC (4.30-5.90) m/uL Hgb (13.0-17.5) gm/dL Hct (39.0-53.0) % Plt Count (150-450) k/uL Sodium (137-145) mmol/L BUN (9-20) mg/dL Glucose (74-99) mg/dL POC Glucose (mg/dL) 173 H 164 H (70-110) mg/dL Hemoglobin A1c (<=6.0) % Calcium (8.4-10.2) mg/dL Magnesium (1.6-2.3) mg/dL Total Protein (6.3-8.2) g/dL Albumin (3.5-5.0) g/dL Procalcitonin 1.34 H (0.02-0.09) ng/mL 02/02/24 02/02/24 02/02/24 Range/Units 15:06 16:34 21:21 RBC (4.30-5.90) m/uL Hgb (13.0-17.5) gm/dL Hct (39.0-53.0) % Plt Count (150-450) k/uL Sodium (137-145) mmol/L BUN (9-20) mg/dL Glucose (74-99) mg/dL POC Glucose (mg/dL) 143 H 121 H 240 H (70-110) mg/dL Hemoglobin A1c (<=6.0) % Calcium (8.4-10.2) mg/dL Magnesium (1.6-2.3) mg/dL Total Protein (6.3-8.2) g/dL Albumin (3.5-5.0) g/dL Procalcitonin (0.02-0.09) ng/mL 02/03/24 02/03/24 02/03/24 Range/Units 02:14 04:06 04:06 RBC 3.23 L (4.30-5.90) m/uL Hgb 9.6 L (13.0-17.5) gm/dL Hct 30.2 L (39.0-53.0) % Plt Count 141 L (150-450) k/uL Sodium (137-145) mmol/L BUN (9-20) mg/dL Glucose (74-99) mg/dL POC Glucose (mg/dL) 209 H (70-110) mg/dL Hemoglobin A1c 7.9 H (<=6.0) % Calcium (8.4-10.2) mg/dL Magnesium (1.6-2.3) mg/dL Total Protein (6.3-8.2) g/dL Albumin (3.5-5.0) g/dL Procalcitonin (0.02-0.09) ng/mL 02/03/24 02/03/24 02/03/24 Range/Units 04:06 04:06 06:58 RBC (4.30-5.90) m/uL Hgb (13.0-17.5) gm/dL Hct (39.0-53.0) % Plt Count (150-450) k/uL Sodium 135 L (137-145) mmol/L BUN 39 H (9-20) mg/dL Glucose 160 H (74-99) mg/dL POC Glucose (mg/dL) 223 H (70-110) mg/dL Hemoglobin A1c (<=6.0) % Calcium 8.0 L (8.4-10.2) mg/dL Magnesium 2.8 H (1.6-2.3) mg/dL Total Protein 5.0 L (6.3-8.2) g/dL Albumin 2.8 L (3.5-5.0) g/dL Procalcitonin (0.02-0.09) ng/mL 02/03/24 Range/Units 11:22 RBC (4.30-5.90) m/uL Hgb (13.0-17.5) gm/dL Hct (39.0-53.0) % Plt Count (150-450) k/uL Sodium (137-145) mmol/L BUN (9-20) mg/dL Glucose (74-99) mg/dL POC Glucose (mg/dL) 216 H (70-110) mg/dL Hemoglobin A1c (<=6.0) % Calcium (8.4-10.2) mg/dL Magnesium (1.6-2.3) mg/dL Total Protein (6.3-8.2) g/dL Albumin (3.5-5.0) g/dL Procalcitonin (0.02-0.09) ng/mL Microbiology - Last 24 Hours (Table) 02/02/24 16:02 Gram Stain - Preliminary Sputum Assessment and Plan Time with Patient: Less than 30
--- NOTE | 2024-02-03 19:41 | P.GSCN ---
History of Present Illness Consult date: 02/03/24 Reason for Consult: Urinary retention Requesting physician: Justice Sanchez History of present illness: The patient is a 63-year-old male with an ascending aortic aneurysm and aortic valve insufficiency, for which he underwent surgery on January 30, 2024. The patient was found to be in urinary retention postoperatively, with a postvoid residual of 1600 cc. A Hopkins catheter was placed. Patient states that his last prostate exam was 1 to 2 years ago. He states that his urinary stream is typically strong, and that he does occasionally experience urinary urgency with rare incontinence. He denies dysuria and hematuria. Review of Systems - Cardiovascular Reports high blood pressure - Genitourinary Reports as per HPI Past Medical History Past Medical History: Atrial Fibrillation, Heart Failure, Diabetes Mellitus, Hyperlipidemia, Hypertension, Sleep Apnea/CPAP/BIPAP Additional Past Medical History / Comment(s): uses CPAP, SOB w/exertion History of Any Multi-Drug Resistant Organisms: None Reported Past Surgical History: Cardiac Ablation, Heart Catheterization, Hernia Repair, Orthopedic Surgery, Tonsillectomy Additional Past Surgical History / Comment(s): Bilat. knee surgery(6 surgeries) 1967 - 1973, hiatal hernia repair 1984, colonoscopy, cardioversion, LUCY Past Anesthesia/Blood Transfusion Reactions: No Reported Reaction Smoking Status: Never smoker - Past Family History Mother Family Medical History: No Reported History Father Family Medical History: Myocardial Infarction ([place]) Additional Family Medical History / Comment(s): age 78 [place] Sister(s) Family Medical History: Myocardial Infarction ([place]) Additional Family Medical History / Comment(s): age 50 [place] Medications and Allergies Home Medications Medication Instructions Recorded Confirmed Type Amiodarone HCl [Pacerone] 200 mg PO QAM 01/22/20 01/30/24 History Apixaban [Eliquis] 5 mg PO BID 01/22/20 01/30/24 History Atorvastatin [Lipitor] 20 mg PO QAM 01/22/20 01/30/24 History Dapagliflozin Propanediol [Farxiga] 10 mg PO HS 01/22/20 01/30/24 History Furosemide [Lasix] 40 mg PO QAM 01/22/20 01/30/24 History Metoprolol Tartrate [Lopressor] 25 mg PO BID 01/22/20 01/30/24 History Spironolactone 25 mg PO DAILY 01/22/20 01/30/24 History glipiZIDE [Glucotrol] 10 mg PO QAM 01/22/20 01/30/24 History lisinopriL [Zestril] 20 mg PO QAM 01/22/20 01/30/24 History metFORMIN HCL 1,000 mg PO BID 12/25/23 01/30/24 History Allergies Allergy/AdvReac Type Severity Reaction Status Date / Time silk stitches AdvReac body Uncoded 01/30/24 06:35 wouldn't absorb them Surgical - Exam Vital Signs Temp Pulse Resp BP Pulse Ox 97 F L 53 L 16 167/74 96 01/30/24 06:33 01/30/24 06:33 01/30/24 06:33 01/30/24 06:33 01/30/24 06:33 - General well developed, well nourished, no distress - Respiratory normal respiratory effort - Abdomen Abdomen: soft, non tender, no guarding, no rigid, no rebound - Genitourinary normal penis with no external lesions, testicles non-tender - Psychiatric oriented to time, oriented to person, oriented to place, speech is normal, memory intact Results - Labs 02/03/24 04:06 02/03/24 04:06 Abnormal Lab Results - Last 24 Hours (Table) 02/02/24 02/02/24 02/02/24 Range/Units 14:42 15:06 16:34 RBC (4.30-5.90) m/uL Hgb (13.0-17.5) gm/dL Hct (39.0-53.0) % Plt Count (150-450) k/uL Sodium (137-145) mmol/L BUN (9-20) mg/dL Glucose (74-99) mg/dL POC Glucose (mg/dL) 164 H 143 H 121 H (70-110) mg/dL Hemoglobin A1c (<=6.0) % Calcium (8.4-10.2) mg/dL Magnesium (1.6-2.3) mg/dL Total Protein (6.3-8.2) g/dL Albumin (3.5-5.0) g/dL 02/02/24 02/03/24 02/03/24 Range/Units 21:21 02:14 04:06 RBC (4.30-5.90) m/uL Hgb (13.0-17.5) gm/dL Hct (39.0-53.0) % Plt Count (150-450) k/uL Sodium (137-145) mmol/L BUN (9-20) mg/dL Glucose (74-99) mg/dL POC Glucose (mg/dL) 240 H 209 H (70-110) mg/dL Hemoglobin A1c 7.9 H (<=6.0) % Calcium (8.4-10.2) mg/dL Magnesium (1.6-2.3) mg/dL Total Protein (6.3-8.2) g/dL Albumin (3.5-5.0) g/dL 02/03/24 02/03/24 02/03/24 Range/Units 04:06 04:06 04:06 RBC 3.23 L (4.30-5.90) m/uL Hgb 9.6 L (13.0-17.5) gm/dL Hct 30.2 L (39.0-53.0) % Plt Count 141 L (150-450) k/uL Sodium 135 L (137-145) mmol/L BUN 39 H (9-20) mg/dL Glucose 160 H (74-99) mg/dL POC Glucose (mg/dL) (70-110) mg/dL Hemoglobin A1c (<=6.0) % Calcium 8.0 L (8.4-10.2) mg/dL Magnesium 2.8 H (1.6-2.3) mg/dL Total Protein 5.0 L (6.3-8.2) g/dL Albumin 2.8 L (3.5-5.0) g/dL 02/03/24 02/03/24 Range/Units 06:58 11:22 RBC (4.30-5.90) m/uL Hgb (13.0-17.5) gm/dL Hct (39.0-53.0) % Plt Count (150-450) k/uL Sodium (137-145) mmol/L BUN (9-20) mg/dL Glucose (74-99) mg/dL POC Glucose (mg/dL) 223 H 216 H (70-110) mg/dL Hemoglobin A1c (<=6.0) % Calcium (8.4-10.2) mg/dL Magnesium (1.6-2.3) mg/dL Total Protein (6.3-8.2) g/dL Albumin (3.5-5.0) g/dL Microbiology - Last 24 Hours (Table) 02/02/24 16:02 Gram Stain - Preliminary Sputum Diabetes panel 02/03/24 02/03/24 Range/Units 04:06 04:06 Sodium 135 L (137-145) mmol/L Potassium 4.2 (3.5-5.1) mmol/L Chloride 105 (98-107) mmol/L Carbon Dioxide 27 (22-30) mmol/L BUN 39 H (9-20) mg/dL Creatinine 1.01 (0.66-1.25) mg/dL Glucose 160 H (74-99) mg/dL Hemoglobin A1c 7.9 H (<=6.0) % Calcium 8.0 L (8.4-10.2) mg/dL AST 40 (17-59) U/L ALT 27 (4-49) U/L Alkaline Phosphatase 47 (38-126) U/L Total Protein 5.0 L (6.3-8.2) g/dL Albumin 2.8 L (3.5-5.0) g/dL Calcium panel 02/03/24 Range/Units 04:06 Calcium 8.0 L (8.4-10.2) mg/dL Albumin 2.8 L (3.5-5.0) g/dL Pituitary panel 02/03/24 Range/Units 04:06 Sodium 135 L (137-145) mmol/L Potassium 4.2 (3.5-5.1) mmol/L Chloride 105 (98-107) mmol/L Carbon Dioxide 27 (22-30) mmol/L BUN 39 H (9-20) mg/dL Creatinine 1.01 (0.66-1.25) mg/dL Glucose 160 H (74-99) mg/dL Calcium 8.0 L (8.4-10.2) mg/dL Adrenal panel 02/03/24 Range/Units 04:06 Sodium 135 L (137-145) mmol/L Potassium 4.2 (3.5-5.1) mmol/L Chloride 105 (98-107) mmol/L Carbon Dioxide 27 (22-30) mmol/L BUN 39 H (9-20) mg/dL Creatinine 1.01 (0.66-1.25) mg/dL Glucose 160 H (74-99) mg/dL Calcium 8.0 L (8.4-10.2) mg/dL Total Bilirubin 1.0 (0.2-1.3) mg/dL AST 40 (17-59) U/L ALT 27 (4-49) U/L Alkaline Phosphatase 47 (38-126) U/L Total Protein 5.0 L (6.3-8.2) g/dL Albumin 2.8 L (3.5-5.0) g/dL Assessment and Plan (1) Retention of urine, unspecified Current Visit: Yes Status: Acute Code(s): R33.9 - RETENTION OF URINE, UNSPECIFIED SNOMED Code(s): 181029838 Plan: I explained to the patient and his that his bladder was markedly distended prior to Hopkins catheter insertion. He will require at least several days of Hopkins catheter drainage for the bladder to regain tone. He is currently receiving tamsulosin. If he remains hospitalized for several days, he may be given a voiding trial prior to discharge. Conversely, if he is ready for discharge sooner than that, or if he fails the voiding trial, he should be discharged home with the catheter and a prescription for tamsulosin. He was given my card to follow-up with me as an outpatient, and he was advised to remove his catheter approximately 8 hours prior to the appointment. Time with Patient: Greater than 30
[2024-02-03 20:35] LABS: Glucose,Whole Blood 247 mg/dL (70-110)
[2024-02-03] MEDS: INSULIN DETEMIR (LEVEMIR) 100 UNIT/ML SYR SQ SCH (21:23)
[2024-02-04 01:54] LABS: Glucose,Whole Blood 155 mg/dL (70-110)
[2024-02-04 04:13] LABS: Basophils % (A) 0 %; Eosinophils # (A) 0.2 k/uL (0-0.7); Eosinophils % (A) 2 %; HCT 30.4 % (39.0-53.0); HGB 9.6 gm/dL (13.0-17.5); Lymphocytes # (A) 1.3 k/uL (1.0-4.8); Lymphocytes % (A) 16 %; MCH 29.6 pg (25.0-35.0); MCHC 31.6 g/dL (31.0-37.0); MCV 93.5 fL (80.0-100.0); Mean Platelet Volume 8.3; Monocytes # (A) 0.7 k/uL (0-1.0); Monocytes % (A) 8 %; Neutrophils # (A) 5.9 k/uL (1.3-7.7); Neutrophils % (A) 71 %; Platelet Count 156 k/uL (150-450); RBC 3.25 m/uL (4.30-5.90); RDW 14.2 % (11.5-15.5); WBC 8.3 k/uL (3.8-10.6)
[2024-02-04 04:55] LABS: ALT 40 U/L (4-49); AST 41 U/L (17-59); African American GFR (CKD) 78 (>60 ml/min/1.73 sqM); Albumin 2.6 g/dL (3.5-5.0); Alkaline Phosphatase 57 U/L (38-126); Anion Gap 2 mmol/L; Blood Urea Nitrogen 38 mg/dL (9-20); Calcium 7.6 mg/dL (8.4-10.2); Carbon Dioxide 29 mmol/L (22-30); Chloride 101 mmol/L (98-107); Glucose 132 mg/dL (74-99); Non-African American GFR(CKD) 68 (>60 ml/min/1.73 sqM); Potassium 3.6 mmol/L (3.5-5.1); Sodium 132 mmol/L (137-145); Total Bilirubin 0.9 mg/dL (0.2-1.3); Total Protein 4.9 g/dL (6.3-8.2)
[2024-02-04 06:42] LABS: Glucose,Whole Blood 133 mg/dL (70-110)
[2024-02-04] MEDS: INSULIN DETEMIR (LEVEMIR) 100 UNIT/ML SYR SQ SCH (06:52)
[2024-02-04] MEDS: POTASSIUM CHLORIDE ER 20 MEQ TAB.ER PO SCH (06:52)
--- NOTE | 2024-02-04 07:02 | P.PN ---
Subjective Progress Note Date: 02/04/24 Principal diagnosis: Valvular heart disease The patient is a pleasant 63-year-old gentleman with morbid obesity as well as hypertension and dyslipidemia and aortic insufficiency and dilated aortic root and paroxysmal atrial fibrillation was admitted to the hospital and underwent aortic valve replacement along with aortic root replacement and reimplanting the coronary arteries. He went into atrial fibrillation but he is known to have paroxysmal atrial fibrillation. February 04, 2024 The patient was seen and evaluated this morning. He is in atrial fibrillation with controlled heart rate. He is on amiodarone. Will continue the current medical regimen and consider tapering down the dose of amiodarone. He need to be started on oral anticoagulation once the pacer wire out. Otherwise he is stable hemodynamically. He is not on any drips at this point. The chest x-ray was reviewed this morning. The physical examination is remarkable for morbidly obese patient with upper extremities edema and diminished breathing sounds bilaterally. Assessment Aortic valve replacement with aortic root replacement Paroxysmal atrial fibrillation Atrial fibrillation with controlled heart rate Multiple comorbid conditions Plan Continue the current medical regimen Consider tapering down the dose of amiodarone Restart the patient on anticoagulation once the pacer wire is out The patient might benefit from small dose of diuretics Monitor the kidney function and electrolytes and hemoglobin Follow-up with the patient Objective - Vital Signs Vital signs: Vital Signs Temp 98.4 F 02/04/24 04:00 Pulse 79 02/04/24 06:00 Resp 25 H 02/04/24 06:00 BP 98/71 02/04/24 06:00 Pulse Ox 90 L 02/04/24 06:00 FiO2 50 01/30/24 20:50 Intake & Output 02/03/24 02/03/24 02/04/24 06:59 18:59 06:59 Intake Total 2580 1550 480 Output Total 2681 641 1320 Balance 1138 691 -728 Weight 161.1 kg 156.5 kg Intake: IV 180 50 .9 30 160 Invasive Line 5 20 cefTRIAXone 1 gm In 50 Sodium Chloride 0.9% 50 ml @ 100 mls/hr IVPB Q24HR [facility] Rx#:[id number] Oral 2400 1500 480 Output: Chest Tube Drainage 7 9 8 mediastinal x1 7 9 8 Urine 0033 [id number] Other: Voiding Method Indwelling Catheter Indwelling Catheter Indwelling Catheter ABP, PAP, CO, CI - Last Documented Arterial Blood Pressure 123/50 Pulmonary Artery Pressure 27/12 Cardiac Output 10 Cardiac Index 3.7 - Labs CBC & Chem 7: 02/04/24 03:36 02/04/24 03:36 Labs: Abnormal Lab Results - Last 24 Hours (Table) 02/03/24 02/03/24 02/03/24 Range/Units 04:06 04:06 06:58 RBC (4.30-5.90) m/uL Hgb (13.0-17.5) gm/dL Hct (39.0-53.0) % Sodium (137-145) mmol/L BUN (9-20) mg/dL Glucose (74-99) mg/dL POC Glucose (mg/dL) 223 H (70-110) mg/dL Hemoglobin A1c 7.9 H (<=6.0) % Calcium (8.4-10.2) mg/dL Magnesium 2.8 H (1.6-2.3) mg/dL Total Protein (6.3-8.2) g/dL Albumin (3.5-5.0) g/dL 02/03/24 02/03/24 02/03/24 Range/Units 11:22 16:42 20:34 RBC (4.30-5.90) m/uL Hgb (13.0-17.5) gm/dL Hct (39.0-53.0) % Sodium (137-145) mmol/L BUN (9-20) mg/dL Glucose (74-99) mg/dL POC Glucose (mg/dL) 216 H 176 H 247 H (70-110) mg/dL Hemoglobin A1c (<=6.0) % Calcium (8.4-10.2) mg/dL Magnesium (1.6-2.3) mg/dL Total Protein (6.3-8.2) g/dL Albumin (3.5-5.0) g/dL 02/04/24 02/04/24 02/04/24 Range/Units 01:51 03:36 03:36 RBC 3.25 L (4.30-5.90) m/uL Hgb 9.6 L (13.0-17.5) gm/dL Hct 30.4 L (39.0-53.0) % Sodium 132 L (137-145) mmol/L BUN 38 H (9-20) mg/dL Glucose 132 H (74-99) mg/dL POC Glucose (mg/dL) 155 H (70-110) mg/dL Hemoglobin A1c (<=6.0) % Calcium 7.6 L (8.4-10.2) mg/dL Magnesium (1.6-2.3) mg/dL Total Protein 4.9 L (6.3-8.2) g/dL Albumin 2.6 L (3.5-5.0) g/dL 02/04/24 Range/Units 06:40 RBC (4.30-5.90) m/uL Hgb (13.0-17.5) gm/dL Hct (39.0-53.0) % Sodium (137-145) mmol/L BUN (9-20) mg/dL Glucose (74-99) mg/dL POC Glucose (mg/dL) 133 H (70-110) mg/dL Hemoglobin A1c (<=6.0) % Calcium (8.4-10.2) mg/dL Magnesium (1.6-2.3) mg/dL Total Protein (6.3-8.2) g/dL Albumin (3.5-5.0) g/dL Microbiology - Last 24 Hours (Table) 02/02/24 16:02 Gram Stain - Preliminary Sputum
--- NOTE | 2024-02-04 07:41 | XR ---
EXAMINATION TYPE: XR chest 1V portable DATE OF EXAM: 02/04/2024 Comparison: 02/03/2024 Clinical History: 63-year-old male Postoperative cardiac surgery Findings: Median sternotomy wires with prosthetic aortic valve. Heart moderately enlarged. Interstitial site. P atchy bibasilar opacities also persist. Impression: Ongoing CHF with mild pulmonary vascular congestion. Patchy bibasilar atelectasis/consolidation is al so similar.
--- NOTE | 2024-02-04 09:31 | P.PN ---
Subjective Progress Note Date: 02/04/24 Principal diagnosis: Aortic Root Aneurysm with Severe Aortic Insufficiency, ascending aortic aneurysm. Past medical history significant for nonischemic cardiomyopathy with an ejection fraction of 45 to 50% on transesophageal echocardiogram, hypertension, hyperlipidemia, paroxysmal atrial fibrillation on Eliquis for anticoagulation as an outpatient, status post cardioversion in October 2019 and subsequent ablation in February 2020, obstructive sleep apnea with home CPAP use, diabetes mellitus type 2 with a preoperative hemoglobin A1c 8.1%, obesity with a BMI of 41.8 kg/m, and a family history of premature coronary artery disease. POD #5 Biobentall (#29mm Konnect), left atrial appendage ligation with #35mm AtriClip, intraoperative transesophageal echocardiogram completed by anesthesia. Postoperative acute blood loss anemia, expected given hemodilution and cardiopulmonary bypass. Paroxysmal atrial fibrillation, a known common occurrence after cardiac surgery and expected given patient's history of atrial fibrillation status post ablation in 2019. The patient was seen and examined in follow-up today 02/04/2024 at his bedside in the intensive care unit. He is currently sitting up to the bedside chair, is awake, alert, oriented 3 and is in no acute apparent distress. Denies any complaints of pain or shortness of breath at this time, and reports he feels so mewhat stronger today than he has in the past couple of days. He's been up ambulating in the intensive care unit who weighed with standby assistance from nursing and therapy staff and tolerated well. Oxygen saturations are 93% on 2 L nasal cannula and he is achieving 1000 mL on his incentive spirometry with encouragement. Bedside telemetry showing atrial fibrillation heart rate 98 BPM. Hopkins cath remains in place for accurate I's and os and urinary retention, he was seen by neurology yesterday who recommends a voiding trial before discharge. Urine output was 810 mL output in the last 8 hours. Mediastinal Israel chest tube remains in place to low continuous wall suction -20 cm H2O. No air leak is present. Draining thin serosanguineous drainage with 25 mL output in the last 24 hours. He remains hemodynamically stable and is currently on no inotropic pressor support. Laboratory and chest x-ray results reviewed. Objective - Vital Signs Vital signs: Vital Signs Temp 98.4 F 02/04/24 04:00 Pulse 79 02/04/24 06:00 Resp 25 H 02/04/24 06:00 BP 98/71 02/04/24 06:00 Pulse Ox 90 L 02/04/24 06:00 FiO2 50 01/30/24 20:50 Intake & Output 02/03/24 02/04/24 02/04/24 18:59 06:59 18:59 Intake Total 1550 480 Output Total 859 1215 Balance 691 -735 Weight 156.5 kg Intake: IV 50 cefTRIAXone 1 gm In 50 Sodium Chloride 0.9% 50 ml @ 100 mls/hr IVPB Q24HR [facility] Rx#:[id number] Oral 1500 480 Output: Chest Tube Drainage 9 15 mediastinal x1 9 15 Urine 850 1200 Other: Voiding Method Indwelling Catheter Indwelling Catheter ABP, PAP, CO, CI - Last Documented Arterial Blood Pressure 123/50 Pulmonary Artery Pressure 27/12 Cardiac Output 10 Cardiac Index 3.7 - Exam CONSTITUTIONAL: Sitting up to the bedside chair in the intensive care unit, appears comfortable, cooperative, no apparent acute distress. HEENT: Neck is supple, no JVD, no lymphadenopathy. RESPIRATORY: Lungs sounds essentially clear throughout, diminished to his bilateral bases, few scattered expiratory wheezes. Respirations are symmetrical and nonlabored. Currently on 2 L nasal cannula with oxygen saturations 93%, able to achieve 1000 mL on his incentive spirometry. Strong cough. CARDIOVASCULAR: Irregular rhythm and rate consistent with atrial fibrillation. S1 and S2 present, negative for S3, gallop or murmur. Bedside telemetry showing atrial fibrillation, heart rate 98 bpm. Sternum is stable. Palpable peripheral pulses bilaterally, +1 edema to his bilateral lower extremities. No calf pain or tenderness noted. Heart hugger in place with patient demonstrating appropriate use. Knee-high ROSEANN hose and sequential compression devices in place to his bilateral lower extremities. GASTROINTESTINAL: Abdomen soft, nontender, nondistended. Active bowel sounds present 4 quadrants. Tolerating diet. Passing flatus. No guarding or rigidity. Bowel movement yesterday 02/03/2024. GENITOURINARY: Hopkins catheter in place for urine retention and accurate I's and O's. 810 mL output of urine in the last 8 hours. INTEGUMENTARY: Skin is warm and dry with no evidence of clubbing or cyanosis. Midline sternal incision clean dry and well approximated, covered with dry intact dressing. NEUROLOGIC: Cranial nerves II through XII intact. No focal deficits. MUSKULOSKELETAL: Able to move all extremities, strength equal bilaterally, generalized weakness. PSYCHIATRIC: Alert and oriented to person place and time, appropriate affect, intact judgment and insight. INVASIVE LINES AND TUBES: Mediastinal Israel drain chest tube present and connected to low continuous wall suction, no air leaks present. Mediastinal tube with thin serosanguineous drainage 25 mL output in the last 24 hours. Atrial and ventricular epicardial pacemaker wires present and are grounded. - Allied health notes Allied health notes reviewed: nursing - Labs CBC & Chem 7: 02/04/24 03:36 02/04/24 03:36 Labs: Abnormal Lab Results - Last 24 Hours (Table) 02/03/24 02/03/24 02/03/24 Range/Units 04:06 04:06 06:58 RBC (4.30-5.90) m/uL Hgb (13.0-17.5) gm/dL Hct (39.0-53.0) % Sodium (137-145) mmol/L BUN (9-20) mg/dL Glucose (74-99) mg/dL POC Glucose (mg/dL) 223 H (70-110) mg/dL Hemoglobin A1c 7.9 H (<=6.0) % Calcium (8.4-10.2) mg/dL Magnesium 2.8 H (1.6-2.3) mg/dL Total Protein (6.3-8.2) g/dL Albumin (3.5-5.0) g/dL 02/03/24 02/03/24 02/03/24 Range/Units 11:22 16:42 20:34 RBC (4.30-5.90) m/uL Hgb (13.0-17.5) gm/dL Hct (39.0-53.0) % Sodium (137-145) mmol/L BUN (9-20) mg/dL Glucose (74-99) mg/dL POC Glucose (mg/dL) 216 H 176 H 247 H (70-110) mg/dL Hemoglobin A1c (<=6.0) % Calcium (8.4-10.2) mg/dL Magnesium (1.6-2.3) mg/dL Total Protein (6.3-8.2) g/dL Albumin (3.5-5.0) g/dL 02/04/24 02/04/2402/03/24 Range/Units 01:51 03:36 03:36 RBC 3.25 L (4.30-5.90) m/uL Hgb 9.6 L (13.0-17.5) gm/dL Hct 30.4 L (39.0-53.0) % Sodium 132 L (137-145) mmol/L BUN 38 H (9-20) mg/dL Glucose 132 H (74-99) mg/dL POC Glucose (mg/dL) 155 H (70-110) mg/dL Hemoglobin A1c (<=6.0) % Calcium 7.6 L (8.4-10.2) mg/dL Magnesium (1.6-2.3) mg/dL Total Protein 4.9 L (6.3-8.2) g/dL Albumin 2.6 L (3.5-5.0) g/dL 02/04/24 Range/Units 06:40 RBC (4.30-5.90) m/uL Hgb (13.0-17.5) gm/dL Hct (39.0-53.0) % Sodium (137-145) mmol/L BUN (9-20) mg/dL Glucose (74-99) mg/dL POC Glucose (mg/dL) 133 H (70-110) mg/dL Hemoglobin A1c (<=6.0) % Calcium (8.4-10.2) mg/dL Magnesium (1.6-2.3) mg/dL Total Protein (6.3-8.2) g/dL Albumin (3.5-5.0) g/dL Microbiology - Last 24 Hours (Table) 02/02/24 16:02 Gram Stain - Preliminary Sputum - Imaging and Cardiology Chest x-ray: report reviewed, image reviewed Assessment and Plan Assessment: Aortic Root Aneurysm with Severe Aortic Insufficiency, status post Biobentall (#29mm Konnect) Ascending aortic aneurysm, status post Biobentall (#29mm Konnect) Mild mitral and tricuspid regurgitation Nonischemic cardiomyopathy, EF 45-50% Hypertension Dyslipidemia, triglycerides 176, LDL 65, cholesterol 141, HDL 40.8 Paroxysmal atrial fibrillation on Eliquis for anticoagulation, status post cardioversion in October 2019 and subsequent ablation in February 2020, status post left atrial appendage ligation with a 35 mm AtriClip Diabetes mellitus type II, with a preoperative hemoglobin A1c 8.1% Morbid obesity with a BMI of 41.8 kg/m Lifetime non-smoker Obstructive sleep apnea with home CPAP use Family history of premature coronary artery disease Postoperative acute blood loss anemia, expected given hemodilution and cardiopulmonary bypass Urinary retention, unspecified requiring placement of Hopkins catheter Plan: Continue to maximize medical therapy with aspirin, statin, plavix and beta- henrietta. Increase metoprolol tartrate as tolerated with hold parameters. Continue lisinopril 10 mg p.o. daily for afterload reduction. Increase activity as tolerated. PT/OT/cardiac rehab following. Continue home dose of amiodarone 200 mg p.o. for atrial fibrillation prophylaxis. Amiodarone was increased to 200 mg p.o. twice daily 02/02/2024 by cardiology. Wean oxygen as tolerated. Bronchodilator management per pulmonary critical care recommendations. Encourage incentive spirometry use 10 times every hour while awake. Patient needs much encouragement and reminding to use his incentive spirometry. Sputum culture Results preliminary showed many polymorphonuclear Leukocytes, few epithelial cells, few gram-positive cocci. Will monitor daily labs and chest x-rays. Electrolyte replacement per protocol. GI/DVT prophylaxis. Insulin management per internal medicine, patient should stay on continuous IV insulin for 48 hours. Preoperative hemoglobin A1c 8.1%. Pain control per current medication regimen. Continue to hold narcotics due to the patient's previous episode of confusion. Keep mediastinal Israel drain in place today, we will likely remove his mediastinal Israel drain tomorrow 02/05/2024. Continue record accurate output. Keep Hopkins catheter in place for urine retention. Continue Flomax 0.4 mg p.o. daily. Continue record strict and accurate I's and O's. Urology consult noted and appreciated. Daily weights. We will remove his ventricular and atrial epicardial pacemaker wires today, bed rest for 1 hour post pacemaker wire removal. More recommendations to follow on patient's clinical course. Time with Patient: Greater than 30
--- NOTE | 2024-02-04 11:46 | P.PN ---
Subjective Progress Note Date: 02/04/24 This is a 63-year-old male patient with a known history of atrial fibrillation and previous ablation approximately 4 years ago maintained on Eliquis, diabetes mellitus, hyperlipidemia, hypertension, obstructive sleep apnea utilizing CPAP, nonischemic cardiomyopathy who was recently found to have impaired left ventricular systolic function with ejection fraction of 45 to 50% and severe aortic regurgitation and aneurysmal ascending aorta measuring 4.4 cm. He was brought in electively today for surgery with Dr. Leigh. He did undergo aortic valve replacement with a biobentall #29 Konnect, left atrial appendage ligation with atrial clip placement and follow-up transesophageal echocardiogram. He is seen currently in the intensive care unit. He is intubated on the mechanical ventilator with current settings of assist-control mode of 16, tidal volume 550 and FiO2 70% and a PEEP of 10. Initial blood gases on 100% FiO2 and a rate of 12 revealed a PaO2 of 166, pCO2 of 54 and a pH of 7.28. Chest x-ray reveals evidence of the endotracheal tube and nasogastric tube as well as a Deford-Des catheter suspected in place. X-ray is somewhat underpenetrated. 2 mediastinal chest tubes and a right-sided chest tube in place. Right IJ Deford-Des catheter in place. Cardiac output 6.9. Cardiac index 2.5. PA pressures 34/18. CVP 12. Currently in sinus rhythm. He is on lactated Ringer's at 50 MLS per hour. Propofol at 30 mcg/kg/min. Insulin drip at 3 units/h. Nitroglycerin drip at 10 mcg/min. He did receive albumin. Receiving bronchodilators. Received cefazolin. Initiated on Cleviprex at 2 mg/h. Patient was evaluated today on 01/31/24 POD #1 Biobentall (#29mm Konnect), left atrial appendage ligation with #35mm AtriClip, patient was extubated yesterday rated the extubation quite well, he is sitting in a bedside chair today, he was successfully extubated at 8:52 p.m. Currently on 6 L nasal cannula, O2 sat is 94%, patient is not in any distress, achieving almost 1500 cc on his incentive spirometry. For complaint except for minimal cough, nonproductive, no fever, no chills, no hemoptysis, and no chest pain. He did receive a unit of platelets last evening, continues to have mediastinal and right pleural chest tubes, no airleak is noted, mediastinal chest tube drained about 200 cc overnight, the right pleural chest tube drained 140 cc since last night. Patient is hemodynamically stable not requiring any pressors, cardiac output is 5.4 cardiac index is 2.0. Chest x-ray is showing minimal atelectasis at the base. CBC is relatively normal hemoglobin is 11.9. Platelets today are 130,000 basic metabolic profile is normal, except for BUN of 26 creatinine 1.28 Patient was evaluated today on 02/01/2024, he is now postoperative day #2. Patient is doing well, asymptomatic, on room air, does not seem to be in any distress, he is receiving lactated Ringer's at 50 cc/h insulin remains 11.5 units/h he is achieving over 1000 cc on his incentive spirometer. Chest x-ray showed minimal nonspecific atelectasis. Small tiny bilateral pleural effusions noted, right-sided chest tube noted, tip of the Deford-Des catheter is in the main pulmonary artery region. Patient denies any cough or wheezing no shortness of breath no chest pain. No abdominal pain no nausea no vomiting WBC count is 12.1 hemoglobin is 10.4 basic metabolic profile is normal renal profile is better today creatinine down to 1.08 from 1.28 yesterday. Patient was evaluated today on 02/02/2024,POD #3 Biobentall (#29mm Konnect), left atrial appendage ligation with #35mm AtriClip. Patient continues to do well, however he is on 5 L nasal cannula. O2 sats is 95%, still achieving about 1000 cc via incentive spirometry. He had a Tmax of 101 last night, he had a minimal productive cough this morning with aguilar tenacious sputum. Patient is hemodynamically stable, not in any distress, continues to have mediastinal chest tube, minimal drainage overnight. Catheter was discontinued yesterday.Chest x- ray showed cardiomegaly and small pleural effusions. WBC count is 10.7 hemoglobin 10.1 basic metabolic profile is normal renal profile is normal Patient was reevaluated today on 02/03/2024, he is now postoperative day #4. Remains in the ICU, patient denies any specific complaints, compliant with his incentive spirometry, does not seem to be in any distress, however his FiO2 requirement has gone up, he is now on 8 L high flow nasal cannula. O2 saturation is in the 95% range, chest x-ray showed minimal atelectasis, no clear-cut evidence of congestive heart failure. Patient went into atrial fibrillation last night, and remains in atrial fibrillation with a rate of 112. Patient was given amiodarone 300 mg over 2-hour. As per cardiology recommendation. Remains on amiodarone orally 200 mg p.o. twice daily. Patient is otherwise hemodynamically stable, not in distress, urine output in the last 8 hours has been excellent. He did receive Lasix yesterday with excellent diuresis. Continues to have the mediastinal chest tube, remains in place, and it is on suction at -20 cm. No leak, minimal drainage over the last 24 hours, roughly about 25 ML labs today were reviewed WBC count is 9.1 hemoglobin is 9.6 electrolytes are normal BUN is 39 creatinine 1.01 The patient is seen today in the intensive care unit. Postoperative day #5. He is currently sitting up in chair at the bedside. Awake and alert in no acute distress. He denies any worsening shortness of breath, cough or congestion. He is maintaining good O2 saturations in the 90s on 2 L/min per nasal cannula. He is afebrile. Hemodynamically stable. X-ray continues to show some mild pulmonary vascular congestion and patchy atelectasis. He is working well with the incentive spirometer. He completed ceftriaxone. Sputum culture pending. White count 8.3. Hemoglobin 9.6. Platelets 156. Sodium 132. Potassium 3.6. Bicarb 29. BUN 38. Creatinine 1.14. Glucose 132. Objective - Vital Signs Vital signs: Vital Signs Temp 98.5 F 02/04/24 08:05 Pulse 77 02/04/24 10:23 Resp 23 02/04/24 10:23 BP 91/68 02/04/24 10:23 Pulse Ox 95 02/04/24 10:23 FiO2 50 01/30/24 20:50 Intake & Output 02/03/24 02/04/24 02/04/24 18:59 06:59 18:59 Intake Total 1550 480 Output Total 859 1215 320 Balance 891 -083 -837 Weight 156.5 kg Intake: IV 50 cefTRIAXone 1 gm In 50 Sodium Chloride 0.9% 50 ml @ 100 mls/hr IVPB Q24HR [facility] Rx#:[id number] Oral 1500 480 Output: Chest Tube Drainage 9 15 mediastinal x1 9 15 Urine 850 1200 320 Other: Voiding Method Indwelling Catheter Indwelling Catheter ABP, PAP, CO, CI - Last Documented Arterial Blood Pressure 123/50 Pulmonary Artery Pressure 27/12 Cardiac Output 10 Cardiac Index 3.7 - Exam GENERAL EXAM: Alert, pleasant 63-year-old male, up in a chair, on 2 L nasal cannula, fairly comfortable in no apparent distress. HEAD: Normocephalic. EYES: Normal reaction of pupils, equal size. NOSE: Clear with pink turbinates. THROAT: No erythema or exudates. NECK: No masses, no JVD. CHEST: No chest wall deformity. LUNGS: Equal air entry with crackles in the posterior bases. CVS: S1 and S2 normal with no audible murmur, regular rhythm. ABDOMEN: No hepatosplenomegaly, normal bowel sounds, no guarding or rigidity. SPINE: No scoliosis or deformity SKIN: No rashes CENTRAL NERVOUS SYSTEM: No focal deficits, tone is normal in all 4 extremities. EXTREMITIES: There is no peripheral edema. No clubbing, no cyanosis. Peripheral pulses are intact. - Labs CBC & Chem 7: 02/04/24 03:36 02/04/24 03:36 Labs: Abnormal Lab Results - Last 24 Hours (Table) 02/03/24 02/03/24 02/04/24 Range/Units 16:42 20:34 01:51 RBC (4.30-5.90) m/uL Hgb (13.0-17.5) gm/dL Hct (39.0-53.0) % Sodium (137-145) mmol/L BUN (9-20) mg/dL Glucose (74-99) mg/dL POC Glucose (mg/dL) 176 H 247 H 155 H (70-110) mg/dL Calcium (8.4-10.2) mg/dL Total Protein (6.3-8.2) g/dL Albumin (3.5-5.0) g/dL 02/04/24 02/04/24 02/04/24 Range/Units 03:36 03:36 06:40 RBC 3.25 L (4.30-5.90) m/uL Hgb 9.6 L (13.0-17.5) gm/dL Hct 30.4 L (39.0-53.0) % Sodium 132 L (137-145) mmol/L BUN 38 H (9-20) mg/dL Glucose 132 H (74-99) mg/dL POC Glucose (mg/dL) 133 H (70-110) mg/dL Calcium 7.6 L (8.4-10.2) mg/dL Total Protein 4.9 L (6.3-8.2) g/dL Albumin 2.6 L (3.5-5.0) g/dL Microbiology - Last 24 Hours (Table) 02/02/24 16:02 Gram Stain - Preliminary Sputum Assessment and Plan Assessment: Ascending aortic aneurysm measuring 4.4 cm with severe aortic insufficiency, . S/p aortic valve replacement with a Biobentall #29 Konnect, left atrial appendage ligation with a #35 mm atrial clip and a intraoperative transesophageal echocardiogram, postoperative day #5 Nonischemic cardiomyopathy with an ejection fraction of 45 to 50% History of atrial fibrillation status post ablation, maintained on Eliquis History of hypertension Hyperlipidemia Diabetes mellitus Obesity with a BMI of 42 kg/m Obstructive sleep apnea utilizing CPAP Lifelong non-smoker Plan: The patient was seen and evaluated Chest x-ray, labs, and medications reviewed Stable and on 2 L nasal cannula Titrate the FiO2 as tolerated Encouraged the increased use of the incentive spirometer Increase his activity as tolerated We will continue to follow I have personally seen and examined the patient, performed the documentation and the assessment and plan as written. Number of minutes spent on the visit: 10.
[2024-02-04 11:49] LABS: Glucose,Whole Blood 160 mg/dL (70-110)
[2024-02-04] MEDS: ALBUMIN HUMAN 25% 50 ML in EMPTY BAG 1 BAG IVPB STA (13:00)
[2024-02-04] MEDS: FUROSEMIDE 10 MG/ML 4 ML VIAL IV STA (15:32)
[2024-02-04 16:52] LABS: Glucose,Whole Blood 158 mg/dL (70-110)
[2024-02-04 20:12] LABS: Glucose,Whole Blood 276 mg/dL (70-110)
[2024-02-05 02:24] LABS: Glucose,Whole Blood 142 mg/dL (70-110)
--- NOTE | 2024-02-05 06:49 | P.PN ---
Subjective Progress Note Date: 02/04/24 - Chief Complaint Biobentall procedure - History of Present Illness 63-year-old patient, follows with Dr. Hayden. Chronic stable medical conditions include atrial fibrillation, CHF, diabetes, hypertension, hyperlipidemia, obstructive sleep apnea CPAP. Patient underwent todayBiobentall procedure by Dr.s Leigh. Also included left atrial appendage clipping. Postprocedure patient in the ICU. Intubated. FiO2 50 and a PEEP of 10. Has 1 right pleural chest tubes and 2 mediastinal chest tubes. Patient having significant output through the tubes. Drips include insulin and propofol. January 31, 2024: Patient extubated yesterday. Today sitting up in the chair/recliner. Family at the bedside. On clear liquid diet. Hopkins catheter remains in place. Sinus rhythm. Chest tubes in place. There was decreased output from the chest tube yesterday now controlled. Insulin drip. Has a slight cough. February 01, 2024: ICU. Up in a recliner. Did walk up to the door. Hopkins catheter discontinued. Has not made urine till now. Has [address] Using incentive spirometry. Eating supper. Slight cough. Insulin drip 01/31/2024 Patient is seen in follow-up this morning in the ICU with multiple medical consultations following. Patient is status post aortic valve replacement. Patient continues on 5 L high flow nasal cannula with continued chest tubes noted. Patient to bring in his own CPAP. Recommend continued on treatments and was given a dose of Lasix today. Encouraged incentive spirometer use at least 10 times every hour while awake. Patient continues on insulin drip and would recommend transitioning to sliding scale and long-acting with close monitoring with Accu-Cheks before meals and at bedtime as well as 2 AM. 02/03/2024 Patient is evaluated today in follow up. Remains in the intensive care unit. Patient is postoperative aortic valve replacement. He required 10 L hi flow overnight which is currently being weaned and now down to 6L hi-flow cannula. Chest xray today reveals mild interval worsening in the acute cardiopulmonary process with mildly increased pulmonary congestion and bibasilar infiltrates likely representing bibasilar atelectasis. Patient encouraged to ambulate and continue to use incentive spirometer 10 x an hour while awake. Patient was transitioned off the insulin gtt and blood glucose remains elevated above 200. Has been adjusted with increase in inuslin today and will continue to monitor closely and adjust as needed. Patient is having multiple loose BMs C.Dif was checked which is negative. Patient is seen in follow-up today continues to be in the ICU with multiple medical consultations following. Patient currently found on room air while sitting up in the chair eating lunch. Patient with incentive spirometer at the bedside encouraged to continue using at least 10 times every hour while awake. Patient continues with chest tube noted and there is discussion of possible removal. Encouraged to increase activity as tolerated and continued heart hugger use. Diabetic diet along with heart healthy and close monitoring of Accu-Cheks and will adjust insulin regimen as needed. Discussed with at the bedside who reports will most likely require rehab. PT/OT therapy to evaluate Review of systems: Constitutional: No reports of fatigue, no fever, no chills Cardiovascular: reports of chest wall pain and discomfort with inspiration Respiratory: reports of shortness of breath and cough, although feels is improved GI: reports of occasional nausea, no vomiting, or diarrhea : No reports of dysuria or retention Neurovascular: reports of weakness All medications have been reviewed Physical examination: This is a 63-year-old male who is awake, alert and oriented x 3, well-developed, ill-appearing, morbidly obese GENERAL: Up in recliner EYES: Pupils equal. Conjunctiva normal. HEENT: External appearance of nose and ears normal, oral cavity grossly normal. NECK: JVD unable to assess; masses not palpable. HEART: S1, S2 muffled LUNGS: Diminished breath sounds bilaterally with some faint crackles noted at the bases Has 1 chest tube. ABDOMEN: Soft, nontender, obese, no masses palpable. PSYCH: Alert and x 3, mood affect normal Assessment: -Severe aortic insufficiency with aortic aneurysm, status post Biobentall procedure, aortic valve replacement -Mild acute postprocedure blood loss anemia expected from surgery -Acute hypoxemic respiratory failure post extubation likely due to atelectasis noted on chest xray. Does not appear to be volume overloaded. -Thrombocytopenia likely dilutional -Some low-grade fever. Follow clinically. Likely atelectasis -Morbid obesity BMI 42.8 -Diabetes mellitus type 2, uncontrolled with hyperglycemia -Hyperlipidemia -Essential hypertension -Paroxysmal atrial fibrillation.: Currently in sinus rhythm with Previous ablation. -Obstructive sleep apnea, Uses CPAP -Chronic congestive heart failure from systolic dysfunction EF 45 to 50% with global hypokinesia on LUCY on December 26, [address] Taylor -GI prophylaxis -DVT prophylaxis -Full code Plan: Patient continues in the ICU with multiple medical consultations following. Patient is status post aortic valve replacement and continues with chest tube x 1 Encourage incentive spirometer use at least 10 times every hour while awake Patient to continue with CPAP from home Maintained on high flow 5 L, wean as tolerated. Patient was found with no oxygen on exam Patient is a diabetic and is tolerating diet. Insulin drip was discontinued. Patient to continue sliding scale along with long-acting and recommend close monitoring of Accu-Cheks before meals and at bedtime and 2 AM for tight glycemic control. Scheduled insulin has been added. HS levemir being increased to 15 units and continue on 10 units daily. Further adjustments to be made if blood glucose remains elevated. PT/OT therapy to evaluate. Patient will likely need rehab on discharge with case management/social work following Encouraged oral intake We will continue to follow with CT surgery, thank you kindly for this consultation The impression and plan of care has been dictated by Erin Luna, Nurse Practitioner as directed. Dr. Ward MD I have performed a history and examination and MDM of this patient, discussed t he same with the dictator, and agree with the dictator's assessment and plan as written ,documented as a scribe. Based on total visit time, I have performed more than 50% of the visit. Objective - Vital Signs Vital signs: Vital Signs Temp 98.5 F 02/04/24 08:05 Pulse 84 02/04/24 09:30 Resp 26 H 02/04/24 09:30 BP 101/58 02/04/24 09:30 Pulse Ox 95 02/04/24 09:30 FiO2 50 01/30/24 20:50 Intake & Output 02/03/24 02/04/24 02/04/24 18:59 06:59 18:59 Intake Total 1550 480 Output Total 859 1215 320 Balance 691 -425 -320 Weight 156.5 kg Intake: IV 50 cefTRIAXone 1 gm In 50 Sodium Chloride 0.9% 50 ml @ 100 mls/hr IVPB Q24HR [facility] Rx#:[id number] Oral 1500 480 Output: Chest Tube Drainage 9 15 mediastinal x1 9 15 Urine 850 1200 320 Other: Voiding Method Indwelling Catheter Indwelling Catheter ABP, PAP, CO, CI - Last Documented Arterial Blood Pressure 123/50 Pulmonary Artery Pressure 27/12 Cardiac Output 10 Cardiac Index 3.7 - Labs CBC & Chem 7: 02/04/24 03:36 02/04/24 03:36 Labs: Abnormal Lab Results - Last 24 Hours (Table) 02/03/24 02/03/24 02/03/24 Range/Units 04:06 11:22 16:42 RBC (4.30-5.90) m/uL Hgb (13.0-17.5) gm/dL Hct (39.0-53.0) % Sodium (137-145) mmol/L BUN (9-20) mg/dL Glucose (74-99) mg/dL POC Glucose (mg/dL) 216 H 176 H (70-110) mg/dL Hemoglobin A1c 7.9 H (<=6.0) % Calcium (8.4-10.2) mg/dL Total Protein (6.3-8.2) g/dL Albumin (3.5-5.0) g/dL 02/03/24 02/04/24 02/04/24 Range/Units 20:34 01:51 03:36 RBC 3.25 L (4.30-5.90) m/uL Hgb 9.6 L (13.0-17.5) gm/dL Hct 30.4 L (39.0-53.0) % Sodium (137-145) mmol/L BUN (9-20) mg/dL Glucose (74-99) mg/dL POC Glucose (mg/dL) 247 H 155 H (70-110) mg/dL Hemoglobin A1c (<=6.0) % Calcium (8.4-10.2) mg/dL Total Protein (6.3-8.2) g/dL Albumin (3.5-5.0) g/dL 02/04/24 02/04/24 Range/Units 03:36 06:40 RBC (4.30-5.90) m/uL Hgb (13.0-17.5) gm/dL Hct (39.0-53.0) % Sodium 132 L (137-145) mmol/L BUN 38 H (9-20) mg/dL Glucose 132 H (74-99) mg/dL POC Glucose (mg/dL) 133 H (70-110) mg/dL Hemoglobin A1c (<=6.0) % Calcium 7.6 L (8.4-10.2) mg/dL Total Protein 4.9 L (6.3-8.2) g/dL Albumin 2.6 L (3.5-5.0) g/dL Microbiology - Last 24 Hours (Table) 02/02/24 16:02 Gram Stain - Preliminary Sputum
[2024-02-05 06:51] LABS: Glucose,Whole Blood 179 mg/dL (70-110)
[2024-02-05 06:52] LABS: HCT 31.5 % (39.0-53.0); MCH 29.7 pg (25.0-35.0); MCHC 31.9 g/dL (31.0-37.0); MCV 93.2 fL (80.0-100.0); Mean Platelet Volume 8.1; Platelet Count 203 k/uL (150-450); RBC 3.38 m/uL (4.30-5.90); RDW 14.4 % (11.5-15.5); WBC 8.1 k/uL (3.8-10.6)
[2024-02-05 07:07] LABS: African American GFR (CKD) 85 (>60 ml/min/1.73 sqM); Anion Gap 7 mmol/L; Blood Urea Nitrogen 30 mg/dL (9-20); Calcium 7.8 mg/dL (8.4-10.2); Carbon Dioxide 24 mmol/L (22-30); Chloride 101 mmol/L (98-107); Glucose 146 mg/dL (74-99); Non-African American GFR(CKD) 73 (>60 ml/min/1.73 sqM); Potassium 3.5 mmol/L (3.5-5.1); Sodium 132 mmol/L (137-145)
--- NOTE | 2024-02-05 08:43 | P.PN ---
Subjective Progress Note Date: 02/05/24 Principal diagnosis: Aortic Root Aneurysm with Severe Aortic Insufficiency, ascending aortic aneurysm. Past medical history significant for nonischemic cardiomyopathy with an ejection fraction of 45 to 50% on transesophageal echocardiogram, hypertension, hyperlipidemia, paroxysmal atrial fibrillation on Eliquis for anticoagulation as an outpatient, status post cardioversion in October 2019 and subsequent ablation in February 2020, obstructive sleep apnea with home CPAP use, diabetes mellitus type 2 with a preoperative hemoglobin A1c 8.1%, obesity with a BMI of 41.8 kg/m, and a family history of premature coronary artery disease. POD #6 Biobentall (#29mm Konnect), left atrial appendage ligation with #35mm AtriClip, intraoperative transesophageal echocardiogram completed by anesthesia. Postoperative acute blood loss anemia, expected given hemodilution and cardiopulmonary bypass. Paroxysmal atrial fibrillation, a known common occurrence after cardiac surgery and expected given patient's history of atrial fibrillation status post ablation in 2019. The patient was seen and examined in follow-up today February 05, 2024 at his bedside in the intensive care unit. He is currently sitting up to the bedside chair, is awake, alert, oriented x 3 and is in no acute apparent distress. Denies any complaints of pain or shortness of breath at this time, and reports that this is the best he has felt since his surgery. He feels like he is getting somewhat stronger, and is able to walk a little bit further distance in the intensive care unit hallway with standby assistance from nursing and therapy staff. Oxygen saturations are 98% on room air and he is achieving 2000 mL on his incentive spirometry with encouragement. Tmax temperature in the last 24 hours was 99.1 F. Denies further complaints of productive cough. Bedside telemetry is showing atrial fibrillation heart rate 101 bpm. Atrial and ventricular epicardial pacemaker wires were removed without incident yesterday February 04, 2024. He has been restarted on his Eliquis home dose of 5 mg p.o. twice daily for anticoagulation. He remains hemodynamically stable and is currently on no inotropic or pressor support. Mediastinal [place] chest tube remains in place to low continuous wall suction -20 cm H2O. No air leak is present. No drainage from the [place] drain in the last 24 hours. Laboratory and chest x-ray results were reviewed. Objective - Vital Signs Vital signs: Vital Signs Temp 98.3 F 02/05/24 04:00 Pulse 96 02/05/24 07:00 Resp 21 02/05/24 07:00 BP 122/91 02/05/24 07:00 Pulse Ox 97 02/05/24 07:00 FiO2 50 01/30/24 20:50 Intake & Output 02/04/24 02/05/24 02/05/24 18:59 06:59 18:59 Intake Total 1550 700 20 Output Total 1391 1165 77 Balance 159 -465 -57 Weight 156.2 kg Intake: IV 150 220 20 .9 100 220 20 cefTRIAXone 1 gm In 50 Sodium Chloride 0.9% 50 ml @ 100 mls/hr IVPB Q24HR [facility] Rx#:[id number] Intake, IV Titration 50 Amount Albumin Human 25% 50 ml 50 In Empty Bag 1 bag @ 50 mls/hr IVPB ONCE [facility] Rx#: [id number] Oral 1350 480 Output: Chest Tube Drainage 16 2 mediastinal x1 16 2 Urine 1375 1165 75 Other: Voiding Method Indwelling Catheter Indwelling Catheter # Bowel Movements 1 ABP, PAP, CO, CI - Last Documented Arterial Blood Pressure 123/50 Pulmonary Artery Pressure 27/12 Cardiac Output 10 Cardiac Index 3.7 - Exam CONSTITUTIONAL: Sitting up to the bedside chair in the intensive care unit, appears comfortable, cooperative, no apparent acute distress. HEENT: Neck is supple, no JVD, no lymphadenopathy. RESPIRATORY: Lungs sounds essentially clear throughout, diminished to his bilateral bases, right greater than left. Respirations are symmetrical and nonlabored. Currently on room air with oxygen saturations 98%, able to achieve 2000 mL on his incentive spirometry. Strong cough. CARDIOVASCULAR: Irregular rhythm and rate consistent with atrial fibrillation. S1 and S2 present, negative for S3, gallop or murmur. Bedside telemetry showing atrial fibrillation, heart rate 101 bpm. Sternum is stable. Palpable peripheral pulses bilaterally, +1 edema to his bilateral lower extremities. No calf pain or tenderness noted. Heart hugger in place with patient demonstrating appropriate use. Knee-high ROSEANN hose and sequential compression devices in place to his bilateral lower extremities. GASTROINTESTINAL: Abdomen soft, nontender, nondistended. Active bowel sounds present 4 quadrants. Tolerating diet. Passing flatus. No guarding or rigidity. Bowel movement yesterday 02/04/2024. GENITOURINARY: Hopkins catheter in place for urine retention and accurate I's and O's. 690 mL output of urine in the last 8 hours. INTEGUMENTARY: Skin is warm and dry with no evidence of clubbing or cyanosis. Midline sternal incision clean dry and well approximated, covered with dry intact dressing. NEUROLOGIC: Cranial nerves II through XII intact. No focal deficits. MUSKULOSKELETAL: Able to move all extremities, strength equal bilaterally, generalized weakness. PSYCHIATRIC: Alert and oriented to person place and time, appropriate affect, intact judgment and insight. INVASIVE LINES AND TUBES: Mediastinal [place] drain chest tube present and connected to low continuous wall suction, no air leaks present. No drainage in the last 24 hours. - Allied health notes Allied health notes reviewed: nursing - Labs CBC & Chem 7: 02/05/24 06:18 02/05/24 06:18 Labs: Abnormal Lab Results - Last 24 Hours (Table) 02/04/24 02/04/24 02/04/24 Range/Units 03:36 11:48 16:51 RBC (4.30-5.90) m/uL Hgb (13.0-17.5) gm/dL Hct (39.0-53.0) % Sodium (137-145) mmol/L BUN (9-20) mg/dL Glucose (74-99) mg/dL POC Glucose (mg/dL) 160 H 158 H (70-110) mg/dL Calcium (8.4-10.2) mg/dL Magnesium 3.0 H (1.6-2.3) mg/dL 02/04/24 02/05/24 02/05/24 Range/Units 20:10 02:23 06:18 RBC 3.38 L (4.30-5.90) m/uL Hgb 10.0 L (13.0-17.5) gm/dL Hct 31.5 L (39.0-53.0) % Sodium (137-145) mmol/L BUN (9-20) mg/dL Glucose (74-99) mg/dL POC Glucose (mg/dL) 276 H 142 H (70-110) mg/dL Calcium (8.4-10.2) mg/dL Magnesium (1.6-2.3) mg/dL 02/05/24 02/05/24 Range/Units 06:18 06:49 RBC (4.30-5.90) m/uL Hgb (13.0-17.5) gm/dL Hct (39.0-53.0) % Sodium 132 L (137-145) mmol/L BUN 30 H (9-20) mg/dL Glucose 146 H (74-99) mg/dL POC Glucose (mg/dL) 179 H (70-110) mg/dL Calcium 7.8 L (8.4-10.2) mg/dL Magnesium (1.6-2.3) mg/dL - Imaging and Cardiology Chest x-ray: report reviewed, image reviewed Assessment and Plan Assessment: Aortic Root Aneurysm with Severe Aortic Insufficiency, status post Biobentall (#29mm [place]) Ascending aortic aneurysm, status post Biobentall (#29mm [place]ct) Mild mitral and tricuspid regurgitation Nonischemic cardiomyopathy, EF 45-50% Hypertension Dyslipidemia, triglycerides 176, LDL 65, cholesterol 141, HDL 40.8 Paroxysmal atrial fibrillation on Eliquis for anticoagulation, status post cardioversion in October 2019 and subsequent ablation in February 2020, status post left atrial appendage ligation with a 35 mm AtriClip Diabetes mellitus type II, with a preoperative hemoglobin A1c 8.1% Morbid obesity with a BMI of 41.8 kg/m Lifetime non-smoker Obstructive sleep apnea with home CPAP use Family history of premature coronary artery disease Postoperative acute blood loss anemia, expected given hemodilution and cardiopulmonary bypass Urinary retention, unspecified requiring placement of Hopkins catheter, started on Flomax 0.4 mg p.o. daily Plan: Continue to maximize medical therapy with aspirin, statin, plavix and beta- henrietta. Increase metoprolol tartrate as tolerated with hold parameters. Continue lisinopril 10 mg p.o. daily for afterload reduction. Increase activity as tolerated. PT/OT/cardiac rehab following. Continue home dose of amiodarone 200 mg p.o. for atrial fibrillation prophylaxis. Amiodarone was increased to 200 mg p.o. twice daily 02/02/2024 by cardiology. Wean oxygen as tolerated. Bronchodilator management per pulmonary critical care recommendations. Encourage incentive spirometry use 10 times every hour while awake. Patient needs much encouragement and reminding to use his incentive spirometry. Sputum culture Results preliminary showed many polymorphonuclear Leukocytes, few epithelial cells, few gram-positive cocci. Will monitor daily labs and chest x-rays. Electrolyte replacement per protocol. GI/DVT prophylaxis. Insulin management per internal medicine. Preoperative hemoglobin A1c 8.1%. Pain control per current medication regimen. We will discontinue his mediastinal [place] drain today. Discontinue Hopkins catheter today. Continue Flomax 0.4 mg p.o. daily. Continue record strict and accurate I's and O's. Bladder scan every 6 hours and as needed postvoid residual, if greater than or equal to 300 mL of urine may straight cath. Daily weights. Discharge planning is in place, anticipate discharge home with home health care or to inpatient rehab in the next 48 hours. Albumin 25% 50 mL IV piggyback x 1 now followed by Lasix 40 mg IV x 1. More recommendations to follow on patient's clinical course. Time with Patient: Greater than 30
[2024-02-05] MEDS: APIXABAN 5 MG TAB PO SCH (09:09)
[2024-02-05] MEDS: ALBUMIN HUMAN 25% 50 ML in EMPTY BAG 1 BAG IVPB ONE (09:09)
[2024-02-05] MEDS: POTASSIUM CHLORIDE ER 20 MEQ TAB.ER PO SCH (09:10)
[2024-02-05] MEDS: ASPIRIN 81 MG PO SCH (09:10)
[2024-02-05] MEDS: FUROSEMIDE 10 MG/ML 4 ML VIAL IV STA (09:10)
--- NOTE | 2024-02-05 09:35 | XR ---
EXAMINATION TYPE: XR chest 1V portable DATE OF EXAM: 02/05/2024 Comparison: 02/04/2024 Clinical History: 63-year-old male postoperative open heart surgery Findings: Median sternotomy wires are present with prosthetic aortic valve. Heart remains mild to moderately en larged. Patchy bibasilar opacities persist. Interstitium shows some interval improvement. Impression: Ongoing cardiomegaly but with improving interstitium. Patchy bibasilar opacities persist.
--- NOTE | 2024-02-05 10:31 | P.PN ---
Subjective Progress Note Date: 02/05/24 This is a 63-year-old male patient with a known history of atrial fibrillation and previous ablation approximately 4 years ago maintained on Eliquis, diabetes mellitus, hyperlipidemia, hypertension, obstructive sleep apnea utilizing CPAP, nonischemic cardiomyopathy who was recently found to have impaired left ventricular systolic function with ejection fraction of 45 to 50% and severe aortic regurgitation and aneurysmal ascending aorta measuring 4.4 cm. He was brought in electively today for surgery with Dr. Leigh. He did undergo aortic valve replacement with a biobentall #29 [place], left atrial appendage ligation with atrial clip placement and follow-up transesophageal echocardiogram. He is seen currently in the intensive care unit. He is intubated on the mechanical ventilator with current settings of assist-control mode of 16, tidal volume 550 and FiO2 70% and a PEEP of 10. Initial blood gases on 100% FiO2 and a rate of 12 revealed a PaO2 of 166, pCO2 of 54 and a pH of 7.28. Chest x-ray reveals evidence of the endotracheal tube and nasogastric tube as well as a [place] catheter suspected in place. X-ray is somewhat underpenetrated. 2 mediastinal chest tubes and a right-sided chest tube in place. Right IJ [place] catheter in place. Cardiac output 6.9. Cardiac index 2.5. PA pressures 34/18. CVP 12. Currently in sinus rhythm. He is on lactated Ringer's at 50 MLS per hour. Propofol at 30 mcg/kg/min. Insulin drip at 3 units/h. Nitroglycerin drip at 10 mcg/min. He did receive albumin. Receiving bronchodilators. Received cefazolin. Initiated on Cleviprex at 2 mg/h. Patient was evaluated today on 01/31/24 POD #1 Biobentall (#29mm Konnect), left atrial appendage ligation with #35mm AtriClip, patient was extubated yesterday rated the extubation quite well, he is sitting in a bedside chair today, he was successfully extubated at 8:52 p.m. Currently on 6 L nasal cannula, O2 sat is 94%, patient is not in any distress, achieving almost 1500 cc on his incentive spirometry. For complaint except for minimal cough, nonproductive, no fever, no chills, no hemoptysis, and no chest pain. He did receive a unit of platelets last evening, continues to have mediastinal and right pleural chest tubes, no airleak is noted, mediastinal chest tube drained about 200 cc overnight, the right pleural chest tube drained 140 cc since last night. Patient is hemodynamically stable not requiring any pressors, cardiac output is 5.4 cardiac index is 2.0. Chest x-ray is showing minimal atelectasis at the base. CBC is relatively normal hemoglobin is 11.9. Platelets today are 130,000 basic metabolic profile is normal, except for BUN of 26 creatinine 1.28 Patient was evaluated today on 02/01/2024, he is now postoperative day #2. Patient is doing well, asymptomatic, on room air, does not seem to be in any distress, he is receiving lactated Ringer's at 50 cc/h insulin remains 11.5 units/h he is achieving over 1000 cc on his incentive spirometer. Chest x-ray showed minimal nonspecific atelectasis. Small tiny bilateral pleural effusions noted, right-sided chest tube noted, tip of the [place] catheter is in the main pulmonary artery region. Patient denies any cough or wheezing no shortness of breath no chest pain. No abdominal pain no nausea no vomiting WBC count is 12.1 hemoglobin is 10.4 basic metabolic profile is normal renal profile is better today creatinine down to 1.08 from 1.28 yesterday. Patient was evaluated today on 02/02/2024,POD #3 Biobentall (#29mm Konnect), left atrial appendage ligation with #35mm AtriClip. Patient continues to do well, however he is on 5 L nasal cannula. O2 sats is 95%, still achieving about 1000 cc via incentive spirometry. He had a Tmax of 101 last night, he had a minimal productive cough this morning with aguilar tenacious sputum. Patient is hemodynamically stable, not in any distress, continues to have mediastinal chest tube, minimal drainage overnight. Catheter was discontinued yesterday.Chest x- ray showed cardiomegaly and small pleural effusions. WBC count is 10.7 hemoglobin 10.1 basic metabolic profile is normal renal profile is normal Patient was reevaluated today on 02/03/2024, he is now postoperative day #4. Remains in the ICU, patient denies any specific complaints, compliant with his incentive spirometry, does not seem to be in any distress, however his FiO2 requirement has gone up, he is now on 8 L high flow nasal cannula. O2 saturation is in the 95% range, chest x-ray showed minimal atelectasis, no clear-cut evidence of congestive heart failure. Patient went into atrial fibrillation last night, and remains in atrial fibrillation with a rate of 112. Patient was given amiodarone 300 mg over 2-hour. As per cardiology recommendation. Remains on amiodarone orally 200 mg p.o. twice daily. Patient is otherwise hemodynamically stable, not in distress, urine output in the last 8 hours has been excellent. He did receive Lasix yesterday with excellent diuresis. Continues to have the mediastinal chest tube, remains in place, and it is on suction at -20 cm. No leak, minimal drainage over the last 24 hours, roughly about 25 ML labs today were reviewed WBC count is 9.1 hemoglobin is 9.6 electrolytes are normal BUN is 39 creatinine 1.01 The patient is seen today in the intensive care unit. Postoperative day #5. He is currently sitting up in chair at the bedside. Awake and alert in no acute distress. He denies any worsening shortness of breath, cough or congestion. He is maintaining good O2 saturations in the 90s on 2 L/min per nasal cannula. He is afebrile. Hemodynamically stable. X-ray continues to show some mild pulmonary vascular congestion and patchy atelectasis. He is working well with the incentive spirometer. He completed ceftriaxone. Sputum culture pending. White count 8.3. Hemoglobin 9.6. Platelets 156. Sodium 132. Potassium 3.6. Bicarb 29. BUN 38. Creatinine 1.14. Glucose 132. The patient is seen today February 05, 2024 in follow-up in the intensive care unit. Postoperative day #6. He is awake and alert in no acute distress. Sitting up in a chair at the bedside. Maintaining good O2 saturations in the 90s on room air. Chest x-ray does continue to show basilar atelectasis. He is again encouraged regarding the increased use of the incentive spirometer. His chest tube is to be removed today. Hopkins catheter to be removed. He did require albumin with additional Lasix this morning. He is anticoagulated with Eliquis. He remains in atrial fibrillation with a controlled ventricular rate. Sputum culture revealed no growth. 3. Sodium 132. Potassium 3.5. Bicarb 24. BUN 30. Creatinine 1.07. Glucose 146. He remains on bronchodilators. Objective - Vital Signs Vital signs: Vital Signs Temp 98.4 F 02/05/24 08:00 Pulse 88 02/05/24 10:13 Resp 19 02/05/24 09:00 BP 108/63 02/05/24 09:00 Pulse Ox 96 02/05/24 10:03 FiO2 50 01/30/24 20:50 Intake & Output 02/04/24 02/05/24 02/05/24 18:59 06:59 18:59 Intake Total 1550 700 138 Output Total 1391 1165 277 Balance 159 -465 -139 Weight 156.2 kg Intake: IV 150 220 20 .9 100 220 20 cefTRIAXone 1 gm In 50 Sodium Chloride 0.9% 50 ml @ 100 mls/hr IVPB Q24HR [facility] Rx#:[id number] Intake, IV Titration 50 Amount Albumin Human 25% 50 ml 50 In Empty Bag 1 bag @ 50 mls/hr IVPB ONCE STA Rx#: [id number] Oral 1350 480 118 Output: Chest Tube Drainage 16 2 mediastinal x1 16 2 Urine 1375 1165 275 Other: Voiding Method Indwelling Catheter Indwelling Catheter # Bowel Movements 1 ABP, PAP, CO, CI - Last Documented Arterial Blood Pressure 123/50 Pulmonary Artery Pressure 27/12 Cardiac Output 10 Cardiac Index 3.7 - Exam GENERAL EXAM: Alert, pleasant 63-year-old male, up in a chair, on room air, comfortable in no apparent distress. HEAD: Normocephalic. EYES: Normal reaction of pupils, equal size. NOSE: Clear with pink turbinates. THROAT: No erythema or exudates. NECK: No masses, no JVD. CHEST: No chest wall deformity. Sternal dressing dry and intact. Heart hugger in place. Chest tube remain in place. LUNGS: Equal air entry with crackles in the posterior bases. CVS: S1 and S2 normal with no audible murmur, irregular rhythm. ABDOMEN: No hepatosplenomegaly, normal bowel sounds, no guarding or rigidity. SPINE: No scoliosis or deformity SKIN: No rashes CENTRAL NERVOUS SYSTEM: No focal deficits, tone is normal in all 4 extremities. EXTREMITIES: There is 1+ peripheral edema. No clubbing, no cyanosis. Peripheral pulses are intact. - Labs CBC & Chem 7: 02/05/24 06:18 02/05/24 06:18 Labs: Abnormal Lab Results - Last 24 Hours (Table) 02/04/24 02/04/24 02/04/24 Range/Units 03:36 11:48 16:51 RBC (4.30-5.90) m/uL Hgb (13.0-17.5) gm/dL Hct (39.0-53.0) % Sodium (137-145) mmol/L BUN (9-20) mg/dL Glucose (74-99) mg/dL POC Glucose (mg/dL) 160 H 158 H (70-110) mg/dL Calcium (8.4-10.2) mg/dL Magnesium 3.0 H (1.6-2.3) mg/dL 02/04/24 02/05/24 02/05/24 Range/Units 20:10 02:23 06:18 RBC 3.38 L (4.30-5.90) m/uL Hgb 10.0 L (13.0-17.5) gm/dL Hct 31.5 L (39.0-53.0) % Sodium (137-145) mmol/L BUN (9-20) mg/dL Glucose (74-99) mg/dL POC Glucose (mg/dL) 276 H 142 H (70-110) mg/dL Calcium (8.4-10.2) mg/dL Magnesium (1.6-2.3) mg/dL 02/05/24 02/05/24 Range/Units 06:18 06:49 RBC (4.30-5.90) m/uL Hgb (13.0-17.5) gm/dL Hct (39.0-53.0) % Sodium 132 L (137-145) mmol/L BUN 30 H (9-20) mg/dL Glucose 146 H (74-99) mg/dL POC Glucose (mg/dL) 179 H (70-110) mg/dL Calcium 7.8 L (8.4-10.2) mg/dL Magnesium (1.6-2.3) mg/dL Microbiology - Last 24 Hours (Table) 02/02/24 16:02 Gram Stain - Final Sputum Sputum Culture - Final Assessment and Plan Assessment: Ascending aortic aneurysm measuring 4.4 cm with severe aortic insufficiency, . S/p aortic valve replacement with a Biobentall #29 [place], left atrial appendage ligation with a #35 mm atrial clip and a intraoperative transesophageal echocardiogram, postoperative day #6 Nonischemic cardiomyopathy with an ejection fraction of 45 to 50% History of atrial fibrillation status post ablation, maintained on Eliquis History of hypertension Hyperlipidemia Diabetes mellitus Obesity with a BMI of 42 kg/m Obstructive sleep apnea utilizing CPAP Lifelong non-smoker Plan: The patient was seen and evaluated Chest x-ray, labs, and medications reviewed Stable and on room air Chest tube to be removed today Received additional albumin and Lasix Encouraged the increased use of the incentive spirometer Increase his activity as tolerated We will continue to follow I have personally seen and examined the patient, performed the documentation and the assessment and plan as written. Number of minutes spent on the visit: 10.
[2024-02-05 11:16] LABS: Glucose,Whole Blood 183 mg/dL (70-110)
--- NOTE | 2024-02-05 12:49 | P.PN ---
Subjective Progress Note Date: 02/05/24 Principal diagnosis: Valvular heart disease The patient is a pleasant 63-year-old gentleman with morbid obesity as well as hypertension and dyslipidemia and aortic insufficiency and dilated aortic root and paroxysmal atrial fibrillation was admitted to the hospital and underwent aortic valve replacement along with aortic root replacement and reimplanting the coronary arteries. He went into atrial fibrillation but he is known to have paroxysmal atrial fibrillation. February 04, 2024 The patient was seen and evaluated this morning. He is in atrial fibrillation with controlled heart rate. He is on amiodarone. Will continue the current medical regimen and consider tapering down the dose of amiodarone. He need to be started on oral anticoagulation once the pacer wire out. Otherwise he is stable hemodynamically. He is not on any drips at this point. The chest x-ray was reviewed this morning. The physical examination is remarkable for morbidly obese patient with upper extremities edema and diminished breathing sounds bilaterally. February 05, 2024 The patient was seen and evaluated this morning. He remains in atrial fibrillation with controlled heart rate on the current medical regimen. Oral anticoagulation was initiated earlier today. Lasix was given because he still have bilateral lower extremities edema and also upper extremities edema. Beside that he seems to be stable from the cardiac standpoint of view. The examination is remarkable for irregular rhythm with soft systolic murmur and distant heart sounds and clear breathing sounds bilaterally and bilateral lower extremities edema Assessment Aortic valve replacement with aortic root replacement Paroxysmal atrial fibrillation Atrial fibrillation with controlled heart rate Multiple comorbid conditions Plan Continue the current medical regimen Follow-up with the patient Objective - Vital Signs Vital signs: Vital Signs Temp 98.4 F 02/05/24 08:00 Pulse 80 02/05/24 11:00 Resp 28 H 02/05/24 11:00 BP 115/73 02/05/24 11:00 Pulse Ox 97 02/05/24 11:00 FiO2 50 01/30/24 20:50 Intake & Output 02/04/24 02/05/24 02/05/24 18:59 06:59 18:59 Intake Total 1550 700 678 Output Total 1391 1165 277 Balance 159 -465 401 Weight 156.2 kg Intake: IV 150 220 70 .9 100 220 20 Albumin Human 25% 50 ml 50 In Empty Bag 1 bag @ 50 mls/hr IVPB ONCE ONE Rx#: [id number] cefTRIAXone 1 gm In 50 Sodium Chloride 0.9% 50 ml @ 100 mls/hr IVPB Q24HR [facility] Rx#:[id number] Intake, IV Titration 50 Amount Albumin Human 25% 50 ml 50 In Empty Bag 1 bag @ 50 mls/hr IVPB ONCE STA Rx#: [id number] Oral 1350 480 608 Output: Chest Tube Drainage 16 2 mediastinal x1 16 2 Urine 1375 1165 275 Other: Voiding Method Indwelling Catheter Indwelling Catheter Indwelling Catheter # Bowel Movements 1 ABP, PAP, CO, CI - Last Documented Arterial Blood Pressure 123/50 Pulmonary Artery Pressure 27/12 Cardiac Output 10 Cardiac Index 3.7 - Labs CBC & Chem 7: 02/05/24 06:18 02/05/24 06:18 Labs: Abnormal Lab Results - Last 24 Hours (Table) 02/04/24 02/04/24 02/05/24 Range/Units 16:51 20:10 02:23 RBC (4.30-5.90) m/uL Hgb (13.0-17.5) gm/dL Hct (39.0-53.0) % Sodium (137-145) mmol/L BUN (9-20) mg/dL Glucose (74-99) mg/dL POC Glucose (mg/dL) 158 H 276 H 142 H (70-110) mg/dL Calcium (8.4-10.2) mg/dL 02/05/24 02/05/24 02/05/24 Range/Units 06:18 06:18 06:49 RBC 3.38 L (4.30-5.90) m/uL Hgb 10.0 L (13.0-17.5) gm/dL Hct 31.5 L (39.0-53.0) % Sodium 132 L (137-145) mmol/L BUN 30 H (9-20) mg/dL Glucose 146 H (74-99) mg/dL POC Glucose (mg/dL) 179 H (70-110) mg/dL Calcium 7.8 L (8.4-10.2) mg/dL 02/05/24 Range/Units 11:15 RBC (4.30-5.90) m/uL Hgb (13.0-17.5) gm/dL Hct (39.0-53.0) % Sodium (137-145) mmol/L BUN (9-20) mg/dL Glucose (74-99) mg/dL POC Glucose (mg/dL) 183 H (70-110) mg/dL Calcium (8.4-10.2) mg/dL Microbiology - Last 24 Hours (Table) 02/02/24 16:02 Gram Stain - Final Sputum Sputum Culture - Final
[2024-02-05] MEDS: ASCORBIC ACID 500 MG TAB PO SCH (13:03)
[2024-02-05] MEDS: POTASSIUM CHLORIDE ER 20 MEQ TAB.ER PO ONE (15:51)
--- NOTE | 2024-02-05 16:29 | P.CONS ---
History of Present Illness - Reason for Consult Consult date: 02/05/24 Rehab needs - Chief Complaint Difficulty walking - History of Present Illness PMR Consult Mr. Siegel is a pleasant 63 yo, , right handed who lives who his in a 2 story home, but can stay on first floor if needed, [address]. He did buy a lift chair in anticipation of his surgery to be used if needed. 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 He has a known history of atrial fibrillation and previous ablation approximately 4 years ago maintained on Eliquis, diabetes mellitus, hyperlipidemia, hypertension, obstructive sleep apnea utilizing CPAP, nonischem ic cardiomyopathy who was recently found to have impaired left ventricular systolic function with ejection fraction of 45 to 50% and severe aortic regurgitation and aneurysmal ascending aorta measuring 4.4 cm. He was brought in electively for surgery with Dr. Leigh 01/30/24, undergoing aortic valve replacement with a biobentall #29 Konnect, left atrial appendage ligation with atrial clip placement and follow-up transesophageal echocardiogram. 01/31/24 POD #1 Biobentall (#29mm Konnect), left atrial appendage ligation with #35mm AtriClip, patient was extubated yesterday rated the extubation quite well, he is sitting in a bedside chair today, he was successfully extubated at 8:52 p.m. Currently on 6 L nasal cannula, O2 sat is 94%, He did receive a unit of platelets last evening, continues to have mediastinal and right pleural chest tubes, no airleak is noted, mediastinal chest tube drained about 200 cc overnight, the right pleural chest tube drained 140 cc since last night. Patient is hemodynamically stable not requiring any pressors, cardiac output is 5.4 cardiac index is 2.0. Chest x-ray is showing minimal atelectasis at the base. CBC is relatively normal hemoglobin is 11.9. Platelets today are 130,000 basic metabolic profile is normal, except for BUN of 26 creatinine 1.28 02/02/2024,POD #3 Biobentall (#29mm Konnect), left atrial appendage ligation with #35mm AtriClip. Patient continues to do well, however he is on 5 L nasal cannula. O2 sats is 95%, still achieving about 1000 cc via incentive spirometry. He had a Tmax of 101 last night, he had a minimal productive cough this morning with aguilar tenacious sputum. Patient is hemodynamically stable, not in any distress, continues to have mediastinal chest tube, minimal drainage overnight. Catheter was discontinued yesterday.Chest x-ray showed cardiomegaly and small pleural effusions. WBC count is 10.7 hemoglobin 10.1 basic metabolic profile is normal renal profile is normal 02/03/2024, he is now postoperative day #4. Remains in the ICU, patient denies any specific complaints, compliant with his incentive spirometry, does not seem to be in any distress, however his FiO2 requirement has gone up, he is now on 8 L high flow nasal cannula. O2 saturation is in the 95% range, chest x-ray showed minimal atelectasis, no clear-cut evidence of congestive heart failure. Patient went into atrial fibrillation last night, and remains in atrial fibrillation with a rate of 112. Patient was given amiodarone 300 mg over 2- hour. Remains on amiodarone orally 200 mg p.o. twice daily. Patient is otherwise hemodynamically stable, 02/05/2024 in the intensive care unit. Postoperative day #6. He is awake and alert in no acute distress. Sitting up in a chair at the bedside. Maintaining good O2 saturations in the 90s on room air. Chest x-ray does continue to show basilar atelectasis. He is again encouraged regarding the increased use of the incentive spirometer. His chest tube is to be removed today. Hopkins catheter to be removed. He did require albumin with additional Lasix this morning. He is anticoagulated with Eliquis. He remains in atrial fibrillation with a controlled ventricular rate. Sputum culture revealed no growth. 3. Sodium 132. Potassium 3.5. Bicarb 24. BUN 30. Creatinine 1.07. Glucose 146. He remains on bronchodilators. PMR consulted for rehab needs 02/05/24. He is visiting with his . They note he is improved, but still weak and difficulty getting out of chair. He has a cough with chest pain with coughing, is tired, SOB with activity. Denies any pain otherwise. Working with therapies and has been min A for bed mobility, transfers, ambulation with SHEET METAL ROOFER, min A UE/max A LE dressing. Review of Systems + per above, o/w all systems reviewed were negative. Past Medical History Past Medical History: Atrial Fibrillation, Heart Failure, Diabetes Mellitus, Hyperlipidemia, Hypertension, Sleep Apnea/CPAP/BIPAP Additional Past Medical History / Comment(s): uses CPAP, SOB w/exertion History of Any Multi-Drug Resistant Organisms: None Reported Past Surgical History: Cardiac Ablation, Heart Catheterization, Hernia Repair, Orthopedic Surgery, Tonsillectomy Additional Past Surgical History / Comment(s): Bilat. knee surgery(6 surgeries) 1967 - 1973, hiatal hernia repair 1984, colonoscopy, cardioversion, LUCY Past Anesthesia/Blood Transfusion Reactions: No Reported Reaction Smoking Status: Never smoker - Past Family History Mother Family Medical History: No Reported History Father Family Medical History: Myocardial Infarction ([place]) Additional Family Medical History / Comment(s): age 78 [place] Sister(s) Family Medical History: Myocardial Infarction ([place]) Additional Family Medical History / Comment(s): age 50 [place] Medications and Allergies Home Medications Medication Instructions Recorded Confirmed Type Amiodarone HCl [Pacerone] 200 mg PO QAM 01/22/20 01/30/24 History Apixaban [Eliquis] 5 mg PO BID 01/22/20 01/30/24 History Atorvastatin [Lipitor] 20 mg PO QAM 01/22/20 01/30/24 History Dapagliflozin Propanediol [Farxiga] 10 mg PO HS 01/22/20 01/30/24 History Furosemide [Lasix] 40 mg PO QAM 01/22/20 01/30/24 History Metoprolol Tartrate [Lopressor] 25 mg PO BID 01/22/20 01/30/24 History Spironolactone 25 mg PO DAILY 01/22/20 01/30/24 History glipiZIDE [Glucotrol] 10 mg PO QAM 01/22/20 01/30/24 History lisinopriL [Zestril] 20 mg PO QAM 01/22/20 01/30/24 History metFORMIN HCL 1,000 mg PO BID 12/25/23 01/30/24 History Allergies Allergy/AdvReac Type Severity Reaction Status Date / Time silk stitches AdvReac body Uncoded 01/30/24 06:35 wouldn't absorb them Physical Exam Vitals: Vital Signs Temp Pulse Resp BP Pulse Ox 02/05/24 16:00 94 35 H 112/74 96 02/05/24 15:00 84 27 H 95/76 96 02/05/24 14:23 85 02/05/24 14:13 85 02/05/24 14:00 92 28 H 101/62 95 02/05/24 13:00 84 28 H 97/84 95 02/05/24 12:00 98.6 F 80 28 H 102/66 95 02/05/24 11:00 80 28 H 115/73 97 02/05/24 10:13 88 02/05/24 10:03 85 96 02/05/24 10:00 89 24 114/71 97 02/05/24 09:00 108 H 19 108/63 98 02/05/24 08:00 98.4 F 96 24 123/86 96 02/05/24 07:00 96 21 122/91 97 02/05/24 06:03 101 H 27 H 122/91 98 02/05/24 05:00 82 24 119/71 95 02/05/24 04:00 98.3 F 90 37 H 109/91 96 02/05/24 03:00 86 31 H 122/91 91 L 02/05/24 02:00 84 24 120/65 93 L 02/05/24 01:00 87 29 H 98/60 94 L 02/05/24 00:00 98.9 F 86 30 H 91/61 91 L 02/04/24 23:00 86 25 H 105/59 91 L 02/04/24 22:00 82 27 H 96/62 89 L 02/04/24 21:00 90 29 H 89/51 94 L 02/04/24 20:49 88 02/04/24 20:37 94 02/04/24 20:00 99.1 F 96 22 90/55 92 L 02/04/24 19:15 92 22 90/55 93 L 02/04/24 18:15 96 28 H 91/76 91 L 02/04/24 17:15 104 H 25 H 131/85 92 L Intake and Output 02/05/24 02/05/24 02/05/24 06:59 14:59 22:59 Intake Total 640 1168 490 Output Total 765 954 0 Balance -125 214 490 Intake: IV 160 70 .9 160 20 Albumin Human 25% 50 ml 50 In Empty Bag 1 bag @ 50 mls/hr IVPB ONCE ONE Rx#: [id number] Oral 480 1098 490 Output: Chest Tube Drainage 2 mediastinal x1 2 Urine 765 775 0 Post Void Residual 177 Other: Voiding Method Indwelling Catheter Indwelling Catheter # Voids 1 # Bowel Movements 1 Weight 156.2 kg GENERAL EXAM: Alert, pleasant 63-year-old male, up in a chair, on room air, comfortable in no apparent distress. HEAD: Normocephalic. EYES: Normal reaction of pupils, equal size. CHEST: No chest wall deformity. Sternal dressing dry and intact. Heart hugger in place. LUNGS: Good air exchange, non-labored respirations CVS: irregular rhythm. ABDOMEN: No guarding or rigidity. NEURO: A&O x4. Speech fluent. Follows 3 step commands. MMT 5/5 UE (shoulders not tested), 5/5 LE SILT bilateral UE/LE DTR 2+ UE/LE SKIN: No rashes CENTRAL NERVOUS SYSTEM: No focal deficits, tone is normal in all 4 extremities. EXTREMITIES: There is 1+ peripheral edema. No calf TTP, negative Homans. Results CBC & Chem 7: 02/05/24 06:18 02/05/24 06:18 Labs: Abnormal Lab Results - Last 24 Hours (Table) 02/04/24 02/04/24 02/05/24 Range/Units 16:51 20:10 02:23 RBC (4.30-5.90) m/uL Hgb (13.0-17.5) gm/dL Hct (39.0-53.0) % Sodium (137-145) mmol/L BUN (9-20) mg/dL Glucose (74-99) mg/dL POC Glucose (mg/dL) 158 H 276 H 142 H (70-110) mg/dL Calcium (8.4-10.2) mg/dL 02/05/24 02/05/24 02/05/24 Range/Units 06:18 06:18 06:49 RBC 3.38 L (4.30-5.90) m/uL Hgb 10.0 L (13.0-17.5) gm/dL Hct 31.5 L (39.0-53.0) % Sodium 132 L (137-145) mmol/L BUN 30 H (9-20) mg/dL Glucose 146 H (74-99) mg/dL POC Glucose (mg/dL) 179 H (70-110) mg/dL Calcium 7.8 L (8.4-10.2) mg/dL 02/05/24 Range/Units 11:15 RBC (4.30-5.90) m/uL Hgb (13.0-17.5) gm/dL Hct (39.0-53.0) % Sodium (137-145) mmol/L BUN (9-20) mg/dL Glucose (74-99) mg/dL POC Glucose (mg/dL) 183 H (70-110) mg/dL Calcium (8.4-10.2) mg/dL Microbiology - Last 24 Hours (Table) 02/02/24 16:02 Gram Stain - Final Sputum Sputum Culture - Final Assessment and Plan Assessment: # Gait impairment/decline in function. - has been min A with therapies today # Ascending aortic aneurysm measuring 4.4 cm with severe aortic insufficiency S/p aortic valve replacement with a Biobentall #29 Konnect, left atrial appendage ligation with a #35 mm atrial clip and a intraoperative transesophageal echocardiogram by Dr. Leigh 01/29 # Nonischemic cardiomyopathy with an ejection fraction of 45 to 50% # History of atrial fibrillation status post ablation, maintained on Eliquis # History of hypertension # Hyperlipidemia # Diabetes mellitus # Obesity with a BMI of 42 kg/m # Obstructive sleep apnea utilizing CPAP Recommendations: - per your medical managment - continue PT/OT Does seem to be improving, but if unable to go home with [facility] when medically stable, would be appropriate for IPR, pending insurance approval.
[2024-02-05 16:52] LABS: Glucose,Whole Blood 213 mg/dL (70-110)
[2024-02-05 20:07] LABS: Glucose,Whole Blood 175 mg/dL (70-110)
[2024-02-06 01:52] LABS: Glucose,Whole Blood 171 mg/dL (70-110)
--- NOTE | 2024-02-06 05:43 | P.PN ---
Subjective Progress Note Date: 02/05/24 - Chief Complaint Biobentall procedure - History of Present Illness 63-year-old patient, follows with Dr. Hayden. Chronic stable medical conditions include atrial fibrillation, CHF, diabetes, hypertension, hyperlipidemia, obstructive sleep apnea CPAP. Patient underwent todayBiobentall procedure by Dr.s Leigh. Also included left atrial appendage clipping. Postprocedure patient in the ICU. Intubated. FiO2 50 and a PEEP of 10. Has 1 right pleural chest tubes and 2 mediastinal chest tubes. Patient having significant output through the tubes. Drips include insulin and propofol. January 31, 2024: Patient extubated yesterday. Today sitting up in the chair/recliner. Family at the bedside. On clear liquid diet. Hopkins catheter remains in place. Sinus rhythm. Chest tubes in place. There was decreased output from the chest tube yesterday now controlled. Insulin drip. Has a slight cough. February 01, 2024: ICU. Up in a recliner. Did walk up to the door. Hopkins catheter discontinued. Has not made urine till now. Has [address] Using incentive spirometry. Eating supper. Slight cough. Insulin drip 01/31/2024 Patient is seen in follow-up this morning in the ICU with multiple medical consultations following. Patient is status post aortic valve replacement. Patient continues on 5 L high flow nasal cannula with continued chest tubes noted. Patient to bring in his own CPAP. Recommend continued on treatments and was given a dose of Lasix today. Encouraged incentive spirometer use at least 10 times every hour while awake. Patient continues on insulin drip and would recommend transitioning to sliding scale and long-acting with close monitoring with Accu-Cheks before meals and at bedtime as well as 2 AM. 02/03/2024 Patient is evaluated today in follow up. Remains in the intensive care unit. Patient is postoperative aortic valve replacement. He required 10 L hi flow overnight which is currently being weaned and now down to 6L hi-flow cannula. Chest xray today reveals mild interval worsening in the acute cardiopulmonary process with mildly increased pulmonary congestion and bibasilar infiltrates likely representing bibasilar atelectasis. Patient encouraged to ambulate and continue to use incentive spirometer 10 x an hour while awake. Patient was transitioned off the insulin gtt and blood glucose remains elevated above 200. Has been adjusted with increase in inuslin today and will continue to monitor closely and adjust as needed. Patient is having multiple loose BMs C.Dif was checked which is negative. 02-04-2024 Patient is seen in follow-up today continues to be in the ICU with multiple medical consultations following. Patient currently found on room air while sitting up in the chair eating lunch. Patient with incentive spirometer at the bedside encouraged to continue using at least 10 times every hour while awake. Patient continues with chest tube noted and there is discussion of possible removal. Encouraged to increase activity as tolerated and continued heart hugger use. Diabetic diet along with heart healthy and close monitoring of Accu-Cheks and will adjust insulin regimen as needed. Discussed with at the bedside who reports will most likely require rehab. PT/OT therapy to evaluate 02/05/2024 Patient seen in follow-up today continues in the ICU currently on room air and reports to shortness of breath with exertion. Patient did have chest tube removed this morning and has been encouraged to continue using incentive spirometer. Patient is tolerating diet and blood sugars have been mildly elevated and insulin is being adjusted. Rehab being considered and inpatient rehab was consulted. Patient is afebrile with no reports of chest pain or palpitations. Patient tolerating diet with no reported nausea or vomiting Review of systems: Constitutional: No reports of fatigue, no fever, no chills Cardiovascular: reports of chest wall pain and discomfort with inspiration Respiratory: reports of shortness of breath with exertion, although feels is improved GI: no reports of nausea, no vomiting, or diarrhea : No reports of dysuria or retention Neurovascular: reports of weakness All medications have been reviewed Physical examination: This is a 63-year-old male who is awake, alert and oriented x 3, well-developed, ill-appearing, morbidly obese GENERAL: Up in recliner EYES: Pupils equal. Conjunctiva normal. HEENT: External appearance of nose and ears normal, oral cavity grossly normal. NECK: JVD unable to assess; masses not palpable. HEART: S1, S2 muffled LUNGS: Diminished breath sounds bilaterally with some faint crackles noted at the bases ABDOMEN: Soft, nontender, obese, no masses palpable. PSYCH: Alert and x 3, mood affect normal Assessment: -Severe aortic insufficiency with aortic aneurysm, status post Biobentall procedure, aortic valve replacement -Mild acute postprocedure blood loss anemia expected from surgery -Acute hypoxemic respiratory failure post extubation likely due to atelectasis noted on chest xray. Does not appear to be volume overloaded. -Thrombocytopenia likely dilutional -Some low-grade fever. Follow clinically. Likely atelectasis, improved afebrile -Morbid obesity BMI 42.8 -Diabetes mellitus type 2, uncontrolled with hyperglycemia -Hyperlipidemia -Essential hypertension -Paroxysmal atrial fibrillation.: Currently in sinus rhythm with Previous ablation. -Obstructive sleep apnea, Uses CPAP -Chronic congestive heart failure from systolic dysfunction EF 45 to 50% with global hypokinesia on LUCY on December 26, [address] Taylor -GI prophylaxis -DVT prophylaxis -Full code Plan: Patient continues in the ICU with multiple medical consultations following. Patient is status post aortic valve replacement Encourage incentive spirometer use at least 10 times every hour while awake Patient to continue with CPAP from home Maintained on room air currently and supplemental oxygen as needed no oxygen on exam Patient is a diabetic and is tolerating diet. Insulin drip was discontinued. Patient to continue sliding scale along with long-acting and recommend close monitoring of Accu-Cheks before meals and at bedtime and 2 AM for tight glycemic control. Scheduled insulin has been added. HS levemir being increased to 15 units and continue on 10 units daily. Further adjustments to be made if blood glucose remains elevated. PT/OT therapy to evaluate. Patient willneed rehab on discharge with case management/social work following. Inpatient rehab consult placed Encouraged oral intake We will continue to follow with CT surgery, thank you kindly for this consultation The impression and plan of care has been dictated by Erin Luna, Nurse Practitioner as directed. Dr. Ward MD I have performed a history and examination and MDM of this patient, discussed the same with the dictator, and agree with the dictator's assessment and plan as written ,documented as a scribe. Based on total visit time, I have performed more than 50% of the visit. Objective - Vital Signs Vital signs: Vital Signs Temp 98.4 F 02/05/24 08:00 Pulse 96 02/05/24 08:00 Resp 24 02/05/24 08:00 BP 123/86 02/05/24 08:00 Pulse Ox 96 02/05/24 08:00 FiO2 50 01/30/24 20:50 Intake & Output 02/04/24 02/05/24 02/05/24 18:59 06:59 18:59 Intake Total 1550 700 138 Output Total 1391 1165 277 Balance 159 -465 -139 Weight 156.2 kg Intake: IV 150 220 20 .9 100 220 20 cefTRIAXone 1 gm In 50 Sodium Chloride 0.9% 50 ml @ 100 mls/hr IVPB Q24HR [facility] Rx#:[id number] Intake, IV Titration 50 Amount Albumin Human 25% 50 ml 50 In Empty Bag 1 bag @ 50 mls/hr IVPB ONCE STA Rx#: [id number] Oral 1350 480 118 Output: Chest Tube Drainage 16 2 mediastinal x1 16 2 Urine 1375 1165 275 Other: Voiding Method Indwelling Catheter Indwelling Catheter # Bowel Movements 1 ABP, PAP, CO, CI - Last Documented Arterial Blood Pressure 123/50 Pulmonary Artery Pressure 27/12 Cardiac Output 10 Cardiac Index 3.7 - Labs CBC & Chem 7: 02/05/24 06:18 02/05/24 06:18 Labs: Abnormal Lab Results - Last 24 Hours (Table) 02/04/24 02/04/24 02/04/24 Range/Units 03:36 11:48 16:51 RBC (4.30-5.90) m/uL Hgb (13.0-17.5) gm/dL Hct (39.0-53.0) % Sodium (137-145) mmol/L BUN (9-20) mg/dL Glucose (74-99) mg/dL POC Glucose (mg/dL) 160 H 158 H (70-110) mg/dL Calcium (8.4-10.2) mg/dL Magnesium 3.0 H (1.6-2.3) mg/dL 02/04/24 02/05/24 02/05/24 Range/Units 20:10 02:23 06:18 RBC 3.38 L (4.30-5.90) m/uL Hgb 10.0 L (13.0-17.5) gm/dL Hct 31.5 L (39.0-53.0) % Sodium (137-145) mmol/L BUN (9-20) mg/dL Glucose (74-99) mg/dL POC Glucose (mg/dL) 276 H 142 H (70-110) mg/dL Calcium (8.4-10.2) mg/dL Magnesium (1.6-2.3) mg/dL 02/05/24 02/05/24 Range/Units 06:18 06:49 RBC (4.30-5.90) m/uL Hgb (13.0-17.5) gm/dL Hct (39.0-53.0) % Sodium 132 L (137-145) mmol/L BUN 30 H (9-20) mg/dL Glucose 146 H (74-99) mg/dL POC Glucose (mg/dL) 179 H (70-110) mg/dL Calcium 7.8 L (8.4-10.2) mg/dL Magnesium (1.6-2.3) mg/dL Microbiology - Last 24 Hours (Table) 02/02/24 16:02 Gram Stain - Final Sputum Sputum Culture - Final
[2024-02-06 06:24] LABS: African American GFR (CKD) >90 (>60 ml/min/1.73 sqM); Anion Gap 5 mmol/L; Blood Urea Nitrogen 27 mg/dL (9-20); Calcium 7.6 mg/dL (8.4-10.2); Carbon Dioxide 25 mmol/L (22-30); Chloride 100 mmol/L (98-107); Glucose 134 mg/dL (74-99); Magnesium 2.6 mg/dL (1.6-2.3); Non-African American GFR(CKD) 80 (>60 ml/min/1.73 sqM); Potassium 3.9 mmol/L (3.5-5.1); Sodium 130 mmol/L (137-145)
[2024-02-06 06:47] LABS: Basophils % (A) 0 %; Eosinophils # (A) 0.1 k/uL (0-0.7); Eosinophils % (A) 2 %; HCT 29.6 % (39.0-53.0); HGB 9.4 gm/dL (13.0-17.5); Lymphocytes # (A) 1.2 k/uL (1.0-4.8); Lymphocytes % (A) 13 %; MCH 29.3 pg (25.0-35.0); MCHC 31.9 g/dL (31.0-37.0); MCV 91.8 fL (80.0-100.0); Mean Platelet Volume 8.6; Monocytes # (A) 0.8 k/uL (0-1.0); Monocytes % (A) 9 %; Neutrophils # (A) 6.5 k/uL (1.3-7.7); Neutrophils % (A) 74 %; Platelet Count 228 k/uL (150-450); RBC 3.22 m/uL (4.30-5.90); RDW 14.7 % (11.5-15.5); WBC 8.8 k/uL (3.8-10.6)
--- NOTE | 2024-02-06 06:50 | P.PN ---
Subjective Progress Note Date: 02/06/24 Principal diagnosis: Valvular heart disease The patient is a pleasant 63-year-old gentleman with morbid obesity as well as hypertension and dyslipidemia and aortic insufficiency and dilated aortic root and paroxysmal atrial fibrillation was admitted to the hospital and underwent aortic valve replacement along with aortic root replacement and reimplanting the coronary arteries. He went into atrial fibrillation but he is known to have paroxysmal atrial fibrillation. February 04, 2024 The patient was seen and evaluated this morning. He is in atrial fibrillation with controlled heart rate. He is on amiodarone. Will continue the current medical regimen and consider tapering down the dose of amiodarone. He need to be started on oral anticoagulation once the pacer wire out. Otherwise he is stable hemodynamically. He is not on any drips at this point. The chest x-ray was reviewed this morning. The physical examination is remarkable for morbidly obese patient with upper extremities edema and diminished breathing sounds bilaterally. February 05, 2024 The patient was seen and evaluated this morning. He remains in atrial fibrillation with controlled heart rate on the current medical regimen. Oral anticoagulation was initiated earlier today. Lasix was given because he still have bilateral lower extremities edema and also upper extremities edema. Beside that he seems to be stable from the cardiac standpoint of view. The examination is remarkable for irregular rhythm with soft systolic murmur and distant heart sounds and clear breathing sounds bilaterally and bilateral lower extremities edema February 06, 2024 The patient was seen and evaluated this morning. Overall he is stable. He continues to be in atrial fibrillation with controlled heart rate on the current medical regimen. Anticoagulation was initiated yesterday with his pressure is soft and has been in the 90s with that being said I am going to cut down the dose of lisinopril from 10 mg daily to 5 mg p.o. daily. Continue the current medical regimen including the current dose of amiodarone and consider tapering the dose down. Beside that his chest x-ray was reviewed today and seems to be stable and also his kidney function seems to be stable. The examination is remarkable for diminished breathing sounds bilaterally with irregular rhythm. Assessment Aortic valve replacement with aortic root replacement Paroxysmal atrial fibrillation Atrial fibrillation with controlled heart rate Multiple comorbid conditions Plan Continue the current medical regimen Decrease the dose of lisinopril Follow-up with the patient Objective - Vital Signs Vital signs: Vital Signs Temp 98.2 F 06/05/24 04:00 Pulse 87 02/06/24 06:00 Resp 25 H 02/06/24 06:00 BP 92/66 02/06/24 06:00 Pulse Ox 96 02/06/24 06:00 FiO2 50 01/30/24 20:50 Intake & Output 02/05/24 02/05/24 02/06/24 06:59 18:59 06:59 Intake Total 700 1776 450 Output Total 5285 141 8237 Balance -465 822 -1189 Weight 156.2 kg 155.4 kg Intake: IV 220 70 .9 220 20 Albumin Human 25% 50 ml 50 In Empty Bag 1 bag @ 50 mls/hr IVPB ONCE ONE Rx#: [id number] Oral 480 1706 450 Output: Chest Tube Drainage 2 mediastinal x1 2 Urine 6162 684 2679 Post Void Residual 177 389 Other: Voiding Method Indwelling Catheter Urinal Indwelling Catheter # Voids 1 1 # Bowel Movements 1 ABP, PAP, CO, CI - Last Documented Arterial Blood Pressure 123/50 Pulmonary Artery Pressure 27/12 Cardiac Output 10 Cardiac Index 3.7 - Labs CBC & Chem 7: 02/06/24 05:34 02/06/24 05:34 Labs: Abnormal Lab Results - Last 24 Hours (Table) 02/05/24 02/05/24 02/05/24 Range/Units 06:18 06:18 06:49 RBC 3.38 L (4.30-5.90) m/uL Hgb 10.0 L (13.0-17.5) gm/dL Hct 31.5 L (39.0-53.0) % Sodium 132 L (137-145) mmol/L BUN 30 H (9-20) mg/dL Glucose 146 H (74-99) mg/dL POC Glucose (mg/dL) 179 H (70-110) mg/dL Calcium 7.8 L (8.4-10.2) mg/dL Magnesium (1.6-2.3) mg/dL 02/05/24 02/05/24 02/05/24 Range/Units 11:15 16:51 20:06 RBC (4.30-5.90) m/uL Hgb (13.0-17.5) gm/dL Hct (39.0-53.0) % Sodium (137-145) mmol/L BUN (9-20) mg/dL Glucose (74-99) mg/dL POC Glucose (mg/dL) 183 H 213 H 175 H (70-110) mg/dL Calcium (8.4-10.2) mg/dL Magnesium (1.6-2.3) mg/dL 02/06/24 02/06/24 02/06/24 Range/Units 01:50 05:34 05:34 RBC 3.22 L (4.30-5.90) m/uL Hgb 9.4 L (13.0-17.5) gm/dL Hct 29.6 L (39.0-53.0) % Sodium 130 L (137-145) mmol/L BUN 27 H (9-20) mg/dL Glucose 134 H (74-99) mg/dL POC Glucose (mg/dL) 171 H (70-110) mg/dL Calcium 7.6 L (8.4-10.2) mg/dL Magnesium 2.6 H (1.6-2.3) mg/dL Microbiology - Last 24 Hours (Table) 02/02/24 16:02 Gram Stain - Final Sputum Sputum Culture - Final
[2024-02-06 06:52] LABS: Glucose,Whole Blood 141 mg/dL (70-110)
[2024-02-06] MEDS: POTASSIUM CHLORIDE ER 20 MEQ TAB.ER PO SCH (07:06)
--- NOTE | 2024-02-06 07:54 | P.PN ---
Subjective Progress Note Date: 02/06/24 Principal diagnosis: Aortic root aneurysm with severe aortic insufficiency, ascending aortic aneurysm. Previous medical history of nonischemic cardiomyopathy ejection fraction 45-50%, hypertension, hyperlipidemia, paroxysmal atrial fibrillation on Eliquis for anticoagulation as an outpatient status post cardioversion in October 2019 and subsequent ablation in February 2020, obstructive sleep apnea with home CPAP use, diabetes mellitus type 2, obesity, and family history of brandy ature coronary artery disease. POD #7 Biobentall (#29mm Konnect), left atrial appendage ligation with #35mm AtriClip, intraoperative transesophageal echocardiogram completed by anesthesia. Postoperative acute blood loss anemia, expected given hemodilution and cardiopulmonary bypass. Paroxysmal atrial fibrillation, a known common occurrence after cardiac surgery and expected given patient's history of atrial fibrillation status post ablation in 2019. The patient was seen and examined sitting up in recliner in the intensive care unit in no acute distress. States pain is mostly controlled on current medication regimen, denies shortness of breath. Remains in controlled atrial fibrillation, hemodynamically stable, systolic blood pressure has been in the 90s, however mean arterial pressure has been in the 70-80s. Was seen by Dr. Taylor this morning who decreased his lisinopril to 5 mg daily. Patient has had issues with urine retention and Hopkins catheter was reinserted last night. Brett marrero has been ambulatory with assistance although not very far, being considered for inpatient rehab at discharge. No other new concerns. Objective - Vital Signs Vital signs: Vital Signs Temp 98.2 F 02/06/24 04:00 Pulse 89 02/06/24 07:30 Resp 27 H 02/06/24 07:00 BP 92/71 02/06/24 07:00 Pulse Ox 96 02/06/24 07:36 FiO2 50 01/30/24 20:50 Intake & Output 02/05/24 02/06/24 02/06/24 18:59 06:59 18:59 Intake Total 1776 450 Output Total 414 1639 75 Balance 822 -1189 -75 Weight 155.4 kg Intake: IV 70 .9 20 Albumin Human 25% 50 ml 50 In Empty Bag 1 bag @ 50 mls/hr IVPB ONCE ONE Rx#: [id number] Oral 1706 450 Output: Chest Tube Drainage 2 mediastinal x1 2 Urine 775 1250 75 Post Void Residual 177 389 Other: Voiding Method Urinal Indwelling Catheter # Voids 1 1 ABP, PAP, CO, CI - Last Documented Arterial Blood Pressure 123/50 Pulmonary Artery Pressure 27/12 Cardiac Output 10 Cardiac Index 3.7 - Exam CONSTITUTIONAL: Appears comfortable, cooperative, no acute distress RESPIRATORY: Lungs sounds diminished bilaterally. Respirations even, nonlabored. Currently on room air with oxygen saturation 96%. Able to achieve 1000 mL on incentive spirometry. Strong cough. CARDIOVASCULAR: S1, S2 present. Irregular rate and rhythm, controlled atrial fibrillation on telemetry. Sternum stable. Palpable peripheral pulses bilat erally. Generalized edema present. No calf pain or tenderness noted. Heart hugger in place with patient demonstrating appropriate use. Antiembolism stockings, SCDs present. GASTROINTESTINAL: Abdomen soft, nontender, nondistended. Active bowel sounds present 4 quadrants. Tolerating diet. Positive bowel movement 02/04 GENITOURINARY: Hopkins present draining clear, yellow urine. Output overnight 50-75 mL per hour, 2025 mL in the last 24 hours INTEGUMENTARY: Skin is warm and dry with evidence of good perfusion. Anterior chest incision well approximated and covered with dry intact dressing NEUROLOGIC: Cranial nerves II through XII intact MUSKULOSKELETAL: Able to move all extremities, strength equal bilaterally, gait normal PSYCHIATRIC: Alert and oriented to person place and time, appropriate affect, intact judgment and insight - Allied health notes Allied health notes reviewed: nursing - Labs CBC & Chem 7: 02/06/24 05:34 02/06/24 05:34 Labs: Abnormal Lab Results - Last 24 Hours (Table) 02/05/24 02/05/24 02/05/24 Range/Units 11:15 16:51 20:06 RBC (4.30-5.90) m/uL Hgb (13.0-17.5) gm/dL Hct (39.0-53.0) % Sodium (137-145) mmol/L BUN (9-20) mg/dL Glucose (74-99) mg/dL POC Glucose (mg/dL) 183 H 213 H 175 H (70-110) mg/dL Calcium (8.4-10.2) mg/dL Magnesium (1.6-2.3) mg/dL 02/06/24 02/06/24 02/06/24 Range/Units 01:50 05:34 05:34 RBC 3.22 L (4.30-5.90) m/uL Hgb 9.4 L (13.0-17.5) gm/dL Hct 29.6 L (39.0-53.0) % Sodium 130 L (137-145) mmol/L BUN 27 H (9-20) mg/dL Glucose 134 H (74-99) mg/dL POC Glucose (mg/dL) 171 H (70-110) mg/dL Calcium 7.6 L (8.4-10.2) mg/dL Magnesium 2.6 H (1.6-2.3) mg/dL 02/06/24 Range/Units 06:51 RBC (4.30-5.90) m/uL Hgb (13.0-17.5) gm/dL Hct (39.0-53.0) % Sodium (137-145) mmol/L BUN (9-20) mg/dL Glucose (74-99) mg/dL POC Glucose (mg/dL) 141 H (70-110) mg/dL Calcium (8.4-10.2) mg/dL Magnesium (1.6-2.3) mg/dL Microbiology - Last 24 Hours (Table) 02/02/24 16:02 Gram Stain - Final Sputum Sputum Culture - Final - Imaging and Cardiology Chest x-ray: image reviewed Assessment and Plan Assessment: Aortic root aneurysm with severe aortic insufficiency, status post Biobentall (#29mm Konnect) Ascending aortic aneurysm, status post Biobentall (#29mm Konnect) Mild mitral and tricuspid regurgitation Nonischemic cardiomyopathy, chronic diastolic heart failure, EF 45-50% Hypertension Dyslipidemia, triglycerides 176, LDL 65, cholesterol 141, HDL 40.8 Paroxysmal atrial fibrillation on Eliquis for anticoagulation, status post cardioversion in October 2019, ablation in February 2020, status post left atrial appendage ligation with a 35 mm AtriClip Diabetes mellitus type II, with preoperative hemoglobin A1c 8.1% Morbid obesity Lifetime non-smoker, preoperative FEV1 73% of predicted Obstructive sleep apnea with home CPAP use Family history of premature coronary artery disease Postoperative acute blood loss anemia, expected given hemodilution and cardiopulmonary bypass Urinary retention, unspecified requiring placement of Hopkins catheter Plan: Continue to maximize medical therapy with low-dose aspirin, statin, and beta- henrietta. Will increase beta henrietta as tolerated Continue lisinopril for afterload reduction. Increase activity as tolerated. PT/OT/cardiac rehab following. Continue amiodarone for atrial fibrillation, continue Eliquis for anticoagulation Encourage incentive spirometry use 10 times every hour while awake. Bronchodilator management per pulmonary Will monitor daily labs and chest x-rays. Electrolyte replacement per protocol. Sputum culture finalized as negative GI/DVT prophylaxis. Insulin management per internal medicine. Preoperative hemoglobin A1c 8.1%. Pain control per current medication regimen. Continue Flomax 0.4 mg p.o. daily, Hopkins reinserted, patient was seen by urology with recommendations for future voiding trial prior to follow-up appointment Continue record strict and accurate I's and O's Daily weights Shower daily starting today Will place transfer orders for 3 S. cardiac stepdown unit, may transfer when bed available Discharge planning is in place, anticipate discharge home with home health care or to inpatient rehab in the next 24-48 hours More recommendations to follow on patient's clinical course
--- NOTE | 2024-02-06 08:01 | XR ---
EXAMINATION TYPE: XR chest 2V DATE OF EXAM: 02/06/2024 COMPARISON: 02/05/2024 HISTORY: 63-year-old male. Cardiac surgery TECHNIQUE: Frontal and lateral views FINDINGS: Median sternotomy wires are present with prosthetic aortic valve. Moderate cardiomegaly persists. Int erstitial/vascular prominence slightly increased. Patchy bibasilar opacities small left effusion pers ists. IMPRESSION: 1. Cardiomegaly with possible light worsening mild pulmonary vascular congestion. 2. Patchy bibasilar opacities and small left pleural effusion persist.
[2024-02-06] MEDS: ALBUMIN HUMAN 25% 50 ML in EMPTY BAG 1 BAG IVPB ONE (10:14)
--- NOTE | 2024-02-06 11:00 | P.PN ---
Subjective Progress Note Date: 02/06/24 This is a 63-year-old male patient with a known history of atrial fibrillation and previous ablation approximately 4 years ago maintained on Eliquis, diabetes mellitus, hyperlipidemia, hypertension, obstructive sleep apnea utilizing CPAP, nonischemic cardiomyopathy who was recently found to have impaired left ventricular systolic function with ejection fraction of 45 to 50% and severe aortic regurgitation and aneurysmal ascending aorta measuring 4.4 cm. He was brought in electively today for surgery with Dr. Leigh. He did undergo aortic valve replacement with a biobentall #29 Konnect, left atrial appendage ligation with atrial clip placement and follow-up transesophageal echocardiogram. He is seen currently in the intensive care unit. He is intubated on the mechanical ventilator with current settings of assist-control mode of 16, tidal volume 550 and FiO2 70% and a PEEP of 10. Initial blood gases on 100% FiO2 and a rate of 12 revealed a PaO2 of 166, pCO2 of 54 and a pH of 7.28. Chest x-ray reveals evidence of the endotracheal tube and nasogastric tube as well as a Arona-Des catheter suspected in place. X-ray is somewhat underpenetrated. 2 mediastinal chest tubes and a right-sided chest tube in place. Right IJ Arona-Des catheter in place. Cardiac output 6.9. Cardiac index 2.5. PA pressures 34/18. CVP 12. Currently in sinus rhythm. He is on lactated Ringer's at 50 MLS per hour. Propofol at 30 mcg/kg/min. Insulin drip at 3 units/h. Nitroglycerin drip at 10 mcg/min. He did receive albumin. Receiving bronchodilators. Received cefazolin. Initiated on Cleviprex at 2 mg/h. Patient was evaluated today on 01/31/24 POD #1 Biobentall (#29mm Konnect), left atrial appendage ligation with #35mm AtriClip, patient was extubated yesterday rated the extubation quite well, he is sitting in a bedside chair today, he was successfully extubated at 8:52 p.m. Currently on 6 L nasal cannula, O2 sat is 94%, patient is not in any distress, achieving almost 1500 cc on his incentive spirometry. For complaint except for minimal cough, nonproductive, no fever, no chills, no hemoptysis, and no chest pain. He did receive a unit of platelets last evening, continues to have mediastinal and right pleural chest tubes, no airleak is noted, mediastinal chest tube drained about 200 cc overnight, the right pleural chest tube drained 140 cc since last night. Patient is hemodynamically stable not requiring any pressors, cardiac output is 5.4 cardiac index is 2.0. Chest x-ray is showing minimal atelectasis at the base. CBC is relatively normal hemoglobin is 11.9. Platelets today are 130,000 basic metabolic profile is normal, except for BUN of 26 creatinine 1.28 Patient was evaluated today on 02/01/2024, he is now postoperative day #2. Patient is doing well, asymptomatic, on room air, does not seem to be in any distress, he is receiving lactated Ringer's at 50 cc/h insulin remains 11.5 units/h he is achieving over 1000 cc on his incentive spirometer. Chest x-ray showed minimal nonspecific atelectasis. Small tiny bilateral pleural effusions noted, right-sided chest tube noted, tip of the Arona-Des catheter is in the main pulmonary artery region. Patient denies any cough or wheezing no shortness of breath no chest pain. No abdominal pain no nausea no vomiting WBC count is 12.1 hemoglobin is 10.4 basic metabolic profile is normal renal profile is better today creatinine down to 1.08 from 1.28 yesterday. Patient was evaluated today on 02/02/2024,POD #3 Biobentall (#29mm Konnect), left atrial appendage ligation with #35mm AtriClip. Patient continues to do well, however he is on 5 L nasal cannula. O2 sats is 95%, still achieving about 1000 cc via incentive spirometry. He had a Tmax of 101 last night, he had a minimal productive cough this morning with aguilar tenacious sputum. Patient is hemodynamically stable, not in any distress, continues to have mediastinal chest tube, minimal drainage overnight. Catheter was discontinued yesterday.Chest x- ray showed cardiomegaly and small pleural effusions. WBC count is 10.7 hemoglobin 10.1 basic metabolic profile is normal renal profile is normal Patient was reevaluated today on 02/03/2024, he is now postoperative day #4. Remains in the ICU, patient denies any specific complaints, compliant with his incentive spirometry, does not seem to be in any distress, however his FiO2 requirement has gone up, he is now on 8 L high flow nasal cannula. O2 saturation is in the 95% range, chest x-ray showed minimal atelectasis, no clear-cut evidence of congestive heart failure. Patient went into atrial fibrillation last night, and remains in atrial fibrillation with a rate of 112. Patient was given amiodarone 300 mg over 2-hour. As per cardiology recommendation. Remains on amiodarone orally 200 mg p.o. twice daily. Patient is otherwise hemodynamically stable, not in distress, urine output in the last 8 hours has been excellent. He did receive Lasix yesterday with excellent diuresis. Continues to have the mediastinal chest tube, remains in place, and it is on suction at -20 cm. No leak, minimal drainage over the last 24 hours, roughly about 25 ML labs today were reviewed WBC count is 9.1 hemoglobin is 9.6 electrolytes are normal BUN is 39 creatinine 1.01 The patient is seen today in the intensive care unit. Postoperative day #5. He is currently sitting up in chair at the bedside. Awake and alert in no acute distress. He denies any worsening shortness of breath, cough or congestion. He is maintaining good O2 saturations in the 90s on 2 L/min per nasal cannula. He is afebrile. Hemodynamically stable. X-ray continues to show some mild pulmonary vascular congestion and patchy atelectasis. He is working well with the incentive spirometer. He completed ceftriaxone. Sputum culture pending. White count 8.3. Hemoglobin 9.6. Platelets 156. Sodium 132. Potassium 3.6. Bicarb 29. BUN 38. Creatinine 1.14. Glucose 132. The patient is seen today February 05, 2024 in follow-up in the intensive care unit. Postoperative day #6. He is awake and alert in no acute distress. Sitting up in a chair at the bedside. Maintaining good O2 saturations in the 90s on room air. Chest x-ray does continue to show basilar atelectasis. He is again encouraged regarding the increased use of the incentive spirometer. His chest tube is to be removed today. Hopkins catheter to be removed. He did require albumin with additional Lasix this morning. He is anticoagulated with Eliquis. He remains in atrial fibrillation with a controlled ventricular rate. Sputum culture revealed no growth. 3. Sodium 132. Potassium 3.5. Bicarb 24. BUN 30. Creatinine 1.07. Glucose 146. He remains on bronchodilators. The patient is seen today February 06, 2024 in follow-up in the intensive care unit. Postoperative day #7. He is currently sitting up in a chair. Awake and alert in no acute distress. Maintaining good O2 saturations in the 90s on room air. No IV fluids. Chest x-ray reveals mild pulmonary vascular congestion. Patchy bilateral airspace disease and small left pleural effusion. He is again encouraged regarding the increased use in the incentive spirometer. Chest tubes are out. White count 8.8. Hemoglobin 9.4. Platelets 228. Sodium 130. Potassium 3.9. Bicarb 25. BUN 27. Creatinine 0.99. Glucose 134. Hopkins catheter had to be replaced left evening. He remains on Eliquis for anticoagulation. He remains in atrial fibrillation. Continued on bronchodilators. Objective - Vital Signs Vital signs: Vital Signs Temp 97.8 F 02/06/24 08:00 Pulse 97 02/06/24 10:10 Resp 29 H 02/06/24 10:10 BP 113/71 02/06/24 10:10 Pulse Ox 94 L 02/06/24 08:00 FiO2 50 01/30/24 20:50 Intake & Output 02/05/24 02/06/24 02/06/24 18:59 06:59 18:59 Intake Total 1776 450 Output Total 954 1639 135 Balance 822 -1189 -135 Weight 155.4 kg Intake: IV 70 .9 20 Albumin Human 25% 50 ml 50 In Empty Bag 1 bag @ 50 mls/hr IVPB ONCE ONE Rx#: [id number] Oral 1706 450 Output: Chest Tube Drainage 2 mediastinal x1 2 Urine 775 1250 135 Post Void Residual 177 389 Other: Voiding Method Urinal Indwelling Catheter Indwelling Catheter # Voids 1 1 ABP, PAP, CO, CI - Last Documented Arterial Blood Pressure 123/50 Pulmonary Artery Pressure 27/12 Cardiac Output 10 Cardiac Index 3.7 - Exam GENERAL EXAM: Alert, 63-year-old male, up in a chair, on room air, in no apparent distress. HEAD: Normocephalic. EYES: Normal reaction of pupils, equal size. NOSE: Clear with pink turbinates. THROAT: No erythema or exudates. NECK: No masses, no JVD. CHEST: No chest wall deformity. Sternal dressing dry and intact. Heart hugger in place. LUNGS: Equal air entry with crackles in the posterior bases. CVS: S1 and S2 normal with no audible murmur, irregular rhythm. ABDOMEN: No hepatosplenomegaly, normal bowel sounds, no guarding or rigidity. SPINE: No scoliosis or deformity SKIN: No rashes CENTRAL NERVOUS SYSTEM: No focal deficits, tone is normal in all 4 extremities. EXTREMITIES: There is 1+ peripheral edema. No clubbing, no cyanosis. Pe ripheral pulses are intact. - Labs CBC & Chem 7: 02/06/24 05:34 02/06/24 05:34 Labs: Abnormal Lab Results - Last 24 Hours (Table) 02/05/24 02/05/24 02/05/24 Range/Units 11:15 16:51 20:06 RBC (4.30-5.90) m/uL Hgb (13.0-17.5) gm/dL Hct (39.0-53.0) % Sodium (137-145) mmol/L BUN (9-20) mg/dL Glucose (74-99) mg/dL POC Glucose (mg/dL) 183 H 213 H 175 H (70-110) mg/dL Calcium (8.4-10.2) mg/dL Magnesium (1.6-2.3) mg/dL 02/06/24 02/06/24 02/06/24 Range/Units 01:50 05:34 05:34 RBC 3.22 L (4.30-5.90) m/uL Hgb 9.4 L (13.0-17.5) gm/dL Hct 29.6 L (39.0-53.0) % Sodium 130 L (137-145) mmol/L BUN 27 H (9-20) mg/dL Glucose 134 H (74-99) mg/dL POC Glucose (mg/dL) 171 H (70-110) mg/dL Calcium 7.6 L (8.4-10.2) mg/dL Magnesium 2.6 H (1.6-2.3) mg/dL 02/06/24 Range/Units 06:51 RBC (4.30-5.90) m/uL Hgb (13.0-17.5) gm/dL Hct (39.0-53.0) % Sodium (137-145) mmol/L BUN (9-20) mg/dL Glucose (74-99) mg/dL POC Glucose (mg/dL) 141 H (70-110) mg/dL Calcium (8.4-10.2) mg/dL Magnesium (1.6-2.3) mg/dL Microbiology - Last 24 Hours (Table) 02/02/24 16:02 Gram Stain - Final Sputum Sputum Culture - Final Assessment and Plan Assessment: Ascending aortic aneurysm measuring 4.4 cm with severe aortic insufficiency, . S/p aortic valve replacement with a Biobentall #29 Konnect, left atrial appendage ligation with a #35 mm atrial clip and a intraoperative transesophageal echocardiogram, postoperative day #7 Nonischemic cardiomyopathy with an ejection fraction of 45 to 50% History of atrial fibrillation status post ablation, maintained on Eliquis Urinary retention, Hopkins catheter remains in place History of hypertension Hyperlipidemia Diabetes mellitus Obesity with a BMI of 42 kg/m Obstructive sleep apnea utilizing CPAP Lifelong non-smoker Plan: The patient was seen and evaluated Chest x-ray, labs, and medications reviewed Stable and on room air Encouraged the increased use of the incentive spirometer Increase his activity as tolerated To be transferred to cardiac stepdown unit May need inpatient rehabilitation postdischarge We will continue to follow I have personally seen and examined the patient, performed the documentation and the assessment and plan as written. Number of minutes spent on the visit: 10.
[2024-02-06] MEDS: FUROSEMIDE 10 MG/ML 4 ML VIAL IV STA (11:16)
[2024-02-06] MEDS: lisinopriL 5 MG TAB PO SCH (11:16)
[2024-02-06 11:24] LABS: Glucose,Whole Blood 215 mg/dL (70-110)
--- NOTE | 2024-02-06 15:30 | P.PN ---
Progress Note - Text Progress Note Date: 02/06/24 - Chief Complaint Biobentall procedure - History of Present Illness 63-year-old patient, follows with Dr. Hayden. Chronic stable medical conditions include atrial fibrillation, CHF, diabetes, hypertension, hyperlipidemia, obstructive sleep apnea CPAP. Patient underwent todayBiobentall procedure by Dr.s Leigh. Also included left atrial appendage clipping. Postprocedure patient in the ICU. Intubated. FiO2 50 and a PEEP of 10. Has 1 right pleural chest tubes and 2 mediastinal chest tubes. Patient having significant output through the tubes. Drips include insulin and propofol. January 31, 2024: Patient extubated yesterday. Today sitting up in the chair/recliner. Family at the bedside. On clear liquid diet. Hopkins catheter remains in place. Sinus rhythm. Chest tubes in place. There was decreased output from the chest tube yesterday now controlled. Insulin drip. Has a slight cough. February 01, 2024: ICU. Up in a recliner. Did walk up to the door. Hopkins catheter discontinued. Has not made urine till now. Has [address] Using incentive spirometry. Eating supper. Slight cough. Insulin drip February 02, 2024 Patient is seen in follow-up this morning in the ICU with multiple medical consultations following. Patient is status post aortic valve replacement. Patient continues on 5 L high flow nasal cannula with continued chest tubes noted. Patient to bring in his own CPAP. Recommend continued on treatments and was given a dose of Lasix today. Encouraged incentive spirometer use at least 10 times every hour while awake. Patient continues on insulin drip and would recommend transitioning to sliding scale and long-acting with close monitoring with Accu-Cheks before meals and at bedtime as well as 2 AM. 02/03/2024 Patient is evaluated today in follow up. Remains in the intensive care unit. Patient is postoperative aortic valve replacement. He required 10 L hi flow overnight which is currently being weaned and now down to 6L hi-flow cannula. Chest xray today reveals mild interval worsening in the acute cardiopulmonary process with mildly increased pulmonary congestion and bibasilar infiltrates likely representing bibasilar atelectasis. Patient encouraged to ambulate and co ntinue to use incentive spirometer 10 x an hour while awake. Patient was transitioned off the insulin gtt and blood glucose remains elevated above 200. Has been adjusted with increase in inuslin today and will continue to monitor closely and adjust as needed. Patient is having multiple loose BMs C.Dif was checked which is negative. 02-04-2024 Patient is seen in follow-up today continues to be in the ICU with multiple medical consultations following. Patient currently found on room air while sitting up in the chair eating lunch. Patient with incentive spirometer at the bedside encouraged to continue using at least 10 times every hour while awake. Patient continues with chest tube noted and there is discussion of possible removal. Encouraged to increase activity as tolerated and continued heart hugger use. Diabetic diet along with heart healthy and close monitoring of Accu-Cheks and will adjust insulin regimen as needed. Discussed with at the bedside who reports will most likely require rehab. PT/OT therapy to evaluate 02/05/2024 Patient seen in follow-up today continues in the ICU currently on room air and reports to shortness of breath with exertion. Patient did have chest tube removed this morning and has been encouraged to continue using incentive spirometer. Patient is tolerating diet and blood sugars have been mildly elevated and insulin is being adjusted. Rehab being considered and inpatient rehab was consulted. Patient is afebrile with no reports of chest pain or palpitations. Patient tolerating diet with no reported nausea or vomiting February 06, 2024: Patient did walk a bit. Tolerating diet. Had a bowel movement. No pain. Lasted had urinary retention and Hopkins catheter had to be replaced. at the bedside. At Active Medications Acetaminophen (Acetaminophen Tab 500 Mg Tab) 1,000 mg PO Q6HR PRN PRN Reason: Fever and/ or Pain Last Admin: 02/05/24 03:42 Dose: 1,000 mg Acetylcysteine (Acetylcysteine 800 Mg/4 Ml Vial) 200 mg INHALATION RT-TID [facility] Last Admin: 02/06/24 12:25 Dose: 200 mg Albuterol/Ipratropium (Ipratropium-Albuterol 3 Ml Neb) 3 ml INHALATION RT-Q2H PRN PRN Reason: Shortness Of Breath Or Wheezing Albuterol/Ipratropium (Ipratropium-Albuterol 3 Ml Neb) 3 ml INHALATION RT-QID [facility] Last Admin: 02/06/24 15:21 Dose: 3 ml Amiodarone HCl (Amiodarone 200 Mg Tab) 200 mg PO BID [facility] Last Admin: 02/06/24 08:30 Dose: 200 mg Apixaban (Apixaban 5 Mg Tab) 5 mg PO BID [facility]; Protocol Last Admin: 02/06/24 08:30 Dose: 5 mg Ascorbic Acid (Ascorbic Acid 500 Mg Tab) 500 mg PO DAILY@1200 [place] Last Admin: 02/06/24 11:16 Dose: 500 mg Aspirin (Aspirin 81 Mg) 81 mg PO DAILY [facility] Last Admin: 02/06/24 08:29 Dose: 81 mg Atorvastatin Calcium (Atorvastatin 20 Mg Tab) 20 mg PO QAM [facility] Last Admin: 02/06/24 08:30 Dose: 20 mg Benzocaine/Menthol (Benzocaine/Menthol Lozeng 1 Each Lozenge) 1 each MUCOUS MEM Q4HR PRN PRN Reason: Cough Last Admin: 02/02/24 23:44 Dose: 1 each Bisacodyl (Bisacodyl 10 Mg Supp) 10 mg RECTAL DAILY PRN PRN Reason: Constipation Dextrose/Water (Dextrose 50% Syringe 50 Ml) 25 ml IVP PER PROTOCOL PRN; Protocol PRN Reason: Hypoglycemia Dextrose/Water (Dextrose 50% Syringe 50 Ml) 50 ml IVP PER PROTOCOL PRN; Protocol PRN Reason: Hypoglycemia Ferrous Sulfate (Ferrous Sulfate 325 Mg Tab) 325 mg PO W/LUNCH [facility] Last Admin: 02/06/24 11:16 Dose: 325 mg Guaifenesin (Guaifenesin 600 Mg Tablet.Er) 1,200 mg PO Q12HR [facility] Last Admin: 02/06/24 08:29 Dose: 1,200 mg Guaifenesin/Dextromethorphan (Guaifenesin-Dm 100-10mg/5ml 10 Ml Cup) 10 ml PO Q6HR PRN PRN Reason: Cough Last Admin: 02/02/24 23:44 Dose: 10 ml Amiodarone HCl 150 mg/ (Dextrose/Water) 103 mls @ 618 mls/hr IV .Q10M PRN; Protocol PRN Reason: A.FIB/FLUTTER Amiodarone HCl 450 mg/ (Dextrose/Water) 250 mls @ 16.667 mls/hr IV .Q15H PRN; Protocol PRN Reason: A.FIB/FLUTTER Insulin Aspart (Insulin Aspart (Novolog) 100 Unit/Ml Vial) 0 unit SQ [id number] [facility]; Protocol Last Admin: 02/06/24 11:25 Dose: 4 unit Insulin Aspart (Insulin Aspart (Novolog) 100 Unit/Ml Vial) 2 unit SQ AC-TID [facility] Last Admin: 02/06/24 11:25 Dose: 2 unit Insulin Detemir (Insulin Detemir (Levemir) 100 Unit/Ml Syr) 10 unit SQ DAILY@0700 [facility] Last Admin: 02/06/24 06:55 Dose: 10 unit Insulin Detemir (Insulin Detemir (Levemir) 100 Unit/Ml Syr) 15 unit SQ [facility] Last Admin: 02/05/24 20:15 Dose: 15 unit Lisinopril (Lisinopril 5 Mg Tab) 5 mg PO DAILY [facility] Last Admin: 02/06/24 11:16 Dose: Not Given Magnesium Hydroxide (Magnesium Hydroxide 2,400 Mg/30 Ml Cup) 2,400 mg PO BID PRN PRN Reason: Constipation Melatonin (Melatonin 3 Mg Tablet) 6 mg PO [facility] Last Admin: 02/05/24 20:14 Dose: 6 mg Metoclopramide HCl (Metoclopramide 5 Mg/Ml 2 Ml Vial) 10 mg IVP Q4H PRN PRN Reason: Nausea And Vomiting Metoprolol Tartrate (Metoprolol Tartrate 50 Mg Tab) 50 mg PO BID [facility] Last Admin: 02/06/24 08:30 Dose: 50 mg Miscellaneous Information (Potassium Replacement Protocol 1 Each Misc) 1 each MISCELLANE DAILY PRN; Protocol PRN Reason: Per Protocol Miscellaneous Information (Magnesium Replacement Protocol 1 Each Misc) 1 each MISCELLANE DAILY PRN; Protocol PRN Reason: Per Protocol Ondansetron HCl (Ondansetron 4 Mg/2 Ml Vial) 4 mg IVP Q6HR PRN PRN Reason: Nausea And Vomiting Pantoprazole Sodium (Pantoprazole 40 Mg Tablet) 40 mg PO AC-BRKFST [facility] Last Admin: 02/06/24 06:55 Dose: 40 mg Senna/Docusate Sodium (Sennosides-Docusate Sodium 1 Each Tab) 2 each PO HS [facility] Last Admin: 02/05/24 20:19 Dose: Not Given Sodium Chloride (Sodium Chloride 0.9% Flush 10 Ml Syringe) 10 ml IV BID [facility] Last Admin: 02/06/24 08:30 Dose: 10 ml Tamsulosin HCl (Tamsulosin 0.4 Mg Cap.Er.24h) 0.4 mg PO PC-SUPPER [place] Last Admin: 02/05/24 17:15 Dose: 0.4 mg Social history: . No smoking no alcohol Physical examination: VITAL SIGNS: Afebrile, 110, 18, 96/54, 97% room air GENERAL: Up in recliner, eating lunch EYES: Pupils equal. Conjunctiva dylan l. HEENT: External appearance of nose and ears normal, oral cavity grossly normal. Endotracheal tube NECK: JVD unable to assess; masses not palpable. HEART: Heart sounds muffled; no edema. LUNGS: Respiratory rate increased; decreased breath sounds. ABDOMEN: Soft, nontender, liver spleen not palpable, no masses palpable. Hopkins catheter PSYCH: Alert and x 3, mood affect normal l. INVESTIGATIONS, reviewed in the clinical context: February 05: White count 8.8 hemoglobin 9.4 platelets 228 sodium 130 potassium 3.9 creatinine 0.99 January 31: White count 12.1 hemoglobin 10.4 platelets 110 potassium 4.3 creatinine 1.08 January 30 04/22/2024: White count 3.3 hemoglobin 11.9 platelets 130 sodium 136 potassium 4.6 BUN 26 creatinine 1.28 January 30, 2024: White count 13.7 hemoglobin 12.4 platelets 154 Previously today: White count 12.9 hemoglobin 13.6 potassium 4.2 creatinine 1.24 Assessment plan: -Biobentall procedure, for ascending arctic aneurysm and severe arctic insufficiency -Mild acute postprocedure blood loss anemia expected from surgery Follow H&H, ferrous sulfate -Thrombocytopenia likely dilutional-corrected -Morbid obesity BMI 41.9 Weight loss measures -Diabetes mellitus type 2, chronically insulin Resume home medications to include metformin, Glucotrol, Farxiga. Follow sliding scale -Urine outflow obstruction likely BPH Hopkins catheter placed last night. Flomax added -Hyperlipidemia Lipitor -Essential hypertension At home patient takes Zestril, Lopressor -Paroxysmal atrial fibrillation.: Currently in sinus rhythm Previous ablation. On Eliquis and Lopressor at home -Obstructive sleep apnea Uses CPAP -Chronic congestive heart failure from systolic dysfunction EF 45 to 50% with global hypokinesia on LUCY on December 26, [address] Brandon Leon. Lopressor. At home -Full code Resume home oral hypoglycemic. Will follow Accu-Cheks closely. Past Medical History Past Medical History: Atrial Fibrillation, Heart Failure, Diabetes Mellitus, Hyperlipidemia, Hypertension, Sleep Apnea/CPAP/BIPAP Additional Past Medical History / Comment(s): uses CPAP, SOB w/exertion History of Any Multi-Drug Resistant Organisms: None Reported Past Surgical History: Cardiac Ablation, Heart Catheterization, Hernia Repair, Orthopedic Surgery, Tonsillectomy Additional Past Surgical History / Comment(s): Bilat. knee surgery(6 surgeries) 1967 - 1973, hiatal hernia repair 1984, colonoscopy, cardioversion, LUCY Past Anesthesia/Blood Transfusion Reactions: No Reported Reaction Smoking Status: Never smoker
[2024-02-06 16:46] LABS: Glucose,Whole Blood 232 mg/dL (70-110)
[2024-02-06] MEDS: glipiZIDE 10 MG TAB PO SCH (16:52)
[2024-02-06] MEDS: metFORMIN 500 MG TAB PO SCH (16:52)
[2024-02-06 19:51] LABS: Glucose,Whole Blood 238 mg/dL (70-110)
[2024-02-06] MEDS: DAPAGLIFLOZIN PROPANEDIOL 10 MG TABLET PO SCH (20:21)
[2024-02-07 02:58] LABS: Glucose,Whole Blood 124 mg/dL (70-110)
[2024-02-07] MEDS ORDERED: ZINC OXIDE PASTE (Z-GUARD) 1 APPLIC TOPICAL PRN (03:41)
[2024-02-07 06:23] LABS: Glucose,Whole Blood 137 mg/dL (70-110)
--- NOTE | 2024-02-07 07:31 | XR ---
EXAMINATION TYPE: XR chest 2V DATE OF EXAM: 02/07/2024 COMPARISON: 02/06/2024 HISTORY: 63 year-old male post cardiac surgery TECHNIQUE: PA and lateral views FINDINGS: Heart remains mild to moderately enlarged. Median sternotomy wires with prosthetic aortic valve. Inte rstitial prominence continues to show some improvement. Patchy bibasilar opacities remain along with small bilateral pleural effusions. IMPRESSION: Continued improvement in the pulmonary vascular congestion. Small bilateral pleural effusions with ad jacent atelectasis and/or consolidation remains.
[2024-02-07 08:06] LABS: HCT 32.5 % (39.0-53.0); Hypochromasia Slight; MCH 28.9 pg (25.0-35.0); MCHC 30.8 g/dL (31.0-37.0); MCV 93.9 fL (80.0-100.0); Mean Platelet Volume 7.9; Platelet Count 305 k/uL (150-450); RBC 3.46 m/uL (4.30-5.90); RDW 14.5 % (11.5-15.5); WBC 10.4 k/uL (3.8-10.6)
[2024-02-07 08:27] LABS: African American GFR (CKD) 89 (>60 ml/min/1.73 sqM); Anion Gap 4 mmol/L; Blood Urea Nitrogen 25 mg/dL (9-20); Carbon Dioxide 26 mmol/L (22-30); Chloride 102 mmol/L (98-107); Glucose 126 mg/dL (74-99); Non-African American GFR(CKD) 77 (>60 ml/min/1.73 sqM); Sodium 132 mmol/L (137-145)
[2024-02-07] MEDS: FUROSEMIDE 10 MG/ML 2 ML VIAL IV ONE (09:05)
[2024-02-07] MEDS ORDERED: SENNOSIDES-DOCUSATE SODIUM 1 EACH TAB PO PRN (09:22)
--- NOTE | 2024-02-07 09:28 | P.PN ---
Subjective Progress Note Date: 02/07/24 Principal diagnosis: Aortic root aneurysm with severe aortic insufficiency, ascending aortic aneurysm. Previous medical history of nonischemic cardiomyopathy ejection fraction 45-50%, hypertension, hyperlipidemia, paroxysmal atrial fibrillation on Eliquis for anticoagulation as an outpatient status post cardioversion in October 2019 and subsequent ablation in February 2020, obstructive sleep apnea with home CPAP use, diabetes mellitus type 2, obesity, and family history of brandy ature coronary artery disease. POD #8 Biobentall (#29mm [place]), left atrial appendage ligation with #35mm AtriClip, intraoperative transesophageal echocardiogram completed by anesthesia. Postoperative acute blood loss anemia, expected given hemodilution and cardiopulmonary bypass. Paroxysmal atrial fibrillation, a known common occurrence after cardiac surgery and expected given patient's history of atrial fibrillation status post ablation in 2019. The patient was seen and examined with Dr. Duran sitting up in recliner on the cardiac stepdown unit in no acute distress. States pain is mostly controlled on current medication regimen, denies shortness of breath. Remains in controlled atrial fibrillation, hemodynamically stable. Patient has been ambulatory with assistance although not very far, being considered for inpatient rehab at discharge. Patient and expressed concern/nervousness regarding being sent home with Hopkins catheter, management of Hopkins catheter. No other new concerns. Objective - Vital Signs Vital signs: Vital Signs Temp 98.5 F 02/07/24 09:10 Pulse 64 02/07/24 09:10 Resp 16 02/07/24 09:10 BP 107/58 02/07/24 09:10 Pulse Ox 95 02/07/24 09:10 FiO2 50 01/30/24 20:50 Intake & Output 02/06/24 02/07/24 02/07/24 18:59 06:59 18:59 Intake Total 540 130 Output Total 1485 500 700 Balance -1485 40 -570 Weight 157.6 kg Intake: IV 10 Invasive Line 5 10 Oral 540 120 Output: Urine 1485 500 700 Other: Voiding Method Indwelling Catheter Indwelling Catheter # Voids 1 # Bowel Movements 1 1 ABP, PAP, CO, CI - Last Documented Arterial Blood Pressure 123/50 Pulmonary Artery Pressure 27/12 Cardiac Output 10 Cardiac Index 3.7 - Exam CONSTITUTIONAL: Appears comfortable, cooperative, no acute distress RESPIRATORY: Lungs sounds diminished bilaterally. Respirations even, nonlabored. Currently on room air with oxygen saturation 95%. Able to achieve 5113-8034 mL on incentive spirometry. Strong cough. CARDIOVASCULAR: S1, S2 present. Irregular rate and rhythm, controlled atrial fibrillation on telemetry. Sternum stable. Palpable peripheral pulses bilaterally. Generalized edema present. No calf pain or tenderness noted. Hea rt hugger in place with patient demonstrating appropriate use. Antiembolism stockings, SCDs present. GASTROINTESTINAL: Abdomen soft, nontender, nondistended. Active bowel sounds present 4 quadrants. Tolerating diet. Positive bowel movement 6/5 GENITOURINARY: Hopkins present draining clear, yellow urine. Output 1985 mL in the last 24 hours INTEGUMENTARY: Skin is warm and dry with evidence of good perfusion. Anterior chest incision well approximated NEUROLOGIC: Cranial nerves II through XII intact MUSKULOSKELETAL: Able to move all extremities, strength equal bilaterally, gait normal PSYCHIATRIC: Alert and oriented to person place and time, appropriate affect, intact judgment and insight - Allied health notes Allied health notes reviewed: nursing - Labs CBC & Chem 7: 02/07/24 07:41 02/07/24 07:41 Labs: Abnormal Lab Results - Last 24 Hours (Table) 02/06/24 02/06/24 02/06/24 Range/Units 11:23 16:44 19:51 RBC (4.30-5.90) m/uL Hgb (13.0-17.5) gm/dL Hct (39.0-53.0) % MCHC (31.0-37.0) g/dL Sodium (137-145) mmol/L BUN (9-20) mg/dL Glucose (74-99) mg/dL POC Glucose (mg/dL) 215 H 232 H 238 H (70-110) mg/dL Calcium (8.4-10.2) mg/dL 02/07/24 02/07/24 02/07/24 Range/Units 02:57 06:21 07:41 RBC 3.46 L (4.30-5.90) m/uL Hgb 10.0 L (13.0-17.5) gm/dL Hct 32.5 L (39.0-53.0) % MCHC 30.8 L (31.0-37.0) g/dL Sodium (137-145) mmol/L BUN (9-20) mg/dL Glucose (74-99) mg/dL POC Glucose (mg/dL) 124 H 137 H (70-110) mg/dL Calcium (8.4-10.2) mg/dL 02/07/24 Range/Units 07:41 RBC (4.30-5.90) m/uL Hgb (13.0-17.5) gm/dL Hct (39.0-53.0) % MCHC (31.0-37.0) g/dL Sodium 132 L (137-145) mmol/L BUN 25 H (9-20) mg/dL Glucose 126 H (74-99) mg/dL POC Glucose (mg/dL) (70-110) mg/dL Calcium 8.0 L (8.4-10.2) mg/dL Assessment and Plan Assessment: Aortic root aneurysm with severe aortic insufficiency, status post Biobentall (#29mm Kon[place]ct) Ascending aortic aneurysm, status post Biobentall (#29mm Kon[place]ct) Mild mitral and tricuspid regurgitation Nonischemic cardiomyopathy, chronic diastolic heart failure, EF 45-50% Hypertension Dyslipidemia, triglycerides 176, LDL 65, cholesterol 141, HDL 40.8 Paroxysmal atrial fibrillation on Eliquis for anticoagulation, status post cardioversion in October 2019, ablation in February 2020, status post left atrial appendage ligation with a 35 mm AtriClip Diabetes mellitus type II, with preoperative hemoglobin A1c 8.1% Morbid obesity Lifetime non-smoker, preoperative FEV1 73% of predicted Obstructive sleep apnea with home CPAP use Family history of premature coronary artery disease Postoperative acute blood loss anemia, expected given hemodilution and cardiopulmonary bypass Urinary retention, unspecified requiring placement of Hopkins catheter Plan: Continue to maximize medical therapy with low-dose aspirin, statin, and beta- henrietta. Will increase beta henrietta as tolerated Continue lisinopril for afterload reduction. Increase activity as tolerated. PT/OT/cardiac rehab following. Continue amiodarone for atrial fibrillation, continue Eliquis for anticoagulation Encourage incentive spirometry use 10 times every hour while awake. Bronchodilator management per pulmonary Will monitor daily labs and chest x-rays. Electrolyte replacement per protocol. Sputum culture finalized as negative. Diuresis being ordered daily GI/DVT prophylaxis. Insulin management per internal medicine. Preoperative hemoglobin A1c 8.1%. Pain control per current medication regimen. Continue Flomax 0.4 mg p.o. daily, Hopkins reinserted, patient was seen by urology with recommendations for future voiding trial prior to follow-up appointment- discussed at length with patient and his Continue record strict and accurate I's and O's Daily weights Shower daily Discharge planning is in place, anticipate discharge home with home health care versus inpatient rehab in the next 24-48 hours More recommendations to follow on patient's clinical course
[2024-02-07 11:58] LABS: Glucose,Whole Blood 163 mg/dL (70-110)
--- NOTE | 2024-02-07 12:14 | P.PN ---
Subjective Progress Note Date: 02/07/24 Principal diagnosis: Shortness of breath. This is a 63-year-old male patient with a known history of atrial fibrillation and previous ablation approximately 4 years ago maintained on Eliquis, diabetes mellitus, hyperlipidemia, hypertension, obstructive sleep apnea utilizing CPAP, nonischemic cardiomyopathy who was recently found to have impaired left ventricular systolic function with ejection fraction of 45 to 50% and severe aortic regurgitation and aneurysmal ascending aorta measuring 4.4 cm. He was brought in electively today for surgery with Dr. Leigh. He did undergo aortic valve replacement with a biobentall #29 Kon[place], left atrial appendage ligation with atrial clip placement and follow-up transesophageal echocardiogram. He is seen currently in the intensive care unit. He is intubated on the mechanical ventilator with current settings of assist-control mode of 16, tidal volume 550 and FiO2 70% and a PEEP of 10. Initial blood gases on 100% FiO2 and a rate of 12 revealed a PaO2 of 166, pCO2 of 54 and a pH of 7.28. Chest x-ray reveals evidence of the endotracheal tube and nasogastric tube as well as a [place]-Des catheter suspected in place. X-ray is somewhat underpenetrated. 2 mediastinal chest tubes and a right-sided chest tube in place. Right IJ [place]Des catheter in place. Cardiac output 6.9. Cardiac index 2.5. PA pressures 34/18. CVP 12. Currently in sinus rhythm. He is on lactated Ringer's at 50 MLS per hour. Propofol at 30 mcg/kg/min. Insulin drip at 3 units/h. Nitroglycerin drip at 10 mcg/min. He did receive albumin. Receiving bronchodilators. Received cefazolin. Initiated on Cleviprex at 2 mg/h. Patient was evaluated today on 01/31/24 POD #1 Biobentall (#29mm Konnect), left atrial appendage ligation with #35mm AtriClip, patient was extubated yesterday rated the extubation quite well, he is sitting in a bedside chair today, he was successfully extubated at 8:52 p.m. Currently on 6 L nasal cannula, O2 sat is 94%, patient is not in any distress, achieving almost 1500 cc on his incentive spirometry. For complaint except for minimal cough, nonproductive, no fever, no chills, no hemoptysis, and no chest pain. He did receive a unit of platelets last evening, continues to have mediastinal and right pleural chest tubes, no airleak is noted, mediastinal chest tube drained about 200 cc overnight, the right pleural chest tube drained 140 cc since last night. Patient is hemodynamically stable not requiring any pressors, cardiac output is 5.4 cardiac index is 2.0. Chest x-ray is showing minimal atelectasis at the base. CBC is relatively normal hemoglobin is 11.9. Platelets today are 130,000 basic metabolic profile is normal, except for BUN of 26 creatinine 1.28 Patient was evaluated today on 02/01/2024, he is now postoperative day #2. Patient is doing well, asymptomatic, on room air, does not seem to be in any distress, he is receiving lactated Ringer's at 50 cc/h insulin remains 11.5 units/h he is achieving over 1000 cc on his incentive spirometer. Chest x-ray showed minimal nonspecific atelectasis. Small tiny bilateral pleural effusions noted, right-sided chest tube noted, tip of the [place]-Des catheter is in the main pulmonary artery region. Patient denies any cough or wheezing no shortness of breath no chest pain. No abdominal pain no nausea no vomiting WBC count is 12.1 hemoglobin is 10.4 basic metabolic profile is normal renal profile is better today creatinine down to 1.08 from 1.28 yesterday. Patient was evaluated today on 02/02/2024,POD #3 Biobentall (#29mm Konnect), left atrial appendage ligation with #35mm AtriClip. Patient continues to do well, however he is on 5 L nasal cannula. O2 sats is 95%, still achieving about 1000 cc via incentive spirometry. He had a Tmax of 101 last night, he had a minimal productive cough this morning with aguilar tenacious sputum. Patient is hemodynamically stable, not in any distress, continues to have mediastinal chest tube, minimal drainage overnight. Catheter was discontinued yesterday.Chest x- ray showed cardiomegaly and small pleural effusions. WBC count is 10.7 hemoglobin 10.1 basic metabolic profile is normal renal profile is normal Patient was reevaluated today on 02/03/2024, he is now postoperative day #4. Remains in the ICU, patient denies any specific complaints, compliant with his incentive spirometry, does not seem to be in any distress, however his FiO2 requirement has gone up, he is now on 8 L high flow nasal cannula. O2 saturation is in the 95% range, chest x-ray showed minimal atelectasis, no clear-cut evidence of congestive heart failure. Patient went into atrial fibrillation last night, and remains in atrial fibrillation with a rate of 112. Patient was given amiodarone 300 mg over 2-hour. As per cardiology recommendation. Remains on amiodarone orally 200 mg p.o. twice daily. Patient is otherwise hemodynamically stable, not in distress, urine output in the last 8 hours has been excellent. He did receive Lasix yesterday with excellent diuresis. Continues to have the mediastinal chest tube, remains in place, and it is on suction at -20 cm. No leak, minimal drainage over the last 24 hours, roughly about 25 ML labs today were reviewed WBC count is 9.1 hemoglobin is 9.6 electrolytes are normal BUN is 39 creatinine 1.01 The patient is seen today in the intensive care unit. Postoperative day #5. He is currently sitting up in chair at the bedside. Awake and alert in no acute distress. He denies any worsening shortness of breath, cough or congestion. He is maintaining good O2 saturations in the 90s on 2 L/min per nasal cannula. He is afebrile. Hemodynamically stable. X-ray continues to show some mild pulmonary vascular congestion and patchy atelectasis. He is working well with the incentive spirometer. He completed ceftriaxone. Sputum culture pending. White count 8.3. Hemoglobin 9.6. Platelets 156. Sodium 132. Potassium 3.6. Bicarb 29. BUN 38. Creatinine 1.14. Glucose 132. The patient is seen today February 05, 2024 in follow-up in the intensive care unit. Postoperative day #6. He is awake and alert in no acute distress. Sitting up in a chair at the bedside. Maintaining good O2 saturations in the 90s on room air. Chest x-ray does continue to show basilar atelectasis. He is again encouraged regarding the increased use of the incentive spirometer. His chest tube is to be removed today. [place] catheter to be removed. He did require albumin with additional Lasix this morning. He is anticoagulated with Eliquis. He remains in atrial fibrillation with a controlled ventricular rate. Sputum culture revealed no growth. 3. Sodium 132. Potassium 3.5. Bicarb 24. BUN 30. Creatinine 1.07. Glucose 146. He remains on bronchodilators. The patient is seen today February 06, 2024 in follow-up in the intensive care unit. Postoperative day #7. He is currently sitting up in a chair. Awake and alert in no acute distress. Maintaining good O2 saturations in the 90s on room air. No IV fluids. Chest x-ray reveals mild pulmonary vascular congestion. Patchy bilateral airspace disease and small left pleural effusion. He is again encouraged regarding the increased use in the incentive spirometer. Chest tubes are out. White count 8.8. Hemoglobin 9.4. Platelets 228. Sodium 130. Potassium 3.9. Bicarb 25. BUN 27. Creatinine 0.99. Glucose 134. [place] catheter had to be replaced left evening. He remains on Eliquis for anticoagulation. He remains in atrial fibrillation. Continued on bronchodilators. Progress note dated February 07, 2024. 63-year-old male seen today in room 362. He was in the intensive care unit yesterday. He is currently on room air, and not receiving any IV fluids. He is postop day #8, status post aortic valve replacement. Clinically, the patient is doing well. He is hoping to be discharged soon. His white count is 10.4, hemoglobin 10, hematocrit 32.5, and platelet count is 305,000. Sodium 132, potassium 4, chlorides 102, CO2 26, BUN 25, creatinine 1.02. Glucose is 89. Calcium is 8.0. Sputum was negative. Chest x-ray showed continued improvement in the patient's pulmonary vascular congestion. Objective - Vital Signs Vital signs: Vital Signs Temp 98.5 F 02/07/24 09:10 Pulse 72 02/07/24 12:02 Resp 16 02/07/24 09:11 BP 107/58 02/07/24 09:10 Pulse Ox 95 02/07/24 09:10 FiO2 50 01/30/24 20:50 Intake & Output 02/06/24 02/07/24 02/07/24 18:59 06:59 18:59 Intake Total 540 130 Output Total 5055 732 5553 Balance -1485 40 -1420 Weight 157.6 kg Intake: IV 10 Invasive Line 5 10 Oral 540 120 Output: Urine 9742 152 8411 Other: Voiding Method Indwelling Catheter Indwelling Catheter Indwelling Catheter # Voids 1 # Bowel Movements 1 1 1 ABP, PAP, CO, CI - Last Documented Arterial Blood Pressure 123/50 Pulmonary Artery Pressure 27/12 Cardiac Output 10 Cardiac Index 3.7 - Exam No acute distress, oriented 3. No respiratory distress. Currently on room air. HEENT examination is grossly unremarkable. Mucous membranes are moist. No oral lesions. Neck supple. Full range of motion. No adenopathy thyromegaly or neck vein distention. Cardiovascular examination reveals regular rhythm rate. S1-S2 normal. No S3 or S4. No discernible murmur noted. Heart rate 72 bpm. Lungs reveal mild bilateral scattered rhonchi. No wheezes or crackles. Breath sounds are equal. Saturations on room air are 95%. Abdomen soft bowel sounds are heard. No masses or tenderness. Extremities are intact. No cyanosis clubbing or edema. Skin is without rash or lesion. Neurologic examination is brief but nonfocal. - Labs CBC & Chem 7: 02/07/24 07:41 02/07/24 07:41 Labs: Abnormal Lab Results - Last 24 Hours (Table) 02/06/24 02/06/24 02/07/24 Range/Units 16:44 19:51 02:57 RBC (4.30-5.90) m/uL Hgb (13.0-17.5) gm/dL Hct (39.0-53.0) % MCHC (31.0-37.0) g/dL Sodium (137-145) mmol/L BUN (9-20) mg/dL Glucose (74-99) mg/dL POC Glucose (mg/dL) 232 H 238 H 124 H (70-110) mg/dL Calcium (8.4-10.2) mg/dL 02/07/24 02/07/24 02/07/24 Range/Units 06:21 07:41 07:41 RBC 3.46 L (4.30-5.90) m/uL Hgb 10.0 L (13.0-17.5) gm/dL Hct 32.5 L (39.0-53.0) % MCHC 30.8 L (31.0-37.0) g/dL Sodium 132 L (137-145) mmol/L BUN 25 H (9-20) mg/dL Glucose 126 H (74-99) mg/dL POC Glucose (mg/dL) 137 H (70-110) mg/dL Calcium 8.0 L (8.4-10.2) mg/dL 02/07/24 Range/Units 11:56 RBC (4.30-5.90) m/uL Hgb (13.0-17.5) gm/dL Hct (39.0-53.0) % MCHC (31.0-37.0) g/dL Sodium (137-145) mmol/L BUN (9-20) mg/dL Glucose (74-99) mg/dL POC Glucose (mg/dL) 163 H (70-110) mg/dL Calcium (8.4-10.2) mg/dL Assessment and Plan Assessment: Ascending aortic aneurysm measuring 4.4 cm with severe aortic insufficiency, . S/p aortic valve replacement with a Biobentall #29 Kon[place]ct, left atrial appendage ligation with a #35 mm atrial clip and a intraoperative transesophageal echocardiogram, postoperative day #8. Nonischemic cardiomyopathy with an ejection fraction of 45 to 50%. History of atrial fibrillation status post ablation. Urinary retention. History of hypertension. Hyperlipidemia. Diabetes mellitus. Obesity with a BMI of 42 kg/m. Obstructive sleep apnea utilizing CPAP. Lifelong non-smoker. Plan: Plan dated February 07, 2024. The patient is doing much better. Today he is seen in room 362. He was in the intensive care unit yesterday. He is on room air. His saturations are in the mid 90s. He is not short of breath. The patient is not receiving any IV fluids. Today is postop day #8, status post aortic valve replacement and Bentall procedure. We will continue to follow and make recommendations along the way. Labs, x-rays, and all medications are reviewed. Prognosis is guarded. Time with Patient: Less than 30
--- NOTE | 2024-02-07 14:47 | P.PN ---
Subjective Progress Note Date: 02/07/24 Valvular heart disease The patient is a pleasant 63-year-old gentleman with morbid obesity as well as hypertension and dyslipidemia and aortic insufficiency and dilated aortic root and paroxysmal atrial fibrillation was admitted to the hospital and underwent aortic valve replacement along with aortic root replacement and reimplanting the coronary arteries. He went into atrial fibrillation but he is known to have paroxysmal atrial fibrillation. February 04, 2024 The patient was seen and evaluated this morning. He is in atrial fibrillation with controlled heart rate. He is on amiodarone. Will continue the current medical regimen and consider tapering down the dose of amiodarone. He need to be started on oral anticoagulation once the pacer wire out. Otherwise he is stable hemodynamically. He is not on any drips at this point. The chest x-ray was reviewed this morning. The physical examination is remarkable for morbidly obese patient with upper extremities edema and diminished breathing sounds bilaterally. February 05, 2024 The patient was seen and evaluated this morning. He remains in atrial fibrillation with controlled heart rate on the current medical regimen. Oral anticoagulation was initiated earlier today. Lasix was given because he still have bilateral lower extremities edema and also upper extremities edema. Beside that he seems to be stable from the cardiac standpoint of view. The examination is remarkable for irregular rhythm with soft systolic murmur and distant heart sounds and clear breathing sounds bilaterally and bilateral lower extremities edema February 06, 2024 The patient was seen and evaluated this morning. Overall he is stable. He continues to be in atrial fibrillation with controlled heart rate on the current medical regimen. Anticoagulation was initiated yesterday with his pressure is soft and has been in the 90s with that being said I am going to cut down the dose of lisinopril from 10 mg daily to 5 mg p.o. daily. Continue the current medical regimen including the current dose of amiodarone and consider tapering the dose down. Beside that his chest x-ray was reviewed today and seems to be stable and also his kidney function seems to be stable. The examination is remarkable for diminished breathing sounds bilaterally with irregular rhythm. 02/06 Patient has been transferred out of the intensive care unit and seen today at the cardiac stepdown unit. Patient has significant lower extremity edema for which IV Lasix will be ordered. Blood pressure 108/72, heart rate 59, pulse ox 97% on room air. Repeat blood work reveals hemoglobin of 10, BUN 25 creatinine 1.02. Telemetry is atrial fibrillation. He is using incentive spirometry re aching 1500 mL. The examination is remarkable for diminished breathing sounds bilaterally with irregular rhythm, bilateral lower extremity edema. Assessment Aortic valve replacement with aortic root replacement Paroxysmal atrial fibrillation Atrial fibrillation with controlled heart rate Multiple comorbid conditions Plan Continue the current medical regimen 1 dose of IV Lasix 40 mg now Follow-up with the patient Nurse practitioner note has been reviewed, I agree with documented findings and plan of care. Patient was seen and examined. Objective - Vital Signs Vital signs: Vital Signs Temp 98.2 F 02/07/24 00:00 Pulse 61 02/07/24 04:00 Resp 16 02/07/24 04:00 BP 95/67 02/07/24 04:00 Pulse Ox 95 02/07/24 04:00 FiO2 50 01/30/24 20:50 Intake & Output 02/06/24 02/07/24 02/07/24 18:59 06:59 18:59 Intake Total 540 120 Output Total 1485 500 700 Balance -1485 40 -580 Weight 157.6 kg Intake: Oral 540 120 Output: Urine 1485 500 700 Other: Voiding Method Indwelling Catheter Indwelling Catheter # Voids 1 # Bowel Movements 1 1 ABP, PAP, CO, CI - Last Documented Arterial Blood Pressure 123/50 Pulmonary Artery Pressure 27/12 Cardiac Output 10 Cardiac Index 3.7 - Labs CBC & Chem 7: 02/07/24 07:41 02/07/24 07:41 Labs: Abnormal Lab Results - Last 24 Hours (Table) 02/06/24 02/06/24 02/06/24 Range/Units 11:23 16:44 19:51 RBC (4.30-5.90) m/uL Hgb (13.0-17.5) gm/dL Hct (39.0-53.0) % MCHC (31.0-37.0) g/dL Sodium (137-145) mmol/L BUN (9-20) mg/dL Glucose (74-99) mg/dL POC Glucose (mg/dL) 215 H 232 H 238 H (70-110) mg/dL Calcium (8.4-10.2) mg/dL 02/07/24 02/07/24 02/07/24 Range/Units 02:57 06:21 07:41 RBC 3.46 L (4.30-5.90) m/uL Hgb 10.0 L (13.0-17.5) gm/dL Hct 32.5 L (39.0-53.0) % MCHC 30.8 L (31.0-37.0) g/dL Sodium (137-145) mmol/L BUN (9-20) mg/dL Glucose (74-99) mg/dL POC Glucose (mg/dL) 124 H 137 H (70-110) mg/dL Calcium (8.4-10.2) mg/dL 02/07/24 Range/Units 07:41 RBC (4.30-5.90) m/uL Hgb (13.0-17.5) gm/dL Hct (39.0-53.0) % MCHC (31.0-37.0) g/dL Sodium 132 L (137-145) mmol/L BUN 25 H (9-20) mg/dL Glucose 126 H (74-99) mg/dL POC Glucose (mg/dL) (70-110) mg/dL Calcium 8.0 L (8.4-10.2) mg/dL
[2024-02-07] MEDS: FUROSEMIDE 10 MG/ML 2 ML VIAL IV SCH (15:56)
--- NOTE | 2024-02-07 16:07 | P.PN ---
Progress Note - Text Progress Note Date: 02/07/24 - Chief Complaint Biobentall procedure - History of Present Illness 63-year-old patient, follows with Dr. Hayden. Chronic stable medical conditions include atrial fibrillation, CHF, diabetes, hypertension, hyperlipidemia, obstructive sleep apnea CPAP. Patient underwent todayBiobentall procedure by Dr.s Leigh. Also included left atrial appendage clipping. Postprocedure patient in the ICU. Intubated. FiO2 50 and a PEEP of 10. Has 1 right pleural chest tubes and 2 mediastinal chest tubes. Patient having significant output through the tubes. Drips include insulin and propofol. January 31, 2024: Patient extubated yesterday. Today sitting up in the chair/recliner. Family at the bedside. On clear liquid diet. Hopkins catheter remains in place. Sinus rhythm. Chest tubes in place. There was decreased output from the chest tube yesterday now controlled. Insulin drip. Has a slight cough. February 01, 2024: ICU. Up in a recliner. Did walk up to the door. Hopkins catheter discontinued. Has not made urine till now. Has [address] Using incentive spirometry. Eating supper. Slight cough. Insulin drip February 02, 2024 Patient is seen in follow-up this morning in the ICU with multiple medical consultations following. Patient is status post aortic valve replacement. Patient continues on 5 L high flow nasal cannula with continued chest tubes noted. Patient to bring in his own CPAP. Recommend continued on treatments and was given a dose of Lasix today. Encouraged incentive spirometer use at least 10 times every hour while awake. Patient continues on insulin drip and would recommend transitioning to sliding scale and long-acting with close monitoring with Accu-Cheks before meals and at bedtime as well as 2 AM. 02/03/2024 Patient is evaluated today in follow up. Remains in the intensive care unit. Patient is postoperative aortic valve replacement. He required 10 L hi flow overnight which is currently being weaned and now down to 6L hi-flow cannula. Chest xray today reveals mild interval worsening in the acute cardiopulmonary process with mildly increased pulmonary congestion and bibasilar infiltrates likely representing bibasilar atelectasis. Patient encouraged to ambulate and co ntinue to use incentive spirometer 10 x an hour while awake. Patient was transitioned off the insulin gtt and blood glucose remains elevated above 200. Has been adjusted with increase in inuslin today and will continue to monitor closely and adjust as needed. Patient is having multiple loose BMs C.Dif was checked which is negative. 02-04-2024 Patient is seen in follow-up today continues to be in the ICU with multiple medical consultations following. Patient currently found on room air while sitting up in the chair eating lunch. Patient with incentive spirometer at the bedside encouraged to continue using at least 10 times every hour while awake. Patient continues with chest tube noted and there is discussion of possible removal. Encouraged to increase activity as tolerated and continued heart hugger use. Diabetic diet along with heart healthy and close monitoring of Accu-Cheks and will adjust insulin regimen as needed. Discussed with at the bedside who reports will most likely require rehab. PT/OT therapy to evaluate 02/05/2024 Patient seen in follow-up today continues in the ICU currently on room air and reports to shortness of breath with exertion. Patient did have chest tube removed this morning and has been encouraged to continue using incentive spirometer. Patient is tolerating diet and blood sugars have been mildly elevated and insulin is being adjusted. Rehab being considered and inpatient rehab was consulted. Patient is afebrile with no reports of chest pain or palpitations. Patient tolerating diet with no reported nausea or vomiting February 06, 2024: Patient did walk a bit. Tolerating diet. Had a bowel movement. No pain. Last night had urinary retention and Hopkins catheter had to be replaced. at the bedside. February 07, 2024: Up in a chair. Did walk a bit. Tolerating diet. Pulse ox 94% room air. Eating fair. Cussed with patient and . Home oral hypoglycemics was started yesterday. Will see how Accu-Cheks do overnight. Active Medications Acetaminophen (Acetaminophen Tab 500 Mg Tab) 1,000 mg PO Q6HR PRN PRN Reason: Fever and/ or Pain Last Admin: 02/07/24 01:14 Dose: 1,000 mg Acetylcysteine (Acetylcysteine 800 Mg/4 Ml Vial) 200 mg INHALATION RT-TID [place] Last Admin: 02/07/24 12:02 Dose: 200 mg Albuterol/Ipratropium (Ipratropium-Albuterol 3 Ml Neb) 3 ml INHALATION RT-Q2H PRN PRN Reason: Shortness Of Breath Or Wheezing Albuterol/Ipratropium (Ipratropium-Albuterol 3 Ml Neb) 3 ml INHALATION RT-QID [facility] Last Admin: 02/07/24 12:02 Dose: 3 ml Amiodarone HCl (Amiodarone 200 Mg Tab) 200 mg PO BID [facility] Last Admin: 02/07/24 09:05 Dose: 200 mg Apixaban (Apixaban 5 Mg Tab) 5 mg PO BID [facility]; Protocol Last Admin: 02/07/24 09:05 Dose: 5 mg Ascorbic Acid (Ascorbic Acid 500 Mg Tab) 500 mg PO DAILY@1200 [facility] Last Admin: 02/07/24 12:29 Dose: 500 mg Aspirin (Aspirin 81 Mg) 81 mg PO DAILY [facility] Last Admin: 02/07/24 09:05 Dose: 81 mg Atorvastatin Calcium (Atorvastatin 20 Mg Tab) 20 mg PO QAM [facility] Last Admin: 02/07/24 09:05 Dose: 20 mg Benzocaine/Menthol (Benzocaine/Menthol Lozeng 1 Each Lozenge) 1 each MUCOUS MEM Q4HR PRN PRN Reason: Cough Last Admin: 02/02/24 23:44 Dose: 1 each Bisacodyl (Bisacodyl 10 Mg Supp) 10 mg RECTAL DAILY PRN PRN Reason: Constipation Dapagliflozin (Dapagliflozin Propanediol 10 Mg Tablet) 10 mg PO [facility] Last Admin: 02/06/24 20:21 Dose: 10 mg Dextrose/Water (Dextrose 50% Syringe 50 Ml) 25 ml IVP PER PROTOCOL PRN; Protocol PRN Reason: Hypoglycemia Dextrose/Water (Dextrose 50% Syringe 50 Ml) 50 ml IVP PER PROTOCOL PRN; Protocol PRN Reason: Hypoglycemia Ferrous Sulfate (Ferrous Sulfate 325 Mg Tab) 325 mg PO W/LUNCH [facility] Last Admin: 02/07/24 12:29 Dose: 325 mg Furosemide (Furosemide 10 Mg/Ml 2 Ml Vial) 20 mg IV BID@0800,1600 [facility] Last Admin: 02/07/24 15:56 Dose: 20 mg Glipizide (Glipizide 10 Mg Tab) 10 mg PO QAM [facility] Last Admin: 02/07/24 09:05 Dose: 10 mg Guaifenesin (Guaifenesin 600 Mg Tablet.Er) 1,200 mg PO Q12HR [facility] Last Admin: 02/07/24 09:05 Dose: 1,200 mg Amiodarone HCl 150 mg/ (Dextrose/Water) 103 mls @ 618 mls/hr IV .Q10M PRN; Protocol PRN Reason: A.FIB/FLUTTER Insulin Aspart (Insulin Aspart (Novolog) 100 Unit/Ml Vial) 0 unit SQ [id number] [facility]; Protocol Last Admin: 02/07/24 12:29 Dose: 2 unit Insulin Aspart (Insulin Aspart (Novolog) 100 Unit/Ml Vial) 2 unit SQ AC-TID [facility] Last Admin: 02/07/24 12:30 Dose: 2 unit Insulin Detemir (Insulin Detemir (Levemir) 100 Unit/Ml Syr) 15 unit SQ [facility] Last Admin: 02/06/24 20:21 Dose: 15 unit Lisinopril (Lisinopril 5 Mg Tab) 5 mg PO DAILY [facility] Last Admin: 02/07/24 09:05 Dose: 5 mg Magnesium Hydroxide (Magnesium Hydroxide 2,400 Mg/30 Ml Cup) 2,400 mg PO BID PRN PRN Reason: Constipation Melatonin (Melatonin 3 Mg Tablet) 6 mg PO [facility] Last Admin: 02/06/24 20:21 Dose: 6 mg Metformin HCl (Metformin 500 Mg Tab) 1,000 mg PO AC-BID [facility] Last Admin: 02/07/24 06:55 Dose: 1,000 mg Metoprolol Tartrate (Metoprolol Tartrate 50 Mg Tab) 50 mg PO BID [facility] Last Admin: 02/07/24 09:05 Dose: 50 mg Miscellaneous Information (Potassium Replacement Protocol 1 Each Misc) 1 each MISCELLANE DAILY PRN; Protocol PRN Reason: Per Protocol Miscellaneous Information (Magnesium Replacement Protocol 1 Each Misc) 1 each MISCELLANE DAILY PRN; Protocol PRN Reason: Per Protocol Ondansetron HCl (Ondansetron 4 Mg/2 Ml Vial) 4 mg IVP Q6HR PRN PRN Reason: Nausea And Vomiting Pantoprazole Sodium (Pantoprazole 40 Mg Tablet) 40 mg PO AC-BRKFST [facility] Last Admin: 02/07/24 06:55 Dose: 40 mg Petrolatum (Zinc Oxide Paste (Z-Guard) 1 Applic) 1 applic TOPICAL Q2HR PRN; Protocol PRN Reason: Wound Healing Senna/Docusate Sodium (Sennosides-Docusate Sodium 1 Each Tab) 2 each PO HS PRN PRN Reason: Constipation Sodium Chloride (Sodium Chloride 0.9% Flush 10 Ml Syringe) 10 ml IV BID [facility] Last Admin: 02/07/24 09:06 Dose: Not Given Tamsulosin HCl (Tamsulosin 0.4 Mg Cap.Er.24h) 0.4 mg PO PC-SUPPER [facility] Last Admin: 02/06/24 16:52 Dose: 0.4 mg Social history: . No smoking no alcohol Physical examination: VITAL SIGNS: 98, 55, 16, 96/56, 96% room air GENERAL: Up in recliner, EYES: Pupils equal. Conjunctiva dylan l. HEENT: External appearance of nose and ears normal, oral cavity grossly normal. NECK: JVD unable to assess; masses not palpable. HEART: Heart sounds muffled; no edema. LUNGS: Respiratory rate increased; decreased breath sounds. ABDOMEN: Soft, nontender, liver spleen not palpable, no masses palpable. Hopkins catheter PSYCH: Alert and x 3, mood affect normal l. INVESTIGATIONS, reviewed in the clinical context: February 06: White count 10.4 hemoglobin 10 potassium 4 creatinine 1.02 February 05: White count 8.8 hemoglobin 9.4 platelets 228 sodium 130 potassium 3.9 creatinine 0.99 January 31: White count 12.1 hemoglobin 10.4 platelets 110 potassium 4.3 creatinine 1.08 January 30 04/22/2024: White count 3.3 hemoglobin 11.9 platelets 130 sodium 136 potassium 4.6 BUN 26 creatinine 1.28 January 30, 2024: White count 13.7 hemoglobin 12.4 platelets 154 Previously today: White count 12.9 hemoglobin 13.6 potassium 4.2 creatinine 1.24 Assessment plan: -Biobentall procedure, for ascending arctic aneurysm and severe arctic insufficiency -Mild acute postprocedure blood loss anemia expected from surgery Follow H&H, ferrous sulfate -Thrombocytopenia likely dilutional-corrected -Morbid obesity BMI 41.9 Weight loss measures -Diabetes mellitus type 2, chronically insulin Resume home medications to include metformin, Glucotrol, Farxiga. Follow sliding scale -Urine outflow obstruction likely BPH Hopkins catheter replaced. Flomax a -Hyperlipidemia Lipitor -Essential hypertension At home patient takes Zestril, Lopressor -Paroxysmal atrial fibrillation.: Currently in sinus rhythm Previous ablation. Eliquis. Cordarone. Lopressor 50 mg twice daily -Obstructive sleep apnea Uses CPAP -Chronic congestive heart failure from systolic dysfunction EF 45 to 50% with global hypokinesia on LUCY on December 26, [address] Brandon Jimenez -Full code Continue current medication treatment plan. Follow Accu-Cheks Past Medical History Past Medical History: Atrial Fibrillation, Heart Failure, Diabetes Mellitus, Hyperlipidemia, Hypertension, Sleep Apnea/CPAP/BIPAP Additional Past Medical History / Comment(s): uses CPAP, SOB w/exertion History of Any Multi-Drug Resistant Organisms: None Reported Past Surgical History: Cardiac Ablation, Heart Catheterization, Hernia Repair, Orthopedic Surgery, Tonsillectomy Additional Past Surgical History / Comment(s): Bilat. knee surgery(6 surgeries) 1967 - 1973, hiatal hernia repair 1984, colonoscopy, cardioversion, LUCY Past Anesthesia/Blood Transfusion Reactions: No Reported Reaction Smoking Status: Never smoker
[2024-02-07 16:27] LABS: Glucose,Whole Blood 175 mg/dL (70-110)
[2024-02-07 20:22] LABS: Glucose,Whole Blood 167 mg/dL (70-110)
[2024-02-08 02:20] LABS: Glucose,Whole Blood 134 mg/dL (70-110)
[2024-02-08 03:28] VITALS: RESP 15; TEMP 97.7
[2024-02-08 06:19] LABS: Glucose,Whole Blood 144 mg/dL (70-110)
[2024-02-08 07:26] LABS: Glucose,Whole Blood 138 mg/dL (70-110)
--- NOTE | 2024-02-08 07:36 | XR ---
EXAMINATION TYPE: XR chest 2V DATE OF EXAM: 02/08/2024 COMPARISON: 02/07/2024 HISTORY: 63 year-old male post cardiac surgery TECHNIQUE: PA and lateral views FINDINGS: Median sternotomy wires are prosthetic aortic valve. Heart remains mildly enlarged. Patchy bilateral lower lung opacities remain. Small bilateral pleural effusions better seen on the lateral view. IMPRESSION: Overall similar cardiomegaly with ongoing small bilateral pleural effusions with adjacent patchy atel ectasis and/or consolidation.
[2024-02-08 08:04] VITALS: BP 149/69
--- NOTE | 2024-02-08 09:06 | P.PN ---
Subjective Progress Note Date: 02/08/24 Principal diagnosis: Aortic root aneurysm with severe aortic insufficiency, ascending aortic aneurysm. Previous medical history of nonischemic cardiomyopathy ejection fraction 45-50%, hypertension, hyperlipidemia, paroxysmal atrial fibrillation on Eliquis for anticoagulation as an outpatient status post cardioversion in October 2019 and subsequent ablation in February 2020, obstructive sleep apnea with home CPAP use, diabetes mellitus type 2, obesity, and family history of brandy ature coronary artery disease. POD #9 Biobentall (#29mm [place]), left atrial appendage ligation with #35mm AtriClip, intraoperative transesophageal echocardiogram completed by anesthesia. Postoperative acute blood loss anemia, expected given hemodilution and cardiopulmonary bypass. Paroxysmal atrial fibrillation, a known common occurrence after cardiac surgery and expected given patient's history of atrial fibrillation status post ablation in 2019. The patient was seen and examined sitting up in recliner on the cardiac stepdown unit in no acute distress eating breakfast. States pain is mostly controlled on current medication regimen, denies shortness of breath. Remains in controlled atrial fibrillation, hemodynamically stable. Patient has been ambulatory with assistance. Was being considered for inpatient rehab, however apparently the patient is now doing too good and [facility] will not take him so plan is for discharge home with home care. Patient and expressed concern/nervousness regarding being sent home with Hopkins catheter, Hopkins catheter discontinued again yesterday for trial void, patient has been able to void and does not want to go home with Hopkins catheter present. Will have patient follow-up with urology outpatient. Anticipate discharge to home with home care this afternoon, patient states he feels ready to go home. No other new concerns. Objective - Vital Signs Vital signs: Vital Signs Temp 97.7 F 02/08/24 08:00 Pulse 76 02/08/24 08:10 Resp 15 02/08/24 08:00 BP 149/69 02/08/24 08:00 Pulse Ox 98 02/08/24 08:00 FiO2 21 02/08/24 07:58 Intake & Output 02/07/24 02/08/24 02/08/24 18:59 06:59 18:59 Intake Total 380 Output Total 2900 1100 Balance -2520 -1100 Intake: IV 20 Invasive Line 5 20 Oral 360 Output: Urine 2150 1100 Post Void Residual 750 Other: Voiding Method Indwelling Catheter Urinal # Voids 1 # Bowel Movements 1 ABP, PAP, CO, CI - Last Documented Arterial Blood Pressure 123/50 Pulmonary Artery Pressure 27/12 Cardiac Output 10 Cardiac Index 3.7 - Exam CONSTITUTIONAL: Appears comfortable, cooperative, no acute distress RESPIRATORY: Lungs sounds diminished bilaterally. Respirations even, nonlabored. Currently on room air with oxygen saturation 95%. Able to achieve 0265-7510 mL on incentive spirometry. Strong cough. CARDIOVASCULAR: S1, S2 present. Irregular rate and rhythm, controlled atrial fibrillation on telemetry. Sternum stable. Palpable peripheral pulses bilaterally. Generalized edema present. No calf pain or tenderness noted. Heart hugger in place with patient demonstrating appropriate use. Antiembolism stockings, SCDs present. GASTROINTESTINAL: Abdomen soft, nontender, nondistended. Active bowel sounds present 4 quadrants. Tolerating diet. Positive bowel movement 02/06 GENITOURINARY: Continues to void clear, yellow urine. Output 3250 mL in the last 24 hours INTEGUMENTARY: Skin is warm and dry with evidence of good perfusion. Anterior chest incision well approximated NEUROLOGIC: Cranial nerves II through XII intact MUSKULOSKELETAL: Able to move all extremities, strength equal bilaterally, gait normal PSYCHIATRIC: Alert and oriented to person place and time, appropriate affect, intact judgment and insight - Allied health notes Allied health notes reviewed: nursing - Labs CBC & Chem 7: 02/07/24 07:41 02/07/24 07:41 Labs: Abnormal Lab Results - Last 24 Hours (Table) 02/07/24 02/07/24 02/07/24 Range/Units 11:56 16:25 20:20 POC Glucose (mg/dL) 163 H 175 H 167 H (70-110) mg/dL 02/08/24 02/08/24 02/08/24 Range/Units 02:16 06:17 07:15 POC Glucose (mg/dL) 134 H 144 H 138 H (70-110) mg/dL - Imaging and Cardiology Chest x-ray: report reviewed, image reviewed Assessment and Plan Assessment: Aortic root aneurysm with severe aortic insufficiency, status post Biobentall (#29mm [place]) Ascending aortic aneurysm, status post Biobentall (#29mm [place]) Mild mitral and tricuspid regurgitation Nonischemic cardiomyopathy, chronic diastolic heart failure, EF 45-50% Hypertension Dyslipidemia, triglycerides 176, LDL 65, cholesterol 141, HDL 40.8 Paroxysmal atrial fibrillation on Eliquis for anticoagulation, status post cardioversion in October 2019, ablation in February 2020, status post left atrial appendage ligation with a 35 mm AtriClip Diabetes mellitus type II, with preoperative hemoglobin A1c 8.1% Morbid obesity Lifetime non-smoker, preoperative FEV1 73% of predicted Obstructive sleep apnea with home CPAP use Family history of premature coronary artery disease Postoperative acute blood loss anemia, expected given hemodilution and cardiopulmonary bypass Urinary retention, unspecified requiring placement of Hopkins catheter Plan: Continue to maximize medical therapy with low-dose aspirin, statin, and beta- henrietta Continue lisinopril for afterload reduction. Increase activity as tolerated. PT/OT/cardiac rehab following. Continue amiodarone for atrial fibrillation, continue Eliquis for anticoagulation Encourage incentive spirometry use 10 times every hour while awake. Bronchodilator management per pulmonary Will monitor daily labs and chest x-rays. Electrolyte replacement per protocol. Sputum culture finalized as negative. Continue Lasix GI/DVT prophylaxis. Insulin management per internal medicine. Preoperative hemoglobin A1c 8.1%. Pain control per current medication regimen. Continue Flomax 0.4 mg p.o. daily Continue record strict and accurate I's and O's Daily weights Shower daily Discharge planning is in place, anticipate discharge home with home health care this afternoon More recommendations to follow on patient's clinical course
[2024-02-08 10:26] LABS: HCT 32.3 % (39.0-53.0); Hypochromasia Slight; MCH 29.2 pg (25.0-35.0); MCHC 30.8 g/dL (31.0-37.0); MCV 94.8 fL (80.0-100.0); Mean Platelet Volume 7.8; Platelet Count 328 k/uL (150-450); RBC 3.41 m/uL (4.30-5.90); RDW 14.5 % (11.5-15.5)
[2024-02-08 10:53] LABS: African American GFR (CKD) 87 (>60 ml/min/1.73 sqM); Anion Gap 7 mmol/L; Blood Urea Nitrogen 27 mg/dL (9-20); Calcium 8.2 mg/dL (8.4-10.2); Carbon Dioxide 21 mmol/L (22-30); Chloride 101 mmol/L (98-107); Glucose 175 mg/dL (74-99); Magnesium 2.3 mg/dL (1.6-2.3); Non-African American GFR(CKD) 75 (>60 ml/min/1.73 sqM); Potassium 4.3 mmol/L (3.5-5.1); Sodium 129 mmol/L (137-145)
[2024-02-08 12:15] LABS: Glucose,Whole Blood 182 mg/dL (70-110)
--- NOTE | 2024-02-08 13:07 | P.PN ---
Subjective Progress Note Date: 02/08/24 Principal diagnosis: Shortness of breath. This is a 63-year-old male patient with a known history of atrial fibrillation and previous ablation approximately 4 years ago maintained on Eliquis, diabetes mellitus, hyperlipidemia, hypertension, obstructive sleep apnea utilizing CPAP, nonischemic cardiomyopathy who was recently found to have impaired left ventricular systolic function with ejection fraction of 45 to 50% and severe aortic regurgitation and aneurysmal ascending aorta measuring 4.4 cm. He was brought in electively today for surgery with Dr. Leigh. He did undergo aortic valve replacement with a biobentall #29 Kon[place], left atrial appendage ligation with atrial clip placement and follow-up transesophageal echocardiogram. He is seen currently in the intensive care unit. He is intubated on the mechanical ventilator with current settings of assist-control mode of 16, tidal volume 550 and FiO2 70% and a PEEP of 10. Initial blood gases on 100% FiO2 and a rate of 12 revealed a PaO2 of 166, pCO2 of 54 and a pH of 7.28. Chest x-ray reveals evidence of the endotracheal tube and nasogastric tube as well as a [place] catheter suspected in place. X-ray is somewhat underpenetrated. 2 mediastinal chest tubes and a right-sided chest tube in place. Right IJ [place] catheter in place. Cardiac output 6.9. Cardiac index 2.5. PA pressures 34/18. CVP 12. Currently in sinus rhythm. He is on lactated Ringer's at 50 MLS per hour. Propofol at 30 mcg/kg/min. Insulin drip at 3 units/h. Nitroglycerin drip at 10 mcg/min. He did receive albumin. Receiving bronchodilators. Received cefazolin. Initiated on Cleviprex at 2 mg/h. Patient was evaluated today on 01/31/24 POD #1 Biobentall (#29mm Konnect), left atrial appendage ligation with #35mm AtriClip, patient was extubated yesterday rated the extubation quite well, he is sitting in a bedside chair today, he was successfully extubated at 8:52 p.m. Currently on 6 L nasal cannula, O2 sat is 94%, patient is not in any distress, achieving almost 1500 cc on his incentive spirometry. For complaint except for minimal cough, nonproductive, no fever, no chills, no hemoptysis, and no chest pain. He did receive a unit of platelets last evening, continues to have mediastinal and right pleural chest tubes, no airleak is noted, mediastinal chest tube drained about 200 cc overnight, the right pleural chest tube drained 140 cc since last night. Patient is hemodynamically stable not requiring any pressors, cardiac output is 5.4 cardiac index is 2.0. Chest x-ray is showing minimal atelectasis at the base. CBC is relatively normal hemoglobin is 11.9. Platelets today are 130,000 basic metabolic profile is normal, except for BUN of 26 creatinine 1.28 Patient was evaluated today on 02/01/2024, he is now postoperative day #2. Patient is doing well, asymptomatic, on room air, does not seem to be in any distress, he is receiving lactated Ringer's at 50 cc/h insulin remains 11.5 units/h he is achieving over 1000 cc on his incentive spirometer. Chest x-ray showed minimal nonspecific atelectasis. Small tiny bilateral pleural effusions noted, right-sided chest tube noted, tip of the [place] catheter is in the main pulmonary artery region. Patient denies any cough or wheezing no shortness of breath no chest pain. No abdominal pain no nausea no vomiting WBC count is 12.1 hemoglobin is 10.4 basic metabolic profile is normal renal profile is better today creatinine down to 1.08 from 1.28 yesterday. Patient was evaluated today on 02/02/2024,POD #3 Biobentall (#29mm Konnect), left atrial appendage ligation with #35mm AtriClip. Patient continues to do well, however he is on 5 L nasal cannula. O2 sats is 95%, still achieving about 1000 cc via incentive spirometry. He had a Tmax of 101 last night, he had a minimal productive cough this morning with aguilar tenacious sputum. Patient is hemodynamically stable, not in any distress, continues to have mediastinal chest tube, minimal drainage overnight. Catheter was discontinued yesterday.Chest x- ray showed cardiomegaly and small pleural effusions. WBC count is 10.7 hemoglobin 10.1 basic metabolic profile is normal renal profile is normal Patient was reevaluated today on 02/03/2024, he is now postoperative day #4. Remains in the ICU, patient denies any specific complaints, compliant with his incentive spirometry, does not seem to be in any distress, however his FiO2 requirement has gone up, he is now on 8 L high flow nasal cannula. O2 saturation is in the 95% range, chest x-ray showed minimal atelectasis, no clear-cut evidence of congestive heart failure. Patient went into atrial fibrillation last night, and remains in atrial fibrillation with a rate of 112. Patient was given amiodarone 300 mg over 2-hour. As per cardiology recommendation. Remains on amiodarone orally 200 mg p.o. twice daily. Patient is otherwise hemodynamically stable, not in distress, urine output in the last 8 hours has been excellent. He did receive Lasix yesterday with excellent diuresis. Continues to have the mediastinal chest tube, remains in place, and it is on suction at -20 cm. No leak, minimal drainage over the last 24 hours, roughly about 25 ML labs today were reviewed WBC count is 9.1 hemoglobin is 9.6 electrolytes are normal BUN is 39 creatinine 1.01 The patient is seen today in the intensive care unit. Postoperative day #5. He is currently sitting up in chair at the bedside. Awake and alert in no acute distress. He denies any worsening shortness of breath, cough or congestion. He is maintaining good O2 saturations in the 90s on 2 L/min per nasal cannula. He is afebrile. Hemodynamically stable. X-ray continues to show some mild pulmonary vascular congestion and patchy atelectasis. He is working well with the incentive spirometer. He completed ceftriaxone. Sputum culture pending. White count 8.3. Hemoglobin 9.6. Platelets 156. Sodium 132. Potassium 3.6. Bicarb 29. BUN 38. Creatinine 1.14. Glucose 132. The patient is seen today February 05, 2024 in follow-up in the intensive care unit. Postoperative day #6. He is awake and alert in no acute distress. Sitting up in a chair at the bedside. Maintaining good O2 saturations in the 90s on room air. Chest x-ray does continue to show basilar atelectasis. He is again encouraged regarding the increased use of the incentive spirometer. His chest tube is to be removed today. Hopkins catheter to be removed. He did require albumin with additional Lasix this morning. He is anticoagulated with Eliquis. He remains in atrial fibrillation with a controlled ventricular rate. Sputum culture revealed no growth. 3. Sodium 132. Potassium 3.5. Bicarb 24. BUN 30. Creatinine 1.07. Glucose 146. He remains on bronchodilators. The patient is seen today February 06, 2024 in follow-up in the intensive care unit. Postoperative day #7. He is currently sitting up in a chair. Awake and alert in no acute distress. Maintaining good O2 saturations in the 90s on room air. No IV fluids. Chest x-ray reveals mild pulmonary vascular congestion. Patchy bilateral airspace disease and small left pleural effusion. He is again encouraged regarding the increased use in the incentive spirometer. Chest tubes are out. White count 8.8. Hemoglobin 9.4. Platelets 228. Sodium 130. Potassium 3.9. Bicarb 25. BUN 27. Creatinine 0.99. Glucose 134. [place] catheter had to be replaced left evening. He remains on Eliquis for anticoagulation. He remains in atrial fibrillation. Continued on bronchodilators. Progress note dated February 07, 2024. 63-year-old male seen today in room 362. He was in the intensive care unit yesterday. He is currently on room air, and not receiving any IV fluids. He is postop day #8, status post aortic valve replacement. Clinically, the patient is doing well. He is hoping to be discharged soon. His white count is 10.4, hemoglobin 10, hematocrit 32.5, and platelet count is 305,000. Sodium 132, potassium 4, chlorides 102, CO2 26, BUN 25, creatinine 1.02. Glucose is 89. Calcium is 8.0. Sputum was negative. Chest x-ray showed continued improvement in the patient's pulmonary vascular congestion. Progress note dated February 08, 2024. The patient is seen today in room 362. The patient is on room air. He is not receiving any IV fluids. The patient is hoping to be discharged home. That decision has not been made as yet. He is postop day #9, status post aortic valve replacement. White count is 9, hemoglobin 10.0, hematocrit 32.3, platelet count of 328,000. Sodium 129, potassium 4.3, chlorides 101, CO2 21, BUN 27, and creatinine 1.04. The patient's chest x-ray is largely unchanged. There is cardiomegaly. There are small effusions and atelectasis at the bases. Objective - Vital Signs Vital signs: Vital Signs Temp 97.7 F 02/08/24 08:00 Pulse 72 02/08/24 11:35 Resp 15 02/08/24 08:00 BP 149/69 02/08/24 08:00 Pulse Ox 98 02/08/24 08:00 FiO2 21 02/08/24 07:58 Intake & Output 02/07/24 02/08/24 02/08/24 18:59 06:59 18:59 Intake Total 380 118 Output Total 2900 1100 700 Balance -2520 -1100 -582 Intake: IV 20 Invasive Line 5 20 Oral 360 118 Output: Urine 2150 1100 700 Post Void Residual 750 Other: Voiding Method Indwelling Catheter Urinal # Voids 1 # Bowel Movements 1 ABP, PAP, CO, CI - Last Documented Arterial Blood Pressure 123/50 Pulmonary Artery Pressure 27/12 Cardiac Output 10 Cardiac Index 3.7 - Exam No acute distress, oriented 3. No respiratory distress. Currently on room air. HEENT examination is grossly unremarkable. Mucous membranes are moist. No oral lesions. Neck supple. Full range of motion. No adenopathy thyromegaly or neck vein distention. Cardiovascular examination reveals regular rhythm rate. S1-S2 normal. No S3 or S4. No discernible murmur noted. Heart rate 70 bpm. Lungs reveal mild bilateral scattered rhonchi. No wheezes or crackles. Breath sounds are equal. Saturations on room air are 98 %. Abdomen soft bowel sounds are heard. No masses or tenderness. Extremities are intact. No cyanosis clubbing or edema. Skin is without rash or lesion. Neurologic examination is brief but nonfocal. - Labs CBC & Chem 7: 02/08/24 10:07 02/08/24 10:07 Labs: Abnormal Lab Results - Last 24 Hours (Table) 02/07/24 02/07/24 02/08/24 Range/Units 16:25 20:20 02:16 RBC (4.30-5.90) m/uL Hgb (13.0-17.5) gm/dL Hct (39.0-53.0) % MCHC (31.0-37.0) g/dL Sodium (137-145) mmol/L Carbon Dioxide (22-30) mmol/L BUN (9-20) mg/dL Glucose (74-99) mg/dL POC Glucose (mg/dL) 175 H 167 H 134 H (70-110) mg/dL Calcium (8.4-10.2) mg/dL 02/08/24 02/08/24 02/08/24 Range/Units 06:17 07:15 10:07 RBC 3.41 L (4.30-5.90) m/uL Hgb 10.0 L (13.0-17.5) gm/dL Hct 32.3 L (39.0-53.0) % MCHC 30.8 L (31.0-37.0) g/dL Sodium (137-145) mmol/L Carbon Dioxide (22-30) mmol/L BUN (9-20) mg/dL Glucose (74-99) mg/dL POC Glucose (mg/dL) 144 H 138 H (70-110) mg/dL Calcium (8.4-10.2) mg/dL 02/08/24 02/08/24 Range/Units 10:07 12:12 RBC (4.30-5.90) m/uL Hgb (13.0-17.5) gm/dL Hct (39.0-53.0) % MCHC (31.0-37.0) g/dL Sodium 129 L (137-145) mmol/L Carbon Dioxide 21 L (22-30) mmol/L BUN 27 H (9-20) mg/dL Glucose 175 H (74-99) mg/dL POC Glucose (mg/dL) 182 H (70-110) mg/dL Calcium 8.2 L (8.4-10.2) mg/dL Assessment and Plan Assessment: Ascending aortic aneurysm measuring 4.4 cm with severe aortic insufficiency, . S/p aortic valve replacement with a Biobentall #29 [place], left atrial appendage ligation with a #35 mm atrial clip and a intraoperative transesophageal echocardiogram, postoperative day #9. Nonischemic cardiomyopathy with an ejection fraction of 45 to 50%. History of atrial fibrillation status post ablation. Urinary retention. History of hypertension. Hyperlipidemia. Diabetes mellitus. Obesity with a BMI of 42 kg/m. Obstructive sleep apnea utilizing CPAP. Lifelong non-smoker. Plan: Plan dated February 07, 2024. The patient is doing much better. Today he is seen in room 362. He was in the intensive care unit yesterday. He is on room air. His saturations are in the mid 90s. He is not short of breath. The patient is not receiving any IV fluids. Today is postop day #8, status post aortic valve replacement and Bentall procedure. We will continue to follow and make recommendations along the way. Labs, x-rays, and all medications are reviewed. Prognosis is guarded. Plan dated February 08, 2024. The patient is seen today in room 362. The patient is postop day #9, status post aortic valve replacement. He is on room air. He is not receiving any IV fluids. Labs, and x-rays are reviewed. Clinically, the patient is doing well. He is hoping to be discharged home either today, or tomorrow. We will continue to follow. Prognosis is guarded. We recommend ongoing use of the incentive spirometer, as well as deep breathing, coughing, clearing of secretions. Prognosis is guarded. Time with Patient: Less than 30
--- NOTE | 2024-02-08 13:14 | P.PN ---
Subjective Progress Note Date: 02/08/24 Valvular heart disease The patient is a pleasant 63-year-old gentleman with morbid obesity as well as hypertension and dyslipidemia and aortic insufficiency and dilated aortic root and paroxysmal atrial fibrillation was admitted to the hospital and underwent aortic valve replacement along with aortic root replacement and reimplanting the coronary arteries. He went into atrial fibrillation but he is known to have paroxysmal atrial fibrillation. February 04, 2024 The patient was seen and evaluated this morning. He is in atrial fibrillation with controlled heart rate. He is on amiodarone. Will continue the current medical regimen and consider tapering down the dose of amiodarone. He need to be started on oral anticoagulation once the pacer wire out. Otherwise he is stable hemodynamically. He is not on any drips at this point. The chest x-ray was reviewed this morning. The physical examination is remarkable for morbidly obese patient with upper extremities edema and diminished breathing sounds bilaterally. February 05, 2024 The patient was seen and evaluated this morning. He remains in atrial fibrillation with controlled heart rate on the current medical regimen. Oral anticoagulation was initiated earlier today. Lasix was given because he still have bilateral lower extremities edema and also upper extremities edema. Beside that he seems to be stable from the cardiac standpoint of view. The examination is remarkable for irregular rhythm with soft systolic murmur and distant heart sounds and clear breathing sounds bilaterally and bilateral lower extremities edema February 06, 2024 The patient was seen and evaluated this morning. Overall he is stable. He continues to be in atrial fibrillation with controlled heart rate on the current medical regimen. Anticoagulation was initiated yesterday with his pressure is soft and has been in the 90s with that being said I am going to cut down the dose of lisinopril from 10 mg daily to 5 mg p.o. daily. Continue the current medical regimen including the current dose of amiodarone and consider tapering the dose down. Beside that his chest x-ray was reviewed today and seems to be stable and also his kidney function seems to be stable. The examination is remarkable for diminished breathing sounds bilaterally with irregular rhythm. 02/06 Patient has been transferred out of the intensive care unit and seen today at the cardiac stepdown unit. Patient has significant lower extremity edema for which IV Lasix will be ordered. Blood pressure 108/72, heart rate 59, pulse ox 97% on room air. Repeat blood work reveals hemoglobin of 10, BUN 25 creatinine 1.02. Telemetry is atrial fibrillation. He is using incentive spirometry re aching 1500 mL. The examination is remarkable for diminished breathing sounds bilaterally with irregular rhythm, bilateral lower extremity edema. 02/07 Patient is seen again today on the cardiac stepdown unit. He continues to have lower extremity edema and received 1 dose of IV Lasix yesterday followed by Lasix 20 mg twice daily. Telemetry is atrial fibrillation with controlled rate. Patient states he is going home later today. Blood pressure 149/69, heart rate 60, pulse ox 98% on room air. Repeat blood work reveals hemoglobin of 10, sodium 129, potassium 4.3, BUN 27 creatinine 1.04. Assessment Aortic valve replacement with aortic root replacement Paroxysmal atrial fibrillation Atrial fibrillation with controlled heart rate Multiple comorbid conditions Plan Continue the current medical regimen 1 dose of IV Lasix 40 mg now if tolerated Follow-up with the patient. Patient may follow-up in the office in 1 to 2 weeks after discharge. Patient is cleared by cardiology for discharge. Nurse practitioner note has been reviewed, I agree with documented findings and plan of care. Patient was seen and examined. Objective - Vital Signs Vital signs: Vital Signs Temp 97.7 F 02/08/24 08:00 Pulse 60 02/08/24 08:00 Resp 15 02/08/24 08:00 BP 149/69 02/08/24 08:00 Pulse Ox 98 02/08/24 08:00 FiO2 21 02/08/24 07:58 Intake & Output 02/07/24 02/08/24 02/08/24 18:59 06:59 18:59 Intake Total 380 Output Total 2900 1100 Balance -2520 -1100 Intake: IV 20 Invasive Line 5 20 Oral 360 Output: Urine 2150 1100 Post Void Residual 750 Other: Voiding Method Indwelling Catheter Urinal # Voids 1 # Bowel Movements 1 ABP, PAP, CO, CI - Last Documented Arterial Blood Pressure 123/50 Pulmonary Artery Pressure 27/12 Cardiac Output 10 Cardiac Index 3.7 - Labs CBC & Chem 7: 02/08/24 10:07 02/08/24 10:07 Labs: Abnormal Lab Results - Last 24 Hours (Table) 02/07/24 02/07/24 02/07/24 Range/Units 07:41 11:56 16:25 Sodium 132 L (137-145) mmol/L BUN 25 H (9-20) mg/dL Glucose 126 H (74-99) mg/dL POC Glucose (mg/dL) 163 H 175 H (70-110) mg/dL Calcium 8.0 L (8.4-10.2) mg/dL 02/07/24 02/08/24 02/08/24 Range/Units 20:20 02:16 06:17 Sodium (137-145) mmol/L BUN (9-20) mg/dL Glucose (74-99) mg/dL POC Glucose (mg/dL) 167 H 134 H 144 H (70-110) mg/dL Calcium (8.4-10.2) mg/dL 02/08/24 Range/Units 07:15 Sodium (137-145) mmol/L BUN (9-20) mg/dL Glucose (74-99) mg/dL POC Glucose (mg/dL) 138 H (70-110) mg/dL Calcium (8.4-10.2) mg/dL
[2024-02-08 13:18] VITALS: PULSE 55
--- NOTE | 2024-02-08 14:06 | P.DS ---
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 cardiac surgery Do you want consulting provider notified?: Yes Consult Physician Routine Consulting Provider: David Calixto Consult Reason/Comments: [facility]; [facility] patient Do you want consulting provider notified?: Yes 02/03/24 08:16 Consult Physician Routine Consulting Provider: Kiran Fox Consult Reason/Comments: urinary retention Do you want consulting provider notified?: Yes 02/03/24 08:26 Consult Physician Routine Consulting Provider: Kiran Fox Consult Reason/Comments: Urine retention Do you want consulting provider notified?: Yes 02/04/24 09:29 Consult Physician Routine Consulting Provider: Delano Carey Consult Reason/Comments: Evaluation for inpatient rehab Do you want consulting provider notified?: Yes Primary care physician: Constantin Catracho [facility] Course: FINAL DIAGNOSIS: Aortic root aneurysm with severe aortic insufficiency Ascending aortic aneurysm Mild mitral and tricuspid regurgitation Nonischemic cardiomyopathy, chronic diastolic heart failure, EF 45-50% Hypertension Dyslipidemia, triglycerides 176, LDL 65, cholesterol 141, HDL 40.8 Paroxysmal atrial fibrillation on Eliquis for anticoagulation, status post cardioversion in October 2019, ablation in February 2020 Diabetes mellitus type II, with preoperative hemoglobin A1c 8.1% Morbid obesity Lifetime non-smoker, preoperative FEV1 73% of predicted Obstructive sleep apnea with home CPAP use Family history of premature coronary artery disease Postoperative acute blood loss anemia, expected given hemodilution and cardiopulmonary bypass Urinary retention, unspecified requiring placement of Hopkins catheter PRINCIPAL PROCEDURE: Biobentall (#29mm [place]) Left atrial appendage ligation with #35mm AtriClip Intraoperative transesophageal echocardiogram completed by anesthesia HISTORY OF PRESENT ILLNESS: This is a 63-year-old gentleman who follows outpatient with Dr. Hayden for primary care and Dr. Taylor for cardiology. He had been experiencing episodes of dyspnea on exertion, although admittedly no significant increase over time. He also endorsed occasional lower extremity edema, denied any chest pain or any other symptomatology. He had an echocardiogram completed at [facility] demonstrating reduced left ventricular systolic function with EF 45 to 50%, along with severe aortic regurgitation and aneurysmal ascending aorta measuring 4.4 cm, along with mild mitral and tricuspid regurgitation. He was recommended to undergo heart catheterization and LUCY which were completed by Dr. Taylor. LUCY confirmed mildly impaired left ventricular systolic function with EF 45 to 50% with global hypokinesia, trileaflet aortic valve with severe aortic regurgitation, mild mitral and tricuspid regurgitation. Heart catheterization revealed no evidence of high-grade stenosis, 4+ aortic insufficiency was noted. Due to these findings consultation was placed to cardiothoracic surgery for treatment recommendations. He was recommended to undergo Bentall surgery. The usual perioperative course was discussed in detail with the patient and his family, all risks and benefits were explained, all questions were answered, and consent was obtained to proceed with surgery. The patient was scheduled electively at the earliest possible date after obtaining dental clearance. HOSPITAL COURSE: The patient was brought to the hospital on 01/30/24, taken to the preoperative area, prepared in the usual fashion, and subsequently taken to the operating room where Dr. Leigh performed by dionisio with left atrial appendage ligation. Upon completion of surgery the patient was transferred to the cardiovascular intensive care unit where he was recovered and monitored hemodynamically. He was extubated, all lines, tubes, and drips were dis continued when appropriate, he did experience postoperative atrial fibrillation which he has a history of, as well as urine retention requiring replacement of Hopkins catheter and initiation of Flomax. Eventually he was transferred to 3 S cardiac stepdown unit for further monitoring and rehabilitation. His oxygen was titrated down, he continued to work with physical and occupational therapy, he w as tolerating oral diet, his pain was controlled. Initially the plan was for discharge to inpatient rehab due to some generalized weakness, however the patient's stamina and mobility improved, and he was ready to be discharged to home with [facility] on [facility] day [facility]9. He received written and verbal instruction regarding his medications, activity restrictions, signs and symptoms requiring physician notification, and follow-up appointments. Patient Condition at Discharge: Stable Plan - Discharge Summary Discharge Rx Participant: Yes New Discharge Prescriptions: New Aspirin 81 mg PO DAILY #30 tab Amiodarone [Cordarone] 200 mg PO BID #60 tab guaiFENesin [Mucinex] 1,200 mg PO Q12HR PRN tab PRN Reason: Cough Pantoprazole [Protonix] 40 mg PO AC-BRKFST #30 tab Sennosides-Docusate Sodium [Senokot-S] 2 each PO HS PRN tab PRN Reason: Constipation Acetaminophen Tab [Tylenol] 1,000 mg PO Q6HR PRN tab PRN Reason: Fever And/ Or Pain Tamsulosin [Flomax] 0.4 mg PO PC-SUPPER #30 cap Melatonin 6 mg PO HS PRN tab PRN Reason: Insomnia Continue glipiZIDE [Glucotrol] 10 mg PO QAM Atorvastatin [Lipitor] 20 mg PO QAM Furosemide [Lasix] 40 mg PO QAM Apixaban [Eliquis] 5 mg PO BID Dapagliflozin Propanediol [Farxiga] 10 mg PO HS metFORMIN HCL 1,000 mg PO BID Changed lisinopriL [Zestril] 5 mg PO QAM #30 tab Metoprolol Tartrate [Lopressor] 50 mg PO BID #60 tab Discontinued Amiodarone HCl [Pacerone] 200 mg PO QAM Spironolactone 25 mg PO DAILY Discharge Medication List Apixaban [Eliquis] 5 mg PO BID 01/22/20 [History] Atorvastatin [Lipitor] 20 mg PO QAM 01/22/20 [History] Dapagliflozin Propanediol [Farxiga] 10 mg PO HS 01/22/20 [History] Furosemide [Lasix] 40 mg PO QAM 01/22/20 [History] glipiZIDE [Glucotrol] 10 mg PO QAM 01/22/20 [History] metFORMIN HCL 1,000 mg PO BID 12/25/23 [History] Acetaminophen Tab [Tylenol] 1,000 mg PO Q6HR PRN tab 02/08/24 [Rx] Amiodarone [Cordarone] 200 mg PO BID #60 tab 02/08/24 [Rx] Aspirin 81 mg PO DAILY #30 tab 02/08/24 [Rx] Melatonin 6 mg PO HS PRN tab 02/08/24 [Rx] Metoprolol Tartrate [Lopressor] 50 mg PO BID #60 tab 02/08/24 [Rx] Pantoprazole [Protonix] 40 mg PO AC-BRKFST #30 tab 02/08/24 [Rx] Sennosides-Docusate Sodium [Senokot-S] 2 each PO HS PRN tab 02/08/24 [Rx] Tamsulosin [Flomax] 0.4 mg PO PC-SUPPER #30 cap 02/08/24 [Rx] guaiFENesin [Mucinex] 1,200 mg PO Q12HR PRN tab 02/08/24 [Rx] lisinopriL [Zestril] 5 mg PO QAM #30 tab 02/08/24 [Rx] Follow up Appointment(s)/Referral(s): Cullen Smith MD [STAFF PHYSICIAN] - 03/03/24 8:45 am Yaa Cedeño NPC [Nurse Practitioner] - 02/18/24 1:00 pm (You will be seen in the surgeon's office behind the hospital in [facility], [address]. Office phone number is ) [facility],Cardiac [NON-STAFF] - 4 Weeks (You will receive a phone call in approximately 4-6 weeks for evaluation for cardiac rehab) Alireza Taylor MD [STAFF PHYSICIAN] - 02/18/24 1:30 pm (To be seen in the [address] office) Constantin Hayden MD [Primary Care Provider] - 02/19/24 1:00 pm [facility] [NON-STAFF] - 1-2 Days (To be seen the day after discharge then 2-3 times per week until you start cardiac rehab) Herb Leigh MD [STAFF PHYSICIAN] - 02/25/24 10:45 am Kiran Fox MD [STAFF PHYSICIAN] - 1 Week (Please call to make appointment) Ambulatory/Diagnostic Orders: Complete Blood Count w/diff [LAB.AMB] Time Frame: 3 Days, Location: None Selected Comprehensive Metabolic Panel [LAB.AMB] Time Frame: 3 Days, Location: None Lou cted Activity/Diet/Wound Care/Special Instructions: DISCHARGE INSTRUCTIONS: 1. No driving for 4 weeks, or until physician gives their ok. 2. The patient should sleep in their own bed, no medical bed needed. 3. Stairs are not an issue. If the bedroom is upstairs, it is advised that the patient go up at night and down in the morning for the first week. Go slowly, using handrail and take 1 step at a time. 4. ROSEANN hose are to be worn for 30 days post surgery or until physician discontinues. 5. Heart hugger is to be worn 100% of the time until physician discontinues .(except when showering) 6. No lifting, pushing, or pulling more than 10 pounds for 12 weeks. The physician will advise of any restriction changes. 7. The patient is expected to continue the prescribed walking program. 8. Continue pain control per as needed orders. 9. Continue with incentive spirometry and splinting/heart hugger until otherwise directed by the physician. 10. Must shower daily using liquid antibacterial soap 11. Routine sternal incision care. No powders, lotions, ointments on incisions. No dressings are necessary on incisions unless they are draining. Dermabond tape is to remain on sternal incision until surgeon follow-up. 12. Please call surgeon/SECOND FACING BASTER for temp greater than 101 F or purulent drainage from incisions. 13. You should weigh yourself daily, record and bring log with you to follow up appointments. 14. All prescriptions given by surgeon for 30 days. Refills need to be filled through supply clerk/primary care physician. 15. A Red armband has been placed on the patient. It should be worn for 30 days post discharge from surgery and will be removed by the cardiac surgeons. If an ER visit is necessary, please make sure the number on the Red armband is called before going to ER. 16. You have been referred to and are expected to begin Cardiac Rehab in approximately 4-6 weeks. 17. Quitting smoking is the most important step you can take to improve your health. For additional information and assistance to quit smoking, please call the [place] tobacco quit line (0-304-ZQIT-NOW/ ) or online: [email or web address] HEALTH SERVICES TO PROVIDE: RN SKILLED HOME CARE SERVICES FOR POST-OP SURGICAL PATIENTS WITH THE FOLLOWING: Coronary Artery Bypass Surgery (CABG), Mitral Valve Replacement/Repair ( MVR), Aortic Valve Replacement/Repair (AVR) RN TO CONTINUE EDUCATION FROM ``ROAD TO A HEALTH HEART PATIENT EDUCATION MANUAL (GIVEN TO PATIENT IN THE HOSPITAL) MEDICATION RECONCILIATION WITH EDUCATION NEEDED ON FIRST HOME VISIT EMPHASIZE IMPORTANCE OF WEARING BREAST SUPPORT/HEART HUGGER ENCOURAGE USE OF INCENTIVE SPIROMETER 10 X EVERY HOUR WHILE AWAKE ENCOURAGE UTILIZATION OF LOWER EXTREMITY COMPRESSION STOCKINGS/ROSEANN HOSE and ELEVATE LEGS ABOVE LEVEL OF HEART WHILE AT REST. ENCOURAGE AMBULATION 3-5x/day INCREASING TOLERATES, WHILE AVOIDING EXTREMES IN TEMPERATURE FREQUENCY: RN TO OPEN THE PATIENT WITHIN 24 HOURS OF DISCHARGE FROM THE HOSPITAL WITH TELEHEALTH INSTALLED AT [facility], RN TO VISIT 2-3 X A WEEK FOR 4 WEEKS ESTABLISHED BY PATIENT NEEDS. LABORATORY: CBC, CMP TO BE DRAWN ON THE THIRD DAY HOME, (RAN STAT) FAX RESULTS TO [phone]. TELEHEALTH PARAMETERS: WEIGHT: NOTIFY MD OF WEIGHT GAIN OF 2 LBS IN 24 HOURS OR 5 LBS IN ONE WEEK HR: NOTIFY MD OF HR <55 BPM OR HR>100 BPM BP: NOTIFY MD IF BP <90/55 OR BP>140/100 O2 SAT: NOTIFY MD IF PO2<93% ON ROOM AIR SEND TELEHEALTH REPORT TO DEVELOPMENT SPEC AND CARDIOVASCULAR SURGEON THE FIRST WEEK OF CARE AND THEN BI-WEEKLY. PLEASE ADDITIONALLY COMMUNICATE ANY ABNORMALS AND NEW FINDINGS TO THE SURGEONS OFFICE. Discharge Disposition: HOME WITH HOME HEALTH SERVICES
== END 2024-02-08 14:14 | disposition home health service (06) | DRG 219 ==
LOC: 2ORMAIN 05:34 → 2SICU 12:23 → 3SCARD 02-06 13:38
PROVIDERS: ADMIT Thoracic Surgery (Cardiothoracic Vascular Surgery); ATTEND Thoracic Surgery (Cardiothoracic Vascular Surgery)
PROC: 30243R1 Transfusion of Nonautologous Platelets into Central Vein, Percutaneous Approach (ICD-10-PCS; 2024-01-30)
PROC: 30283B1 Transfusion of Nonautologous 4-Factor Prothrombin Complex Concentrate into Vein, Percutaneous Approach (ICD-10-PCS; 2024-01-30)
PROC: 02L70CK Occlusion of Left Atrial Appendage with Extraluminal Device, Open Approach (ICD-10-PCS; principal; 2024-01-30 08:00)
PROC: 5A1221Z Performance of Cardiac Output, Continuous (ICD-10-PCS; principal; 2024-01-30 08:00)
PROC: 02RF08Z Replacement of Aortic Valve with Zooplastic Tissue, Open Approach (ICD-10-PCS; principal; 2024-01-30 08:00)
PROC: 02RX0JZ Replacement of Thoracic Aorta, Ascending/Arch with Synthetic Substitute, Open Approach (ICD-10-PCS; principal; 2024-01-30 08:00)
PROC: B24BZZ4 Ultrasonography of Heart with Aorta, Transesophageal (ICD-10-PCS; 2024-01-30 08:00)
DX: I71.21 Aneurysm of the ascending aorta, without rupture (principal); J96.01 Acute respiratory failure with hypoxia; D62 Acute posthemorrhagic anemia; Z68.41 Body mass index [BMI] 40.0-44.9, adult; I42.8 Other cardiomyopathies; I48.92 Unspecified atrial flutter; I50.22 Chronic systolic (congestive) heart failure; J98.11 Atelectasis; D69.6 Thrombocytopenia, unspecified; E66.01 Morbid (severe) obesity due to excess calories; I11.0 Hypertensive heart disease with heart failure; I35.2 Nonrheumatic aortic (valve) stenosis with insufficiency; E11.65 Type 2 diabetes mellitus with hyperglycemia; I48.0 Paroxysmal atrial fibrillation; Z28.310 Unvaccinated for COVID-19; E78.5 Hyperlipidemia, unspecified; I44.0 Atrioventricular block, first degree; G47.33 Obstructive sleep apnea (adult) (pediatric); N40.1 Benign prostatic hyperplasia with lower urinary tract symptoms; R39.15 Urgency of urination; K59.00 Constipation, unspecified; R26.2 Difficulty in walking, not elsewhere classified; R33.8 Other retention of urine; Z79.01 Long term (current) use of anticoagulants; Z79.84 Long term (current) use of oral hypoglycemic drugs; Z79.899 Other long term (current) drug therapy; Z71.3 Dietary counseling and surveillance
CPT/HCPCS: 71045; 71046; 80048; 80053; 81003; 82272; 82330; 82805; 83036; 83735; 84145; 85025; 85027; 85610; 85730; 86850; 86891; 86900; 86901; 86920; 87070; 87205; 87324; 88304; 88305; 94002; 94640; 94760